=== PATIENT | male | born 1960 | race Caucasian/White ===

== ENCOUNTER 2025-01-08 15:58 | Inpatient (IN) | payer MEDICARE, OTHER ==
[~2025-01-08] VITALS: Ht 172.7 cm; Wt 144.6 kg
--- NOTE | 2025-01-08 16:26 | ED.PDOC ---
History of Present Illness HPI Comments HPI: 64 y/o M, MARTINA, presents to the ED for CC of generalized weakness. Patient states, he has been experiencing generalized weakness with an associated non- productive cough [id number]. Upon arrival to the ED, patient was found to be tachycardiac at 140bpm. Patient reports, he is currently not taking an medicat ions d/t being unable to afford medical care. Patient denies fever, chills, body-aches, or sore-throat. No other symptoms or modifying factors present at this time. Vitals Temperature: Respiratory rate: SpO2: Heart rate: Blood pressure: Past Medical History:DM, HTN, GOUT, ASTHMA, OBESITY Past Surgical History: DENIES ANY Social History: DENIES ALL HPI: Poor Historian. REVIEW OF SYSTEMS: CONSTITUTIONAL: Denies acute: fever, diaphoresis, chills, HEAD: Denies acute: headache, photophobia Eyes: Denies acute: Double vision, vision loss, eye pain, eye discharge. EARS: Denies acute: tinnitus, hearing loss, ear discharge, ear pain, THROAT: Denies acute: sore throat, swelling, difficulty swallowing , pain with swallowing, change in voice. NECK: Denies acute: neck pain, neck swelling, stiff neck. HEART: Denies acute : chest pain, palpitations, LUNGS: Denies acute: wheezing, hemoptysis ABDOMEN: Denies acute: abdominal pain, Nausea, Vomiting, diarrhea, melena , hematemesis, hematochezia SKIN: Denies acute: rash, redness, lesions, itchiness. EXTREMITIES: Denies acute: calf pain, numbness, tingling, weakness, denies pain in extremity. Denies acute: Low back pain. Neuro: Denies acute: focal neurological deficit, motor or sensory focal neurological deficit, tremors, seizure like activity, confusion, dizziness, change in mental status, loss of bowel or bladder function, cauda equina like symptoms. : Denies acute: dysuria, hematuria, flank pain, increase in urinary frequency. PSYCH: Denies acute: hallucination, suicidal ideation, homicidal ideation. PHYSICAL EXAM: General: ----mild----acute distress, awake and alert. Head: normocephalic, atraumatic. Neck: supple, trachea is midline, no swelling. Throat: Normal phonation. Eyes:, no erythema, no purulent discharge, no proptosis, no icterus. Heart: regular tachycardia, no significant murmur appreciated. Lungs: no apparent respiratory distress, Able to speak in full sentences. No wheezing, right-sided rhonchi, no crackles. No stridors Abdomen: non tender to palpation, non distended, soft, no guarding, no rebound, + bowel sounds. Morbidly obese Neuro: Awake, Alert, oriented to name, self, situation, follows commands GCS=15. Speech is normal. Skin: no petechia, no purpura, no cyanosis, non-pale, not jaundice. Lower extremities: --2/4 bilateral - Pitting edema no deformity, no focal swelling, no calf TTP. Noted bilateral above the ankle Shadi wraps for swelling control Makes eye contact. Face: no apparent facial droop. ED COURSE: Time Seen by MD: 15:55 Reviewed Notes: Nurses Notes, Medications, Allergies Allergies: Coded Allergies: No Known Drug Allergy (Verified Allergy, Unknown, 01/08/25) Information Source: Patient Mode of Arrival: EMS Severity: Moderate Timing: Weeks Duration: Since onset Prehospital treatment: None Was a procedure done? Was a procedure done?: No Differential Dx Considerations may include: Includes but not limited to thyroid disease, encephalopathy, electrolyte abnormality, sepsis, infection, intracranial pathology, drug adverse effects, arrhythmia, kidney insufficiency, ACS, CVA, malignancy, anemia X-Ray, Labs, Meds, VS Vital Signs Date Time Temp Pulse Resp B/P (MAP) Pulse Ox O2 Delivery O2 Flow Rate FiO2 01/08/25 20:06 97.9 75 18 128/71 (90) 95 97.9 01/08/25 20:06 75 18 95 Room Air* 0 21 01/08/25 20:00 139 01/08/25 17:00 97.3 140 20 125/87 (100) 99 97.3 01/08/25 17:00 Room Air* 0 21 01/08/25 16:42 97.3 140 20 125/87 (100) 99 97.3 01/08/25 16:07 136 Lab Test 01/08/25 20:48 01/08/25 20:03 01/08/25 18:17 01/08/25 17:16 Range/Units Urine Color Yellow Yellow Urine Clarity Turbid H Clear Urine pH 5.5 5.0-9.0 Urine Specific [place] 1.025 1.001-1.035 Urine Protein 1+ H Negative Urine Ketones Negative Negative Urine Blood Trace H Negative /uL Urine Nitrite Negative Negative Urine Bilirubin Negative Negative Urine Urobilinogen 4 H Negative mg/dL Urine Leukocyte Esterase 3+ Negative /uL Urine RBC 10 0 - 3 /hpf Urine Microscopic WBC 174 H 0-3 /HPF Urine Squamous Epithelial Cells Few <5 /hpf Urine Bacteria Few H None Seen /hpf Urine Hyaline Casts Few 0 - 2 /lpf Urine Mucus Few None Seen Urine Glucose Normal Normal mg/dL Troponin I High Sensitivity 13 12 10 </=54 ng/L White Blood Count 8.2 4.4-10.8 10^3/uL Red Blood Count 4.43 L 4.5-5.90 10^6/uL Hemoglobin 11.7 L 13.5-17.5 g/dL Hematocrit 36.9 L 41.0-53.0 % Mean Corpuscular Volume 83.4 80.0-100.0 fL Mean Corpuscular Hemoglobin 26.5 L 28.0-32.0 pg Mean Corpuscular Hemoglobin Concent 31.7 L 32.0-36.0 g/dL Red Cell Distribution Width 17.7 H 11.8-14.3 % Platelet Count 236 140-450 10^3/uL Mean Platelet Volume 9.1 6.9-10.8 fL Neutrophils (%) (Auto) 77.5 37.0-80.0 % Lymphocytes (%) (Auto) 9.3 L 10.0-50.0 % Monocytes (%) (Auto) 11.2 0.0-12.0 % Eosinophils (%) (Auto) 1.0 0.0-7.0 % Basophils (%) (Auto) 1.0 0.0-2.0 % Neutrophils # (Auto) 6.3 1.6-8.6 10 ^3/uL Lymphocytes # (Auto) 0.8 0.4-5.4 10 ^3/uL Monocytes # (Auto) 0.9 0-1.3 10 ^3/uL Eosinophils # (Auto) 0.1 0-0.8 10 ^3/uL Basophils # (Auto) 0.1 0-0.2 10 ^3/uL Nucleated Red Blood Cells 0.3 % Sodium Level 139 136-145 mmol/L Potassium Level 4.3 3.5-5.1 mmol/L Chloride Level 108 H 98-107 mmol/L Carbon Dioxide Level 24 20-31 mmol/L Anion Gap 7 5-15 Blood Urea Nitrogen 16 9-23 mg/dL Creatinine 1.08 0.700-1.30 mg/dL Glomerular Filtration Rate Calc 76 >90 mL/min BUN/Creatinine Ratio 14.8 10.0-20.0 Serum Glucose 198 H 74-106 mg/dL Lactic Acid Level 2.0 0.4-2.0 mmol/L Calcium Level 8.7 8.7-10.4 mg/dL Magnesium Level 1.7 1.6-2.6 mg/dL Total Bilirubin 1.0 0.2-1.0 mg/dL Aspartate Amino Transferase (AST) 17 13-40 U/L Alanine Aminotransferase (ALT) 19 7-40 U/L Alkaline Phosphatase 133 H 46-116 U/L B-Type Natriuretic Peptide 245.75 0-100 pg/mL Total Protein 5.9 5.7-8.2 g/dL Albumin 3.3 3.2-4.8 g/dL Test 01/08/25 16:40 Range/Units Influenza Type A Antigen Negative Negative Influenza Type B Antigen Negative Negative SARS-CoV-2 Antigen (Rapid) Negative NEGATIVE Current Medications Medications (Trade) Dose Ordered Sig/Fatoumata Route Start Time Stop Time Status Last Admin Sodium Chloride 1,000 ml @ 1,000 mls/hr Q1H ONCE IV 01/08/25 16:00 01/08/25 16:59 DC 01/08/25 16:48 Ceftriaxone Sodium 50 ml @ 100 mls/hr ONCE ONCE IV 01/08/25 16:00 01/08/25 16:29 DC 01/08/25 16:48 Aspirin 162 mg ONCE ONCE PO 01/08/25 21:15 01/08/25 21:48 DC 01/08/25 22:23 [facility] [id number] [place] [id number] Ph: [phone] DIAGNOSTIC IMAGING Diagnostic Imaging Report : [id number] Signed PATIENT: BERLIN FREGOSO ACCT: [id number] UNIT: [id number] : 1960 LOC: ER ROOM / BED: / AGE / SEX: 64 / M ADM STATUS: REG ER SERVICE 1604 ORDERING PHYSICIAN: FAVIAN PACE DO PROCEDURE(s): CXRP - CHEST PORTABLE REASON: COUGH/WEAK TACHY ORDER NUMBER(s): [id number], ACCESSION NUMBER(s): [id number] EXAM: XY CHEST PORTABLE REASON FOR EXAM: COUGH/WEAK TACHY TECHNIQUE: 1 view of the chest COMPARISON: None FINDINGS/IMPRESSION: LUNGS: No pleural effusion, consolidation, or pneumothorax . Central pulmonary vascular congestion. MEDIASTINUM: Mild cardiomegaly. BONES: No acute osseous abnormality OTHER: None ATED BY: LENA KEARNS MD DICTATED DATE/TIME: 01/08/251658 SIGNED BY: LENA KEARNS MD SIGNED DATE/TIME: 01/08/251658 CC: Time of 1ST Reevaluation: 18:05 (All labs are still pending.) Reevaluation 1ST: Unchanged Patient Education/Counseling: Diagnosis, Treatment Family Education/Counseling: No Family Present Comments Patient presented with the above HPI.--generalized weakness----workup was i nitiated. patient was found with the above mentioned diagnosis. the following medications were ordered: please refer to order lists of meds and tests obtained by myself Dr. Pace. Patient ED course and VS have been stabilized. Patient has been reassessed in the ED and remained in a stable condition. Pertinent incidental findings were discussed with the patient and/or family. Patient/family voices understanding and is agreeable with plan. Patient has been observed in the ED adequate length of time to insure improvement/stability. Escalation of care considered: Consideration of escalation to observation or admission Antibiotics initiated. Although chest x-ray looks normal, patient clinically is noted to have right-sided rhonchi in the presence of a cough and weakness. Patient was ADMITTED to the medicine team for further evaluation and treatment of their presentation. All the reports of any imaging studies that were ordered by myself were reviewed by myself. Departure 1 Departure Time of Disposition: 17:08 Impression: Primary Impression: Atrial flutter Additional Impressions: Generalized weakness Pneumonia UTI (urinary tract infection) Disposition: ADMITTED INPATIENT Admit to: Tele Condition: Guarded Additional Instructions: [address] [address] Ph: [phone] DIAGNOSTIC IMAGING Diagnostic Imaging Report : [id number] Signed PATIENT: BERLIN FREGOSO ACCT: [id number] UNIT: [id number] : 1960 LOC: ER ROOM / BED: / AGE / SEX: 64 / M ADM STATUS: REG ER SERVICE 160 ORDERING PHYSICIAN: FAVIAN PACE DO PROCEDURE(s): CXRP - CHEST PORTABLE REASON: COUGH/WEAK TACHY ORDER NUMBER(s): [id number], ACCESSION NUMBER(s): [id number] EXAM: XY CHEST PORTABLE REASON FOR EXAM: COUGH/WEAK TACHY TECHNIQUE: 1 view of the chest COMPARISON: None FINDINGS/IMPRESSION: LUNGS: No pleural effusion, consolidation, or pneumothorax . Central pulmonary vascular congestion. MEDIASTINUM: Mild cardiomegaly. BONES: No acute osseous abnormality OTHER: None ATED BY: LENA KEARNS MD DICTATED DATE/TIME: 01/08/251658 SIGNED BY: LENA KEARNS MD SIGNED DATE/TIME: 01/08/251658 CC: Discharged With: Self Critical Care Note Critical Care Time?: No I personally scribed for FAVIAN PACE DO ([email or web address]) on 01/08/25 at 16:26. Electronically submitted by Latha Bello ([email or web address]). I personally scribed for FAVIAN PACE DO ([email or web address]) on 01/08/25 at 17:28. Lizbeth ctronically submitted by Latha Bello ([email or web address]). FAVIAN PACE DO January 08, 2025 16:26
[2025-01-08] MEDS: cefTRIAXone 1GM/50ML D5W 50 ML IV ONE (16:48)
[2025-01-08] MEDS: SODIUM CHLORIDE 0.9% 1,000 ML IV ONE (16:48)
--- NOTE | 2025-01-08 17:01 | DVH ---
EXAM: XY CHEST PORTABLE REASON FOR EXAM: COUGH/WEAK TACHY TECHNIQUE: 1 view of the chest COMPARISON: None FINDINGS/IMPRESSION: LUNGS: No pleural effusion, consolidation, or pneumothorax . Central pulmonary vascular congestion. MEDIASTINUM: Mild cardiomegaly. BONES: No acute osseous abnormality OTHER: None
[2025-01-08 17:50] LABS: Basophils # (auto) 0.1 10 ^3/uL (0-0.2); Eosinophils # (auto) 0.1 10 ^3/uL (0-0.8); Lymphocytes # (auto) 0.8 10 ^3/uL (0.4-5.4)
[2025-01-08 17:54] LABS: Hematocrit 36.9 % (41.0-53.0); Hemoglobin 11.7 g/dL (13.5-17.5); Lymphocytes % (auto) 9.3 % (10.0-50.0); Mean Corpuscular Hemoglobin 26.5 pg (28.0-32.0); Mean Corpuscular Hgb Conc. 31.7 g/dL (32.0-36.0); Mean Corpuscular Volume 83.4 fL (80.0-100.0); Monocytes # (auto) 0.9 10 ^3/uL (0-1.3); Monocytes % (auto) 11.2 % (0.0-12.0); Neutrophils # (auto) 6.3 10 ^3/uL (1.6-8.6); Neutrophils % (auto) 77.5 % (37.0-80.0); Nucleated Red Blood Cells % 0.3 %; Platelet Count (auto) 236 10^3/uL (140-450); Red Blood Cells 4.43 10^6/uL (4.5-5.90); Red Cell Distribution Width 17.7 % (11.8-14.3); White Blood Cell 8.2 10^3/uL (4.4-10.8)
[2025-01-08 18:04] LABS: Alanine Aminotransferase 19 U/L (7-40); Albumin 3.3 g/dL (3.2-4.8); Anion Gap 7 (5-15); Aspartate Aminotransferase 17 U/L (13-40); BUN/Creatinine Ratio 14.8 (10.0-20.0); Blood Urea Nitrogen 16 mg/dL (9-23); Carbon Dioxide 24 mmol/L (20-31); Magnesium 1.7 mg/dL (1.6-2.6); Potassium 4.3 mmol/L (3.5-5.1); Sodium 139 mmol/L (136-145); Total Protein 5.9 g/dL (5.7-8.2)
[2025-01-08 18:08] LABS: Alkaline Phosphatase 133 U/L (46-116); Calcium 8.7 mg/dL (8.7-10.4); Chloride 108 mmol/L (98-107); Glucose 198 mg/dL (74-106)
[2025-01-08 19:16] LABS: COVID19 ANTIGEN SOFIA FIA NEGATIVE (NEGATIVE); Rapid Influenza A Negative (Negative); Rapid Influenza B Negative (Negative)
[2025-01-08 20:06] VITALS: PULSE 75; RESP 18; O2SAT 95
[2025-01-08 21:03] LABS: Urine Bacteria FEW /hpf (None Seen); Urine Blood TRACE /uL (Negative); Urine Clarity Turbid (Clear); Urine Color Yellow (Yellow); Urine Hyaline Cast FEW /lpf (0 - 2); Urine Mucus FEW (None Seen); Urine Protein, UAD 1+ (Negative); Urine Specific Gravity 1.025 (1.001-1.035); Urine Squamous Epithelial Cell FEW /hpf (<5); Urine Urobilinogen 4 mg/dL (Negative); Urine WBC 174 /HPF (0-3); Urine pH 5.5 (5.0-9.0)
[2025-01-08] MEDS ORDERED: HYDROcodone-ACET 5/325MG TAB PO PRN (21:15)
[2025-01-08] MEDS ORDERED: ACETAMINOPHEN 325 MG TAB PO PRN (21:15)
[2025-01-08] MEDS ORDERED: DOCUSATE SOD 100 MG CAP PO PRN (21:15)
[2025-01-08] MEDS ORDERED: DEXTROSE (50%) 50ML SYRG IV PRN (21:15)
[2025-01-08] MEDS ORDERED: hydrALAZINE HCL 20 MG/ML VL IV PRN (21:15)
--- NOTE | 2025-01-08 21:36 | DVHHP2 ---
History of Present Illness Reason for Visit: Generalized weakness History of Present Illness The patient is a 64-year-old male morbidly obese past medical history of gout, asthma, DM, and hypertension presented to [facility] ED with complaint of generalized weakness. Patient reports he has been experiencing generalized weakness associated with shortness of breaths and nonproductive cough for the past 5 weeks. Patient was seen and evaluated in the ED, laboratory data shows WBC 8.2, hemoglobin 11.7, hematocrit 36.9, platelets 236, sodium 139, potassium 4.3, BUN 16, creatinine 1.08, glucose 198, troponin 10, BNP 245.75, blood pressure 128/71, heart rate 140 trending down to 75, temperature 97.9 F, O2 saturation 95% on oxygen. Chest x-ray revealing central pulmonary vascular congestion, mild cardiomegaly. Please see medication orders section in the computer. On my assessment, patient denied chest pain, no headache, no dizziness, no diaphoresis, no nausea, no vomiting, no fever, no chills. Patient was admitted for further evaluation and medical management. Past Medical History DM, HTN, GOUT, ASTHMA, OBESITY Past Surgical History Denies all surgeries Family History Reviewed, noncontributory to the management of this case. Past Social History The patient lives at home, denies smoking, alcohol or illicit drugs abuse. Review of Systems Constitutional: Yes: Weakness; No: Fever, Chills, Sweats, Malaise, Other Eyes: No: Pain, Vision change, Conjunctivae inflammation, Eyelid inflammation, Other, Redness ENT: No: Ear pain, Ear discharge, Nose pain, Nose discharge, Nose congestion, Mouth pain, Mouth swelling, Throat pain, Throat swelling, Other Respiratory: Cough, Shortness of breath, Other (SOB at rest); No: Dry, SOB with excertion, Wheezing, Hemoptysis, Pleuritic Pain, Sputum, Wheezing Cardiovascular: No: Chest Pain, Palpitations, Orthopnea, Paroxysmal Noc. Dyspnea, Edema, Lt Headedness, Other Gastrointestinal: No: Nausea, Vomiting, Abdominal Pain, Diarrhea, Constipation, Melena, Hematochezia, Other Genitourinary: No Dysuria, No Frequency, No Incontinence, No Hematuria, No Retention, No Other Musculoskeletal: leg pain (Bilateral); No: other, neck pain, shoulder pain, arm pain, back pain, hand pain, foot pain Skin: Lesions, Other (Lower extremity open wound); No: Rash, Jaundice, Bruising Neurological: No: Weakness, Numbness, Incoordination, Change in speech, Confusion, Seizures, Other Allergies: Coded Allergies: No Known Drug Allergy (Verified Allergy, Unknown, 01/08/25) Medications Current Medications Medications Dose Ordered Sig/Fatoumata Route Start Time Stop Time Status Last Admin Dose Admin Aspirin 81 mg DAILY PO 01/09/25 10:00 UNV Hydralazine HCl 10 mg Q6HP PRN IV 01/08/25 21:15 UNV Carvedilol 3.125 mg Q12HR PO 01/08/25 22:00 UNV Diagnostic Test (Pha) 1 strip ACHS 01/08/25 22:00 UNV Insulin Human Regular HS SC 01/08/25 22:00 UNV Insulin Human Regular AC SC 01/09/25 07:00 UNV Dextrose 50 ml UD PRN IV 01/08/25 21:15 UNV Sodium Chloride 10 ml Q8HR IV 01/08/25 22:00 UNV Acetaminophen/ Hydrocodone Bitart 1 tab Q4HP PRN PO 01/08/25 21:15 UNV Ondansetron HCl 4 mg Q4HP PRN IV 01/08/25 21:15 UNV Docusate Sodium 100 mg BIDPRN PRN PO 01/08/25 21:15 UNV Acetaminophen 650 mg Q6HP PRN PO 01/08/25 21:15 UNV Exam Vital Signs Vital Signs Date Time Temp Pulse Resp B/P (MAP) Pulse Ox O2 Delivery O2 Flow Rate FiO2 01/08/25 20:06 97.9 75 18 128/71 (90) 95 97.9 01/08/25 20:06 Room Air* 0 21 General Appearance: Alert, Oriented X3, Cooperative, No acute distress HEENT: Atraumatic, PERRLA, EOMI, Mucous membr. moist/pink Respiratory: Normal air movement, Other (Congestion) Cardiovascular: Regular rate, Normal S1, Normal S2, No murmurs Abdominal: Normal bowel sounds, Soft, No tenderness, No hepatospenomegaly, No masses Extremities: No clubbing, No cyanosis, No edema, Normal pulses, No tenderness/swelling Skin: No rashes, No breakdown, No significant lesion Neuro: Normal speech, Normal tone, Sensation intact, Cranial nerves 3-12 NL, Reflexes 2+, Other (Generalized weakness) Psych/Mental Status: Mental status NL, Mood NL Labs/Xrays Labs Test 01/08/25 20:48 01/08/25 20:03 01/08/25 17:16 01/08/25 16:40 Range/Units Urine Color Yellow Yellow Urine Clarity Turbid H Clear Urine pH 5.5 5.0-9.0 Urine Specific [place] 1.025 1.001-1.035 Urine Protein 1+ H Negative Urine Ketones Negative Negative Urine Blood Trace H Negative /uL Urine Nitrite Negative Negative Urine Bilirubin Negative Negative Urine Urobilinogen 4 H Negative mg/dL Urine Leukocyte Esterase 3+ Negative /uL Urine RBC 10 0 - 3 /hpf Urine Microscopic WBC 174 H 0-3 /HPF Urine Squamous Epithelial Cells Few <5 /hpf Urine Bacteria Few H None Seen /hpf Urine Hyaline Casts Few 0 - 2 /lpf Urine Mucus Few None Seen Urine Glucose Normal Normal mg/dL Troponin I High Sensitivity 13 </=54 ng/L White Blood Count 8.2 4.4-10.8 10^3/uL Red Blood Count 4.43 L 4.5-5.90 10^6/uL Hemoglobin 11.7 L 13.5-17.5 g/dL Hematocrit 36.9 L 41.0-53.0 % Mean Corpuscular Volume 83.4 80.0-100.0 fL Mean Corpuscular Hemoglobin 26.5 L 28.0-32.0 pg Mean Corpuscular Hemoglobin Concent 31.7 L 32.0-36.0 g/dL Red Cell Distribution Width 17.7 H 11.8-14.3 % Platelet Count 236 140-450 10^3/uL Mean Platelet Volume 9.1 6.9-10.8 fL Neutrophils (%) (Auto) 77.5 37.0-80.0 % Lymphocytes (%) (Auto) 9.3 L 10.0-50.0 % Monocytes (%) (Auto) 11.2 0.0-12.0 % Eosinophils (%) (Auto) 1.0 0.0-7.0 % Basophils (%) (Auto) 1.0 0.0-2.0 % Neutrophils # (Auto) 6.3 1.6-8.6 10 ^3/uL Lymphocytes # (Auto) 0.8 0.4-5.4 10 ^3/uL Monocytes # (Auto) 0.9 0-1.3 10 ^3/uL Eosinophils # (Auto) 0.1 0-0.8 10 ^3/uL Basophils # (Auto) 0.1 0-0.2 10 ^3/uL Nucleated Red Blood Cells 0.3 % Sodium Level 139 136-145 mmol/L Potassium Level 4.3 3.5-5.1 mmol/L Chloride Level 108 H 98-107 mmol/L Carbon Dioxide Level 24 20-31 mmol/L Anion Gap 7 5-15 Blood Urea Nitrogen 16 9-23 mg/dL Creatinine 1.08 0.700-1.30 mg/dL Glomerular Filtration Rate Calc 76 >90 mL/min BUN/Creatinine Ratio 14.8 10.0-20.0 Serum Glucose 198 H 74-106 mg/dL Lactic Acid Level 2.0 0.4-2.0 mmol/L Calcium Level 8.7 8.7-10.4 mg/dL Magnesium Level 1.7 1.6-2.6 mg/dL Total Bilirubin 1.0 0.2-1.0 mg/dL Aspartate Amino Transferase (AST) 17 13-40 U/L Alanine Aminotransferase (ALT) 19 7-40 U/L Alkaline Phosphatase 133 H 46-116 U/L B-Type Natriuretic Peptide 245.75 0-100 pg/mL Total Protein 5.9 5.7-8.2 g/dL Albumin 3.3 3.2-4.8 g/dL Influenza Type A Antigen Negative Negative Influenza Type B Antigen Negative Negative SARS-CoV-2 Antigen (Rapid) Negative NEGATIVE PATIENT: BERLIN FREGOSO ACCT: [id number] UNIT: [id number] : 1960 LOC: ER ROOM / BED: / AGE / SEX: 64 / M ADM STATUS: REG ER SERVICE 1604 ORDERING PHYSICIAN: FAVIAN PACE DO PROCEDURE(s): CXRP - CHEST PORTABLE REASON: COUGH/WEAK TACHY ORDER NUMBER(s): [id number], ACCESSION NUMBER(s): [id number] EXAM: XY CHEST PORTABLE REASON FOR EXAM: COUGH/WEAK TACHY TECHNIQUE: 1 view of the chest COMPARISON: None FINDINGS/IMPRESSION: LUNGS: No pleural effusion, consolidation, or pneumothorax. Central pulmonary vascular congestion. MEDIASTINUM: Mild cardiomegaly. BONES: No acute osseous abnormality Assessment/Plan Assessment/Plan Atrial flutter Morbid obesity Pulmonary vascular congestion Generalized weakness Diabetes mellitus with hyperglycemia Plan 1. Admit to telemetry unit 2. Breathing treatment 3. Pain control management 4. Management of fluids and electrolytes 5. Consultation for hospitalist 6. Diagnostic tests chest x-ray 7. DVT prophylaxis-on aspirin 8. Repeat labs CBC, CMP in a.m. 9. Continue with current medical management 10. Treatment plan discussed with patient and RN. Patient verbalized understanding. Plan discussed with: Patient, Other (RN) My Orders Orders - SKIP VALDERRAMA DNP Procedure Category Date Status Time Consistent DIET 01/09/25 Transmitted Carb(Ccho)Diabetes Breakfast Aspirin Tablet PHA 01/09/25 Logged 10:00 Aspirin Tablet PHA 01/08/25 Logged 21:15 Hydralazine Injection PHA 01/08/25 Logged (Apresoline Inject 21:15 Carvedilol Tablet PHA 01/08/25 Logged (Coreg Tablet) 22:00 Glucose Blood PHA 01/08/25 Logged (Accu-Chek Comfort 22:00 Insulin R (Human) PHA 01/08/25 Logged (Insulin R) 22:00 Insulin R (Human) PHA 01/09/25 Logged (Insulin R) 07:00 Dextrose 50% Syringe PHA 01/08/25 Logged 21:15 Allergies [facility] 01/08/25 In Process 21:09 Code Status CODE 01/08/25 Transmitted 21:09 Sodium Chloride Lock PHA 01/08/25 Logged (Saline Lock Ns) 22:00 Oxygen Per Hour RT 01/08/25 Transmitted 21:09 Hydrocodone-Acet PHA 01/08/25 Logged 5/325mg Tab ([place] 21:15 Ondansetron Hcl PHA 01/08/25 Logged (Zofran) 21:15 Docusate Sodium PHA 01/08/25 Logged Capsule (Colace 21:15 Complete Blood Count LAB 01/09/25 Verified 04:00 Comprehensive LAB 01/09/25 Verified Metabolic Panel 04:00 Condition: Serious MARCELO 01/08/25 In Process 21:09 Acetaminophen Tablet PHA 01/08/25 Logged (Tylenol Tablet) 21:15 Bedrest With Bathroom MARCELO 01/08/25 In Process Privileg 21:09 Sequential MARCELO 01/08/25 In Process Compression Device Problem List: (1) Atrial flutter (2) Morbid obesity (3) Pulmonary vascular congestion (4) Generalized weakness (5) Diabetes mellitus with hyperglycemia Date of Service: January 08, 2025 Billing Provider: SKIP VALDERRAMA DNP Common Visit Codes: [id number] INP/OBS CARE (HIGH) SKIP VALDERRAMA DNP January 08, 2025 21:35
[2025-01-08] MEDS ORDERED: NITROGLYCERIN 0.4 MG SL TAB SL PRN (21:45)
[2025-01-08] MEDS ORDERED: MORPHINE SULFATE INJ 2 MG/ml SYRG IV PRN (21:45)
[2025-01-08] MEDS: InsuLIN REG 1unit/0.01ml Soln (100units/ml) SC SCH (22:00)
[2025-01-08] MEDS: ASPirin 81 mg TAB PO ONE (22:23)
[2025-01-08] MEDS: CARVEDILOL 3.125 MG TAB PO SCH (22:24)
[2025-01-08] MEDS: SODIUM CHLOR 0.9% PF (SALINE LOCK) 10ML VIAL/SYR IV SCH (22:24)
[2025-01-08] MEDS: ACCU-CHEK COMFORT CURVE STRIP VI SCH (22:25)
[2025-01-08] MEDS: FUROSEMIDE 40 MG/4 ML VIAL IV ONE (23:28)
[2025-01-09] VITALS (9 sets, daily range): BP systolic 98–126; BP diastolic 64–86; PULSE 123–133; RESP 16–20; TEMP 96.7–97.9; O2SAT 96–98
[2025-01-09] MEDS: InsuLIN REG 1unit/0.01ml Soln (100units/ml) SC SCH (06:25)
[2025-01-09 07:20] LABS: Basophils # (auto) 0.1 10 ^3/uL (0-0.2); Eosinophils # (auto) 0.2 10 ^3/uL (0-0.8); Hematocrit 38.6 % (41.0-53.0); Hemoglobin 12.3 g/dL (13.5-17.5); Lymphocytes # (auto) 1.1 10 ^3/uL (0.4-5.4); Lymphocytes % (auto) 12.9 % (10.0-50.0); Mean Corpuscular Hemoglobin 26.4 pg (28.0-32.0); Mean Corpuscular Hgb Conc. 31.8 g/dL (32.0-36.0); Mean Corpuscular Volume 83.1 fL (80.0-100.0); Monocytes # (auto) 0.9 10 ^3/uL (0-1.3); Neutrophils # (auto) 6.2 10 ^3/uL (1.6-8.6); Neutrophils % (auto) 73.1 % (37.0-80.0); Nucleated Red Blood Cells % 0.1 %; Platelet Count (auto) 245 10^3/uL (140-450); Red Blood Cells 4.65 10^6/uL (4.5-5.90); Red Cell Distribution Width 17.4 % (11.8-14.3); White Blood Cell 8.5 10^3/uL (4.4-10.8)
[2025-01-09 07:24] LABS: Alanine Aminotransferase 18 U/L (7-40); Albumin 3.4 g/dL (3.2-4.8); Anion Gap 8 (5-15); Aspartate Aminotransferase 18 U/L (13-40); BUN/Creatinine Ratio 12.7 (10.0-20.0); Blood Urea Nitrogen 14 mg/dL (9-23); Carbon Dioxide 28 mmol/L (20-31); Chloride 103 mmol/L (98-107); Potassium 4.3 mmol/L (3.5-5.1); Sodium 139 mmol/L (136-145); Total Protein 6.1 g/dL (5.7-8.2)
[2025-01-09 07:31] LABS: Alkaline Phosphatase 123 U/L (46-116); Bilirubin, Total 1.3 mg/dL (0.2-1.0); Calcium 8.5 mg/dL (8.7-10.4); Glucose 108 mg/dL (74-106)
[2025-01-09] MEDS: ASPirin 81 mg TAB PO SCH (10:26)
--- NOTE | 2025-01-09 13:13 | DVHPN2 ---
Reviewed: Care Plan, H&P, Labs, Medications, Previous Orders, Radiology Changes from previous H/P or p: No Changes Eyes: No Pain, No Vision change, No Conjunctivae inflammation, No Eyelid inflammation, No Other, No Redness ENT: No Ear pain, No Ear discharge, No Nose pain, No Nose discharge, No Nose congestion, No Mouth pain, No Mouth swelling, No Throat pain, No Throat swelling, No Other Cardiovascular: No Chest Pain, No Palpitations, No Orthopnea, No Paroxysmal Noc. Dyspnea, No Edema, No Lt Headedness, No Other Respiratory: Cough; No Dry; Shortness of breath; No SOB with excertion, No Wheezing, No Hemoptysis, No Pleuritic Pain, No Sputum; Other (SOB at rest) Gastrointestinal: No Nausea, No Vomiting, No Abdominal Pain, No Diarrhea, No Constipation, No Melena, No Hematochezia, No Other Genitourinary: No Dysuria, No Frequency, No Incontinence, No Hematuria, No Retention, No Other Musculoskeletal: No other, No neck pain, No shoulder pain, No arm pain, No back pain, No hand pain; leg pain (Bilateral); No foot pain Skin: No Rash; Lesions; No Jaundice, No Bruising; Other (Lower extremity open wound) Objective Vitals Vital Signs Date Time Temp Pulse Resp B/P (MAP) Pulse Ox O2 Delivery O2 Flow Rate FiO2 01/09/25 12:53 96.9 129 20 108/72 (84) 97 96.9 01/09/25 08:00 Room Air* 0 21 Intake/Output Intake and Output 01/09/25 07:00 Intake Total 1150 ml Balance 1150 ml Intake Oral 100 ml IV Total 1050 ml # Voids 1 Medications Current Medications Medications Dose Ordered Sig/Fatoumata Route Start Time Stop Time Status Last Admin Dose Admin Aspirin 81 mg DAILY PO 01/09/25 10:00 01/09/25 10:26 81 MG Hydralazine HCl 10 mg Q6HP PRN IV 01/08/25 21:15 Carvedilol 3.125 mg Q12HR PO 01/08/25 22:00 01/09/25 10:27 3.125 MG Diagnostic Test (Pha) 1 strip ACHS 01/08/25 22:00 01/09/25 10:32 1 STRIP Insulin Human Regular HS SC 01/08/25 22:00 Insulin Human Regular AC SC 01/09/25 07:00 01/09/25 11:52 2 UNITS Dextrose 50 ml UD PRN IV 01/08/25 21:15 Sodium Chloride 10 ml Q8HR IV 01/08/25 22:00 01/09/25 12:45 10 ML Acetaminophen/ Hydrocodone Bitart 1 tab Q4HP PRN PO 01/08/25 21:15 Ondansetron HCl 4 mg Q4HP PRN IV 01/08/25 21:15 Docusate Sodium 100 mg BIDPRN PRN PO 01/08/25 21:15 Acetaminophen 650 mg Q6HP PRN PO 01/08/25 21:15 Nitroglycerin 0.4 mg Q5MINP PRN SL 01/08/25 21:45 Morphine Sulfate 2 mg Q30M PRN IV 01/08/25 21:45 Ceftriaxone Sodium 50 ml @ 100 mls/hr DAILY@09 IV 01/10/25 09:00 UNV Laboratory Results Laboratory Tests 01/09/25 06:06 Chemistry Test 01/08/25 17:16 01/09/25 06:06 Albumin 3.3 g/dL (3.2-4.8) 3.4 g/dL (3.2-4.8) Calcium Level 8.7 mg/dL (8.7-10.4) 8.5 mg/dL (8.7-10.4) L Magnesium Level 1.7 mg/dL (1.6-2.6) Total Protein 5.9 g/dL (5.7-8.2) 6.1 g/dL (5.7-8.2) Cardiac Markers Test 01/08/25 17:16 B-Type Natriuretic Peptide 245.75 pg/mL (0-100) LFT Test 01/08/25 17:16 01/09/25 06:06 Alanine Aminotransferase (ALT) 19 U/L (7-40) 18 U/L (7-40) Alkaline Phosphatase 133 U/L (46-116) H 123 U/L (46-116) H Aspartate Amino Transferase (AST) 17 U/L (13-40) 18 U/L (13-40) Total Bilirubin 1.0 mg/dL (0.2-1.0) 1.3 mg/dL (0.2-1.0) H Urinalysis Test 01/08/25 20:48 Urine Color Yellow (Yellow) Urine Clarity Turbid (Clear) H Urine pH 5.5 (5.0-9.0) Urine Specific [place] 1.025 (1.001-1.035) Urine Protein 1+ (Negative) H Urine Ketones Negative (Negative) Urine Blood Trace /uL (Negative) H Urine Nitrite Negative (Negative) Urine Bilirubin Negative (Negative) Urine Urobilinogen 4 mg/dL (Negative) H Urine Leukocyte Esterase 3+ /uL (Negative) Urine RBC 10 /hpf (0 - 3) Urine Microscopic WBC 174 /HPF (0-3) H Urine Squamous Epithelial Cells Few /hpf (<5) Urine Bacteria Few /hpf (None Seen) H Urine Hyaline Casts Few /lpf (0 - 2) Urine Mucus Few (None Seen) Urine Glucose Normal mg/dL (Normal) Labs and/or images reviewed: Labs reviewed by me, Image(s) reviewed by me Assessment/Plan Assessment/Plan Sepsis secondary to acute urinary tract infection: Blood cultures urine cultures Acute UTI: Rocephin Possible community-acquired pneumonia: Rocephin Acute metabolic encephalopathy Diabetes Hypertension Gout History of asthma Moderate obesity Flu test negative COVID test negative Chest x-ray negative Nonhealing left leg wound: Wound cultures vancomycin CT abdomen pelvis without contrast pending Morbid obesity Time spent 70 minutes Advanced care planning time 20 minutes Patient is full code Social service consult for PCP Plan discussed with: Patient My Orders Orders - MCKAY MENJIVAR MD Procedure Category Date Status Time Wound Culture W/ Gs EDER 01/09/25 In Process 11:53 Urine Bacterial EDER 01/09/25 Transmitted Culture 13:06 Ceftriaxone Ivpb PHA 01/10/25 Transmitted Rocephin 09:00 Ceftriaxone Ivpb PHA 01/09/25 Transmitted Rocephin 13:15 Date of Service: January 09, 2025 Billing Provider: MCKAY MENJIVAR MD Common Visit Codes: [id number] CARE 30-74 MIN MCKAY MENJIVAR MD January 09, 2025 13:13
[2025-01-09] MEDS: cefTRIAXone 1GM/50ML D5W 50 ML IV ONE (14:20)
--- NOTE | 2025-01-09 16:26 | DVH ---
Exam: CT CT AB PEL WO CON-NO ORAL OR IV History: UTI rule out enlarged prostate Comparison Study: None TECHNIQUE: Multidetector CT of the abdomen was performed from lung bases to pubic symphysis. Imaging was performed without IV contrast. Axial, coronal and sagittal multiplanar reformats were obtained fr om the axial data set by the technologist. Radiation Dose Information: CT Dose: CTDI volume is 27.11 mGy. Dose-length product is 1640.05 mGy*cm FINDINGS: Evaluation of solid organs is limited due to lack of intravenous contrast use. Findings: Lung Bases: No acute or significant lung base finding. Normal heart size. No pleural or pericardial effusion. Liver: The liver is normal in size. No focal lesions. Gallbladder and Biliary Tree: Calcified gallstones Spleen: Unremarkable Pancreas: The pancreas is grossly normal in appearance. Adrenal Glands: Unremarkable Kidneys: Kidneys are grossly normal without calculi or hydronephrosis. Bladder: Grossly unremarkable for degree of distention. Bowel: The stomach is grossly normal in appearance. Small bowel and colon are normal in caliber and d istribution. The appendix is not visualized; however, no secondary findings of acute appendicitis id entified. Ascites: Absent Lymphadenopathy: No mesenteric, retroperitoneal or periportal lymphadenopathy. Abdominal Wall and Mesentery: Unremarkable. Vasculature: The visualized abdominal aorta is normal in size and caliber. Evaluation of abdominal a nd pelvic vessels is limited due to lack of intravenous contrast. Pelvic Organs: Prostate measures 4.9 x 4.1 x 4.4 cm and is partially calcified. Musculoskeletal: No aggressive focal bony lesions, acute fractures or dislocation. Soft tissues: Unremarkable IMPRESSION: 1. Prostate measures 4.4 by 4.9 x 4.1 cm and is partially calcified. 2. Cholelithiasis. 3. Moderate hiatal hernia Radiation optimization: All CT scans at this facility use at least one of these dose optimization te chniques: automated exposure control mA and/or kV adjustment per patient size (includes targeted exa ms where dose is matched to clinical indication) or iterative reconstruction.
--- NOTE | 2025-01-09 17:58 | DVH ---
EXAM: US BILAT LOWER DVT Clinical History: Rule out DVT Comparison: None Technique: Duplex Doppler evaluation of the deep venous systems of both lower extremities from the co mmon femoral veins to the popliteal veins including color Doppler and spectral/pulsed waveform analys is was performed. Findings: RIGHT SIDE: The common femoral vein demonstrates appropriate compressibility and waveform variability. There is compressibility/patency of the great saphenous vein at the proximal thigh. The femoral vein demonstrates appropriate compressibility and waveform variability. The deep femoral vein demonstrates appropriate compressibility and waveform variability. The popliteal vein demonstrates appropriate compressibility and waveform variability. There is color flow at the tibioperoneal trunk and in the posterior tibial vein. LEFT SIDE: The common femoral vein demonstrates appropriate compressibility and waveform variability. There is compressibility/patency of the great saphenous vein at the proximal thigh. The femoral vein demonstrates appropriate compressibility and waveform variability. The deep femoral vein demonstrates appropriate compressibility and waveform variability. The popliteal vein demonstrates appropriate compressibility and waveform variability. The tibioperoneal trunk is patent. Posterior tibial vein could not be evaluated due to overlying ban dage. Impression: 1. No right or left femoropopliteal venous thrombosis.
--- NOTE | 2025-01-09 18:28 | DVH ---
EXAM: US LOW EXT ART DUPLEX HISTORY: Chronic nonhealing left leg wd COMPARISON: None TECHNIQUE: Ultrasound left lower extremity arterial duplex. Realtime grayscale and color Doppler u ltrasound images of the lower extremity arteries with spectral waveform analysis were obtained. FINDINGS: LEFT: Mild atherosclerotic plaque identified. No hemodynamically significant stenosis noted. Normal spectral tracings. Peak systolic velocities measure up to 90 cm/s. In the proximal superficial femo ral artery IMPRESSION: 1. No hemodynamically significant stenosis identified. 2. No occlusion of any arteries on the left. 3. Triphasic waveform throughout the left lower extremity. REFERENCE VALUES, [facility] ([facility]) vascular Imaging Lab Criteria: Peak systolic velocity ranges (in cm/sec) are as follows: <150 cm/s - <20 % stenosis 150-200 cm/s - 20-49% stenosis 200-300 cm/s - 50-75% stenosis >300 cm/s -> 75% stenosis
[2025-01-10] VITALS (8 sets, daily range): BP systolic 96–113; BP diastolic 64–90; PULSE 100–131; RESP 16–20; TEMP 97–98; O2SAT 94–99
--- NOTE | 2025-01-10 08:45 | DVHPN2 ---
Reviewed: Care Plan, H&P, Labs, Medications, Previous Orders, Radiology Changes from previous H/P or p: No Changes Eyes: No Pain, No Vision change, No Conjunctivae inflammation, No Eyelid inflammation, No Other, No Redness ENT: No Ear pain, No Ear discharge, No Nose pain, No Nose discharge, No Nose congestion, No Mouth pain, No Mouth swelling, No Throat pain, No Throat swelling, No Other Cardiovascular: No Chest Pain, No Palpitations, No Orthopnea, No Paroxysmal Noc. Dyspnea, No Edema, No Lt Headedness, No Other Respiratory: Cough; No Dry; Shortness of breath; No SOB with excertion, No Wheezing, No Hemoptysis, No Pleuritic Pain, No Sputum; Other (SOB at rest) Gastrointestinal: No Nausea, No Vomiting, No Abdominal Pain, No Diarrhea, No Constipation, No Melena, No Hematochezia, No Other Genitourinary: No Dysuria, No Frequency, No Incontinence, No Hematuria, No Retention, No Other Musculoskeletal: No other, No neck pain, No shoulder pain, No arm pain, No back pain, No hand pain; leg pain (Bilateral); No foot pain Skin: No Rash; Lesions; No Jaundice, No Bruising; Other (Lower extremity open wound) Objective Vitals Vital Signs Date Time Temp Pulse Resp B/P (MAP) Pulse Ox O2 Delivery O2 Flow Rate FiO2 01/10/25 05:00 97.9 129 17 109/66 (80) 94 97.9 01/09/25 20:00 Room Air* 0 21 Intake/Output Intake and Output 01/10/25 07:00 Intake Total 1530 ml Balance 1530 ml Intake Oral 1480 ml IV Total 50 ml # Voids 7 # Bowel Movements 1 Medications Current Medications Medications Dose Ordered Sig/Fatoumata Route Start Time Stop Time Status Last Admin Dose Admin Aspirin 81 mg DAILY PO 01/09/25 10:00 01/09/25 10:26 81 MG Hydralazine HCl 10 mg Q6HP PRN IV 01/08/25 21:15 Carvedilol 3.125 mg Q12HR PO 01/08/25 22:00 01/09/25 21:31 3.125 MG Diagnostic Test (Pha) 1 strip ACHS 01/08/25 22:00 01/10/25 06:22 1 STRIP Insulin Human Regular HS SC 01/08/25 22:00 01/09/25 22:12 2 UNITS Insulin Human Regular AC SC 01/09/25 07:00 01/09/25 11:52 2 UNITS Dextrose 50 ml UD PRN IV 01/08/25 21:15 Sodium Chloride 10 ml Q8HR IV 01/08/25 22:00 01/10/25 06:22 10 ML Acetaminophen/ Hydrocodone Bitart 1 tab Q4HP PRN PO 01/08/25 21:15 Ondansetron HCl 4 mg Q4HP PRN IV 01/08/25 21:15 Docusate Sodium 100 mg BIDPRN PRN PO 01/08/25 21:15 Acetaminophen 650 mg Q6HP PRN PO 01/08/25 21:15 Nitroglycerin 0.4 mg Q5MINP PRN SL 01/08/25 21:45 Morphine Sulfate 2 mg Q30M PRN IV 01/08/25 21:45 Ceftriaxone Sodium 50 ml @ 100 mls/hr DAILY@09 IV 01/10/25 09:00 Laboratory Results Laboratory Tests 01/09/25 06:06 Urinalysis Test 01/08/25 20:48 Urine Color Yellow (Yellow) Urine Clarity Turbid (Clear) H Urine pH 5.5 (5.0-9.0) Urine Specific [place] 1.025 (1.001-1.035) Urine Protein 1+ (Negative) H Urine Ketones Negative (Negative) Urine Blood Trace /uL (Negative) H Urine Nitrite Negative (Negative) Urine Bilirubin Negative (Negative) Urine Urobilinogen 4 mg/dL (Negative) H Urine Leukocyte Esterase 3+ /uL (Negative) Urine RBC 10 /hpf (0 - 3) Urine Microscopic WBC 174 /HPF (0-3) H Urine Squamous Epithelial Cells Few /hpf (<5) Urine Bacteria Few /hpf (None Seen) H Urine Hyaline Casts Few /lpf (0 - 2) Urine Mucus Few (None Seen) Urine Glucose Normal mg/dL (Normal) Microbiology Microbiology Date/Time Source Procedure Growth Status 01/08/25 17:16 Blood Blood Culture - Preliminary NO GROWTH AFTER 24 HOURS OF INCUBATION. Resulted Labs and/or images reviewed: Labs reviewed by me, Image(s) reviewed by me Assessment/Plan Assessment/Plan Sepsis secondary to acute urinary tract infection: Blood cultures negative, urine cultures pending Acute UTI: Rocephin Possible community-acquired pneumonia: Rocephin Acute metabolic encephalopathy Diabetes Hypertension Gout History of asthma Bilateral lower extremity swelling rule out CHF: Consult for Cardiology Dr. Vazquez, jessica Moderate obesity Flu test negative COVID test negative Chest x-ray negative Nonhealing left leg wound: Wound cultures vancomycin DVT ruled out Peripheral arterial disease ruled out CT abdomen pelvis without contrast shows slightly enlarged prostate Morbid obesity BMI 51 Time spent 50 minutes Advanced care planning time 20 minutes Patient is full code Social service consult for PCP Plan discussed with: Patient My Orders Orders - MCKAY MENJIVAR MD Procedure Category Date Status Time Wound Culture W/ Gs EDER 01/09/25 In Process 11:53 Urine Bacterial EDER 01/09/25 Logged Culture 13:06 Ceftriaxone 1gm/50ml PHA 01/10/25 In Process D5w (Rocephin) 09:00 Ct Ab Pel Wo Con-No CT 01/09/25 Resulted Oral Or Iv 13:07 * Paying Teller CONS 01/09/25 Transmitted Consult Bilat Lower Dvt US 01/09/25 Resulted 13:13 Lt Low Ext Art Duplex US 01/09/25 Resulted 13:13 Cleanse Wound With MARCELO 01/09/25 In Process Wound Clean 11:14 * Dietary Consult CONS 01/09/25 Transmitted 14:45 Date of Service: January 10, 2025 Billing Provider: MCKAY MENJIVAR MD Common Visit Codes: [id number] INP/OBS CARE(HIGH) MCKAY MENJIVAR MD January 10, 2025 08:45
[2025-01-10] MEDS: cefTRIAXone 1GM/50ML D5W 50 ML IV SCH (09:18)
[2025-01-10] MEDS: DIGOXIN (250MCG/ML) 2 ML AMPULE IV ONE (12:21)
[2025-01-10] MEDS: APIXABAN 5 MG TAB PO SCH (12:22)
[2025-01-10] MEDS: AMIODARONE BOLUS KIT 100 ML IV ONE (12:22)
[2025-01-10] MEDS: AMIODARONE 360mg/200mL PREMIX 200 ML IV ONE (12:30)
--- NOTE | 2025-01-10 12:37 | DVHINCON2 ---
DAVID BANG [facility] 01/10/25 1237: Date Seen: January 10, 2025 Referring Physician MD Rod Reason for Consultation Bilateral lower extremity edema, rule out CHF History of Present Illness This is a 64-year-old male patient who presents to the emergency room with chief complaint of generalized weakness, cough, and sputum production for approximately five weeks. He comes to the emergency room for further eval uation. Cardiology has been consulted at this time to rule out congestive heart failure. Initial twelve lead electrocardiogram reveals atrial flutter with 2:1 conduction. The patient denies any chest pain. Initial serial troponin levels have been negative. Initial BNP level of 245.75pg/mL. Significant past medical history includes hypertension, type 2 diabetes mellitus, lower extremity cellulitis, lymphedema, asthma, gout, and morbid obesity. Past Medical History Past medical history reviewed. No other significant than mentioned above. Past Surgical History Denies any previous surgeries Family History: FH: CHF (congestive heart failure) G8 MOTHER, FH: cancer G8 FATHER, Family History Family history reviewed. Social History Patient denies any tobacco use Denies any illicit drug use Patient admits to drinking approximately four shots of bourbon per week Allergies: Coded Allergies: No Known Drug Allergy (Verified Allergy, Unknown, 01/08/25) Home Meds No Active Prescriptions or Reported Meds Home Meds Denies taking any prescribed medications Current Medications Current Medications Medications (Trade) Dose Ordered Sig/Fatoumata Route PRN Reason Start Time Stop Time Status Last Admin Ceftriaxone Sodium 50 ml @ 100 mls/hr DAILY@09 IV 01/10/25 09:00 01/10/25 09:18 Apixaban (Eliquis) 5 mg BID PO 01/10/25 11:30 01/10/25 12:22 Review of Systems Constitutional: Generalized weakness Ears, Nose, & Throat: No symptom reported Eyes: No symptom reported Neurological: No symptoms reported Pulmonary/Respiratory: Cough Cardiovascular: No symptom reported Gastrointestinal: No symptom reported Genitourinary: No symptom reported Musculoskeletal: No symptom reported Skin: No symptom reported Psychiatric: No symptom reported Endocrine: No symptom reported Hematologic/Lymphatic: No symptom reported Vital Signs Vital Signs Date Time Temp Pulse Resp B/P (MAP) Pulse Ox O2 Delivery O2 Flow Rate FiO2 01/10/25 12:34 97.9 131 16 96/66 (76) 95 97.9 01/10/25 08:00 Room Air* 0 21 Physical Exam General Appearance: Cooperative. Morbidly obese Pulmonary/Respiratory: Clear, bilateral breaths sounds. Cardiovascular/Chest: Regular rate and rhythm. Peripheral Pulses: 2+ Radial (R). 2+ Radial (L). Abdominal Exam: Normal bowel sounds. Ankle Exam: Negative ankle edema Lower extremities: Negative lower extremity edema Neuro/Mental Status: A/OX4, coherent. Thoughts/Psych: Normal thought pattern. Appropriate mood and affect. Good judgment and insight. Appearance: No acute distress. Skin Exam: Discolored bilateral lower extremities. Weeping wound to left lower extremity, currently wrapped with dressing. Labs/Diagnostic Data Labs Test 01/10/25 10:17 01/10/25 09:04 01/09/25 06:06 01/08/25 20:48 Range/Units POC Glucose 139 H 70-106 mg/dl White Blood Count 8.5 4.4-10.8 10^3/uL Red Blood Count 4.65 4.5-5.90 10^6/uL Hemoglobin 12.3 L 13.5-17.5 g/dL Hematocrit 38.6 L 41.0-53.0 % Mean Corpuscular Volume 83.1 80.0-100.0 fL Mean Corpuscular Hemoglobin 26.4 L 28.0-32.0 pg Mean Corpuscular Hemoglobin Concent 31.8 L 32.0-36.0 g/dL Red Cell Distribution Width 17.4 H 11.8-14.3 % Platelet Count 245 140-450 10^3/uL Mean Platelet Volume 9.2 6.9-10.8 fL Neutrophils (%) (Auto) 73.1 37.0-80.0 % Lymphocytes (%) (Auto) 12.9 10.0-50.0 % Monocytes (%) (Auto) 11.0 0.0-12.0 % Eosinophils (%) (Auto) 2.0 0.0-7.0 % Basophils (%) (Auto) 1.0 0.0-2.0 % Neutrophils # (Auto) 6.2 1.6-8.6 10 ^3/uL Lymphocytes # (Auto) 1.1 0.4-5.4 10 ^3/uL Monocytes # (Auto) 0.9 0-1.3 10 ^3/uL Eosinophils # (Auto) 0.2 0-0.8 10 ^3/uL Basophils # (Auto) 0.1 0-0.2 10 ^3/uL Nucleated Red Blood Cells 0.1 % Sodium Level 139 136-145 mmol/L Potassium Level 4.3 3.5-5.1 mmol/L Chloride Level 103 98-107 mmol/L Carbon Dioxide Level 28 20-31 mmol/L Anion Gap 8 5-15 Blood Urea Nitrogen 14 9-23 mg/dL Creatinine 1.10 0.700-1.30 mg/dL Glomerular Filtration Rate Calc 75 >90 mL/min BUN/Creatinine Ratio 12.7 10.0-20.0 Serum Glucose 108 H 74-106 mg/dL Hemoglobin A1c 6.4 H <5.7 % A1C Calcium Level 8.5 L 8.7-10.4 mg/dL Total Bilirubin 1.3 H 0.2-1.0 mg/dL Aspartate Amino Transferase (AST) 18 13-40 U/L Alanine Aminotransferase (ALT) 18 7-40 U/L Alkaline Phosphatase 123 H 46-116 U/L Total Protein 6.1 5.7-8.2 g/dL Albumin 3.4 3.2-4.8 g/dL Urine Color Yellow Yellow Urine Clarity Turbid H Clear Urine pH 5.5 5.0-9.0 Urine Specific [place] 1.025 1.001-1.035 Urine Protein 1+ H Negative Urine Ketones Negative Negative Urine Blood Trace H Negative /uL Urine Nitrite Negative Negative Urine Bilirubin Negative Negative Urine Urobilinogen 4 H Negative mg/dL Urine Leukocyte Esterase 3+ Negative /uL Urine RBC 10 0 - 3 /hpf Urine Microscopic WBC 174 H 0-3 /HPF Urine Squamous Epithelial Cells Few <5 /hpf Urine Bacteria Few H None Seen /hpf Urine Hyaline Casts Few 0 - 2 /lpf Urine Mucus Few None Seen Urine Glucose Normal Normal mg/dL Test 01/08/25 20:03 01/08/25 17:16 01/08/25 16:40 Range/Units Troponin I High Sensitivity 13 </=54 ng/L Lactic Acid Level 2.0 0.4-2.0 mmol/L Magnesium Level 1.7 1.6-2.6 mg/dL B-Type Natriuretic Peptide 245.75 0-100 pg/mL Influenza Type A Antigen Negative Negative Influenza Type B Antigen Negative Negative SARS-CoV-2 Antigen (Rapid) Negative NEGATIVE Microbiology Date/Time Source Procedure Growth Status 01/09/25 11:20 Leg Left Gram Stain Pending Resulted 01/09/25 11:20 Leg Left Wound Culture - Preliminary Resulted 01/08/25 17:16 Blood Blood Culture - Preliminary NO GROWTH AFTER 24 HOURS OF INCUBATION. Resulted Assessment Acute on chronic decompensated HFrEF, NYHA class III, newly diagnosed Atrial flutter, newly diagnosed Hypertension Moderate mitral valve regurgitation Tila-iy-hhmpohal tricuspid valve regurgitation Asthma Type 2 diabetes mellitus Urinary tract infection Lymphedema Morbid obesity Plan/Recommendation We will continue with the following plan/recommendations (Dr. Mari): * Transthoracic echocardiogram reveals EF 15% with severe biatrial enlargement * Initiate guideline directed medical therapy for CHF * Hold SGLT2i given current urinary tract infection * Initiate MRA (spironolactone) if tolerated by blood pressure * Strict intake and output, daily weights, maintain fluid restriction * [id number] VASc score: 4 points , HAS-BLED: 0 points * Initiate NOAC therapy with Eliquis * Beta-jass for rate control, up titrated as needed * Digoxin loading dose for rate control * Monitor and replete electrolytes as needed, keep potassium greater than four and magnesium greater than two * Close Cardiac surveillance Case discussed with Dr. Mari. Thank you for allowing us to care for this patient. Please call with any questions or concerns. Critical care time spent: 44 minutes This medical document was created using an electronic medical record system with voice recognition software and computerized dictation system. Although this document has been carefully reviewed, there might still be some phonetic and typographical errors. Occasional wrong-word or ``sound-alike substitutions may have occurred due to the inherent limitations of voice recognition software. These areas are purely typographical due to imperfections of the software programs and do not reflect any compromise in the patient's medical care. Please read the chart carefully and recognize, using context, where these substitutions have occurred. Plan discussed with: Patient NYHA Physical activity limitations: Class3(Marked) ordinary (activity causes symtoms) Date of Service: January 10, 2025 Billing Provider: DAVID BANG Cardiology Common Codes: [id number] INP/OBS CARE (High) Cardiology Consultation Codes: [id number] CONSULT <45MIN PERI MARI MD 01/12/25 0834: Family History: FH: CHF (congestive heart failure) G8 MOTHER, FH: cancer G8 FATHER, Allergies: Coded Allergies: No Known Drug Allergy (Verified Allergy, Unknown, 01/08/25) Home Meds No Active Prescriptions or Reported Meds Plan/Recommendation pt seen with cv team agree with plan fu echo, severe chf diuresis Plan discussed with: Patient DAVID BANG JEREMIAH January 10, 2025 12:37 PERI MARI MD Jan 12, 2025 08:34
--- NOTE | 2025-01-10 14:26 | DVHSR ---
APPROVED REPORT EXAM: Two-dimensional and M-mode echocardiogram with Doppler and color Doppler. Blood Pressure: 109/66 mmHg INDICATION Elevated BNP RISK FACTORS Obesity: Height: 5'8", Weight: 337 DIMENSIONS LVDd5.5 (3.8-5.7cm)LA (2D)5.4 (1.9-4.0cm)Aortic Root3.5 (2.0-3.7cm) LVDs5.2 (2.5-4.0cm)LA (MM) (1.9-4.0cm)Aortic Cusp Exc1.9 (1.5-2.0cm) EF (%) 15.0 (55-70%)Rt. Atrium6.7 (1.9-4.0cm)Asc. Aorta cm IVSd1.0 (0.7-1.1cm)RV (D)6.8 (1.8-2.4cm) PWd0.9 (0.7-1.1cm) Mitral Valve MitralMitral Stenosis E wave1.11m/sMV Mean GR.mmHg E/A ratio0.02D MVAcm2 Aortic Valve Aortic ValveAortic Stenosis V10.70m/Eduard Mean GR.2mmHg V20.94m/Eduard Peak GR.4mmHg LVOT Diameter2.1 (1.8-2.4cm)Doppler AVA2.58cm2 Pulmonic Valve V20.64m/s Tricuspid Valve TR Velocity2.75m/s [id number] Other Information Quality : Rhythm : Tachycardia Technically limited study due to body habitus. Conclusion lvef 15% mARKED DILATED LV dilated RV severe biatrial enlargement moderate mitral regurg mild to moderate tricuspid regurg
[2025-01-10 15:49] LABS: Triglycerides 66 mg/dL (< 150)
[2025-01-10 15:50] LABS: LDL Cholesterol 71 mg/dL (< 100)
[2025-01-10 15:51] LABS: Cholesterol 100 mg/dL (< 200)
[2025-01-10 15:53] LABS: HDL Cholesterol 21 mg/dL (40-59)
[2025-01-10] MEDS: MAGNESIUM SULFATE 1GM/100ML 100 ML IV ONE (16:47)
[2025-01-10] MEDS: ONDANSETRON HCL 4 MG/2 ML VIAL IV PRN (18:02)
[2025-01-10] MEDS: AMIODARONE 360mg/200mL PREMIX 200 ML IV SCH (18:05)
[2025-01-10] MEDS: SACUBITRIL-VALSARTAN 24mg/26mg TAB PO SCH (21:20)
[2025-01-11] VITALS (81 sets, daily range): BP systolic 0–191; BP diastolic 0–141; PULSE 61–119; RESP 11–30; TEMP 93.2–97.7; O2SAT 80–100
[2025-01-11] MEDS: DEXTROSE 50% SYRINGE 50 ML IV ONE (05:46)
[2025-01-11] MEDS: NOREPINEPHRINE 8 MG/250ML KIT 250 ML IV ONE (06:22)
[2025-01-11] MEDS: fentaNYL Drip 2500mCg/250mlNS 250 ML IV ONE (06:24)
[2025-01-11] MEDS: PROPOFOL 100 ML IV ONE (06:25)
[2025-01-11] MEDS ORDERED: NOREPINEPHRINE 8 MG/250ML KIT 250 ML IV SCH (07:15)
[2025-01-11] MEDS: DOPamine 1600MCG/ML D5W 250 ML IV SCH (07:36)
[2025-01-11] MEDS: MIDAZOLAM DRIP 50 mg/50mL 50 ML IV SCH (07:37)
[2025-01-11] MEDS: PROPOFOL 100 ML IV SCH (07:37)
[2025-01-11] MEDS: fentaNYL Drip 2500mCg/250mlNS 250 ML IV SCH (07:38)
[2025-01-11] MEDS: ATROPINE SULF 1 MG/10ml SYR ONE (07:41)
[2025-01-11] MEDS: MIDAZOLAM DRIP 50 mg/50mL 50 ML IV ONE (07:42)
[2025-01-11] MEDS: NOREPINEPHRINE 8 MG/250ML KIT 250 ML IV SCH (07:45)
[2025-01-11] MEDS: PHENYLEPHRINE IV 250 ML IV SCH (07:45)
--- NOTE | 2025-01-11 08:32 | RESUS ---
[facility] CHRISTENS[facility] ASSESSSMENT History of Events History of Events: Pt admitted on 01/08/25 for generalized weakness to telemetry. Staff were alerted that pt was off telemetry monitoring. Upon RN entering room to place pt back on tele monitoring, observed pt to be unresponsive. Pt found to be pulseless, CPR initiated with YUMI CHRISTENSEN called. Initial Information Date: Jan 11, 2025 Time: 05:36 Location of Arrest: [place] Ar[place] Witnessed: No CPR started initial time: 05:36 CPR started by whom: Hospital Staff Last seen well: 0500 Pre-Hospital Care: Pre-Code Care (inpatient) Type of arrest: Cardiac, Respiratory, Unwitnessed Spontaneous Respirations: No Pulse Present: No Monitoring: Telemetry Crash Cart Opened and Supplies: Yes Airway Ventilation Breathing at Onset: Apneic Oxygen Delivery Method: Ambu-Bag Time of first Assisted Ventila: 05:36 Artificial Ventilation: Bag/Mask Intubation Time: 05:50 Intubation Size: 8.0 cuffed Intubated by: RT Kyler Intubation Attempts: 2 Intubated orally: Yes Intubated Nasaly: No Tube secured at: 25 (cm @ teeth) Cricoid pressure done: Yes CO2 indicator used: Yes Confirmation: Auscultation, Exhaled CO2 Suctioning (Oral/Tracheal): No Comments: 1st attempt @ 0546 by RT Kyler; unsuccessful Circulation Circulation #1: Time: 05:36 Pulse Rate (adult): 0 Blood Pressure Systolic: 0 Blood Pressure Diastolic: 0 Temperature (Fahrenheit): 97.7 (F; axillary) Circulation Comment: Asystole Circulation #2: Time: 05:38 Pulse Rate (adult): 0 Blood Pressure Systolic: 0 Blood Pressure Diastolic: 0 Circulation Comment: Asystole Circulation #3: Time: 05:41 Pulse Rate (adult): 0 Blood Pressure Systolic: 0 Blood Pressure Diastolic: 0 Circulation Comment: Asystole Circulation #4: Time: 05:43 Pulse Rate (adult): 0 Blood Pressure Systolic: 0 Blood Pressure Diastolic: 0 Circulation Comment: Asystole Circulation #5: Time: 05:45 Pulse Rate (adult): 0 Blood Pressure Systolic: 0 Blood Pressure Diastolic: 0 Circulation Comment: Asystole Circulation #6: Time: 05:47 Pulse Rate (adult): 0 Blood Pressure Systolic: 0 Blood Pressure Diastolic: 0 Circulation Comment: Asystole Circulation #7: Time: 05:50 Pulse Rate (adult): 0 Blood Pressure Systolic: 0 Blood Pressure Diastolic: 0 Circulation Comment: Asystole Circulation #8: Time: 05:52 Pulse Rate (adult): 0 Blood Pressure Systolic: 0 Blood Pressure Diastolic: 0 Circulation Comment: Asystole Circulation #9: Time: 05:55 Pulse Rate (adult): 108 Circulation Comment: ROSC Circulation #10: Time: 06:00 Pulse Rate (adult): 68 Circulation Comment: 100% O2; blood pressure unable to be read; Dopamine started Procedure - IV Procedure - IV : IV Side: Left IV Location: [place] Posterior IV Catheter Type: Saline Lock IV Placed: In Hospital IV Gauge: 20 IV Line Care: Saline Flush Comment IV placed prior to code; IV appeared to become infiltrated during code Procedure - Intraosseous Time of intraosseous: 05:58 Site of Intraosseous: Tibia terence-medial Intraosseous inserted by: Hussein Cagle RN Number of attempts for Intraos: 1 Comment: IO placed to left proximal tibia Medications & Response Medications and Responses #1: Medication Time: 05:38 ADULT Medications Given ADULT: Epinephrine 1 mg Route of Administration: IV EKG Rhythm: Asystole Blood Pressure Systolic: 0 Blood Pressure Diastolic: 0 Respiratory Rate: 0 EKG Rhythm: Asystole Medications and Responses #2: Medication Time: 05:40 ADULT Medications Given ADULT: Sodium Bacarbinate 50 meq Route of Administration: IV Heart Rate: 0 EKG Rhythm: Asystole Blood Pressure Systolic: 0 Blood Pressure Diastolic: 0 Respiratory Rate: 0 EKG Rhythm: Asystole Medications and Responses #3: Medication Time: 05:41 ADULT Medications Given ADULT: Epinephrine 1 mg, D50 (amp) Route of Administration: IV Medication Comment: Blood sugar read LOW Heart Rate: 0 EKG Rhythm: Asystole Blood Pressure Systolic: 0 Blood Pressure Diastolic: 0 Respiratory Rate: 0 EKG Rhythm: Asystole Medications and Responses #4: Medication Time: 05:42 ADULT Medications Given ADULT: Calcium Chloride 5 mL Route of Administration: IV Heart Rate: 0 EKG Rhythm: Asystole Blood Pressure Systolic: 0 Blood Pressure Diastolic: 0 Respiratory Rate: 0 EKG Rhythm: Asystole Medications and Responses #5: Medication Time: 05:44 ADULT Medications Given ADULT: 2 Amps Na Bicarb Route of Administration: IV Heart Rate: 0 EKG Rhythm: Asystole Blood Pressure Systolic: 0 Blood Pressure Diastolic: 0 Respiratory Rate: 0 EKG Rhythm: Asystole Medications and Responses #6: Medication Time: 05:45 ADULT Medications Given ADULT: Epinephrine 1 mg Route of Administration: IV Heart Rate: 0 EKG Rhythm: Asystole Blood Pressure Systolic: 0 Blood Pressure Diastolic: 0 Respiratory Rate: 0 EKG Rhythm: Asystole Medications and Responses #7: Medication Time: 05:47 ADULT Medications Given ADULT: D50 (amp), Calcium Chloride 10 mL Route of Administration: IV Medication Comment: FSBS 36 Heart Rate: 0 EKG Rhythm: Asystole Blood Pressure Systolic: 0 Blood Pressure Diastolic: 0 Respiratory Rate: 0 EKG Rhythm: Asystole Medications and Responses #8: Medication Time: 05:48 ADULT Medications Given ADULT: Epinephrine 1 mg Route of Administration: IV Heart Rate: 0 EKG Rhythm: Asystole Blood Pressure Systolic: 0 Blood Pressure Diastolic: 0 Respiratory Rate: 0 EKG Rhythm: Asystole Medications and Responses #9: Medication Time: 05:49 ADULT Medications Given ADULT: Sodium Bacarbinate 50 meq Route of Administration: IV Heart Rate: 0 EKG Rhythm: Asystole Blood Pressure Systolic: 0 Blood Pressure Diastolic: 0 Respiratory Rate: 0 EKG Rhythm: Asystole Medications and Responses #10: Medication Time: 05:52 ADULT Medications Given ADULT: Epinephrine 1 mg Route of Administration: IV Heart Rate: 0 EKG Rhythm: Asystole Blood Pressure Systolic: 0 Blood Pressure Diastolic: 0 Respiratory Rate: 0 EKG Rhythm: Asystole Medications and Responses #11: Medication Time: 06:00 ADULT Medications Given ADULT: D50 (amp) Route of Administration: IO Heart Rate: 72 EKG Rhythm: Sinus Rhythm Nurses Notes [place] Coma Scale Eye Opening: None (1) [place] Coma Scale Verbal: None (1) [place] Coma Scale Motor: None (1) [place] Total: 3 Pupil Reaction: Non Reactive (3mm) Bedside Blood Glucose: 36 EKG Rhythm: Sinus Rhythm (HR 76; NSR with PACs @ 0559) Nurses Notes - Comment: Dopamine started @ 5mcg on IO Time Code Ended Time Code Ended: 05:55 Post Arrest Status: Ventilated Outcome of code: Successful Family notified: Yes Code Team Present: ZOË Brandon - Hospitalist; Марина Mckeon RN - ICU Charge; Hussein Cagle RN - ER Charge; Diya B, RN - [place] Charge; Noemi Cox RN - Material Movers; Suki Zhang, RT; Isaura Zhang, RN - Primary RN; Dannie Zhang, RN; Pratima Junior, RN; Matt Alexis, RN; Slade Fernandez, RN; Vijaya Renteria, RN; Florina Cohen, RN; Yahaira Zhang, CCT; Justino Siddiqui, EMT Student; Lawanda Montesinos, EMT Student; Zoe Zhang, RT Student Post Resuscitation Neurologica Pupil Size: 3 ROSC Time of ROSC: 05:55 Pt Meets Criteria for Therapeu: Noemi Canela Jan 11, 2025 08:32
--- NOTE | 2025-01-11 08:33 | DVHPN2 ---
Reviewed: Care Plan, H&P, Labs, Medications, Previous Orders, Radiology Changes from previous H/P or p: Changes (Patient was transferred to ICU secondary to hyper acute hypotension) Eyes: No Pain, No Vision change, No Conjunctivae inflammation, No Eyelid inflammation, No Other, No Redness ENT: No Ear pain, No Ear discharge, No Nose pain, No Nose discharge, No Nose congestion, No Mouth pain, No Mouth swelling, No Throat pain, No Throat swelling, No Other Cardiovascular: No Chest Pain, No Palpitations, No Orthopnea, No Paroxysmal Noc. Dyspnea, No Edema, No Lt Headedness, No Other Respiratory: Cough; No Dry; Shortness of breath; No SOB with excertion, No Wheezing, No Hemoptysis, No Pleuritic Pain, No Sputum; Other (SOB at rest) Gastrointestinal: No Nausea, No Vomiting, No Abdominal Pain, No Diarrhea, No Constipation, No Melena, No Hematochezia, No Other Genitourinary: No Dysuria, No Frequency, No Incontinence, No Hematuria, No Retention, No Other Musculoskeletal: No other, No neck pain, No shoulder pain, No arm pain, No back pain, No hand pain; leg pain (Bilateral); No foot pain Skin: No Rash; Lesions; No Jaundice, No Bruising; Other (Lower extremity open wound) Objective Vitals Vital Signs Date Time Temp Pulse Resp B/P (MAP) Pulse Ox O2 Delivery O2 Flow Rate FiO2 01/11/25 08:09 108 17 107/31 (56) 91 100 01/11/25 06:13 Mechanical Ventilator+ 01/11/25 06:13 97.7 97.7 01/10/25 20:00 0 Intake/Output Intake and Output 01/11/25 07:00 Intake Total 1210 ml Output Total 280 ml Balance 930 ml Intake Oral 660 ml IV Total 550 ml Output Urine Total 280 ml # Voids 3 Medications Current Medications Medications Dose Ordered Sig/Fatoumata Route Start Time Stop Time Status Last Admin Dose Admin Aspirin 81 mg DAILY PO 01/09/25 10:00 01/10/25 10:15 81 MG Hydralazine HCl 10 mg Q6HP PRN IV 01/08/25 21:15 Insulin Human Regular HS SC 01/08/25 22:00 01/09/25 22:12 2 UNITS Insulin Human Regular AC SC 01/09/25 07:00 01/10/25 17:01 2 UNITS Dextrose 50 ml UD PRN IV 01/08/25 21:15 Sodium Chloride 10 ml Q8HR IV 01/08/25 22:00 01/11/25 07:50 10 ML Acetaminophen/ Hydrocodone Bitart 1 tab Q4HP PRN PO 01/08/25 21:15 Ondansetron HCl 4 mg Q4HP PRN IV 01/08/25 21:15 01/10/25 22:15 4 MG Docusate Sodium 100 mg BIDPRN PRN PO 01/08/25 21:15 Acetaminophen 650 mg Q6HP PRN PO 01/08/25 21:15 Nitroglycerin 0.4 mg Q5MINP PRN SL 01/08/25 21:45 Morphine Sulfate 2 mg Q30M PRN IV 01/08/25 21:45 Ceftriaxone Sodium 50 ml @ 100 mls/hr DAILY@09 IV 01/10/25 09:00 01/10/25 09:18 100 MLS/HR Apixaban 5 mg BID PO 01/10/25 11:30 01/10/25 21:18 5 MG Propofol 100 ml @ 4.59 mls/hr [id number] IV 01/11/25 06:30 01/11/25 07:37 0 MLS/HR Midazolam HCl 50 ml @ 1 mls/hr Q24H IV 01/11/25 06:30 01/11/25 07:37 5 MLS/HR Fentanyl Citrate 250 ml @ 2.5 mls/hr Q24H IV 01/11/25 06:30 01/11/25 07:38 0 MLS/HR Dopamine HCl/ Dextrose 250 ml @ 28.688 mls/ hr Q8H43M IV 01/11/25 06:30 01/11/25 07:36 114.75 MLS/HR Diagnostic Test (Pha) 1 strip Q4HR 01/11/25 10:00 Norepinephrine Bitartrate 250 ml @ 3.75 mls/hr Q24H IV 01/11/25 07:15 UNV Phenylephrine HCl 250 ml @ 30 mls/hr Q8H20M IV 01/11/25 07:45 UNV Norepinephrine Bitartrate 250 ml @ 3.75 mls/hr Q24H IV 01/11/25 07:45 UNV Laboratory Results Laboratory Tests 01/09/25 06:06 Lipid panel Test 01/10/25 09:04 Cholesterol Level 100 mg/dL (< 200) HDL Cholesterol 21 mg/dL (40-59) L Triglycerides Level 66 mg/dL (< 150) HgA1c, TSH Test 01/10/25 09:04 Thyroid Stimulating Hormone (TSH) 2.46 uIU/mL (0.55-4.78) Urinalysis Test 01/08/25 20:48 Urine Color Yellow (Yellow) Urine Clarity Turbid (Clear) H Urine pH 5.5 (5.0-9.0) Urine Specific [place] 1.025 (1.001-1.035) Urine Protein 1+ (Negative) H Urine Ketones Negative (Negative) Urine Blood Trace /uL (Negative) H Urine Nitrite Negative (Negative) Urine Bilirubin Negative (Negative) Urine Urobilinogen 4 mg/dL (Negative) H Urine Leukocyte Esterase 3+ /uL (Negative) Urine RBC 10 /hpf (0 - 3) Urine Microscopic WBC 174 /HPF (0-3) H Urine Squamous Epithelial Cells Few /hpf (<5) Urine Bacteria Few /hpf (None Seen) H Urine Hyaline Casts Few /lpf (0 - 2) Urine Mucus Few (None Seen) Urine Glucose Normal mg/dL (Normal) Microbiology Microbiology Date/Time Source Procedure Growth Status 01/09/25 11:20 Leg Left Gram Stain Pending Resulted 01/09/25 11:20 Leg Left Wound Culture - Preliminary Resulted 01/08/25 17:16 Blood Blood Culture - Preliminary NO GROWTH AFTER 48 HOURS OF INCUBATION. Resulted Labs and/or images reviewed: Labs reviewed by me, Image(s) reviewed by me Assessment/Plan Assessment/Plan Cardiogenic shock with hypotension transferred to ICU placed on Levophed phenylephrine and dopamine drips Sepsis secondary to acute urinary tract infection: Blood cultures negative, urine cultures pending, wound cultures shows Gram-negative rods Acute UTI: Rocephin Possible community-acquired pneumonia: Rocephin Acute metabolic encephalopathy Diabetes Hypertension Gout History of asthma Bilateral lower extremity swelling rule out CHF: Consult for Cardiology Dr. Vazquez appreciated, echo 15 percent ejection fraction Moderate obesity Flu test negative COVID test negative Chest x-ray negative Nonhealing left leg wound: Wound cultures vancomycin DVT ruled out Peripheral arterial disease ruled out CT abdomen pelvis without contrast shows slightly enlarged prostate Morbid obesity BMI 51 Advanced care planning time 20 minutes Patient is full code Social service consult for PCP Time spent 70 minutes Patient is seen in the ICU Advanced care planning time 20 minutes Plan discussed with: Patient My Orders Orders - MCKAY MENJIVAR MD Procedure Category Date Status Time Communication Order ORDERS 01/10/25 Transmitted 08:35 * Cardiology Consult CONS 01/10/25 Transmitted 08:45 Prostate Specific LAB 01/10/25 In Process Antigen 08:50 Dietary NOTICE 01/10/25 Transmitted Recommendations 09:39 Complete Blood Count LAB 01/11/25 Logged 08:27 Comprehensive LAB 01/11/25 Logged Metabolic Panel 08:27 Magnesium LAB 01/11/25 Logged 08:27 Lactic Acid W/ Reflex LAB 01/11/25 Logged Order 08:27 Date of Service: Jan 11, 2025 Billing Provider: MCKAY MENJIVAR MD Common Visit Codes: [id number] CARE 30-74 MIN MCKAY MENJIVAR MD Jan 11, 2025 08:33
[2025-01-11 08:41] LABS: Base Excess -15.3 mmol/L (-2.0-3.0)
[2025-01-11] MEDS ORDERED: MORPHINE SULFATE 4 MG/ML SYR/VIAL IV PRN (09:15)
[2025-01-11] MEDS: PHENYLEPHRINE IV 250 ML IV ONE (09:41)
--- NOTE | 2025-01-11 09:59 | DVHPN2 ---
Progress Note Date Seen: Jan 11, 2025 Medical Necessity Reason Pt with a Central, PICC or Fol: No Subjective Other Systems: pt found unresponsive, code blue called pt was off tele per RN Objective vital signs Vital Sign Date Time Temp Pulse Resp B/P (MAP) Pulse Ox O2 Delivery O2 Flow Rate FiO2 01/11/25 09:15 106 16 90 01/11/25 08:32 Ambu-Bag 01/11/25 08:09 100 01/10/25 20:00 0 Total Intake and Output 01/10/25 01/10/25 01/11/25 15:00 23:00 07:00 Intake Total 150 ml 600 ml 460 ml Output Total 280 ml Balance 150 ml 600 ml 180 ml medications Current Medications Medications Dose Ordered Sig/Fatoumata Route Start Time Stop Time Status Last Admin Dose Admin Aspirin 81 mg DAILY PO 01/09/25 10:00 01/10/25 10:15 81 MG Hydralazine HCl 10 mg Q6HP PRN IV 01/08/25 21:15 Insulin Human Regular HS SC 01/08/25 22:00 01/09/25 22:12 2 UNITS Insulin Human Regular AC SC 01/09/25 07:00 01/10/25 17:01 2 UNITS Dextrose 50 ml UD PRN IV 01/08/25 21:15 Sodium Chloride 10 ml Q8HR IV 01/08/25 22:00 01/11/25 07:50 10 ML Acetaminophen/ Hydrocodone Bitart 1 tab Q4HP PRN PO 01/08/25 21:15 Ondansetron HCl 4 mg Q4HP PRN IV 01/08/25 21:15 01/10/25 22:15 4 MG Docusate Sodium 100 mg BIDPRN PRN PO 01/08/25 21:15 Acetaminophen 650 mg Q6HP PRN PO 01/08/25 21:15 Nitroglycerin 0.4 mg Q5MINP PRN SL 01/08/25 21:45 Morphine Sulfate 2 mg Q30M PRN IV 01/08/25 21:45 Cancel Ceftriaxone Sodium 50 ml @ 100 mls/hr DAILY@09 IV 01/10/25 09:00 01/11/25 09:00 100 MLS/HR Apixaban 5 mg BID PO 01/10/25 11:30 01/10/25 21:18 5 MG Propofol 100 ml @ 4.59 mls/hr [id number] IV 01/11/25 06:30 01/11/25 07:37 0 MLS/HR Midazolam HCl 50 ml @ 1 mls/hr Q24H IV 01/11/25 06:30 01/11/25 07:37 5 MLS/HR Fentanyl Citrate 250 ml @ 2.5 mls/hr Q24H IV 01/11/25 06:30 01/11/25 07:38 0 MLS/HR Dopamine HCl/ Dextrose 250 ml @ 28.688 mls/ hr Q8H43M IV 01/11/25 06:30 01/11/25 07:36 114.75 MLS/HR Diagnostic Test (Pha) 1 strip Q4HR 01/11/25 10:00 Phenylephrine HCl 250 ml @ 30 mls/hr Q8H20M IV 01/11/25 07:45 Norepinephrine Bitartrate 250 ml @ 3.75 mls/hr Q24H IV 01/11/25 07:45 Morphine Sulfate 2 mg Q30M PRN IV 01/11/25 09:15 Vasopressin 20 units/Sodium Chloride 100 ml @ 9 mls/hr Q11H7M IV 01/11/25 09:30 Examination: GENERAL:Abnormal, HEENT:Abnormal, LUNGS:Abnormal, CVS:Abnormal, ABDOMEN:Abnormal laboratory and microbiology Test 01/11/25 09:47 Range/Units Serum Glucose Pending Microbiology Date/Time Source Procedure Growth Status 01/09/25 11:20 Leg Left Gram Stain Pending Resulted 01/09/25 11:20 Leg Left Wound Culture - Preliminary Resulted 01/08/25 17:16 Blood Blood Culture - Preliminary NO GROWTH AFTER 48 HOURS OF INCUBATION. Resulted Problem List/Assessment/Plan Problem List/Assessment/Plan severe class IV systolic and diasttolic acute on chronic HF ckd atrial flutter cardiac arrest resp failure bradycardia acidemia dc'ed amio on levophed gtt dc'ed dopamine rate is about 107 cont tele IV lasix rate control pt vent management per pulmonary consider head ct when feasible but defer to primary service Plan discussed with: Patient My Orders My Orders Orders - PERI MARI MD Procedure Category Date Status Time Apixaban (Eliquis) PHA 01/10/25 In Process 11:30 Amiodarone PHA 01/10/25 In Process 360mg/200ml Premix 17:45 Digoxin Injection PHA 01/10/25 In Process (Lanoxin Injection) 11:30 Dietary Evaluation Review Comments: 1) Initiate Pro-Stat @ 30 mL qd 2) Initiate Migel @ 1 pk bid 3) Initiate MVI @ 1 tb qd 4) Continue to encourage optial PO intake 5) Refer to outpatient RD/CD[facility] for weight management 6) Continue to monitor I&O, labs, and skin integrity Expected Outcomes/Goals: 1) appetite and labs to improve 2) wounds to improve 3) f/u in 3-5 days Date of Service: Jan 11, 2025 Billing Provider: PERI MARI MD Common Visit Codes: NOT BILLABLE PERI MARI MD Jan 11, 2025 09:59
[2025-01-11] MEDS ORDERED: ACCU-CHEK COMFORT CURVE STRIP VI SCH (10:00)
--- NOTE | 2025-01-11 10:01 | DVH ---
CHEST RADIOGRAPH Indication: POST INTUBATION Technique: Single frontal view of the chest was obtained COMPARISON: 01/08/2025 FINDINGS: Endotracheal tube tip projects 3.6 cm above the michele. The cardiac silhouette is enlarged. The lungs demonstrate bilateral patchy airspace opacities, increa sed from the previous examination. The pulmonary vasculature is prominent. Small bilateral pleural ef fusions. There is no pneumothorax. IMPRESSION: 1. As above
[2025-01-11 10:06] LABS: Hemoglobin 13.8 g/dL (13.5-17.5); Mean Corpuscular Hemoglobin 26.1 pg (28.0-32.0); Mean Corpuscular Volume 86.8 fL (80.0-100.0); Platelet Count (auto) 237 10^3/uL (140-450); Red Cell Distribution Width 18.2 % (11.8-14.3); White Blood Cell 27.8 10^3/uL (4.4-10.8)
[2025-01-11 10:10] LABS: Basophils % (manual) 0 (0.0-2.0); Blast Cells 0; Eosinophils % (manual) 0 (0-7); Metamyelocytes % 0; Myelocytes % 0; Promyelocytes % 0; Reactive Lymphocytes 0
[2025-01-11 10:13] LABS: Albumin 3.4 g/dL (3.2-4.8); Anion Gap 15 (5-15); BUN/Creatinine Ratio 12.4 (10.0-20.0); Calcium 9.8 mg/dL (8.7-10.4); Chloride 103 mmol/L (98-107); Magnesium 2.4 mg/dL (1.6-2.6); Total Protein 6.5 g/dL (5.7-8.2)
[2025-01-11 10:30] LABS: Alanine Aminotransferase 4946 U/L (7-40); Alkaline Phosphatase 195 U/L (46-116); Aspartate Aminotransferase > 6000 U/L (13-40); Bilirubin, Total 1.9 mg/dL (0.2-1.0); Blood Urea Nitrogen 28 mg/dL (9-23); Carbon Dioxide 18 mmol/L (20-31); Glucose 150 mg/dL (74-106); Potassium 5.4 mmol/L (3.5-5.1); Sodium 136 mmol/L (136-145)
[2025-01-11 10:32] LABS: Band Neutrophils % (manual) 12; Lymphocytes % (manual) 3 (10.0-50.0); Monocytes % (manual) 7 (0-12)
[2025-01-11 10:33] LABS: Anisocytosis Slight; Hypochromia Moderate; Lactic Acid w/Reflex 6.8 mmol/L (0.4-2.0); Platelet Estimate Adequate
[2025-01-11] MEDS ORDERED: VANCOMYCIN PER PHARMACY 0 MG IV SCH (10:45)
[2025-01-11] MEDS: SODIUM BICARB 50mEq/50ml Vial 150 ML in D5W 5% 1,000 ML IV SCH (11:00)
[2025-01-11] MEDS: SODIUM BICARB 8.4% 50Meq/50ml SYR Vial IV ONE ×4 (11:21→21:09)
[2025-01-11] MEDS: FUROSEMIDE 100 MG/10ML VIAL IV ONE (11:21)
--- NOTE | 2025-01-11 11:21 | DVHINCON2 ---
Date of service: Jan 11, [address] Vazquez Reason for Consultation Acute kidney injury History of Present Illness Limited history as patient is intubated. 64-year-old morbidly obese male with past medical history of COPD and no notable chronic medical follow-up presents to the hospital complaining of weakness. He was diagnosed with urinary tract infection, pneumonia in the new diagnosis of congestive heart failure with ejection fraction of 10% and atrial fibrillation. Patient's hospital course is notable for an episode of unresponsiveness on hospital day 4 asystole arrest. Patient is now subsequently intubated and transferred to the ICU after return of spontaneous circulation. Nephrology consulted due to change in patient's renal function Allergies: Coded Allergies: No Known Drug Allergy (Verified Allergy, Unknown, 01/08/25) Home Meds No Active Prescriptions or Reported Meds Current Medications Current Medications Medications (Trade) Dose Ordered Sig/Fatoumata Route PRN Reason Start Time Stop Time Status Last Admin Apixaban (Eliquis) 5 mg BID PO 01/10/25 11:30 01/10/25 21:18 Sacubitril/ Valsartan (Entresto 24-26 Mg tab) 0.5 tab BID PO 01/10/25 22:00 01/11/25 08:07 DC Propofol 100 ml @ 4.59 mls/hr [id number] IV 01/11/25 06:30 01/11/25 07:37 Midazolam HCl 50 ml @ 1 mls/hr Q24H IV 01/11/25 06:30 01/11/25 07:37 Fentanyl Citrate 250 ml @ 2.5 mls/hr Q24H IV 01/11/25 06:30 01/11/25 07:38 Dopamine HCl/ Dextrose 250 ml @ 28.688 mls/ hr Q8H43M IV 01/11/25 06:30 01/11/25 07:36 Diagnostic Test (Pha) (Accu-Chek Comfort Curve T) 1 strip Q4HR 01/11/25 10:00 01/11/25 10:31 DC Norepinephrine Bitartrate 250 ml @ 3.75 mls/hr Q24H IV 01/11/25 07:15 01/11/25 09:05 DC Phenylephrine HCl 250 ml @ 30 mls/hr Q8H20M IV 01/11/25 07:45 Norepinephrine Bitartrate 250 ml @ 3.75 mls/hr Q24H IV 01/11/25 07:45 Morphine Sulfate 2 mg Q30M PRN IV FOR CHEST PAIN 01/11/25 09:15 Vasopressin 20 units/Sodium Chloride 100 ml @ 9 mls/hr Q11H7M IV 01/11/25 09:30 Diagnostic Test (Pha) (Accu-Chek Comfort Curve T) 1 strip ACHS 01/11/25 11:30 Piperacillin Sod/ Tazobactam Sod 100 ml @ 25 mls/hr Q8HR IV 01/11/25 10:55 Vancomycin HCl 0 ml @ 0 mls/hr UD IV 01/11/25 10:45 UNV Sodium Bicarbonate 150 ml/Dextrose 1,150 ml @ 150 mls/hr Q7H40M IV 01/11/25 11:00 UNV Family History: FH: CHF (congestive heart failure) G8 MOTHER, FH: cancer G8 FATHER, Review of Systems Can not obtain due to critical illness H&P Exam Vital Signs/I&O Vital Sign Date Time Temp Pulse Resp B/P (MAP) Pulse Ox O2 Delivery O2 Flow Rate FiO2 01/11/25 10:00 16 92 Mechanical Ventilator+ 100 100 01/11/25 09:56 108 104/38 (60) 01/11/25 08:32 01/10/25 20:00 0 Intake and Output 01/10/25 01/11/25 19:00 07:00 Intake Total 750 ml 460 ml Output Total 280 ml Balance 750 ml 180 ml Intake Oral 400 ml 260 ml IV Total 350 ml 200 ml Output Urine Total 280 ml # Voids 3 Physical Exam Morbidly obese white male Intubated Sedated On one pressor Irregularly irregular rate and rhythm Margin of the diffuse edema Staley catheter Labs/Diagnostic Data Labs/Diagnostic Data Laboratory Tests Test 01/11/25 09:47 01/11/25 08:34 01/11/25 07:46 01/11/25 06:18 Range/Units White Blood Count 27.8 #H 4.4-10.8 10^3/uL Red Blood Count 5.30 4.5-5.90 10^6/uL Hemoglobin 13.8 13.5-17.5 g/dL Hematocrit 46.0 # 41.0-53.0 % Mean Corpuscular Volume 86.8 # 80.0-100.0 fL Mean Corpuscular Hemoglobin 26.1 L 28.0-32.0 pg Mean Corpuscular Hemoglobin Concent 30.0 L 32.0-36.0 g/dL Red Cell Distribution Width 18.2 H 11.8-14.3 % Platelet Count 237 140-450 10^3/uL Mean Platelet Volume 9.2 6.9-10.8 fL Neutrophils (%) (Auto) 37.0-80.0 % Lymphocytes (%) (Auto) 10.0-50.0 % Monocytes (%) (Auto) 0.0-12.0 % Basophils (%) (Auto) 0.0-2.0 % Neutrophils # (Auto) 1.6-8.6 10 ^3/uL Lymphocytes # (Auto) 0.4-5.4 10 ^3/uL Monocytes # (Auto) 0-1.3 10 ^3/uL Differential Total Cells Counted 100.0 100 Neutrophils % (Manual) 78 37.0-80.0 Band Neutrophils % (Manual) 12 Lymphocytes % (Manual) 3 L 10.0-50.0 Monocytes % (Manual) 7 0-12 Eosinophils % (Manual) 0 0-7 Basophils % (Manual) 0 0.0-2.0 Metamyelocytes % (manual) 0 Myelocytes % (Manual) 0 Promyelocytes % (Manual) 0 Blast Cells % (Manual) 0 Reactive Lymphocytes 0 Platelet Estimate Adequate Hypochromasia (manual) Moderate Anisocytosis (manual) Slight Sodium Level 136 136-145 mmol/L Potassium Level 5.4 H 3.5-5.1 mmol/L Chloride Level 103 98-107 mmol/L Carbon Dioxide Level 18 #L 20-31 mmol/L Anion Gap 15 5-15 Blood Urea Nitrogen 28 H 9-23 mg/dL Creatinine 2.25 H 0.700-1.30 mg/dL Glomerular Filtration Rate Calc 32 >90 mL/min BUN/Creatinine Ratio 12.4 10.0-20.0 Serum Glucose 150 H 74-106 mg/dL Lactic Acid Level 6.8 *H 0.4-2.0 mmol/L Calcium Level 9.8 8.7-10.4 mg/dL Magnesium Level 2.4 1.6-2.6 mg/dL Total Bilirubin 1.9 H 0.2-1.0 mg/dL Aspartate Amino Transferase (AST) > 6000 H 13-40 U/L Alanine Aminotransferase (ALT) 4946 H 7-40 U/L Alkaline Phosphatase 195 H 46-116 U/L Total Protein 6.5 5.7-8.2 g/dL Albumin 3.4 3.2-4.8 g/dL Blood Gas Specimen Type Arterial Blood Gas Sample Site Left brachial Blood Gas Patient Temperature 37.0 Arterial Blood Date Drawn [id number] Arterial Blood pH 7.119 *L 7.350-7.450 Arterial Blood Partial Pressure CO2 42.7 35.0-48.0 mmHg Arterial Blood Partial Pressure O2 198.8 H 83.0-108.0 mmHg Arterial Blood HCO3 13.5 L 21.0-28.0 mmol/L Arterial Blood Oxygen Saturation 98.9 H 94.0-98.0 % Arterial Blood Base Excess -15.3 L -2.0-3.0 mmol/L Arterial Blood Oxyhemoglobin 97.7 94.0-98.0 % Arterial Blood Carboxyhemoglobin 0.8 0.5-1.5 % Arterial Blood Methemoglobin 0.4 0.0-1.5 % Jovi Test N/a Blood Gas Total Hemoglobin 14.40 13.5-17.5 g/dL Blood Gas Set Respiration Rate 16.0 Blood Gas Modality Vent - ac FiO2 % 100.0 Blood Gas Tidal Volume 500.0 Blood Gas PEEP or CPAP 5.0 Blood Gas Critical Value Read Back Yes Blood Gas Notified Whom Sofy pedraza Blood Gas Notified Time [id number] Blood Gas Notified By Oswald varela , nomi POC Glucose 148 H 217 H 70-106 mg/dl Test 01/10/25 20:59 01/10/25 16:38 01/10/25 10:17 01/10/25 09:04 Range/Units POC Glucose 87 132 H 139 H 70-106 mg/dl Triglycerides Level 66 < 150 mg/dL Cholesterol Level 100 < 200 mg/dL LDL Cholesterol 71 < 100 mg/dL HDL Cholesterol 21 L 40-59 mg/dL Thyroid Stimulating Hormone (TSH) 2.46 0.55-4.78 uIU/mL Test 01/10/25 05:59 01/09/25 21:27 01/09/25 16:24 01/09/25 10:31 Range/Units POC Glucose 100 150 H 115 H 133 H 70-106 mg/dl Test 01/09/25 06:21 01/09/25 06:06 01/08/25 22:16 01/08/25 20:48 Range/Units POC Glucose 104 97 70-106 mg/dl White Blood Count 8.5 4.4-10.8 10^3/uL Red Blood Count 4.65 4.5-5.90 10^6/uL Hemoglobin 12.3 L 13.5-17.5 g/dL Hematocrit 38.6 L 41.0-53.0 % Mean Corpuscular Volume 83.1 80.0-100.0 fL Mean Corpuscular Hemoglobin 26.4 L 28.0-32.0 pg Mean Corpuscular Hemoglobin Concent 31.8 L 32.0-36.0 g/dL Red Cell Distribution Width 17.4 H 11.8-14.3 % Platelet Count 245 140-450 10^3/uL Mean Platelet Volume 9.2 6.9-10.8 fL Neutrophils (%) (Auto) 73.1 37.0-80.0 % Lymphocytes (%) (Auto) 12.9 10.0-50.0 % Monocytes (%) (Auto) 11.0 0.0-12.0 % Eosinophils (%) (Auto) 2.0 0.0-7.0 % Basophils (%) (Auto) 1.0 0.0-2.0 % Neutrophils # (Auto) 6.2 1.6-8.6 10 ^3/uL Lymphocytes # (Auto) 1.1 0.4-5.4 10 ^3/uL Monocytes # (Auto) 0.9 0-1.3 10 ^3/uL Eosinophils # (Auto) 0.2 0-0.8 10 ^3/uL Basophils # (Auto) 0.1 0-0.2 10 ^3/uL Nucleated Red Blood Cells 0.1 % Sodium Level 139 136-145 mmol/L Potassium Level 4.3 3.5-5.1 mmol/L Chloride Level 103 98-107 mmol/L Carbon Dioxide Level 28 20-31 mmol/L Anion Gap 8 5-15 Blood Urea Nitrogen 14 9-23 mg/dL Creatinine 1.10 0.700-1.30 mg/dL Glomerular Filtration Rate Calc 75 >90 mL/min BUN/Creatinine Ratio 12.7 10.0-20.0 Serum Glucose 108 H 74-106 mg/dL Hemoglobin A1c 6.4 H <5.7 % A1C Calcium Level 8.5 L 8.7-10.4 mg/dL Total Bilirubin 1.3 H 0.2-1.0 mg/dL Aspartate Amino Transferase (AST) 18 13-40 U/L Alanine Aminotransferase (ALT) 18 7-40 U/L Alkaline Phosphatase 123 H 46-116 U/L Total Protein 6.1 5.7-8.2 g/dL Albumin 3.4 3.2-4.8 g/dL Urine Color Yellow Yellow Urine Clarity Turbid H Clear Urine pH 5.5 5.0-9.0 Urine Specific [place] 1.025 1.001-1.035 Urine Protein 1+ H Negative Urine Ketones Negative Negative Urine Blood Trace H Negative /uL Urine Nitrite Negative Negative Urine Bilirubin Negative Negative Urine Urobilinogen 4 H Negative mg/dL Urine Leukocyte Esterase 3+ Negative /uL Urine RBC 10 0 - 3 /hpf Urine Microscopic WBC 174 H 0-3 /HPF Urine Squamous Epithelial Cells Few <5 /hpf Urine Bacteria Few H None Seen /hpf Urine Hyaline Casts Few 0 - 2 /lpf Urine Mucus Few None Seen Urine Glucose Normal Normal mg/dL Test 01/08/25 20:03 01/08/25 18:17 01/08/25 17:16 01/08/25 16:40 Range/Units Troponin I High Sensitivity 13 12 10 </=54 ng/L White Blood Count 8.2 4.4-10.8 10^3/uL Red Blood Count 4.43 L 4.5-5.90 10^6/uL Hemoglobin 11.7 L 13.5-17.5 g/dL Hematocrit 36.9 L 41.0-53.0 % Mean Corpuscular Volume 83.4 80.0-100.0 fL Mean Corpuscular Hemoglobin 26.5 L 28.0-32.0 pg Mean Corpuscular Hemoglobin Concent 31.7 L 32.0-36.0 g/dL Red Cell Distribution Width 17.7 H 11.8-14.3 % Platelet Count 236 140-450 10^3/uL Mean Platelet Volume 9.1 6.9-10.8 fL Neutrophils (%) (Auto) 77.5 37.0-80.0 % Lymphocytes (%) (Auto) 9.3 L 10.0-50.0 % Monocytes (%) (Auto) 11.2 0.0-12.0 % Eosinophils (%) (Auto) 1.0 0.0-7.0 % Basophils (%) (Auto) 1.0 0.0-2.0 % Neutrophils # (Auto) 6.3 1.6-8.6 10 ^3/uL Lymphocytes # (Auto) 0.8 0.4-5.4 10 ^3/uL Monocytes # (Auto) 0.9 0-1.3 10 ^3/uL Eosinophils # (Auto) 0.1 0-0.8 10 ^3/uL Basophils # (Auto) 0.1 0-0.2 10 ^3/uL Nucleated Red Blood Cells 0.3 % Sodium Level 139 136-145 mmol/L Potassium Level 4.3 3.5-5.1 mmol/L Chloride Level 108 H 98-107 mmol/L Carbon Dioxide Level 24 20-31 mmol/L Anion Gap 7 5-15 Blood Urea Nitrogen 16 9-23 mg/dL Creatinine 1.08 0.700-1.30 mg/dL Glomerular Filtration Rate Calc 76 >90 mL/min BUN/Creatinine Ratio 14.8 10.0-20.0 Serum Glucose 198 H 74-106 mg/dL Lactic Acid Level 2.0 0.4-2.0 mmol/L Calcium Level 8.7 8.7-10.4 mg/dL Magnesium Level 1.7 1.6-2.6 mg/dL Total Bilirubin 1.0 0.2-1.0 mg/dL Aspartate Amino Transferase (AST) 17 13-40 U/L Alanine Aminotransferase (ALT) 19 7-40 U/L Alkaline Phosphatase 133 H 46-116 U/L B-Type Natriuretic Peptide 245.75 0-100 pg/mL Total Protein 5.9 5.7-8.2 g/dL Albumin 3.3 3.2-4.8 g/dL Influenza Type A Antigen Negative Negative Influenza Type B Antigen Negative Negative SARS-CoV-2 Antigen (Rapid) Negative NEGATIVE Assessment 64-year-old morbidly obese male presents to the hospital complaining of weakness was diagnosed with sepsis secondary to pneumonia and UTI diagnosis of congestive heart failure patient on hospital day four head cardiac arrest in his now in the ICU Acute kidney injury hemodynamically mediated in the setting of cardiac arrest No previous history of CKD Severe systolic heart failure, with acute decompensation Cardiac arrest Acute respiratory failure Metabolic acidosis Hyperkalemia Medical treatment of elevated potassium Start sodium bicarbonate drip Start Lasix drip to increase urinary output Recommend pressors to support mean arterial pressure greater than 65, we will consider and low fixed dose dopamine to improve cardiac output and increased urination if heart rate is stable Continue with strict Is&Os Avoid nsaids With GFR 32% and other conditions he is currently Very high risk for contrast induced nephropathy if received heart cath. Rec discuss risk and benefits if procedure is indicated critical care time 33mins Plan discussed with: Other FLOR MOMIN MD Jan 11, 2025 11:21
[2025-01-11] MEDS: PIPERACILLIN-TAZOB 3.375GM 100 ML IV SCH (11:22)
[2025-01-11] MEDS: ACCU-CHEK COMFORT CURVE STRIP VI SCH (11:30)
--- NOTE | 2025-01-11 12:19 | DVHINCON2 ---
Date of service: Jan 11, [address] caba Reason for Consultation Critical care management History of Present Illness HPI The patient is a 64-year-old gentleman with multiple medical problems including gout asthma diabetes hypertension and cardiomyopathy who presented with generalized weakness and shortness of breaths. Patient initially admitted to telemetry floor earlier today hold it however requiring CPR for more than 20 minutes. Patient was intubated and nephrosis transferred to ICU. Home Meds No Active Prescriptions or Reported Meds Past Medical History Cardiac: CHF, HTN Pulmonary: No pertinent Hx Central Nervous System: No pertinent Hx GI: No pertinent Hx Hemotology/Oncology: No pertinent Hx Hepatobiliary: No pertinent Hx Psychiatric: No pertinent Hx Musculoskeletal: No pertinent Hx Rheumotologic: No pertinent Hx Infectious Disease: No peritnent Hx ENT: No pertinent Hx Renal/: No pertinent Hx Endocrine: No pertinent Hx Dermatology: No pertinent Hx Past Surgical History: No pertinent Hx Family History: No pertinent Hx Patient Family History: FH: CHF (congestive heart failure) G8 MOTHER, FH: cancer G8 FATHER, Review of Systems Comments intubated H&P Exam Vital Signs Vital Signs Date Time Temp Pulse Resp B/P (MAP) Pulse Ox O2 Delivery O2 Flow Rate FiO2 01/11/25 11:56 111 24 111/41 (64) 96 70 01/11/25 10:00 Mechanical Ventilator+ 01/11/25 08:32 01/10/25 20:00 0 General Appeara: Well developed, Well nourished Head Exam: Normal inspection Neck Exam: Normal inspection, Non-tender, Normal alignment Eye Exam: bilateral eye Normal inspection, bilateral eye PERRL, bilateral eye EOMI Ear Exam: bilateral ear Auricle normal, bilateral ear Canal normal Nasal Exam: Normal inspection Mouth: Normal Inspection Pulmonary/Respiratory: Normal inspection, Normal breath sounds, Chest non- tender, Lungs clear Cardiovascular/Chest: Normal inspection Peripheral Pulses: 4+ carotid (R), 4+ carotid (L) Abdominal Exam: Normal bowel sounds, Soft Labs/Xrays Labs Test 01/11/25 11:37 01/11/25 09:47 01/11/25 08:34 01/10/25 09:04 Range/Units POC Glucose 130 H 70-106 mg/dl White Blood Count 27.8 #H 4.4-10.8 10^3/uL Red Blood Count 5.30 4.5-5.90 10^6/uL Hemoglobin 13.8 13.5-17.5 g/dL Hematocrit 46.0 # 41.0-53.0 % Mean Corpuscular Volume 86.8 # 80.0-100.0 fL Mean Corpuscular Hemoglobin 26.1 L 28.0-32.0 pg Mean Corpuscular Hemoglobin Concent 30.0 L 32.0-36.0 g/dL Red Cell Distribution Width 18.2 H 11.8-14.3 % Platelet Count 237 140-450 10^3/uL Mean Platelet Volume 9.2 6.9-10.8 fL Neutrophils (%) (Auto) 37.0-80.0 % Lymphocytes (%) (Auto) 10.0-50.0 % Monocytes (%) (Auto) 0.0-12.0 % Basophils (%) (Auto) 0.0-2.0 % Neutrophils # (Auto) 1.6-8.6 10 ^3/uL Lymphocytes # (Auto) 0.4-5.4 10 ^3/uL Monocytes # (Auto) 0-1.3 10 ^3/uL Differential Total Cells Counted 100.0 100 Neutrophils % (Manual) 78 37.0-80.0 Band Neutrophils % (Manual) 12 Lymphocytes % (Manual) 3 L 10.0-50.0 Monocytes % (Manual) 7 0-12 Eosinophils % (Manual) 0 0-7 Basophils % (Manual) 0 0.0-2.0 Metamyelocytes % (manual) 0 Myelocytes % (Manual) 0 Promyelocytes % (Manual) 0 Blast Cells % (Manual) 0 Reactive Lymphocytes 0 Platelet Estimate Adequate Hypochromasia (manual) Moderate Anisocytosis (manual) Slight Sodium Level 136 136-145 mmol/L Potassium Level 5.4 H 3.5-5.1 mmol/L Chloride Level 103 98-107 mmol/L Carbon Dioxide Level 18 #L 20-31 mmol/L Anion Gap 15 5-15 Blood Urea Nitrogen 28 H 9-23 mg/dL Creatinine 2.25 H 0.700-1.30 mg/dL Glomerular Filtration Rate Calc 32 >90 mL/min BUN/Creatinine Ratio 12.4 10.0-20.0 Serum Glucose 150 H 74-106 mg/dL Lactic Acid Level 6.8 *H 0.4-2.0 mmol/L Calcium Level 9.8 8.7-10.4 mg/dL Magnesium Level 2.4 1.6-2.6 mg/dL Total Bilirubin 1.9 H 0.2-1.0 mg/dL Aspartate Amino Transferase (AST) > 6000 H 13-40 U/L Alanine Aminotransferase (ALT) 4946 H 7-40 U/L Alkaline Phosphatase 195 H 46-116 U/L Total Protein 6.5 5.7-8.2 g/dL Albumin 3.4 3.2-4.8 g/dL Blood Gas Specimen Type Arterial Blood Gas Sample Site Left brachial Blood Gas Patient Temperature 37.0 Arterial Blood Date Drawn [id number] Arterial Blood pH 7.119 *L 7.350-7.450 Arterial Blood Partial Pressure CO2 42.7 35.0-48.0 mmHg Arterial Blood Partial Pressure O2 198.8 H 83.0-108.0 mmHg Arterial Blood HCO3 13.5 L 21.0-28.0 mmol/L Arterial Blood Oxygen Saturation 98.9 H 94.0-98.0 % Arterial Blood Base Excess -15.3 L -2.0-3.0 mmol/L Arterial Blood Oxyhemoglobin 97.7 94.0-98.0 % Arterial Blood Carboxyhemoglobin 0.8 0.5-1.5 % Arterial Blood Methemoglobin 0.4 0.0-1.5 % Jovi Test N/a Blood Gas Total Hemoglobin 14.40 13.5-17.5 g/dL Blood Gas Set Respiration Rate 16.0 Blood Gas Modality Vent - ac FiO2 % 100.0 Blood Gas Tidal Volume 500.0 Blood Gas PEEP or CPAP 5.0 Blood Gas Critical Value Read Back Yes Blood Gas Notified Whom Sofy pedraza Blood Gas Notified Time [id number] Blood Gas Notified By Oswald varela rrt Triglycerides Level 66 < 150 mg/dL Cholesterol Level 100 < 200 mg/dL LDL Cholesterol 71 < 100 mg/dL HDL Cholesterol 21 L 40-59 mg/dL Thyroid Stimulating Hormone (TSH) 2.46 0.55-4.78 uIU/mL Test 01/09/25 06:06 01/08/25 20:48 01/08/25 20:03 01/08/25 17:16 Range/Units Eosinophils (%) (Auto) 2.0 0.0-7.0 % Eosinophils # (Auto) 0.2 0-0.8 10 ^3/uL Basophils # (Auto) 0.1 0-0.2 10 ^3/uL Nucleated Red Blood Cells 0.1 % Hemoglobin A1c 6.4 H <5.7 % A1C Urine Color Yellow Yellow Urine Clarity Turbid H Clear Urine pH 5.5 5.0-9.0 Urine Specific [place] 1.025 1.001-1.035 Urine Protein 1+ H Negative Urine Ketones Negative Negative Urine Blood Trace H Negative /uL Urine Nitrite Negative Negative Urine Bilirubin Negative Negative Urine Urobilinogen 4 H Negative mg/dL Urine Leukocyte Esterase 3+ Negative /uL Urine RBC 10 0 - 3 /hpf Urine Microscopic WBC 174 H 0-3 /HPF Urine Squamous Epithelial Cells Few <5 /hpf Urine Bacteria Few H None Seen /hpf Urine Hyaline Casts Few 0 - 2 /lpf Urine Mucus Few None Seen Urine Glucose Normal Normal mg/dL Troponin I High Sensitivity 13 </=54 ng/L B-Type Natriuretic Peptide 245.75 0-100 pg/mL Test 01/08/25 16:40 Range/Units Influenza Type A Antigen Negative Negative Influenza Type B Antigen Negative Negative SARS-CoV-2 Antigen (Rapid) Negative NEGATIVE Microbiology Date/Time Source Procedure Growth Status 01/09/25 11:20 Leg Left Gram Stain Pending Resulted 01/09/25 11:20 Wound Culture - Preliminary Pseudomonas aeruginosa Resulted 01/08/25 17:16 Blood Blood Culture - Preliminary NO GROWTH AFTER 48 HOURS OF INCUBATION. Resulted Assessment/Plan 2' Diagnosis/Co-morbidities Acute hypoxemic respiratory failure Cardiac arrest status post CPR Acute kidney injury Cardiomyopathy EF 15% Patient is seen and examined in the ICU Labs and imaging studies reviewed Management plan Therapeutic hypothermia to bring body temperature 94/96 F Sedation as needed/vent support Five follow up on ABGs Initial ABG shows metabolic acidosis and 3 amps of sodium bicarb postop Ventilator changes made to compensate for metabolic acidosis Obtain cultures and broad-spectrum antibiotics empirically Levophed drip/dopamine drip keep mean arterial pressure above 65 Prognosis very poor Full code Critical care time 35 minutes excluding procedure time Plan discussed with: Other (rn) ARJUN TENORIO MD Jan 11, 2025 12:19
--- NOTE | 2025-01-11 13:07 | DVHNC2 ---
Procedure - Procedure right femoral central line placement Indication induced hypothermia Procedure in detail consent was obtained and time-out performed per protocol patient was placed in a supine position. ChloraPrep was used to clean the operative field sterile drapes used to cover the area local analgesia lidocaine 1% 5 cc. The triple-lumen catheter was advanced over the wire with direct ultrasound guidance using Seldinger technique the wire was removed catheter flu shed with normal saline and secured with 2 sutures. Biopatch sterile dressing applied No complications ARJUN TENORIO MD Jan 11, 2025 13:07
--- NOTE | 2025-01-11 13:09 | DVHNC2 ---
Procedure - Procedure right femoral arterial line placement ultrasound guided Indication hemodynamic monitoring Procedure in detail consent was obtained and time-out performed per protocol patient was placed in a supine position ultrasound was used to localize right femoral artery. Sterile procedure local analgesia lidocaine Seldinger technique employed arterial catheter was advanced over the wire with direct ultrasound guidance in the right femoral artery and attached to the transducing device showing correct arterial waveform. It was secured with 2 sutures. Biopatch and sterile dressing applied ARJUN TENORIO MD Jan 11, 2025 13:09
[2025-01-11] MEDS: VASOPRESSIN 20 UNITS in SODIUM CHL 0.9% 99 ML IV SCH (13:48)
[2025-01-11] MEDS: FUROSEMIDE INJECTION 100 MG in SODIUM CHL 0.9% 100 ML IV SCH (13:49)
[2025-01-11] MEDS: VANCOMYCIN 1GM/200ML PM 200 ML IV ONE (14:32)
[2025-01-11 15:55] LABS: Chloride 101 mmol/L (98-107); Sodium 137 mmol/L (136-145)
[2025-01-11 15:56] LABS: Anion Gap 12 (5-15); Calcium 9.1 mg/dL (8.7-10.4); Carbon Dioxide 24 mmol/L (20-31); Potassium 5.5 mmol/L (3.5-5.1)
[2025-01-11 16:01] LABS: BUN/Creatinine Ratio 12.8 (10.0-20.0)
[2025-01-11 16:05] LABS: Blood Urea Nitrogen 31 mg/dL (9-23)
[2025-01-11 16:15] LABS: Glucose 198 mg/dL (74-106)
--- NOTE | 2025-01-11 16:52 | DVHNC2 ---
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 of manager image: Attending Physician Indication: Hypotension, CVP monitoring Room prepared for procedure: Yes Packing Attendant performed hand hygien: Yes Maximal sterile barrier precau: Mask/Eye shield, Sterile gown Skin Preparation: Chlorhexidine gluconate, Providine iodine Skin preparation completely dr: Yes Insertion site: Left, Femoral Central line catheter type: Add-[id number] dialysis Number of lumens: 3 Antiseptic ointment applied to: Yes Date of Service: Jan 11, 2025 Billing Provider: BENJAMIN HERNANDEZ MD Common Visit Codes: [id number] INP/OBS CARE (HIGH) Secondary Visit Codes: [id number] STANDBY SERVICE Consultation Codes: 46189-[id number] CONSULT <45MIN Procedure Codes: 96732-[id number] NON-TUNNEL CV CATH BENJAMIN HERNANDEZ MD Jan 11, 2025 16:52
[2025-01-11] MEDS: CALCIUM GLUC 1,000mg/50ml-NS 50 ML IV ONE (18:00)
[2025-01-11] MEDS: InsuLIN REG 1unit/0.01ml Soln (100units/ml) IV ONE (18:11)
[2025-01-11] MEDS: DEXTROSE (50%) 50ML SYRG IV ONE (18:11)
[2025-01-11 19:19] LABS: Hematocrit 40.3 % (41.0-53.0); Hemoglobin 12.3 g/dL (13.5-17.5)
[2025-01-12] VITALS (108 sets, daily range): BP systolic 52–198; BP diastolic 30–136; PULSE 52–120; RESP 9–28; TEMP 89.6–92.8; O2SAT 91–100
[2025-01-12 04:11] LABS: Basophils # (auto) 0.1 10 ^3/uL (0-0.2); Basophils % (auto) 0.5 % (0.0-2.0); Eosinophils # (auto) 0 10 ^3/uL (0-0.8); Lymphocytes # (auto) 0.8 10 ^3/uL (0.4-5.4); Lymphocytes % (auto) 4.2 % (10.0-50.0)
[2025-01-12 04:14] LABS: Eosinophils % (auto) 0.1 % (0.0-7.0); Hematocrit 39.5 % (41.0-53.0); Hemoglobin 12.5 g/dL (13.5-17.5); Mean Corpuscular Hemoglobin 26.2 pg (28.0-32.0); Mean Corpuscular Hgb Conc. 31.7 g/dL (32.0-36.0); Mean Corpuscular Volume 82.5 fL (80.0-100.0); Neutrophils # (auto) 17.4 10 ^3/uL (1.6-8.6); Neutrophils % (auto) 90.2 % (37.0-80.0); Nucleated Red Blood Cells % 0.1 %; Platelet Count (auto) 188 10^3/uL (140-450); Red Blood Cells 4.79 10^6/uL (4.5-5.90); White Blood Cell 19.3 10^3/uL (4.4-10.8)
[2025-01-12 04:19] LABS: Chloride 100 mmol/L (98-107); Potassium 4.7 mmol/L (3.5-5.1); Sodium 139 mmol/L (136-145)
[2025-01-12] MEDS: VANCOMYCIN 1.5GM/300ML 300 ML IV SCH (04:19)
[2025-01-12 04:20] LABS: Anion Gap 11 (5-15); Calcium 7.8 mg/dL (8.7-10.4); Carbon Dioxide 28 mmol/L (20-31)
[2025-01-12 04:24] LABS: INR 3.74 (0.9-1.15); Partial Thromboplastin Time 37.9 SEC (24.5-34.5); Prothrombin Time 34.8 sec (9.3-11.8)
[2025-01-12 04:25] LABS: BUN/Creatinine Ratio 13.2 (10.0-20.0)
[2025-01-12] MEDS: SODIUM BICARB 8.4% 50Meq/50ml SYR Vial IV ONE (04:37)
--- NOTE | 2025-01-12 04:38 | DVH ---
CHEST RADIOGRAPH Indication: ET Tube Placement Confirmation Technique: Single frontal view of the chest was obtained Comparison: XY CHEST PORTABLE on DOS: 01/11/25 FINDINGS: Lines and Tubes: The endotracheal tube terminates 3.8 cm above the michele. Lungs: Mild bilateral pulmonary opacities. Pleura: Small bilateral pleural effusions. No pneumothorax. Cardiomediastinal contours: Cardiomegaly. Bones: No acute osseous abnormality. IMPRESSION: 1. Bilateral pleural effusions and bilateral pulmonary opacities. 2. Cardiomegaly.
[2025-01-12 05:01] LABS: Blood Urea Nitrogen 35 mg/dL (9-23); Glucose 216 mg/dL (74-106)
[2025-01-12 09:06] LABS: Base Excess -2.3 mmol/L (-2.0-3.0)
[2025-01-12] MEDS: PHYTONADIONE (VIT K)10 MG/ML 1ML VIAL SUBCUT ONE (09:36)
[2025-01-12 10:27] LABS: Magnesium 2.1 mg/dL (1.6-2.6)
[2025-01-12 10:34] LABS: Phosphorus 6.7 mg/dL (2.4-5.1)
--- NOTE | 2025-01-12 11:30 | DVHPN2 ---
Progress Note Date Seen: Jan 12, 2025 Medical Necessity Reason Pt with a Central, PICC or Fol: No Subjective Review of Systems: RESPIRATORY:Abnormal Other Systems: Patient seen and examined by myself today in follow-up, patient remained intubated on ventilator Objective vital signs Vital Sign Date Time Temp Pulse Resp B/P (MAP) Pulse Ox O2 Delivery O2 Flow Rate FiO2 01/12/25 11:00 89.6 69 11 133/63 (86) 98 193.3 01/12/25 10:09 50 01/12/25 10:00 Mechanical Ventilator+ 01/10/25 20:00 0 Total Intake and Output 01/11/25 01/11/25 01/12/25 15:00 23:00 07:00 Intake Total 1228.325 ml 2147.25 ml 2443.75 ml Output Total 40 ml 75 ml Balance 1228.325 ml 2107.25 ml 2368.75 ml medications Current Medications Medications Dose Ordered Sig/Fatoumata Route Start Time Stop Time Status Last Admin Dose Admin Aspirin 81 mg DAILY PO 01/09/25 10:00 01/10/25 10:15 81 MG Hydralazine HCl 10 mg Q6HP PRN IV 01/08/25 21:15 Insulin Human Regular HS SC 01/08/25 22:00 01/11/25 21:41 4 UNITS Insulin Human Regular AC SC 01/09/25 07:00 01/12/25 06:15 3 UNITS Dextrose 50 ml UD PRN IV 01/08/25 21:15 Sodium Chloride 10 ml Q8HR IV 01/08/25 22:00 01/12/25 05:04 10 ML Acetaminophen/ Hydrocodone Bitart 1 tab Q4HP PRN PO 01/08/25 21:15 Ondansetron HCl 4 mg Q4HP PRN IV 01/08/25 21:15 01/10/25 22:15 4 MG Docusate Sodium 100 mg BIDPRN PRN PO 01/08/25 21:15 Acetaminophen 650 mg Q6HP PRN PO 01/08/25 21:15 Nitroglycerin 0.4 mg Q5MINP PRN SL 01/08/25 21:45 Morphine Sulfate 2 mg Q30M PRN IV 01/08/25 21:45 Cancel Apixaban 5 mg BID PO 01/10/25 11:30 01/10/25 21:18 5 MG Propofol 100 ml @ 4.59 mls/hr [id number] IV 01/11/25 06:30 01/11/25 07:37 0 MLS/HR Midazolam HCl 50 ml @ 1 mls/hr Q24H IV 01/11/25 06:30 01/12/25 10:28 15 MLS/HR Fentanyl Citrate 250 ml @ 2.5 mls/hr Q24H IV 01/11/25 06:30 01/12/25 07:50 20 MLS/HR Dopamine HCl/ Dextrose 250 ml @ 28.688 mls/ hr Q8H43M IV 01/11/25 06:30 01/11/25 07:36 114.75 MLS/HR Phenylephrine HCl 250 ml @ 30 mls/hr Q8H20M IV 01/11/25 07:45 Norepinephrine Bitartrate 250 ml @ 3.75 mls/hr Q24H IV 01/11/25 07:45 01/12/25 10:28 48.75 MLS/HR Morphine Sulfate 2 mg Q30M PRN IV 01/11/25 09:15 Vasopressin 20 units/Sodium Chloride 100 ml @ 9 mls/hr Q11H7M IV 01/11/25 09:30 01/11/25 22:13 9 MLS/HR Diagnostic Test (Pha) 1 strip ACHS 01/11/25 11:30 01/12/25 05:04 1 STRIP Piperacillin Sod/ Tazobactam Sod 100 ml @ 25 mls/hr Q8HR IV 01/11/25 10:55 01/12/25 06:12 25 MLS/HR Vancomycin HCl 0 ml @ 0 mls/hr UD IV 01/11/25 10:45 Sodium Bicarbonate 150 ml/Dextrose 1,150 ml @ 150 mls/hr Q7H40M IV 01/11/25 11:00 01/12/25 05:03 150 MLS/HR Furosemide 100 mg/ Sodium Chloride 110 ml @ 16.5 mls/hr Q6H40M IV 01/11/25 11:15 01/12/25 07:52 16.5 MLS/HR Vancomycin HCl 300 ml @ 200 mls/hr Q16H IV 01/12/25 04:00 01/12/25 04:19 200 MLS/HR Examination: LUNGS:Normal, CVS:Normal, MSK:Normal laboratory and microbiology Laboratory Tests 01/12/25 03:50 Test 01/12/25 03:50 Range/Units Serum Glucose 216 H 74-106 mg/dL Microbiology Date/Time Source Procedure Growth Status 01/11/25 07:40 Urine - [place] Urine Culture - Preliminary Resulted 01/11/25 06:23 Sputum Gram Stain - Final Resulted 01/11/25 06:23 Sputum Respiratory Culture - Preliminary Resulted 01/09/25 11:20 Leg Left Gram Stain - Final Resulted 01/09/25 11:20 Wound Culture - Preliminary Pseudomonas aeruginosa Resulted 01/08/25 17:16 Blood Blood Culture - Preliminary NO GROWTH AFTER 72 HOURS OF INCUBATION. Resulted Problem List/Assessment/Plan Problem List/Assessment/Plan Acute kidney injury hemodynamically mediated in the setting of cardiac arrest Acute respiratory failure , patient intubated on ventilator Morbid obesity Severe systolic heart failure, with acute decompensation Cardiac arrest COPD Diabetes mellitus type 2 Hyperglycemia Metabolic acidosis Septic shock Hyperkalemia Recommendations Kidney function slightly worsened Decreased urine output Staley catheter Strict I&Os I agree with diuresis IV antibiotics IV pressors for blood pressure support Insulin sliding scale Check urine lytes and protein excretion We will continue to follow up Plan discussed with: Other (Nurse) My Orders My Orders Orders - MARNIE BILLY MD Procedure Category Date Status Time Urine Sodium LAB 01/12/25 Logged 10:03 Urine LAB 01/12/25 Logged Protein/Creatinine Urinalysis LAB 01/12/25 Logged 10:03 Hepatitis C Antibody LAB 01/12/25 In Process 10:03 Hepatitis B Surface LAB 01/12/25 In Process Antigen 10:03 Dietary Evaluation Review Comments: 1) Initiate Pro-Stat @ 30 mL qd 2) Initiate Migel @ 1 pk bid 3) Initiate MVI @ 1 tb qd 4) Continue to encourage optial PO intake 5) Refer to outpatient RD/CD[facility] for weight management 6) Continue to monitor I&O, labs, and skin integrity Expected Outcomes/Goals: 1) appetite and labs to improve 2) wounds to improve 3) f/u in 3-5 days MARNIE BILLY MD Jan 12, 2025 11:30
--- NOTE | 2025-01-12 12:05 | DVHPN2 ---
Progress Note Date Seen: Jan 12, 2025 Medical Necessity Reason Pt with a Central, PICC or Fol: No Subjective Other Systems: given vit K on vaso and levo Objective vital signs Vital Sign Date Time Temp Pulse Resp B/P (MAP) Pulse Ox O2 Delivery O2 Flow Rate FiO2 01/12/25 11:00 89.6 69 11 133/63 (86) 98 193.3 01/12/25 10:09 50 01/12/25 10:00 Mechanical Ventilator+ 01/10/25 20:00 0 Total Intake and Output 01/11/25 01/11/25 01/12/25 15:00 23:00 07:00 Intake Total 1228.325 ml 2147.25 ml 2443.75 ml Output Total 40 ml 75 ml Balance 1228.325 ml 2107.25 ml 2368.75 ml medications Current Medications Medications Dose Ordered Sig/Fatoumata Route Start Time Stop Time Status Last Admin Dose Admin Aspirin 81 mg DAILY PO 01/09/25 10:00 01/10/25 10:15 81 MG Hydralazine HCl 10 mg Q6HP PRN IV 01/08/25 21:15 Insulin Human Regular HS SC 01/08/25 22:00 01/11/25 21:41 4 UNITS Insulin Human Regular AC SC 01/09/25 07:00 01/12/25 11:41 6 UNITS Dextrose 50 ml UD PRN IV 01/08/25 21:15 Sodium Chloride 10 ml Q8HR IV 01/08/25 22:00 01/12/25 05:04 10 ML Acetaminophen/ Hydrocodone Bitart 1 tab Q4HP PRN PO 01/08/25 21:15 Ondansetron HCl 4 mg Q4HP PRN IV 01/08/25 21:15 01/10/25 22:15 4 MG Docusate Sodium 100 mg BIDPRN PRN PO 01/08/25 21:15 Acetaminophen 650 mg Q6HP PRN PO 01/08/25 21:15 Nitroglycerin 0.4 mg Q5MINP PRN SL 01/08/25 21:45 Morphine Sulfate 2 mg Q30M PRN IV 01/08/25 21:45 Cancel Apixaban 5 mg BID PO 01/10/25 11:30 01/10/25 21:18 5 MG Propofol 100 ml @ 4.59 mls/hr [id number] IV 01/11/25 06:30 01/11/25 07:37 0 MLS/HR Midazolam HCl 50 ml @ 1 mls/hr Q24H IV 01/11/25 06:30 01/12/25 10:28 15 MLS/HR Fentanyl Citrate 250 ml @ 2.5 mls/hr Q24H IV 01/11/25 06:30 01/12/25 07:50 20 MLS/HR Dopamine HCl/ Dextrose 250 ml @ 28.688 mls/ hr Q8H43M IV 01/11/25 06:30 01/11/25 07:36 114.75 MLS/HR Phenylephrine HCl 250 ml @ 30 mls/hr Q8H20M IV 01/11/25 07:45 Norepinephrine Bitartrate 250 ml @ 3.75 mls/hr Q24H IV 01/11/25 07:45 01/12/25 10:28 48.75 MLS/HR Morphine Sulfate 2 mg Q30M PRN IV 01/11/25 09:15 Vasopressin 20 units/Sodium Chloride 100 ml @ 9 mls/hr Q11H7M IV 01/11/25 09:30 01/11/25 22:13 9 MLS/HR Diagnostic Test (Pha) 1 strip ACHS 01/11/25 11:30 01/12/25 11:41 1 STRIP Piperacillin Sod/ Tazobactam Sod 100 ml @ 25 mls/hr Q8HR IV 01/11/25 10:55 01/12/25 06:12 25 MLS/HR Vancomycin HCl 0 ml @ 0 mls/hr UD IV 01/11/25 10:45 Sodium Bicarbonate 150 ml/Dextrose 1,150 ml @ 150 mls/hr Q7H40M IV 01/11/25 11:00 01/12/25 05:03 150 MLS/HR Furosemide 100 mg/ Sodium Chloride 110 ml @ 16.5 mls/hr Q6H40M IV 01/11/25 11:15 01/12/25 07:52 16.5 MLS/HR Vancomycin HCl 300 ml @ 200 mls/hr Q16H IV 01/12/25 04:00 01/12/25 04:19 200 MLS/HR Examination: GENERAL:Abnormal, HEENT:Abnormal, LUNGS:Abnormal, CVS:Abnormal, ABDOMEN:Abnormal laboratory and microbiology Laboratory Tests 01/12/25 03:50 Test 01/12/25 03:50 Range/Units Serum Glucose 216 H 74-106 mg/dL Microbiology Date/Time Source Procedure Growth Status 01/11/25 07:40 Urine - [place] Urine Culture - Preliminary Resulted 01/11/25 06:23 Sputum Gram Stain - Final Resulted 01/11/25 06:23 Sputum Respiratory Culture - Preliminary Resulted 01/09/25 11:20 Leg Left Gram Stain - Final Resulted 01/09/25 11:20 Wound Culture - Preliminary Pseudomonas aeruginosa Resulted 01/08/25 17:16 Blood Blood Culture - Preliminary NO GROWTH AFTER 72 HOURS OF INCUBATION. Resulted Problem List/Assessment/Plan Problem List/Assessment/Plan severe class IV systolic and diasttolic acute on chronic HF ckd atrial flutter cardiac arrest resp failure bradycardia acidemia on levophed gtt lasix gtt bicarb gtt cont tele anuric rate control pt vent management per pulmonary consider head ct when feasible but defer to primary service consider dc bicarb gtt when feasible, abg better head ct pending hypothermia protocol Plan discussed with: Patient Dietary Evaluation Review Comments: 1) Initiate Pro-Stat @ 30 mL qd 2) Initiate Migel @ 1 pk bid 3) Initiate MVI @ 1 tb qd 4) Continue to encourage optial PO intake 5) Refer to outpatient RD/[facility] for weight management 6) Continue to monitor I&O, labs, and skin integrity Expected Outcomes/Goals: 1) appetite and labs to improve 2) wounds to improve 3) f/u in 3-5 days Date of Service: Jan 12, 2025 Billing Provider: PERI MARI MD Common Visit Codes: NOT BILLABLE PERI MARI MD Jan 12, 2025 12:05
[2025-01-12 12:18] LABS: Hepatitis B Surface Antigen Negative (Negative); Hepatitis C Antibody Negative (Negative)
--- NOTE | 2025-01-12 14:33 | DVHPN2 ---
Progress Note Date Seen: Jan 12, 2025 Medical Necessity Reason Pt with a Central, PICC or Fol: Yes The following are medically ne: Central Line, Valenzuela Catheter Reason for valenzuela catheter: Strict I&O Subjective Patient reports: No new complaints Review of Systems: HEENT:Normal, CVS:Normal, RESPIRATORY:Normal, GI:Normal, :Normal, MSK:Normal, NEURO:Normal Objective vital signs Vital Sign Date Time Temp Pulse Resp B/P (MAP) Pulse Ox O2 Delivery O2 Flow Rate FiO2 01/12/25 13:38 122/61 01/12/25 12:14 73 24 98 50 01/12/25 11:00 89.6 193.3 01/12/25 10:00 Mechanical Ventilator+ 01/10/25 20:00 0 Total Intake and Output 01/11/25 01/11/25 01/12/25 15:00 23:00 07:00 Intake Total 1228.325 ml 2147.25 ml 2443.75 ml Output Total 40 ml 75 ml Balance 1228.325 ml 2107.25 ml 2368.75 ml medications Current Medications Medications Dose Ordered Sig/Fatoumata Route Start Time Stop Time Status Last Admin Dose Admin Aspirin 81 mg DAILY PO 01/09/25 10:00 01/10/25 10:15 81 MG Hydralazine HCl 10 mg Q6HP PRN IV 01/08/25 21:15 Insulin Human Regular HS SC 01/08/25 22:00 01/11/25 21:41 4 UNITS Insulin Human Regular AC SC 01/09/25 07:00 01/12/25 11:41 6 UNITS Dextrose 50 ml UD PRN IV 01/08/25 21:15 Sodium Chloride 10 ml Q8HR IV 01/08/25 22:00 01/12/25 05:04 10 ML Acetaminophen/ Hydrocodone Bitart 1 tab Q4HP PRN PO 01/08/25 21:15 Ondansetron HCl 4 mg Q4HP PRN IV 01/08/25 21:15 01/10/25 22:15 4 MG Docusate Sodium 100 mg BIDPRN PRN PO 01/08/25 21:15 Acetaminophen 650 mg Q6HP PRN PO 01/08/25 21:15 Nitroglycerin 0.4 mg Q5MINP PRN SL 01/08/25 21:45 Morphine Sulfate 2 mg Q30M PRN IV 01/08/25 21:45 Cancel Apixaban 5 mg BID PO 01/10/25 11:30 01/10/25 21:18 5 MG Propofol 100 ml @ 4.59 mls/hr [id number] IV 01/11/25 06:30 01/11/25 07:37 0 MLS/HR Midazolam HCl 50 ml @ 1 mls/hr Q24H IV 01/11/25 06:30 01/12/25 13:38 15 MLS/HR Fentanyl Citrate 250 ml @ 2.5 mls/hr Q24H IV 01/11/25 06:30 01/12/25 07:50 20 MLS/HR Dopamine HCl/ Dextrose 250 ml @ 28.688 mls/ hr Q8H43M IV 01/11/25 06:30 01/11/25 07:36 114.75 MLS/HR Phenylephrine HCl 250 ml @ 30 mls/hr Q8H20M IV 01/11/25 07:45 Norepinephrine Bitartrate 250 ml @ 3.75 mls/hr Q24H IV 01/11/25 07:45 01/12/25 10:28 48.75 MLS/HR Morphine Sulfate 2 mg Q30M PRN IV 01/11/25 09:15 Vasopressin 20 units/Sodium Chloride 100 ml @ 9 mls/hr Q11H7M IV 01/11/25 09:30 01/12/25 12:12 6 MLS/HR Diagnostic Test (Pha) 1 strip ACHS 01/11/25 11:30 01/12/25 11:41 1 STRIP Piperacillin Sod/ Tazobactam Sod 100 ml @ 25 mls/hr Q8HR IV 01/11/25 10:55 01/12/25 06:12 25 MLS/HR Vancomycin HCl 0 ml @ 0 mls/hr UD IV 01/11/25 10:45 Sodium Bicarbonate 150 ml/Dextrose 1,150 ml @ 150 mls/hr Q7H40M IV 01/11/25 11:00 01/12/25 13:30 150 MLS/HR Furosemide 100 mg/ Sodium Chloride 110 ml @ 16.5 mls/hr Q6H40M IV 01/11/25 11:15 01/12/25 13:30 16.5 MLS/HR Vancomycin HCl 300 ml @ 200 mls/hr Q16H IV 01/12/25 04:00 01/12/25 04:19 200 MLS/HR Examination: GENERAL:Normal, HEENT:Normal, NECK:Normal, LUNGS:Normal, LUNGS:Abnormal (intubated), CVS:Normal, ABDOMEN:Normal, MSK:Normal, MSK:Abnormal (edema+++, wound left leg), SKIN:Normal, NEURO:Normal, NEURO:Abnormal (pupils mid dilated non reactive), :Normal laboratory and microbiology Laboratory Tests 01/12/25 03:50 Test 01/12/25 03:50 Range/Units Serum Glucose 216 H 74-106 mg/dL Microbiology Date/Time Source Procedure Growth Status 01/11/25 07:40 Urine - [place] Urine Culture - Preliminary Resulted 01/11/25 06:23 Sputum Gram Stain - Final Resulted 01/11/25 06:23 Sputum Respiratory Culture - Preliminary Resulted 01/09/25 11:20 Leg Left Gram Stain - Final Resulted 01/09/25 11:20 Wound Culture - Preliminary Pseudomonas aeruginosa Resulted 01/08/25 17:16 Blood Blood Culture - Preliminary NO GROWTH AFTER 72 HOURS OF INCUBATION. Resulted Problem List/Assessment/Plan Problem List/Assessment/Plan #1 acute resp failure: cont acv, peep 10 #2 s/p cpr: on targeted temp management #3 acute systolic heart failure: cont meds #4 morbid obesity #5 shock ? cardiac ?septic: iv antibiotics, iv pressors #6 dm: ssi #7 coagulopathy #8 acute renal failure/atn: iv lasix drip #9 left leg wound/pseud: on zosyn #10 shock liver #11 gout #12 ?hypoxic encephalopathy: neuro eval, ct head Plan discussed with: Other (rn) My Orders My Orders Orders - MAAME MARTÍNEZ MD Procedure Category Date Status Time D5 W Sodium PHA 01/12/25 Transmitted Bicarbonate Drip 14:30 Zosyn Extended PHA 01/12/25 Transmitted Infusion 22:00 Pantoprazole PHA 01/12/25 Transmitted (Protonix) 14:30 Pantoprazole PHA 01/13/25 Transmitted (Protonix) 10:00 * Neurology Consult CONS 01/12/25 Transmitted 14:23 Complete Blood Count LAB 01/13/25 Verified 06:00 Comprehensive LAB 01/13/25 Verified Metabolic Panel 06:00 PTPTT LAB 01/13/25 Verified 04:00 Chest Portable XY 01/13/25 Logged 06:00 Abg W/ Co-Ox RT 01/13/25 Logged 06:00 Dietary Evaluation Review Comments: 1) Initiate Pro-Stat @ 30 mL qd 2) Initiate Migel @ 1 pk bid 3) Initiate MVI @ 1 tb qd 4) Continue to encourage optial PO intake 5) Refer to outpatient RD/[facility] for weight management 6) Continue to monitor I&O, labs, and skin integrity Expected Outcomes/Goals: 1) appetite and labs to improve 2) wounds to improve 3) f/u in 3-5 days Critical Care Time (mins): 81 (critical care time excluding procedures was 81 mins) Date of Service: Jan 12, 2025 Billing Provider: MAAME MARTÍNEZ MD Common Visit Codes: [id number] CARE 30-74 MIN, [id number] CARE-EACH +30MIN MAAME MARTÍNEZ MD Jan 12, 2025 14:33
[2025-01-12] MEDS: SODIUM BICARB 50mEq/50ml Vial 150 ML in D5W 5% 1,000 ML IV SCH (15:46)
[2025-01-12] MEDS: PANTOPRAZOLE 40 MG/10 ML VIAL INJ IV ONE (16:04)
[2025-01-12 16:58] LABS: Protein, Urine 123.4 mg/dL (1-14); Urine Bacteria FEW /hpf (None Seen); Urine Blood 3+ /uL (Negative); Urine Clarity Turbid (Clear); Urine Color Yellow (Yellow); Urine Mucus FEW (None Seen); Urine Protein, UAD TRACE (Negative); Urine Specific Gravity 1.011 (1.001-1.035); Urine Squamous Epithelial Cell FEW /hpf (<5); Urine Urobilinogen Normal (Negative); Urine WBC 11 /HPF (0-3)
[2025-01-12 17:01] LABS: Creatinine, Urine 35.55 mg/dL (30.0-125.0); Urine Protein/Creatinine Ratio 3.47
[2025-01-12] MEDS: PIPERACILLIN-TAZOB 3.375GM 100 ML IV SCH (23:49)
[2025-01-13] VITALS (106 sets, daily range): BP systolic 63–173; BP diastolic 34–81; PULSE 99–130; RESP 16–26; TEMP 93–98.6; O2SAT 96–100
[2025-01-13 04:04] LABS: Basophils # (auto) 0 10 ^3/uL (0-0.2); Eosinophils # (auto) 0.1 10 ^3/uL (0-0.8); Lymphocytes # (auto) 0.7 10 ^3/uL (0.4-5.4); Mean Corpuscular Hgb Conc. 32.2 g/dL (32.0-36.0); Monocytes # (auto) 0.5 10 ^3/uL (0-1.3); Monocytes % (auto) 4.2 % (0.0-12.0)
[2025-01-13 04:08] LABS: Basophils % (auto) 0.3 % (0.0-2.0); Eosinophils % (auto) 0.5 % (0.0-7.0); Hematocrit 39.2 % (41.0-53.0); Hemoglobin 12.6 g/dL (13.5-17.5); Lymphocytes % (auto) 5.9 % (10.0-50.0); Mean Corpuscular Hemoglobin 26.3 pg (28.0-32.0); Mean Corpuscular Volume 81.6 fL (80.0-100.0); Neutrophils % (auto) 89.1 % (37.0-80.0); Nucleated Red Blood Cells % 0.3 %; Platelet Count (auto) 162 10^3/uL (140-450); Red Cell Distribution Width 16.9 % (11.8-14.3); White Blood Cell 11.3 10^3/uL (4.4-10.8)
[2025-01-13 04:19] LABS: Anion Gap 12 (5-15); BUN/Creatinine Ratio 12.5 (10.0-20.0); Carbon Dioxide 28 mmol/L (20-31)
[2025-01-13 04:25] LABS: Albumin 2.6 g/dL (3.2-4.8); Alkaline Phosphatase 181 U/L (46-116); Bilirubin, Total 2.6 mg/dL (0.2-1.0); Blood Urea Nitrogen 39 mg/dL (9-23); Calcium 7.4 mg/dL (8.7-10.4); Chloride 95 mmol/L (98-107); Glucose 144 mg/dL (74-106); Sodium 135 mmol/L (136-145); Total Protein 5.2 g/dL (5.7-8.2)
[2025-01-13 04:29] LABS: INR 3.15 (0.9-1.15); Partial Thromboplastin Time 38.1 SEC (24.5-34.5); Prothrombin Time 29.8 sec (9.3-11.8)
[2025-01-13 04:43] LABS: Alanine Aminotransferase 3610 U/L (7-40)
--- NOTE | 2025-01-13 05:37 | DVH ---
EXAM: XR Chest, 1 View CLINICAL INDICATION: RESP FAILURE TECHNIQUE: Frontal view of the chest. COMPARISON: XY CHEST XRAY 1 VIEW on DOS: 01/12/25, XY CHEST PORTABLE on DOS: 01/11/25, XY CHEST PORTABL E on DOS: 01/08/25 FINDINGS: LUNGS AND PLEURAL SPACES: See below. HEART: Cardiomegaly with mild congestion. MEDIASTINUM: Unremarkable. Normal mediastinal contour. BONES/JOINTS: Unremarkable. No acute fracture. TUBES, LINES AND DEVICES: The endotracheal tube (ETT) is in satisfactory position. OTHER FINDINGS: . . . . IMPRESSION: Cardiomegaly with mild congestion.
[2025-01-13 07:01] LABS: Base Excess 3.2 mmol/L (-2.0-3.0)
--- NOTE | 2025-01-13 08:03 | ECG ---
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
[2025-01-13] MEDS: PANTOPRAZOLE 40 MG/10 ML VIAL INJ IV SCH (09:30)
--- NOTE | 2025-01-13 10:27 | DVHINCON2 ---
Date of service: Jan 13, [address] Reynolds Reason for Consultation Status post CPR History of Present Illness Mr. Noyola is a 64 years old gentleman with a history of hypertension, diabetes, obesity, asthma, gout, the patient was came to the [facility] on 01/08/2025 with a chief company of general weakness, and he coded the same day, 01/08/2025 [id number]. He was resuscitated and has been intubated, sedated, on pressor drip, nonresponsive to painful stimuli since According to his niece, the patient was found to have COVID-19 in 06/2024, and since then he was fluctuating general weakness, coughing, shortness breath, his problems are worse in the two weeks prior to this admission. The patient was did not see a doctor and he was not on medication before this admission Urinalysis, : UTI WBC/HB/PLT/MCV, 01/13/2025: 11.3/12.6/162/81.6 PT/INR/PTT, 01/12/2025: 44.8/3.74/37.9, 01/13/2025: 29.8/3.15/38.1 BUN/CR, 01/08/2025: 16/1.08, 01/11/2025: 31/2.42, 01/13/2025: 39/3.12 TBI/AST/ALT/AP, 01/08/2025: 1/17/19/133, : 1.9/> 6000/4946/195 HGB A1c, 01/09/25: 6.4 TG/HDL/LDL/HDL, 01/10/25: 66/100/71/21 Extremity venous study, 01/09/2025: No right or left femoropopliteal venous thrombosis. Chest x-ray, 01/13/2025: Cardiomegaly with mild congestion. CT head, 01/13/2025: No evidence of acute intracranial abnormality. Past Medical History Hypertension, diabetes, obesity, asthma, gout Past Surgical History Denies Family History: FH: CHF (congestive heart failure) G8 MOTHER, FH: cancer G8 FATHER, Family History Congestive heart failure, cancer Social History Patient denies any tobacco use Denies any illicit drug use Patient admits to drinking approximately four shots of bourbon per week Allergies: Coded Allergies: No Known Drug Allergy (Verified Allergy, Unknown, 01/08/25) Home Meds No Active Prescriptions or Reported Meds Current Medications Current Medications Medications (Trade) Dose Ordered Sig/Fatoumata Route PRN Reason Start Time Stop Time Status Last Admin Sodium Bicarbonate 150 ml/Dextrose 1,150 ml @ 60 mls/hr [id number] IV 01/12/25 14:30 01/13/25 04:17 Piperacillin Sod/ Tazobactam Sod 100 ml @ 25 mls/hr Q12HR IV 01/12/25 22:00 01/13/25 09:30 Pantoprazole Sodium (Protonix) 40 mg DAILY IV 01/13/25 10:00 01/13/25 09:30 Review of Systems Unobtainable Vital Signs Vital Signs Date Time Temp Pulse Resp B/P (MAP) Pulse Ox O2 Delivery O2 Flow Rate FiO2 01/13/25 09:34 128 24 100/59 (73) 98 30 01/13/25 06:45 96.4 205.5 01/13/25 06:00 Mechanical Ventilator+ Physical Exam The patient is well-nourished and well-developed with no distress. The patient is intubated HEENT: Normocephalic, neck supple, no carotid bruits Lungs: Clear to auscultation Cardiovascular: Regular rate and region, S1, S2, no murmurs Abdomen: Soft, nontender, normal bowel sounds Edema in the lower extremities MENTAL STATUS: Not responsive to stroke painful stimuli, CRANIAL NERVES: Pupils are equal, round and reactive.There are corneal reflexes and doll's eyes phenomenon. No signs of facial weakness. There are very weak/questionable gagging or coughing reflexes SENSATION: No responses to pain stimuli. MOTOR: Normal tone in the upper and lower extremity. Normal muscle bulk. No fasciculations. No spontaneous movement. REFLEXES: Deep tendon reflexes are symmetrical. No pathological reflexes. CEREBELLAR/COORDINATION: Deferred GAIT/STATION: deferred Labs/Diagnostic Data Labs Test 01/13/25 06:50 01/13/25 05:52 01/13/25 03:15 01/12/25 16:12 Range/Units Blood Gas Specimen Type Arterial Blood Gas Sample Site Arterial line Blood Gas Patient Temperature 37.0 Arterial Blood Date Drawn [id number] Arterial Blood pH 7.423 7.350-7.450 Arterial Blood Partial Pressure CO2 44.1 35.0-48.0 mmHg Arterial Blood Partial Pressure O2 71.4 L 83.0-108.0 mmHg Arterial Blood HCO3 28.2 H 21.0-28.0 mmol/L Arterial Blood Oxygen Saturation 93.4 L 94.0-98.0 % Arterial Blood Base Excess 3.2 H -2.0-3.0 mmol/L Arterial Blood Oxyhemoglobin 92.7 L 94.0-98.0 % Arterial Blood Carboxyhemoglobin 0.5 0.5-1.5 % Arterial Blood Methemoglobin 0.3 0.0-1.5 % Jovi Test N/a Blood Gas Total Hemoglobin 13.60 13.5-17.5 g/dL Blood Gas Set Respiration Rate 24.0 Blood Gas Modality Vent - ac FiO2 % 30.0 Blood Gas Tidal Volume 500.0 Blood Gas PEEP or CPAP 10.0 POC Glucose 130 H 70-106 mg/dl White Blood Count 11.3 #H 4.4-10.8 10^3/uL Red Blood Count 4.80 4.5-5.90 10^6/uL Hemoglobin 12.6 L 13.5-17.5 g/dL Hematocrit 39.2 L 41.0-53.0 % Mean Corpuscular Volume 81.6 80.0-100.0 fL Mean Corpuscular Hemoglobin 26.3 L 28.0-32.0 pg Mean Corpuscular Hemoglobin Concent 32.2 32.0-36.0 g/dL Red Cell Distribution Width 16.9 H 11.8-14.3 % Platelet Count 162 140-450 10^3/uL Mean Platelet Volume 9.0 6.9-10.8 fL Neutrophils (%) (Auto) 89.1 H 37.0-80.0 % Lymphocytes (%) (Auto) 5.9 L 10.0-50.0 % Monocytes (%) (Auto) 4.2 0.0-12.0 % Eosinophils (%) (Auto) 0.5 0.0-7.0 % Basophils (%) (Auto) 0.3 0.0-2.0 % Neutrophils # (Auto) 10.0 H 1.6-8.6 10 ^3/uL Lymphocytes # (Auto) 0.7 0.4-5.4 10 ^3/uL Monocytes # (Auto) 0.5 0-1.3 10 ^3/uL Eosinophils # (Auto) 0.1 0-0.8 10 ^3/uL Basophils # (Auto) 0 0-0.2 10 ^3/uL Nucleated Red Blood Cells 0.3 % Prothrombin Time 29.8 H 9.3-11.8 sec Prothrombin Time INR 3.15 H 0.9-1.15 Activated Partial Thromboplast Time 38.1 H 24.5-34.5 SEC Sodium Level 135 L 136-145 mmol/L Potassium Level 4.0 3.5-5.1 mmol/L Chloride Level 95 L 98-107 mmol/L Carbon Dioxide Level 28 20-31 mmol/L Anion Gap 12 5-15 Blood Urea Nitrogen 39 H 9-23 mg/dL Creatinine 3.12 H 0.700-1.30 mg/dL Glomerular Filtration Rate Calc 21 >90 mL/min BUN/Creatinine Ratio 12.5 10.0-20.0 Serum Glucose 144 H 74-106 mg/dL Calcium Level 7.4 L 8.7-10.4 mg/dL Total Bilirubin 2.6 H 0.2-1.0 mg/dL Aspartate Amino Transferase (AST) 13-40 U/L Alanine Aminotransferase (ALT) 3610 H 7-40 U/L Alkaline Phosphatase 181 H 46-116 U/L Total Protein 5.2 L 5.7-8.2 g/dL Albumin 2.6 L 3.2-4.8 g/dL Urine Color Yellow Yellow Urine Clarity Turbid H Clear Urine pH 5.0 5.0-9.0 Urine Specific [place] 1.011 1.001-1.035 Urine Protein Trace H Negative Urine Ketones Negative Negative Urine Blood 3+ H Negative /uL Urine Nitrite Negative Negative Urine Bilirubin Negative Negative Urine Urobilinogen Normal Negative mg/dL Urine Leukocyte Esterase Trace Negative /uL Urine RBC 87 0 - 3 /hpf Urine Microscopic WBC 11 H 0-3 /HPF Urine Squamous Epithelial Cells Few <5 /hpf Urine Bacteria Few H None Seen /hpf Urine Mucus Few None Seen Urine Creatinine 35.55 30.0-125.0 mg/dL Urine Protein/Creatinine Ratio 3.47 Urine Sodium 113 40-220 mmol/L Urine Glucose Trace Normal mg/dL Urine Total Protein 123.4 H 1-14 mg/dL Test 6/2/25 10:20 01/12/25 03:50 01/11/25 09:47 01/11/25 08:34 Range/Units Vitamin D 25-Hydroxy 7.2 L 30.0-100 ng/mL Hepatitis B Surface Antigen Negative Negative Hepatitis C Antibody Negative Negative Phosphorus Level 6.7 H 2.4-5.1 mg/dL Magnesium Level 2.1 1.6-2.6 mg/dL Parathyroid Hormone (Intact) 266.6 H 18.4-80.1 pg/mL Differential Total Cells Counted 100.0 100 Neutrophils % (Manual) 78 37.0-80.0 Band Neutrophils % (Manual) 12 Lymphocytes % (Manual) 3 L 10.0-50.0 Monocytes % (Manual) 7 0-12 Eosinophils % (Manual) 0 0-7 Basophils % (Manual) 0 0.0-2.0 Metamyelocytes % (manual) 0 Myelocytes % (Manual) 0 Promyelocytes % (Manual) 0 Blast Cells % (Manual) 0 Reactive Lymphocytes 0 Platelet Estimate Adequate Hypochromasia (manual) Moderate Anisocytosis (manual) Slight Lactic Acid Level 6.8 *H 0.4-2.0 mmol/L Blood Gas Critical Value Read Back Yes Blood Gas Notified Whom Sofy pedraza Blood Gas Notified Time [id number] Blood Gas Notified By Oswald varela , health promotion specialist Test 01/10/25 09:04 01/09/25 06:06 01/08/25 20:48 01/08/25 20:03 Range/Units Triglycerides Level 66 < 150 mg/dL Cholesterol Level 100 < 200 mg/dL LDL Cholesterol 71 < 100 mg/dL HDL Cholesterol 21 L 40-59 mg/dL Prostate Specific Antigen 0.31 0.0-4.0 ng/mL Thyroid Stimulating Hormone (TSH) 2.46 0.55-4.78 uIU/mL Hemoglobin A1c 6.4 H <5.7 % A1C Urine Hyaline Casts Few 0 - 2 /lpf Troponin I High Sensitivity 13 </=54 ng/L Test 01/08/25 17:16 01/08/25 16:40 Range/Units B-Type Natriuretic Peptide 245.75 0-100 pg/mL Influenza Type A Antigen Negative Negative Influenza Type B Antigen Negative Negative SARS-CoV-2 Antigen (Rapid) Negative NEGATIVE Microbiology Date/Time Source Procedure Growth Status 01/11/25 07:40 Urine - [place] Urine Culture - Preliminary Resulted 01/11/25 06:23 Sputum Gram Stain - Final Resulted 01/11/25 06:23 Sputum Respiratory Culture - Preliminary Resulted 01/09/25 11:20 Leg Left Gram Stain - Final Resulted 01/09/25 11:20 Wound Culture - Preliminary Pseudomonas aeruginosa Resulted 01/08/25 17:16 Blood Blood Culture - Preliminary NO GROWTH AFTER 72 HOURS OF INCUBATION. Resulted Assessment Coma Hypoxic encephalopathy Metabolic encephalopathy Cardiopulmonary arrest Urinary tract infection ? Sepsis, Shock Cardiologic general? Septic shock Kidney failure Shocked liver Morbid obesity Leg edema Coagulopathy, etiology unclear, Chronic wound in the skin Plan/Recommendation Monitoring Supportive treatment ICU care EEG Follow-up lab On targeted temperature management Respiratory support/vent management Stabilize vitals/pressor drip Oxygen IV antibiotics Wound Care Pulmonology on case Nephrology on case More recommendation per clinical course Progress: Guarded Critical care time spent is 45 minutes This medical document was created using an electronic medical record system with [employer] computerized dictation system. Although this document has been carefully reviewed, there may still be some phonetic and typographical errors. These areas are purely typographical due to imperfections of the software programs, and do not reflect any compromise in the patient's medical care. Plan discussed with: Other SANTANA NAVARRO MD Jan 13, 2025 10:27
--- NOTE | 2025-01-13 12:22 | DVHPN2 ---
Progress Note Date Seen: Jan 13, 2025 Medical Necessity Reason Pt with a Central, PICC or Fol: Yes The following are medically ne: Central Line, Valenzuela Catheter Reason for valenzuela catheter: Strict I&O Subjective Other Systems: poor uop seen with RN Objective vital signs Vital Sign Date Time Temp Pulse Resp B/P (MAP) Pulse Ox O2 Delivery O2 Flow Rate FiO2 01/13/25 11:40 123/70 01/13/25 11:05 129 24 99 30 01/13/25 06:45 96.4 205.5 01/13/25 06:00 Mechanical Ventilator+ Total Intake and Output 01/12/25 01/12/25 01/13/25 14:59 22:59 06:59 Intake Total 1352.50 ml 1214.301 ml 1733.300 ml Output Total 72 ml 200 ml Balance 1352.50 ml 1142.301 ml 1533.300 ml medications Current Medications Medications Dose Ordered Sig/Fatoumata Route Start Time Stop Time Status Last Admin Dose Admin Insulin Human Regular AC SC 01/09/25 07:00 01/12/25 11:41 6 UNITS Dextrose 50 ml UD PRN IV 01/08/25 21:15 Sodium Chloride 10 ml Q8HR IV 01/08/25 22:00 01/13/25 05:56 10 ML Acetaminophen 650 mg Q6HP PRN PO 01/08/25 21:15 Hold Nitroglycerin 0.4 mg Q5MINP PRN SL 01/08/25 21:45 Morphine Sulfate 2 mg Q30M PRN IV 01/08/25 21:45 Cancel Propofol 100 ml @ 4.59 mls/hr [id number] IV 01/11/25 06:30 01/11/25 07:37 0 MLS/HR Midazolam HCl 50 ml @ 1 mls/hr Q24H IV 01/11/25 06:30 01/13/25 12:15 15 MLS/HR Fentanyl Citrate 250 ml @ 2.5 mls/hr Q24H IV 01/11/25 06:30 01/13/25 05:59 20 MLS/HR Dopamine HCl/ Dextrose 250 ml @ 28.688 mls/ hr Q8H43M IV 01/11/25 06:30 01/13/25 02:57 11.475 MLS/HR Phenylephrine HCl 250 ml @ 30 mls/hr Q8H20M IV 01/11/25 07:45 Norepinephrine Bitartrate 250 ml @ 3.75 mls/hr Q24H IV 01/11/25 07:45 01/13/25 11:40 41.25 MLS/HR Morphine Sulfate 2 mg Q30M PRN IV 01/11/25 09:15 Vasopressin 20 units/Sodium Chloride 100 ml @ 9 mls/hr Q11H7M IV 01/11/25 09:30 01/13/25 11:36 9 MLS/HR Vancomycin HCl 0 ml @ 0 mls/hr UD IV 01/11/25 10:45 Sodium Bicarbonate 150 ml/Dextrose 1,150 ml @ 60 mls/hr [id number] IV 01/12/25 14:30 01/13/25 04:17 60 MLS/HR Piperacillin Sod/ Tazobactam Sod 100 ml @ 25 mls/hr Q12HR IV 01/12/25 22:00 01/13/25 09:30 25 MLS/HR Pantoprazole Sodium 40 mg DAILY IV 01/13/25 10:00 01/13/25 09:30 40 MG Bumetanide 25 mg/ Miscellaneous 100 ml @ 4 mls/hr Q24H IV 01/13/25 11:15 UNV Albumin Human 100 ml @ 100 mls/hr Q12H IV 01/13/25 11:15 01/14/25 12:14 UNV Examination: GENERAL:Abnormal, HEENT:Abnormal, LUNGS:Abnormal, CVS:Abnormal, ABDOMEN:Abnormal laboratory and microbiology Laboratory Tests 01/13/25 03:15 Test 01/13/25 03:15 Range/Units Serum Glucose 144 H 74-106 mg/dL Microbiology Date/Time Source Procedure Growth Status 01/11/25 07:40 Urine - [place] Urine Culture - Final Complete 01/11/25 06:23 Sputum Gram Stain - Final Resulted 01/11/25 06:23 Sputum Respiratory Culture - Preliminary Resulted 01/09/25 11:20 Leg Left Gram Stain - Final Resulted 01/09/25 11:20 Wound Culture - Preliminary Pseudomonas aeruginosa Resulted 01/08/25 17:16 Blood Blood Culture - Preliminary NO GROWTH AFTER 72 HOURS OF INCUBATION. Resulted Problem List/Assessment/Plan Problem List/Assessment/Plan severe class IV systolic and diasttolic acute on chronic HF ckd atrial flutter cardiac arrest resp failure bradycardia acidemia on levophed gtt lasix gtt bicarb gtt cont tele anuric rate control pt vent management per pulmonary consider head ct when feasible but defer to primary service off lasix gtt, poor response will try bumex per renal consider TRUST CLERK if indicated in future head ct pending hypothermia protocol complete wean off dopamine down to 1 on levo/vaso for now prognosis is guarded and poor Plan discussed with: Patient, Other (rn) Dietary Evaluation Review Comments: 1) Initiate Pro-Stat @ 30 mL qd 2) Initiate Migel @ 1 pk bid 3) Initiate MVI @ 1 tb qd 4) Continue to encourage optial PO intake 5) Refer to outpatient RD/CDCES for weight management 6) Continue to monitor I&O, labs, and skin integrity Expected Outcomes/Goals: 1) appetite and labs to improve 2) wounds to improve 3) f/u in 3-5 days Date of Service: Jan 13, 2025 Billing Provider: PERI MARI MD Common Visit Codes: NOT BILLABLE PERI MARI MD Jan 13, 2025 12:22
--- NOTE | 2025-01-13 14:14 | DVHPN2 ---
Progress Note Date Seen: Jan 13, 2025 Resident Creating Document: LILY FOSS RESIDENT Medical Necessity Reason Pt with a Central, PICC or Fol: Yes The following are medically ne: Central Line, Valenzuela Catheter Reason for valenzuela catheter: Strict I&O Subjective Review of Systems Patient was seen and examined on the bedside. He is on mechanical ventilation with FiO2 30%, tidal volume 500 mL, peep 10 and respiratory rate 24. Review of Systems: RESPIRATORY:Abnormal Other Systems: Patient seen and examined by myself today in rounds with the medicine resident, I agree with her assessment and plan, patient remained intubated on ventilator Objective vital signs Vital Sign Date Time Temp Pulse Resp B/P (MAP) Pulse Ox O2 Delivery O2 Flow Rate FiO2 01/13/25 13:57 129 24 109/65 (80) 100 30 01/13/25 13:16 98.4 209.1 01/13/25 12:00 Mechanical Ventilator+ Total Intake and Output 01/12/25 01/12/25 01/13/25 15:00 23:00 07:00 Intake Total 1166.25 ml 1573.776 ml 1435.550 ml Output Total 72 ml 200 ml Balance 1166.25 ml 1501.776 ml 1235.550 ml medications Current Medications Medications Dose Ordered Sig/Fatoumata Route Start Time Stop Time Status Last Admin Dose Admin Insulin Human Regular AC SC 01/09/25 07:00 01/12/25 11:41 6 UNITS Dextrose 50 ml UD PRN IV 01/08/25 21:15 Sodium Chloride 10 ml Q8HR IV 01/08/25 22:00 01/13/25 05:56 10 ML Acetaminophen 650 mg Q6HP PRN PO 01/08/25 21:15 Hold Nitroglycerin 0.4 mg Q5MINP PRN SL 01/08/25 21:45 Morphine Sulfate 2 mg Q30M PRN IV 01/08/25 21:45 Cancel Propofol 100 ml @ 4.59 mls/hr [id number] IV 01/11/25 06:30 01/11/25 07:37 0 MLS/HR Midazolam HCl 50 ml @ 1 mls/hr Q24H IV 01/11/25 06:30 01/13/25 12:15 15 MLS/HR Fentanyl Citrate 250 ml @ 2.5 mls/hr Q24H IV 01/11/25 06:30 01/13/25 05:59 20 MLS/HR Dopamine HCl/ Dextrose 250 ml @ 28.688 mls/ hr Q8H43M IV 01/11/25 06:30 01/13/25 02:57 11.475 MLS/HR Phenylephrine HCl 250 ml @ 30 mls/hr Q8H20M IV 01/11/25 07:45 Norepinephrine Bitartrate 250 ml @ 3.75 mls/hr Q24H IV 01/11/25 07:45 01/13/25 11:40 41.25 MLS/HR Morphine Sulfate 2 mg Q30M PRN IV 01/11/25 09:15 Vasopressin 20 units/Sodium Chloride 100 ml @ 9 mls/hr Q11H7M IV 01/11/25 09:30 01/13/25 11:36 9 MLS/HR Vancomycin HCl 0 ml @ 0 mls/hr UD IV 01/11/25 10:45 Sodium Bicarbonate 150 ml/Dextrose 1,150 ml @ 60 mls/hr [id number] IV 01/12/25 14:30 01/13/25 04:17 60 MLS/HR Piperacillin Sod/ Tazobactam Sod 100 ml @ 25 mls/hr Q12HR IV 01/12/25 22:00 01/13/25 09:30 25 MLS/HR Pantoprazole Sodium 40 mg DAILY IV 01/13/25 10:00 01/13/25 09:30 40 MG Bumetanide 25 mg/ Miscellaneous 100 ml @ 4 mls/hr Q24H IV 01/13/25 11:15 Albumin Human 100 ml @ 100 mls/hr Q12H IV 01/13/25 11:15 01/14/25 12:14 Examination General: RASS -3, afebrile, mucosae are moist Cardiovascular: Normal S1 and S2. No murmurs, gallops or rubs Respiratory: Mechanically assisted ventilation, equal bilateral airway entree. Clear lung sounds on auscultation Abdomen: Soft, nontender, no organomegaly, normal bowel sounds MSK/skin: Mobilization of limbs cannot be evaluated. Skin is dry and warm. Neurological: Orientation cannot be assessed. No apparent motor no sensitive deficits. Pupils are isocoric and reactive Examination: LUNGS:Normal, CVS:Normal, MSK:Abnormal laboratory and microbiology Laboratory Tests 01/13/25 03:15 Test 01/13/25 03:15 Range/Units Serum Glucose 144 H 74-106 mg/dL Microbiology Date/Time Source Procedure Growth Status 01/11/25 07:40 Urine - [place] Urine Culture - Final Complete 01/11/25 06:23 Sputum Gram Stain - Final Resulted 01/11/25 06:23 Sputum Respiratory Culture - Preliminary Resulted 01/09/25 11:20 Leg Left Gram Stain - Final Resulted 01/09/25 11:20 Wound Culture - Preliminary Pseudomonas aeruginosa Resulted 01/08/25 17:16 Blood Blood Culture - Preliminary NO GROWTH AFTER 72 HOURS OF INCUBATION. Resulted Labs and/or images reviewed: Labs reviewed by me, Image(s) reviewed by me Problem List/Assessment/Plan Problem List/Assessment/Plan Assessment/Plan Acute kidney injury hemodynamically mediated in the setting of cardiac arrest Acute respiratory failure , patient intubated on ventilator Morbid obesity Severe systolic heart failure, with acute decompensation Cardiac arrest COPD Diabetes mellitus type 2 Hyperglycemia Metabolic acidosis Septic shock Hyperkalemia resolved Recommendations: Kidney function slightly worsened Decreased urine output Valenzuela catheter Strict I&Os Continue Vasopressor to maintain blood pressure IV Bumex drip at 1 milligram/hours IV albumin 25% 100 cc at q.12 hours for 3 doses IV antibiotics IV pressors for blood pressure support Insulin sliding scale Check urine lytes and protein excretion We will continue to follow up Plan discussed with Dr. Harrison Plan discussed with: Other (RN) Dietary Evaluation Review Comments: 1) Initiate Pro-Stat @ 30 mL qd 2) Initiate Migel @ 1 pk bid 3) Initiate MVI @ 1 tb qd 4) Continue to encourage optial PO intake 5) Refer to outpatient RD/CDCES for weight management 6) Continue to monitor I&O, labs, and skin integrity Expected Outcomes/Goals: 1) appetite and labs to improve 2) wounds to improve 3) f/u in 3-5 days LILY FOSS Jan 13, 2025 14:14 MARNIE HARRISON MD Jan 13, 2025 14:45
--- NOTE | 2025-01-13 14:33 | DVHPN2 ---
Progress Note Date Seen: Jan 13, 2025 Medical Necessity Reason Pt with a Central, PICC or Fol: Yes The following are medically ne: Central Line, Valenzuela Catheter Reason for valenzuela catheter: Strict I&O Subjective Patient reports: No new complaints Review of Systems: HEENT:Normal, CVS:Normal, RESPIRATORY:Normal, GI:Normal, :Normal, MSK:Normal, NEURO:Normal Objective vital signs Vital Sign Date Time Temp Pulse Resp B/P (MAP) Pulse Ox O2 Delivery O2 Flow Rate FiO2 01/13/25 13:57 129 24 109/65 (80) 100 30 01/13/25 13:16 98.4 209.1 01/13/25 12:00 Mechanical Ventilator+ Total Intake and Output 01/12/25 01/12/25 01/13/25 15:00 23:00 07:00 Intake Total 1166.25 ml 1573.776 ml 1435.550 ml Output Total 72 ml 200 ml Balance 1166.25 ml 1501.776 ml 1235.550 ml medications Current Medications Medications Dose Ordered Sig/Fatoumata Route Start Time Stop Time Status Last Admin Dose Admin Insulin Human Regular AC SC 01/09/25 07:00 01/12/25 11:41 6 UNITS Dextrose 50 ml UD PRN IV 01/08/25 21:15 Sodium Chloride 10 ml Q8HR IV 01/08/25 22:00 01/13/25 05:56 10 ML Acetaminophen 650 mg Q6HP PRN PO 01/08/25 21:15 Hold Nitroglycerin 0.4 mg Q5MINP PRN SL 01/08/25 21:45 Morphine Sulfate 2 mg Q30M PRN IV 01/08/25 21:45 Cancel Propofol 100 ml @ 4.59 mls/hr [id number] IV 01/11/25 06:30 01/11/25 07:37 0 MLS/HR Midazolam HCl 50 ml @ 1 mls/hr Q24H IV 01/11/25 06:30 01/13/25 12:15 15 MLS/HR Fentanyl Citrate 250 ml @ 2.5 mls/hr Q24H IV 01/11/25 06:30 01/13/25 05:59 20 MLS/HR Dopamine HCl/ Dextrose 250 ml @ 28.688 mls/ hr Q8H43M IV 01/11/25 06:30 01/13/25 02:57 11.475 MLS/HR Phenylephrine HCl 250 ml @ 30 mls/hr Q8H20M IV 01/11/25 07:45 Norepinephrine Bitartrate 250 ml @ 3.75 mls/hr Q24H IV 01/11/25 07:45 01/13/25 11:40 41.25 MLS/HR Morphine Sulfate 2 mg Q30M PRN IV 01/11/25 09:15 Vasopressin 20 units/Sodium Chloride 100 ml @ 9 mls/hr Q11H7M IV 01/11/25 09:30 01/13/25 11:36 9 MLS/HR Vancomycin HCl 0 ml @ 0 mls/hr UD IV 01/11/25 10:45 Sodium Bicarbonate 150 ml/Dextrose 1,150 ml @ 60 mls/hr [id number] IV 01/12/25 14:30 01/13/25 04:17 60 MLS/HR Piperacillin Sod/ Tazobactam Sod 100 ml @ 25 mls/hr Q12HR IV 01/12/25 22:00 01/13/25 09:30 25 MLS/HR Pantoprazole Sodium 40 mg DAILY IV 01/13/25 10:00 01/13/25 09:30 40 MG Bumetanide 25 mg/ Miscellaneous 100 ml @ 4 mls/hr Q24H IV 01/13/25 11:15 Albumin Human 100 ml @ 100 mls/hr Q12H IV 01/13/25 11:15 01/14/25 12:14 Examination: GENERAL:Normal, HEENT:Normal, NECK:Normal, LUNGS:Normal, LUNGS:Abnormal (intubated), CVS:Normal, ABDOMEN:Normal, MSK:Normal, SKIN:Normal, NEURO:Normal, NEURO:Abnormal (pupils mid dilated), :Normal laboratory and microbiology Laboratory Tests 01/13/25 03:15 Test 01/13/25 03:15 Range/Units Serum Glucose 144 H 74-106 mg/dL Microbiology Date/Time Source Procedure Growth Status 01/11/25 07:40 Urine - [place] Urine Culture - Final Complete 01/11/25 06:23 Sputum Gram Stain - Final Resulted 01/11/25 06:23 Sputum Respiratory Culture - Preliminary Resulted 01/09/25 11:20 Leg Left Gram Stain - Final Resulted 01/09/25 11:20 Wound Culture - Preliminary Pseudomonas aeruginosa Resulted 01/08/25 17:16 Blood Blood Culture - Preliminary NO GROWTH AFTER 72 HOURS OF INCUBATION. Resulted Problem List/Assessment/Plan Problem List/Assessment/Plan #1 acute resp failure: cont acv, peep 10 #2 s/p cpr: on targeted temp management #3 acute systolic heart failure: cont meds #4 morbid obesity #5 shock ? cardiac ?septic: iv antibiotics, iv pressors #6 dm: ssi #7 coagulopathy #8 acute renal failure/atn: iv lasix drip #9 left leg wound/pseud: on zosyn #10 shock liver #11 gout #12 ?hypoxic encephalopathy: neuro eval, ct head Plan discussed with: Other (rn) Dietary Evaluation Review Comments: 1) Initiate Pro-Stat @ 30 mL qd 2) Initiate Migel @ 1 pk bid 3) Initiate MVI @ 1 tb qd 4) Continue to encourage optial PO intake 5) Refer to outpatient RD/CD[facility] for weight management 6) Continue to monitor I&O, labs, and skin integrity Expected Outcomes/Goals: 1) appetite and labs to improve 2) wounds to improve 3) f/u in 3-5 days Critical Care Time (mins): 56 (critical care time excluding procedures was 56 mins) Date of Service: Jan 13, 2025 Billing Provider: MAAME MARTÍNEZ MD Common Visit Codes: [id number] CARE 30-74 MIN MAAME MARTÍNEZ MD Jan 13, 2025 14:33
[2025-01-13] MEDS: ALBUMIN 25% 100 ML IV SCH (14:36)
[2025-01-13] MEDS: BUMETANIDE INJECTION 25 MG in GIVE UN-DILUTED 0 ML IV SCH (14:43)
--- NOTE | 2025-01-13 17:00 | DVH ---
Procedure: CT HEAD WITHOUT CONTRAST Study Date and Requested Time: 01/13/2025 03:39 PM History: ALOC Comparison: None Dose: CTDI: 68.86 mGy DLP: 1632.06 mGycm Technique: Multiplanar images obtained through the brain without intravenous contrast. Findings: [id number] diffuse brain atrophy. Mild chronic small vessel ischemic changes. Calcifications of the falx noted. No hemorrhages, masses, mass effect, midline shift, herniation or cytotoxic edema following a large v ascular territory. No intra-axial or extra-axial fluid collections. No evidence of hydrocephalus. The basal cisterns are patent. The pituitary gland, sella and parasellar regions are unremarkable. The cerebellar tonsils are in nor mal position. The cerebellum is unremarkable. The orbits and globes are unremarkable. Mild mucoperiosteal thickening of the ethmoid and sphenoid si nuses. Otherwise, the paranasal sinuses and mastoids are clear. There are no worrisome calvarial les ions. Tracheostomy tube is partially visualized. There is 1.8 x 1.7 cm left mandibular region calcification which may represent sialolithiasis Impression: No evidence of acute intracranial abnormality.
[2025-01-14] VITALS (105 sets, daily range): BP systolic 81–133; BP diastolic 42–86; PULSE 95–130; RESP 8–26; TEMP 98.4–99.1; O2SAT 97–100
--- NOTE | 2025-01-14 03:36 | DVH ---
CHEST RADIOGRAPH Indication: resp failure Technique: Single frontal view of the chest was obtained COMPARISON: XY CHEST PORTABLE on DOS: 01/13/25, XY CHEST XRAY 1 VIEW on DOS: 01/12/25, XY CHEST PORTABLE on DOS: 01/11/25, XY CHEST PORTABLE on DOS: 01/08/25 FINDINGS: Lines and Tubes: Endotracheal tube unchanged. Lungs: Accounting for differences in positioning and technique, grossly stable appearing bilateral mi ddle and lower lung zone opacification may be secondary to pleural effusions and/or pulmonary vascula r congestion. No evidence of focal consolidation. No pneumothorax. Cardiomediastinal contours: Cardiomegaly. Bones: Unremarkable IMPRESSION: 1. Grossly stable appearing bilateral middle and lower lung zone opacification, riazv-bseyyhi-yttp-[id number] ft, likely secondary to pleural effusions and/or pulmonary vascular congestion. 2. Cardiomegaly. 3. Endotracheal tube.
[2025-01-14 03:42] LABS: Basophils # (auto) 0.1 10 ^3/uL (0-0.2); Basophils % (auto) 0.6 % (0.0-2.0); Eosinophils # (auto) 0.1 10 ^3/uL (0-0.8); Eosinophils % (auto) 0.8 % (0.0-7.0); Hematocrit 28.1 % (41.0-53.0); Monocytes # (auto) 0.6 10 ^3/uL (0-1.3); Monocytes % (auto) 6.8 % (0.0-12.0); Neutrophils # (auto) 7.2 10 ^3/uL (1.6-8.6); Nucleated Red Blood Cells % 0.1 %
[2025-01-14 03:47] LABS: Hemoglobin 9.2 g/dL (13.5-17.5); INR 2.35 (0.9-1.15); Lymphocytes # (auto) 1.2 10 ^3/uL (0.4-5.4); Lymphocytes % (auto) 13.1 % (10.0-50.0); Mean Corpuscular Hemoglobin 26.2 pg (28.0-32.0); Mean Corpuscular Hgb Conc. 32.6 g/dL (32.0-36.0); Mean Corpuscular Volume 80.3 fL (80.0-100.0); Neutrophils % (auto) 78.7 % (37.0-80.0); Partial Thromboplastin Time 42.5 SEC (24.5-34.5); Platelet Count (auto) 144 10^3/uL (140-450); Prothrombin Time 22.9 sec (9.3-11.8); Red Cell Distribution Width 17.3 % (11.8-14.3); White Blood Cell 9.2 10^3/uL (4.4-10.8)
[2025-01-14 03:48] LABS: Anion Gap 11 (5-15); BUN/Creatinine Ratio 11.3 (10.0-20.0); Carbon Dioxide 30 mmol/L (20-31); Potassium 3.9 mmol/L (3.5-5.1)
[2025-01-14 04:13] LABS: Alanine Aminotransferase 1889 U/L (7-40); Albumin 2.4 g/dL (3.2-4.8); Alkaline Phosphatase 126 U/L (46-116); Aspartate Aminotransferase 1656 U/L (13-40); Bilirubin, Total 3.4 mg/dL (0.2-1.0); Blood Urea Nitrogen 45 mg/dL (9-23); Calcium 7.2 mg/dL (8.7-10.4); Chloride 95 mmol/L (98-107); Glucose 157 mg/dL (74-106); Sodium 136 mmol/L (136-145); Total Protein 4.3 g/dL (5.7-8.2)
[2025-01-14 06:53] LABS: Base Excess 6.7 mmol/L (-2.0-3.0)
[2025-01-14] MEDS: VASOPRESSIN 20 UNITS in SODIUM CHL 0.9% 99 ML IV SCH (11:15)
--- NOTE | 2025-01-14 13:03 | DVHPNRES ---
Progress Note Date Seen: Jan 14, 2025 Resident Creating Document: LILY FOSS RESIDENT Medical Necessity Reason Pt with a Central, PICC or Fol: Yes The following are medically ne: Central Line, Valenzuela Catheter Reason for valenzuela catheter: Strict I&O Subjective Review of Systems Patient was seen and examined on the bedside. He is on mechanical ventilation with FiO2 30%, tidal volume 500, peep 10 and respiratory rate 24. Objective vital signs Vital Sign Date Time Temp Pulse Resp B/P (MAP) Pulse Ox O2 Delivery O2 Flow Rate FiO2 01/14/25 11:30 126 24 96/58 (71) 99 30 01/14/25 08:00 Mechanical Ventilator+ 01/14/25 05:30 98.6 98.6 Total Intake and Output 01/13/25 01/13/25 01/14/25 15:00 23:00 07:00 Intake Total 1257.800 ml 1185.075 ml 1063.575 ml Output Total 150 ml 300 ml Balance 1257.800 ml 1035.075 ml 763.575 ml medications Current Medications Medications Dose Ordered Sig/Fatoumata Route Start Time Stop Time Status Last Admin Dose Admin Insulin Human Regular AC SC 01/09/25 07:00 01/12/25 11:41 6 UNITS Dextrose 50 ml UD PRN IV 01/08/25 21:15 Sodium Chloride 10 ml Q8HR IV 01/08/25 22:00 01/14/25 05:42 10 ML Nitroglycerin 0.4 mg Q5MINP PRN SL 01/08/25 21:45 Morphine Sulfate 2 mg Q30M PRN IV 01/08/25 21:45 Cancel Propofol 100 ml @ 4.59 mls/hr [id number] IV 01/11/25 06:30 01/11/25 07:37 0 MLS/HR Midazolam HCl 50 ml @ 1 mls/hr Q24H IV 01/11/25 06:30 01/13/25 22:06 6 MLS/HR Fentanyl Citrate 250 ml @ 2.5 mls/hr Q24H IV 01/11/25 06:30 01/13/25 21:00 10 MLS/HR Dopamine HCl/ Dextrose 250 ml @ 28.688 mls/ hr Q8H43M IV 01/11/25 06:30 01/14/25 06:37 11.475 MLS/HR Phenylephrine HCl 250 ml @ 30 mls/hr Q8H20M IV 01/11/25 07:45 Norepinephrine Bitartrate 250 ml @ 3.75 mls/hr Q24H IV 01/11/25 07:45 01/14/25 10:27 37.5 MLS/HR Morphine Sulfate 2 mg Q30M PRN IV 01/11/25 09:15 Vancomycin HCl 0 ml @ 0 mls/hr UD IV 01/11/25 10:45 Sodium Bicarbonate 150 ml/Dextrose 1,150 ml @ 60 mls/hr [id number] IV 01/12/25 14:30 01/14/25 01:52 60 MLS/HR Piperacillin Sod/ Tazobactam Sod 100 ml @ 25 mls/hr Q12HR IV 01/12/25 22:00 01/14/25 09:27 25 MLS/HR Pantoprazole Sodium 40 mg DAILY IV 01/13/25 10:00 01/14/25 09:27 40 MG Bumetanide 25 mg/ Miscellaneous 100 ml @ 4 mls/hr Q24H IV 01/13/25 11:15 01/14/25 08:36 4 MLS/HR Vasopressin 20 units/Sodium Chloride 100 ml @ 12 mls/hr Q8H20M IV 01/14/25 11:15 Examination General: RASS -3, afebrile, mucosae are moist Cardiovascular: Normal S1 and S2. No murmurs, gallops or rubs Respiratory: Mechanically assisted ventilation, equal bilateral airway entree. bilateral decreased breath sound and crackles. Abdomen: Soft, nontender, no organomegaly, normal bowel sounds MSK/skin: Mobilization of limbs cannot be evaluated. Skin is dry and warm. Neurological: Orientation cannot be assessed. No apparent motor no sensitive deficits. Pupils are isocoric and reactive laboratory and microbiology Laboratory Tests 01/14/25 03:05 Test 01/14/25 03:05 Range/Units Serum Glucose 157 H 74-106 mg/dL Microbiology Date/Time Source Procedure Growth Status 01/11/25 07:40 Nose MRSA Screen - Final Complete 01/11/25 07:40 Urine - Valenzuela Port Urine Culture - Final Complete 01/11/25 06:23 Sputum Gram Stain - Final Complete 01/11/25 06:23 Respiratory Culture - Final Presumptive Tg albicans Complete 01/08/25 17:16 Blood Blood Culture - Final NO GROWTH AFTER 5 DAYS OF INCUBATION. Complete Labs and/or images reviewed: Labs reviewed by me, Image(s) reviewed by me Problem List/Assessment/Plan Problem List/Assessment/Plan Assessment/Plan Acute kidney injury hemodynamically mediated in the setting of cardiac arrest Acute respiratory failure , patient intubated on ventilator Morbid obesity Severe systolic heart failure, with acute decompensation Cardiac arrest COPD Diabetes mellitus type 2 Hyperglycemia Metabolic acidosis Septic shock Hyperkalemia resolved Recommendations: Kidney function worsened Decreased urine output Valenzuela catheter Strict I&O Continue Vasopressor to maintain blood pressure IV Bumex drip at 1 milligram/hours IV albumin 25% 100 cc at q.12 hours for 3 doses IV antibiotics IV pressors for blood pressure support Insulin sliding scale Check urine lytes and protein excretion We will continue to follow up Plan discussed with Dr. Harrison Plan discussed with: Other (RN) Dietary Evaluation Review Comments: 1) Initiate Pro-Stat @ 30 mL qd 2) Initiate Migel @ 1 pk bid 3) Initiate MVI @ 1 tb qd 4) Continue to encourage optial PO intake 5) Refer to outpatient RD/CD[facility] for weight management 6) Continue to monitor I&O, labs, and skin integrity Expected Outcomes/Goals: 1) appetite and labs to improve 2) wounds to improve 3) f/u in 3-5 days LILY FOSS RESIDENT Jan 14, 2025 13:03
--- NOTE | 2025-01-14 13:06 | DVHPN2 ---
Progress Note - Dictate Date Seen: Jan 14, 2025 Medical Necessity Reason Pt with a Central, PICC or Fol: Yes The following are medically ne: Central Line, Valenzuela Catheter Reason for valenzuela catheter: Strict I&O Subjective This is not a follow up note Mr. Noyola is a 64 years old gentleman with a history of hypertension, diabetes, obesity, asthma, gout, the patient was came to the [facility] on 01/08/2025 with a chief company of general weakness, and he coded the same day, 01/08/2025 [id number]. He was resuscitated and has been intubated, sedated, on pressor drip, nonresponsive to painful stimuli since According to his niece, the patient was found to have COVID-19 in 06/2024, and since then he was fluctuating general weakness, coughing, shortness breath, his problems are worse in the two weeks prior to this admission. The patient was did not see a doctor and he was not on medication before this admission Urinalysis, : UTI WBC/HB/PLT/MCV, 01/13/2025: 11.3/12.6/162/81.6 PT/INR/PTT, 01/12/2025: 44.8/3.74/37.9, 01/13/2025: 29.8/3.15/38.1 BUN/CR, 01/08/2025: 16/1.08, 01/11/2025: 31/2.42, 01/13/2025: 39/3.12 TBI/AST/ALT/AP, 01/08/2025: 1/17/19/133, : 1.9/> 6000/4946/195 HGB A1c, 01/09/25: 6.4 TG/HDL/LDL/HDL, 01/10/25: 66/100/71/21 Extremity venous study, 01/09/2025: No right or left femoropopliteal venous thrombosis. Chest x-ray, 01/13/2025: Cardiomegaly with mild congestion. CT head, 01/13/2025: No evidence of acute intracranial abnormality. The patient is well-nourished and well-developed with no distress. The patient is intubated HEENT: Normocephalic, neck supple, no carotid bruits Lungs: Clear to auscultation Cardiovascular: Regular rate and region, S1, S2, no murmurs Abdomen: Soft, nontender, normal bowel sounds Edema in the lower extremities MENTAL STATUS: Not responsive to stroke painful stimuli, CRANIAL NERVES: Pupils are equal, round and reactive.There are corneal reflexes and doll's eyes phenomenon. No signs of facial weakness. There are very weak/questionable gagging or coughing reflexes SENSATION: No responses to pain stimuli. MOTOR: Normal tone in the upper and lower extremity. Normal muscle bulk. No fasciculations. No spontaneous movement. REFLEXES: Deep tendon reflexes are symmetrical. No pathological reflexes. CEREBELLAR/COORDINATION: Deferred Hypoxic encephalopathy Metabolic encephalopathy Cardiopulmonary arrest Urinary tract infection ? Sepsis, Shock Cardiologic general? Septic shock Kidney failure Shocked liver Morbid obesity Leg edema Coagulopathy, etiology unclear, Chronic wound in the skin Plan/Recommendation Monitoring Supportive treatment ICU care EEG Follow-up lab On targeted temperature management Respiratory support/vent management Stabilize vitals/pressor drip Oxygen IV antibiotics Wound Care Pulmonology on case Nephrology on case More recommendation per clinical course Progress: Guarded Critical care time spent is 45 minutes This medical document was created using an electronic medical record system with [employer] computerized dictation system. Although this document has been carefully reviewed, there may still be some phonetic and typographical errors. These areas are purely typographical due to imperfections of the software programs, and do not reflect any compromise in the patient's medical care. vital signs Vital Sign Date Time Temp Pulse Resp B/P (MAP) Pulse Ox O2 Delivery O2 Flow Rate FiO2 01/14/25 12:00 30 01/14/25 12:00 24 100 Mechanical Ventilator+ 01/14/25 11:30 126 96/58 (71) 01/14/25 05:30 98.6 98.6 Total Intake and Output 01/13/25 01/13/25 01/14/25 15:00 23:00 07:00 Intake Total 1257.800 ml 1185.075 ml 1063.575 ml Output Total 150 ml 300 ml Balance 1257.800 ml 1035.075 ml 763.575 ml medications Current Medications Medications Dose Ordered Sig/Fatoumata Route Start Time Stop Time Status Last Admin Dose Admin Insulin Human Regular AC SC 01/09/25 07:00 01/12/25 11:41 6 UNITS Dextrose 50 ml UD PRN IV 01/08/25 21:15 Sodium Chloride 10 ml Q8HR IV 01/08/25 22:00 01/14/25 05:42 10 ML Nitroglycerin 0.4 mg Q5MINP PRN SL 01/08/25 21:45 Morphine Sulfate 2 mg Q30M PRN IV 01/08/25 21:45 Cancel Propofol 100 ml @ 4.59 mls/hr [id number] IV 01/11/25 06:30 01/11/25 07:37 0 MLS/HR Midazolam HCl 50 ml @ 1 mls/hr Q24H IV 01/11/25 06:30 01/13/25 22:06 6 MLS/HR Fentanyl Citrate 250 ml @ 2.5 mls/hr Q24H IV 01/11/25 06:30 01/13/25 21:00 10 MLS/HR Dopamine HCl/ Dextrose 250 ml @ 28.688 mls/ hr Q8H43M IV 01/11/25 06:30 01/14/25 06:37 11.475 MLS/HR Phenylephrine HCl 250 ml @ 30 mls/hr Q8H20M IV 01/11/25 07:45 Norepinephrine Bitartrate 250 ml @ 3.75 mls/hr Q24H IV 01/11/25 07:45 01/14/25 10:27 37.5 MLS/HR Morphine Sulfate 2 mg Q30M PRN IV 01/11/25 09:15 Vancomycin HCl 0 ml @ 0 mls/hr UD IV 01/11/25 10:45 Sodium Bicarbonate 150 ml/Dextrose 1,150 ml @ 60 mls/hr [id number] IV 01/12/25 14:30 01/14/25 01:52 60 MLS/HR Piperacillin Sod/ Tazobactam Sod 100 ml @ 25 mls/hr Q12HR IV 01/12/25 22:00 01/14/25 09:27 25 MLS/HR Pantoprazole Sodium 40 mg DAILY IV 01/13/25 10:00 01/14/25 09:27 40 MG Bumetanide 25 mg/ Miscellaneous 100 ml @ 4 mls/hr Q24H IV 01/13/25 11:15 01/14/25 08:36 4 MLS/HR Vasopressin 20 units/Sodium Chloride 100 ml @ 12 mls/hr Q8H20M IV 01/14/25 11:15 laboratory and microbiology Laboratory Tests 01/14/25 03:05 Test 01/14/25 03:05 Range/Units Serum Glucose 157 H 74-106 mg/dL Assessment/Plan Coma Hypoxic encephalopathy Metabolic encephalopathy Cardiopulmonary arrest Urinary tract infection ? Sepsis, Shock Cardiologic general? Septic shock Kidney failure Shocked liver Morbid obesity Leg edema Coagulopathy, etiology unclear, Chronic wound in the skin Dietary Evaluation Review Comments: 1) Initiate Pro-Stat @ 30 mL qd 2) Initiate Migel @ 1 pk bid 3) Initiate MVI @ 1 tb qd 4) Continue to encourage optial PO intake 5) Refer to outpatient RD/CD[facility] for weight management 6) Continue to monitor I&O, labs, and skin integrity Expected Outcomes/Goals: 1) appetite and labs to improve 2) wounds to improve 3) f/u in 3-5 days Plan discussed with: SANTANA Mcgee MD Jan 14, 2025 13:06
--- NOTE | 2025-01-14 13:12 | DVHPN2 ---
Progress Note Date Seen: Jan 14, 2025 Medical Necessity Reason Pt with a Central, PICC or Fol: Yes The following are medically ne: Central Line, Valenzuela Catheter Reason for valenzuela catheter: Strict I&O Subjective Other Systems: head ct was - for acute path Objective vital signs Vital Sign Date Time Temp Pulse Resp B/P (MAP) Pulse Ox O2 Delivery O2 Flow Rate FiO2 01/14/25 13:00 98.6 125 24 101/61 (74) 100 209.5 01/14/25 12:00 30 01/14/25 12:00 Mechanical Ventilator+ Total Intake and Output 01/13/25 01/13/25 01/14/25 15:00 23:00 07:00 Intake Total 1257.800 ml 1185.075 ml 1063.575 ml Output Total 150 ml 300 ml Balance 1257.800 ml 1035.075 ml 763.575 ml medications Current Medications Medications Dose Ordered Sig/Fatoumata Route Start Time Stop Time Status Last Admin Dose Admin Insulin Human Regular AC SC 01/09/25 07:00 01/12/25 11:41 6 UNITS Dextrose 50 ml UD PRN IV 01/08/25 21:15 Sodium Chloride 10 ml Q8HR IV 01/08/25 22:00 01/14/25 05:42 10 ML Nitroglycerin 0.4 mg Q5MINP PRN SL 01/08/25 21:45 Morphine Sulfate 2 mg Q30M PRN IV 01/08/25 21:45 Cancel Propofol 100 ml @ 4.59 mls/hr [id number] IV 01/11/25 06:30 01/11/25 07:37 0 MLS/HR Midazolam HCl 50 ml @ 1 mls/hr Q24H IV 01/11/25 06:30 01/13/25 22:06 6 MLS/HR Fentanyl Citrate 250 ml @ 2.5 mls/hr Q24H IV 01/11/25 06:30 01/13/25 21:00 10 MLS/HR Dopamine HCl/ Dextrose 250 ml @ 28.688 mls/ hr Q8H43M IV 01/11/25 06:30 01/14/25 06:37 11.475 MLS/HR Phenylephrine HCl 250 ml @ 30 mls/hr Q8H20M IV 01/11/25 07:45 Norepinephrine Bitartrate 250 ml @ 3.75 mls/hr Q24H IV 01/11/25 07:45 01/14/25 10:27 37.5 MLS/HR Morphine Sulfate 2 mg Q30M PRN IV 01/11/25 09:15 Vancomycin HCl 0 ml @ 0 mls/hr UD IV 01/11/25 10:45 Sodium Bicarbonate 150 ml/Dextrose 1,150 ml @ 60 mls/hr [id number] IV 01/12/25 14:30 01/14/25 01:52 60 MLS/HR Piperacillin Sod/ Tazobactam Sod 100 ml @ 25 mls/hr Q12HR IV 01/12/25 22:00 01/14/25 09:27 25 MLS/HR Pantoprazole Sodium 40 mg DAILY IV 01/13/25 10:00 01/14/25 09:27 40 MG Bumetanide 25 mg/ Miscellaneous 100 ml @ 4 mls/hr Q24H IV 01/13/25 11:15 01/14/25 08:36 4 MLS/HR Vasopressin 20 units/Sodium Chloride 100 ml @ 12 mls/hr Q8H20M IV 01/14/25 11:15 Examination: GENERAL:Abnormal, HEENT:Abnormal, LUNGS:Abnormal, CVS:Abnormal, ABDOMEN:Abnormal laboratory and microbiology Laboratory Tests 01/14/25 03:05 Test 01/14/25 03:05 Range/Units Serum Glucose 157 H 74-106 mg/dL Microbiology Date/Time Source Procedure Growth Status 01/11/25 07:40 Nose MRSA Screen - Final Complete 01/11/25 07:40 Urine - Valenzuela Port Urine Culture - Final Complete 01/11/25 06:23 Sputum Gram Stain - Final Complete 01/11/25 06:23 Respiratory Culture - Final Presumptive Tg albicans Complete 01/08/25 17:16 Blood Blood Culture - Final NO GROWTH AFTER 5 DAYS OF INCUBATION. Complete Problem List/Assessment/Plan Problem List/Assessment/Plan severe class IV systolic and diasttolic acute on chronic HF ckd atrial flutter cardiac arrest resp failure bradycardia acidemia on levophed gtt lasix gtt bicarb gtt cont tele anuric rate control pt vent management per pulmonary consider head ct when feasible but defer to primary service off lasix gtt, poor response will try bumex per renal consider MACHINE FELLER if indicated in future head ct pending hypothermia protocol complete wean off dopamine on levo/vaso for now prognosis is guarded and poor Plan discussed with: Other (rn) Dietary Evaluation Review Comments: 1) Initiate Pro-Stat @ 30 mL qd 2) Initiate Migel @ 1 pk bid 3) Initiate MVI @ 1 tb qd 4) Continue to encourage optial PO intake 5) Refer to outpatient RD/CD[facility] for weight management 6) Continue to monitor I&O, labs, and skin integrity Expected Outcomes/Goals: 1) appetite and labs to improve 2) wounds to improve 3) f/u in 3-5 days Date of Service: Jan 14, 2025 Billing Provider: PERI MARI MD Common Visit Codes: NOT BILLABLE PERI MARI MD Jan 14, 2025 13:12
--- NOTE | 2025-01-14 13:31 | DVHPN2 ---
Progress Note Date Seen: Jan 14, 2025 Resident Creating Document: LILY FOSS RESIDENT Medical Necessity Reason Pt with a Central, PICC or Fol: Yes The following are medically ne: Central Line, Valenzuela Catheter Reason for valenzuela catheter: Strict I&O Subjective Review of Systems Patient was seen and examined on the bedside. He is on mechanical ventilation with FiO2 30%, tidal volume 500, peep 10 and respiratory rate 24. Review of Systems: RESPIRATORY:Abnormal Other Systems: Patient seen and examined by myself today on rounds with the medicine resident, I agree with her assessment and plan Patient remained intubated on ventilator Objective vital signs Vital Sign Date Time Temp Pulse Resp B/P (MAP) Pulse Ox O2 Delivery O2 Flow Rate FiO2 01/14/25 12:00 30 01/14/25 12:00 24 100 Mechanical Ventilator+ 01/14/25 11:30 126 96/58 (71) 01/14/25 05:30 98.6 98.6 Total Intake and Output 01/13/25 01/13/25 01/14/25 15:00 23:00 07:00 Intake Total 1257.800 ml 1185.075 ml 1063.575 ml Output Total 150 ml 300 ml Balance 1257.800 ml 1035.075 ml 763.575 ml medications Current Medications Medications Dose Ordered Sig/Fatoumata Route Start Time Stop Time Status Last Admin Dose Admin Insulin Human Regular AC SC 01/09/25 07:00 01/12/25 11:41 6 UNITS Dextrose 50 ml UD PRN IV 01/08/25 21:15 Sodium Chloride 10 ml Q8HR IV 01/08/25 22:00 01/14/25 05:42 10 ML Nitroglycerin 0.4 mg Q5MINP PRN SL 01/08/25 21:45 Morphine Sulfate 2 mg Q30M PRN IV 01/08/25 21:45 Cancel Propofol 100 ml @ 4.59 mls/hr [id number] IV 01/11/25 06:30 01/11/25 07:37 0 MLS/HR Midazolam HCl 50 ml @ 1 mls/hr Q24H IV 01/11/25 06:30 01/13/25 22:06 6 MLS/HR Fentanyl Citrate 250 ml @ 2.5 mls/hr Q24H IV 01/11/25 06:30 01/13/25 21:00 10 MLS/HR Dopamine HCl/ Dextrose 250 ml @ 28.688 mls/ hr Q8H43M IV 01/11/25 06:30 01/14/25 06:37 11.475 MLS/HR Phenylephrine HCl 250 ml @ 30 mls/hr Q8H20M IV 01/11/25 07:45 Norepinephrine Bitartrate 250 ml @ 3.75 mls/hr Q24H IV 01/11/25 07:45 01/14/25 10:27 37.5 MLS/HR Morphine Sulfate 2 mg Q30M PRN IV 01/11/25 09:15 Vancomycin HCl 0 ml @ 0 mls/hr UD IV 01/11/25 10:45 Sodium Bicarbonate 150 ml/Dextrose 1,150 ml @ 60 mls/hr [id number] IV 01/12/25 14:30 01/14/25 01:52 60 MLS/HR Piperacillin Sod/ Tazobactam Sod 100 ml @ 25 mls/hr Q12HR IV 01/12/25 22:00 01/14/25 09:27 25 MLS/HR Pantoprazole Sodium 40 mg DAILY IV 01/13/25 10:00 01/14/25 09:27 40 MG Bumetanide 25 mg/ Miscellaneous 100 ml @ 4 mls/hr Q24H IV 01/13/25 11:15 01/14/25 08:36 4 MLS/HR Vasopressin 20 units/Sodium Chloride 100 ml @ 12 mls/hr Q8H20M IV 01/14/25 11:15 Examination General: RASS -3, afebrile, mucosae are moist Cardiovascular: Normal S1 and S2. No murmurs, gallops or rubs Respiratory: Mechanically assisted ventilation, equal bilateral airway entree. Bilateral decreased breath sounds and crackles Abdomen: Soft, nontender, no organomegaly, normal bowel sounds MSK/skin: Mobilization of limbs cannot be evaluated. Skin is dry and warm., wound on the lt leg Neurological: Orientation cannot be assessed. No apparent motor no sensitive deficits. Pupils are isocoric and reactive laboratory and microbiology Laboratory Tests 01/14/25 03:05 Test 01/14/25 03:05 Range/Units Serum Glucose 157 H 74-106 mg/dL Microbiology Date/Time Source Procedure Growth Status 01/11/25 07:40 Nose MRSA Screen - Final Complete 01/11/25 07:40 Urine - Valenzuela Port Urine Culture - Final Complete 01/11/25 06:23 Sputum Gram Stain - Final Complete 01/11/25 06:23 Respiratory Culture - Final Presumptive Tg albicans Complete 01/08/25 17:16 Blood Blood Culture - Final NO GROWTH AFTER 5 DAYS OF INCUBATION. Complete Labs and/or images reviewed: Labs reviewed by me, Image(s) reviewed by me Problem List/Assessment/Plan Problem List/Assessment/Plan Assessment/Plan Acute kidney injury hemodynamically mediated ATN, FeNa > 2% Acute respiratory failure , patient intubated on ventilator Morbid obesity Severe systolic heart failure, with acute decompensation Cardiac arrest COPD Diabetes mellitus type 2 Hyperglycemia Metabolic acidosis Septic shock Hyperkalemia resolved Recommendations: Kidney function worsened Decreased urine output Valenzuela catheter Strict I&O Continue Vasopressor to maintain blood pressure IV Bumex drip at 1 milligram/hours IV albumin 25% 100 cc at q.12 hours for 3 doses IV antibiotics IV pressors for blood pressure support Insulin sliding scale Check urine lytes and protein excretion We will continue to follow up Critical care spent time 41 minutes. Plan discussed with Dr. Harrison Plan discussed with: Other (RN) Dietary Evaluation Review Comments: 1) Initiate Pro-Stat @ 30 mL qd 2) Initiate Migel @ 1 pk bid 3) Initiate MVI @ 1 tb qd 4) Continue to encourage optial PO intake 5) Refer to outpatient RD/CD[facility] for weight management 6) Continue to monitor I&O, labs, and skin integrity Expected Outcomes/Goals: 1) appetite and labs to improve 2) wounds to improve 3) f/u in 3-5 days LILY FOSS RESIDENT Jan 14, 2025 13:31 MARNIE HARRISON MD Jan 15, 2025 12:31
--- NOTE | 2025-01-14 14:19 | MEDREC ---
[facility] ASP Intervention Section I [facility] ASP Intervention: Review courses of therapy (SPUTUM CULTURE POSITIVE FOR YEAST - PLEASE CONSIDER ADDING ANTIFUNGAL IF CLINICALLY RELEVANT ) [place] PHARMACIST Jan 14, 2025 14:19
--- NOTE | 2025-01-14 15:54 | DVHPN2 ---
Progress Note Date Seen: Jan 14, 2025 Medical Necessity Reason Pt with a Central, PICC or Fol: Yes The following are medically ne: Central Line, Valenzuela Catheter Reason for valenzuela catheter: Strict I&O Subjective Patient reports: No new complaints Review of Systems: HEENT:Normal, CVS:Normal, RESPIRATORY:Normal, GI:Normal, :Normal, MSK:Normal, NEURO:Normal Objective vital signs Vital Sign Date Time Temp Pulse Resp B/P (MAP) Pulse Ox O2 Delivery O2 Flow Rate FiO2 01/14/25 15:40 125 24 98/60 (73) 99 30 01/14/25 15:01 98.6 209.5 01/14/25 14:00 Mechanical Ventilator+ Total Intake and Output 01/13/25 01/13/25 01/14/25 15:00 23:00 07:00 Intake Total 1257.800 ml 1185.075 ml 1185.550 ml Output Total 150 ml 300 ml Balance 1257.800 ml 1035.075 ml 885.550 ml medications Current Medications Medications Dose Ordered Sig/Fatoumata Route Start Time Stop Time Status Last Admin Dose Admin Insulin Human Regular AC SC 01/09/25 07:00 01/12/25 11:41 6 UNITS Dextrose 50 ml UD PRN IV 01/08/25 21:15 Sodium Chloride 10 ml Q8HR IV 01/08/25 22:00 01/14/25 15:07 10 ML Nitroglycerin 0.4 mg Q5MINP PRN SL 01/08/25 21:45 Morphine Sulfate 2 mg Q30M PRN IV 01/08/25 21:45 Cancel Propofol 100 ml @ 4.59 mls/hr [id number] IV 01/11/25 06:30 01/11/25 07:37 0 MLS/HR Midazolam HCl 50 ml @ 1 mls/hr Q24H IV 01/11/25 06:30 01/13/25 22:06 6 MLS/HR Fentanyl Citrate 250 ml @ 2.5 mls/hr Q24H IV 01/11/25 06:30 01/13/25 21:00 10 MLS/HR Dopamine HCl/ Dextrose 250 ml @ 28.688 mls/ hr Q8H43M IV 01/11/25 06:30 01/14/25 06:37 11.475 MLS/HR Phenylephrine HCl 250 ml @ 30 mls/hr Q8H20M IV 01/11/25 07:45 Norepinephrine Bitartrate 250 ml @ 3.75 mls/hr Q24H IV 01/11/25 07:45 01/14/25 10:27 37.5 MLS/HR Morphine Sulfate 2 mg Q30M PRN IV 01/11/25 09:15 Vancomycin HCl 0 ml @ 0 mls/hr UD IV 01/11/25 10:45 Sodium Bicarbonate 150 ml/Dextrose 1,150 ml @ 60 mls/hr [id number] IV 01/12/25 14:30 01/14/25 01:52 60 MLS/HR Piperacillin Sod/ Tazobactam Sod 100 ml @ 25 mls/hr Q12HR IV 01/12/25 22:00 01/14/25 09:27 25 MLS/HR Pantoprazole Sodium 40 mg DAILY IV 01/13/25 10:00 01/14/25 09:27 40 MG Bumetanide 25 mg/ Miscellaneous 100 ml @ 4 mls/hr Q24H IV 01/13/25 11:15 01/14/25 08:36 4 MLS/HR Vasopressin 20 units/Sodium Chloride 100 ml @ 12 mls/hr Q8H20M IV 01/14/25 11:15 01/14/25 11:15 12 MLS/HR Examination: GENERAL:Normal, HEENT:Normal, NECK:Normal, LUNGS:Normal, LUNGS:Abnormal (intubated), CVS:Normal, ABDOMEN:Normal, MSK:Normal, SKIN:Normal, NEURO:Normal, :Normal laboratory and microbiology Laboratory Tests 01/14/25 03:05 Test 01/14/25 03:05 Range/Units Serum Glucose 157 H 74-106 mg/dL Microbiology Date/Time Source Procedure Growth Status 01/11/25 07:40 Nose MRSA Screen - Final Complete 01/11/25 07:40 Urine - Valenzuela Port Urine Culture - Final Complete 01/11/25 06:23 Sputum Gram Stain - Final Complete 01/11/25 06:23 Respiratory Culture - Final Presumptive Tg albicans Complete 01/08/25 17:16 Blood Blood Culture - Final NO GROWTH AFTER 5 DAYS OF INCUBATION. Complete Problem List/Assessment/Plan Problem List/Assessment/Plan #1 acute resp failure: cont acv, peep 10 #2 s/p cpr: on targeted temp management #3 acute systolic heart failure: cont meds #4 morbid obesity #5 shock ? cardiac ?septic: iv antibiotics, iv pressors #6 dm: ssi #7 coagulopathy #8 acute renal failure/atn: iv lasix drip #9 left leg wound/pseud: on zosyn, vand #10 shock liver #11 gout #12 ?hypoxic encephalopathy: neuro eval, ct head arrange meeting with niece Plan discussed with: Other (rn) My Orders My Orders Orders - MAAME MARTÍNEZ MD Procedure Category Date Status Time Communication Order ORDERS 01/13/25 Transmitted 15:35 Glucose Blood PHA 01/14/25 Verified (Accu-Chek Comfort 18:00 Mild Sliding Scale PHA 01/14/25 Verified Npo - Q6hr 18:00 Dextrose 50% Syringe PHA 01/14/25 Verified 16:00 Nutritional PHA 01/14/25 Verified Supplements (Glucerna 16:00 Complete Blood Count LAB 01/15/25 Verified 06:00 Comprehensive LAB 01/15/25 Verified Metabolic Panel 06:00 PTPTT LAB 01/15/25 Verified 04:00 Chest Portable XY 01/15/25 Verified 06:00 Abg W/ Co-Ox RT 01/15/25 Verified 06:00 Dietary Evaluation Review Comments: 1) Initiate Pro-Stat @ 30 mL qd 2) Initiate Migel @ 1 pk bid 3) Initiate MVI @ 1 tb qd 4) Continue to encourage optial PO intake 5) Refer to outpatient RD/CDCES for weight management 6) Continue to monitor I&O, labs, and skin integrity Expected Outcomes/Goals: 1) appetite and labs to improve 2) wounds to improve 3) f/u in 3-5 days Critical Care Time (mins): 51 (critical care time excluding procedures was 51mins) Date of Service: Jan 14, 2025 Billing Provider: MAAME MARTÍNEZ MD Common Visit Codes: [id number] CARE 30-74 MIN MAAME MARTÍNEZ MD Jan 14, 2025 15:54
[2025-01-14] MEDS ORDERED: Glucerna 1.2 Cal 1Liter BOTTLE GT SCH (16:00)
[2025-01-14] MEDS ORDERED: DEXTROSE (50%) 50ML SYRG IV PRN (16:00)
[2025-01-14] MEDS: ACCU-CHEK COMFORT CURVE STRIP VI SCH (17:41)
[2025-01-14] MEDS: InsuLIN REG 1unit/0.01ml Soln (100units/ml) SC SCH (17:45)
--- NOTE | 2025-01-14 20:33 | DVHPN2 ---
Progress Note - Dictate Date Seen: Jan 14, 2025 Medical Necessity Reason Pt with a Central, PICC or Fol: Yes The following are medically ne: Central Line, Valenzuela Catheter Reason for valenzuela catheter: Strict I&O Subjective Mr. Noyola is a 64 years old gentleman with a history of hypertension, diabetes, obesity, asthma, gout, the patient was came to the [facility] on 01/08/2025 with a chief company of general weakness, and he coded the same day, 01/08/2025 [id number]. He was resuscitated and has been intubated, I have seen and examined the patient, discussed with his nurse, he is on pressor drip, but has been off sedation since 01/14/2025 7:30 a.m. Nonresponsive to painful stimuli, He has bleeding, and H&H is not stable Levo 20 mcgm/minute, vasopressin 0.4 units/min Urinalysis, : UTI WBC/HB/PLT/MCV, 01/13/2025: 11.3/12.6/162/81.6 PT/INR/PTT, 01/12/2025: 44.8/3.74/37.9, 01/13/2025: 29.8/3.15/38.1 BUN/CR, 01/08/2025: 16/1.08, 01/11/2025: 31/2.42, 01/13/2025: 39/3.12 TBI/AST/ALT/AP, 01/08/2025: 1/17/19/133, : 1.9/> 6000/4946/195 HGB A1c, 01/09/25: 6.4 TG/HDL/LDL/HDL, 01/10/25: 66/100/71/21 Extremity venous study, 01/09/2025: No right or left femoropopliteal venous thrombosis. Chest x-ray, 01/13/2025: Cardiomegaly with mild congestion. CT head, 01/13/2025: No evidence of acute intracranial abnormality. vital signs Vital Sign Date Time Temp Pulse Resp B/P (MAP) Pulse Ox O2 Delivery O2 Flow Rate FiO2 01/14/25 19:12 125 24 112/69 (83) 100 30 01/14/25 19:00 99.0 210.2 01/14/25 18:00 Mechanical Ventilator+ Total Intake and Output 01/13/25 01/13/25 01/14/25 15:00 23:00 07:00 Intake Total 1257.800 ml 1185.075 ml 1185.550 ml Output Total 150 ml 300 ml Balance 1257.800 ml 1035.075 ml 885.550 ml medications Current Medications Medications Dose Ordered Sig/Fatoumata Route Start Time Stop Time Status Last Admin Dose Admin Sodium Chloride 10 ml Q8HR IV 01/08/25 22:00 01/14/25 15:07 10 ML Nitroglycerin 0.4 mg Q5MINP PRN SL 01/08/25 21:45 Morphine Sulfate 2 mg Q30M PRN IV 01/08/25 21:45 Cancel Propofol 100 ml @ 4.59 mls/hr [id number] IV 01/11/25 06:30 01/11/25 07:37 0 MLS/HR Midazolam HCl 50 ml @ 1 mls/hr Q24H IV 01/11/25 06:30 01/13/25 22:06 6 MLS/HR Fentanyl Citrate 250 ml @ 2.5 mls/hr Q24H IV 01/11/25 06:30 01/13/25 21:00 10 MLS/HR Dopamine HCl/ Dextrose 250 ml @ 28.688 mls/ hr Q8H43M IV 01/11/25 06:30 01/14/25 06:37 11.475 MLS/HR Phenylephrine HCl 250 ml @ 30 mls/hr Q8H20M IV 01/11/25 07:45 Norepinephrine Bitartrate 250 ml @ 3.75 mls/hr Q24H IV 01/11/25 07:45 01/14/25 14:14 37.5 MLS/HR Morphine Sulfate 2 mg Q30M PRN IV 01/11/25 09:15 Vancomycin HCl 0 ml @ 0 mls/hr UD IV 01/11/25 10:45 Sodium Bicarbonate 150 ml/Dextrose 1,150 ml @ 60 mls/hr [id number] IV 01/12/25 14:30 01/14/25 17:41 60 MLS/HR Piperacillin Sod/ Tazobactam Sod 100 ml @ 25 mls/hr Q12HR IV 01/12/25 22:00 01/14/25 09:27 25 MLS/HR Pantoprazole Sodium 40 mg DAILY IV 01/13/25 10:00 01/14/25 09:27 40 MG Bumetanide 25 mg/ Miscellaneous 100 ml @ 4 mls/hr Q24H IV 01/13/25 11:15 01/14/25 08:36 4 MLS/HR Vasopressin 20 units/Sodium Chloride 100 ml @ 12 mls/hr Q8H20M IV 01/14/25 11:15 01/14/25 14:14 12 MLS/HR Diagnostic Test (Pha) 1 strip Q6HR 01/14/25 18:00 01/14/25 17:41 1 STRIP Insulin Human Regular Q6HR SC 01/14/25 18:00 Dextrose 50 ml UD PRN IV 01/14/25 16:00 Enteral Nutritional Formula 1,000 ml 30ML/HR GT 01/14/25 16:00 objective The patient is well-nourished and well-developed with no distress. The patient is intubated Edema in the lower extremities and torso MENTAL STATUS: Subjective CRANIAL NERVES: Pupils are equal, round and reactive.There are corneal reflexes and doll's eyes phenomenon. No signs of facial weakness. There are very weak/questionable gagging or coughing reflexes SENSATION: No responses to pain stimuli. MOTOR: Normal tone in the upper and lower extremity. Normal muscle bulk. No fasciculations. No spontaneous movement. REFLEXES: Deep tendon reflexes are symmetrical. No pathological reflexes. CEREBELLAR/COORDINATION: Deferred laboratory and microbiology Laboratory Tests 01/14/25 03:05 Test 01/14/25 03:05 Range/Units Serum Glucose 157 H 74-106 mg/dL Problem List Altered mental status/coma Hypoxic encephalopathy Metabolic encephalopathy Cardiopulmonary arrest Urinary tract infection ? Sepsis, Shock Cardiologic general? Septic shock Kidney failure Shocked liver Morbid obesity Leg edema Coagulopathy, etiology unclear, Chronic wound in the skin Hemorrhage Assessment/Plan Monitoring Supportive treatment ICU care EEG Follow-up lab On targeted temperature management Respiratory support/vent management Stabilize vitals/pressor drip Oxygen IV antibiotics Wound Care Pulmonology on case Nephrology on case More recommendation per clinical course This medical document was created using an electronic medical record system with [employer] dictation system. Although this document has been carefully reviewed, there may still be some phonetic and typographical errors. These areas are purely typographical due to imperfections of the software programs, and do not reflect any compromise in the patient's medical care. Prognosis Guarded Dietary Evaluation Review Comments: 1) Initiate Pro-Stat @ 30 mL qd 2) Initiate Migel @ 1 pk bid 3) Initiate MVI @ 1 tb qd 4) Continue to encourage optial PO intake 5) Refer to outpatient RD/CDCES for weight management 6) Continue to monitor I&O, labs, and skin integrity Expected Outcomes/Goals: 1) appetite and labs to improve 2) wounds to improve 3) f/u in 3-5 days Plan discussed with: Other Critical Care Time(min): 35 SANTANA NAVARRO MD Jan 14, 2025 20:33
--- NOTE | 2025-01-14 20:39 | DVH ---
CHEST RADIOGRAPH Indication: NGT PLACEMENT Technique: Single frontal view of the chest was obtained COMPARISON: XY CHEST PORTABLE on DOS: 01/14/25, XY CHEST PORTABLE on DOS: 01/13/25, XY CHEST XRAY 1 VIEW on DOS: 01/12/25, XY CHEST PORTABLE on DOS: 01/11/25, XY CHEST PORTABLE on DOS: 01/08/25 FINDINGS: Lines and Tubes: Endotracheal tube terminates 3.3 cm above the michele. Enteric tube courses below the diaphragm with tip collimated from view. Lungs: Moderate interstitial pulmonary edema Pleura: No effusion. No pneumothorax. Cardiomediastinal contours: Cardiomegaly. Bones: Unremarkable IMPRESSION: 1. Moderate interstitial pulmonary edema. 2. Enteric tube courses below the diaphragm with tip collimated from view.
--- NOTE | 2025-01-14 23:21 | DVHEEG2 ---
Neurology EEG Procedural Note Procedural Note EXAM DATE: 01/14/2025 REFERRING DOCTOR: Dr. Navarro TECHNIQUE: Eighteen channels of EEG, 2 channels of EOG, and 1 channel of EKG were recorded using the International 10/20 system. CLINICAL DATA: The patient was referred for an EEG evaluation for the evidence of seizure disorder. MEDICATIONS: See the chart BACKGROUND ACTIVITY: There was electrode artifacts in the recording, this EEG showed spells of low amplitude theta activity with interval of suppressed or relatively suppressed background activities ACTIVATION: Hyperventilation: Not done Photic Stimulation: Not done Sleep: Nonresponsiveness IMPRESSION: This is a remarkably abnormal EEG, this EEG is seen in severe cerebral dysfunction due to metabolic/hypoxic encephalopathy or medication effects, please correlate clinically The EKG channel showed a regular heart rate of 126 per minute [place] [address] SANTANA NAVARRO MD Jan 14, 2025 23:21
[2025-01-15] VITALS (105 sets, daily range): BP systolic 89–134; BP diastolic 52–85; PULSE 90–124; RESP 15–27; TEMP 97.2–99; O2SAT 92–100
--- NOTE | 2025-01-15 01:47 | DVH ---
CHEST RADIOGRAPH Indication: NGT PLACEMENT CONFIRMATION Technique: Single frontal view of the chest was obtained Comparison: XY CHEST XRAY 1 VIEW on DOS: 01/14/25, XY CHEST PORTABLE on DOS: 01/14/25, XY CHEST PORTABLE on DOS: 01/13/25 Findings/ IMPRESSION: Endotracheal tube and enteric tube appear in proper position. Moderate bilateral pleural effusions. S uperimposed infection not completely excluded.
[2025-01-15 03:59] LABS: Basophils # (auto) 0.1 10 ^3/uL (0-0.2); Eosinophils # (auto) 0.1 10 ^3/uL (0-0.8); Hemoglobin 7.9 g/dL (13.5-17.5)
[2025-01-15 04:03] LABS: Basophils % (auto) 0.6 % (0.0-2.0); Eosinophils % (auto) 0.7 % (0.0-7.0); Hematocrit 23.4 % (41.0-53.0); Lymphocytes # (auto) 1.1 10 ^3/uL (0.4-5.4); Lymphocytes % (auto) 10.7 % (10.0-50.0); Mean Corpuscular Hemoglobin 26.5 pg (28.0-32.0); Mean Corpuscular Hgb Conc. 33.7 g/dL (32.0-36.0); Mean Corpuscular Volume 78.8 fL (80.0-100.0); Monocytes # (auto) 0.9 10 ^3/uL (0-1.3); Monocytes % (auto) 8.2 % (0.0-12.0); Neutrophils # (auto) 8.3 10 ^3/uL (1.6-8.6); Neutrophils % (auto) 79.8 % (37.0-80.0); Nucleated Red Blood Cells % 0.1 %; Platelet Count (auto) 134 10^3/uL (140-450); Red Blood Cells 2.97 10^6/uL (4.5-5.90); Red Cell Distribution Width 17.3 % (11.8-14.3); White Blood Cell 10.4 10^3/uL (4.4-10.8)
[2025-01-15 04:07] LABS: INR 1.58 (0.9-1.15); Partial Thromboplastin Time 37.8 SEC (24.5-34.5)
[2025-01-15 04:28] LABS: Alkaline Phosphatase 113 U/L (46-116); Anion Gap 12 (5-15); BUN/Creatinine Ratio 10.9 (10.0-20.0); Carbon Dioxide 31 mmol/L (20-31)
[2025-01-15 04:43] LABS: Alanine Aminotransferase 1182 U/L (7-40); Albumin 2.4 g/dL (3.2-4.8); Aspartate Aminotransferase 683 U/L (13-40); Bilirubin, Total 4.5 mg/dL (0.2-1.0); Blood Urea Nitrogen 55 mg/dL (9-23); Calcium 7.7 mg/dL (8.7-10.4); Chloride 93 mmol/L (98-107); Glucose 153 mg/dL (74-106); Sodium 136 mmol/L (136-145); Total Protein 4.2 g/dL (5.7-8.2)
--- NOTE | 2025-01-15 05:36 | DVH ---
CHEST RADIOGRAPH Indication: resp failure Technique: Single frontal view of the chest was obtained Comparison: XY CHEST PORTABLE on DOS: 01/15/25 FINDINGS: Lines and Tubes: The endotracheal tube terminates above the michele. The enteric tube courses below th e left hemidiaphragm and the tip extends outside the field of view. Lungs: Bibasilar airspace disease. Pleura: Bilateral pleural effusions. No pneumothorax. Cardiomediastinal contours: Unremarkable Bones: No acute osseous abnormality. IMPRESSION: 1. Bilateral pleural effusions. Bibasilar airspace disease.
--- NOTE | 2025-01-15 06:57 | ECG ---
[facility] Test Date: 2025-01-08 Test Time: 16:07:54 Pat Name: BERLIN FREGOSO Department: ED Room: [address] [place] [address] A Gender: M Gis Coordinator: oscar : 1960 Requested By: FAVIAN PACE Order Number: [id number] Reading MD: Jeremie Scott Measurements Intervals [place] Rate: 136 P: 0 WY: 0 QRS: -6 QRSD: 111 T: -41 QT: 313 QTc: 471 Interpretive Statements Atrial flutter with predominant 2:1 AV block Borderline T abnormalities, inferior leads Electronically Signed On 01-15-2025 9:31:42 PDT by Jeremie Scott Please click the below link to view image of tracing.
[2025-01-15 06:59] LABS: Base Excess 7.1 mmol/L (-2.0-3.0)
--- NOTE | 2025-01-15 09:02 | DVHPN2 ---
Progress Note Date Seen: Jan 15, 2025 Medical Necessity Reason Pt with a Central, PICC or Fol: Yes The following are medically ne: Central Line, Valenzuela Catheter Reason for valenzuela catheter: Strict I&O Subjective Other Systems: better uop on bumex gtt Objective vital signs Vital Sign Date Time Temp Pulse Resp B/P (MAP) Pulse Ox O2 Delivery O2 Flow Rate FiO2 01/15/25 07:23 118 24 117/76 (90) 99 30 01/15/25 06:45 98.1 208.6 01/15/25 06:00 Mechanical Ventilator+ Total Intake and Output 01/14/25 01/14/25 01/15/25 15:00 23:00 07:00 Intake Total 1153.150 ml 908.0 ml 857.00 ml Output Total 475 ml 600 ml Balance 1153.150 ml 433.0 ml 257.00 ml medications Current Medications Medications Dose Ordered Sig/Fatoumata Route Start Time Stop Time Status Last Admin Dose Admin Sodium Chloride 10 ml Q8HR IV 01/08/25 22:00 01/15/25 05:35 10 ML Nitroglycerin 0.4 mg Q5MINP PRN SL 01/08/25 21:45 Morphine Sulfate 2 mg Q30M PRN IV 01/08/25 21:45 Cancel Propofol 100 ml @ 4.59 mls/hr [id number] IV 01/11/25 06:30 01/11/25 07:37 0 MLS/HR Midazolam HCl 50 ml @ 1 mls/hr Q24H IV 01/11/25 06:30 01/13/25 22:06 6 MLS/HR Fentanyl Citrate 250 ml @ 2.5 mls/hr Q24H IV 01/11/25 06:30 01/13/25 21:00 10 MLS/HR Dopamine HCl/ Dextrose 250 ml @ 28.688 mls/ hr Q8H43M IV 01/11/25 06:30 01/14/25 06:37 11.475 MLS/HR Phenylephrine HCl 250 ml @ 30 mls/hr Q8H20M IV 01/11/25 07:45 Norepinephrine Bitartrate 250 ml @ 3.75 mls/hr Q24H IV 01/11/25 07:45 01/15/25 05:34 22.5 MLS/HR Morphine Sulfate 2 mg Q30M PRN IV 01/11/25 09:15 Vancomycin HCl 0 ml @ 0 mls/hr UD IV 01/11/25 10:45 Sodium Bicarbonate 150 ml/Dextrose 1,150 ml @ 60 mls/hr [id number] IV 01/12/25 14:30 01/14/25 17:41 60 MLS/HR Piperacillin Sod/ Tazobactam Sod 100 ml @ 25 mls/hr Q12HR IV 01/12/25 22:00 01/14/25 21:09 25 MLS/HR Pantoprazole Sodium 40 mg DAILY IV 01/13/25 10:00 01/14/25 09:27 40 MG Bumetanide 25 mg/ Miscellaneous 100 ml @ 4 mls/hr Q24H IV 01/13/25 11:15 01/14/25 08:36 4 MLS/HR Vasopressin 20 units/Sodium Chloride 100 ml @ 12 mls/hr Q8H20M IV 01/14/25 11:15 01/15/25 00:07 12 MLS/HR Diagnostic Test (Pha) 1 strip Q6HR 01/14/25 18:00 01/15/25 05:35 1 STRIP Insulin Human Regular Q6HR SC 01/14/25 18:00 01/15/25 05:38 2 UNITS Dextrose 50 ml UD PRN IV 01/14/25 16:00 Enteral Nutritional Formula 1,000 ml 30ML/HR GT 01/14/25 16:00 Examination: GENERAL:Abnormal, HEENT:Abnormal, LUNGS:Abnormal, CVS:Abnormal, ABDOMEN:Abnormal laboratory and microbiology Laboratory Tests 01/15/25 03:39 Test 01/15/25 03:39 Range/Units Serum Glucose 153 H 74-106 mg/dL Microbiology Date/Time Source Procedure Growth Status 01/11/25 07:40 Nose MRSA Screen - Final Complete 01/11/25 07:40 Urine - Valenzuela Port Urine Culture - Final Complete 01/11/25 06:23 Sputum Gram Stain - Final Complete 01/11/25 06:23 Respiratory Culture - Final Presumptive Tg albicans Complete 01/08/25 17:16 Blood Blood Culture - Final NO GROWTH AFTER 5 DAYS OF INCUBATION. Complete Problem List/Assessment/Plan Problem List/Assessment/Plan severe class IV systolic and diasttolic acute on chronic HF ckd atrial flutter cardiac arrest resp failure bradycardia acidemia on levophed gtt lasix gtt bicarb gtt cont tele anuric rate control pt vent management per pulmonary consider head ct when feasible but defer to primary service will try bumex per renal consider P[employer]IST if indicated in future head ct was - decent uop overnight ,fu renal recs on levo/vaso for now prognosis is guarded and poor Plan discussed with: Other (rn) Dietary Evaluation Review Comments: 1) Initiate Pro-Stat @ 30 mL qd 2) Initiate Migel @ 1 pk bid 3) Initiate MVI @ 1 tb qd 4) Continue to encourage optial PO intake 5) Refer to outpatient RD/CDCES for weight management 6) Continue to monitor I&O, labs, and skin integrity Expected Outcomes/Goals: 1) appetite and labs to improve 2) wounds to improve 3) f/u in 3-5 days Date of Service: Jan 15, 2025 Billing Provider: PERI MARI MD Common Visit Codes: NOT BILLABLE PERI MARI MD Jan 15, 2025 09:02
--- NOTE | 2025-01-15 10:04 | DVHPN2 ---
Progress Note - Dictate Date Seen: Jan 15, 2025 Medical Necessity Reason Pt with a Central, PICC or Fol: Yes The following are medically ne: Central Line, Valenzuela Catheter Reason for valenzuela catheter: Strict I&O Subjective Mr. Noyola is a 64 years old gentleman with a history of hypertension, diabetes, obesity, asthma, gout, the patient was came to the [facility] on 01/08[facility]2025 with a chief company of general weakness, and he coded the same day, 01/08/2025 [id number]. He was resuscitated and has been intubated, I have seen and examined the patient, discussed with his nurse, he is on pressor drip. Bleeding from the tubes and mouth is less Nonresponsive to painful stimuli, no gag reflexes He has been off sedation since 01/14/2025 7:30 a.m. Levo 12 mcgm/minute, vasopressin 0.04 units/min Urinalysis, : UTI WBC/HB/PLT/MCV, 01/13/2025: 11.3/12.6/162/81.6 PT/INR/PTT, 01/12/2025: 44.8/3.74/37.9, 01/13/2025: 29.8/3.15/38.1 BUN/CR, 01/08/2025: 16/1.08, 01/11/2025: 31/2.42, 01/13/2025: 39/3.12 TBI/AST/ALT/AP, 01/08/2025: 1/17/19/133, : 1.9/> 6000/4946/195 HGB A1c, 01/09/25: 6.4 TG/HDL/LDL/HDL, 01/10/25: 66/100/71/21 EEG, 01/14/2025: Remarkably abnormal EEG Extremity venous study, 01/09/2025: No right or left femoropopliteal venous thrombosis. Chest x-ray, 01/13/2025: Cardiomegaly with mild congestion. CT head, 01/13/2025: No evidence of acute intracranial abnormality. vital signs Vital Sign Date Time Temp Pulse Resp B/P (MAP) Pulse Ox O2 Delivery O2 Flow Rate FiO2 01/15/25 09:35 118 25 113/76 (88) 99 30 01/15/25 08:00 Mechanical Ventilator+ 01/15/25 06:45 98.1 208.6 Total Intake and Output 01/14/25 01/14/25 01/15/25 15:00 23:00 07:00 Intake Total 1153.150 ml 908.0 ml 857.00 ml Output Total 475 ml 600 ml Balance 1153.150 ml 433.0 ml 257.00 ml medications Current Medications Medications Dose Ordered Sig/Fatoumata Route Start Time Stop Time Status Last Admin Dose Admin Sodium Chloride 10 ml Q8HR IV 01/08/25 22:00 01/15/25 05:35 10 ML Nitroglycerin 0.4 mg Q5MINP PRN SL 01/08/25 21:45 Morphine Sulfate 2 mg Q30M PRN IV 01/08/25 21:45 Cancel Propofol 100 ml @ 4.59 mls/hr [id number] IV 01/11/25 06:30 01/11/25 07:37 0 MLS/HR Midazolam HCl 50 ml @ 1 mls/hr Q24H IV 01/11/25 06:30 01/13/25 22:06 6 MLS/HR Fentanyl Citrate 250 ml @ 2.5 mls/hr Q24H IV 01/11/25 06:30 01/13/25 21:00 10 MLS/HR Dopamine HCl/ Dextrose 250 ml @ 28.688 mls/ hr Q8H43M IV 01/11/25 06:30 01/14/25 06:37 11.475 MLS/HR Phenylephrine HCl 250 ml @ 30 mls/hr Q8H20M IV 01/11/25 07:45 Norepinephrine Bitartrate 250 ml @ 3.75 mls/hr Q24H IV 01/11/25 07:45 01/15/25 05:34 22.5 MLS/HR Morphine Sulfate 2 mg Q30M PRN IV 01/11/25 09:15 Vancomycin HCl 0 ml @ 0 mls/hr UD IV 01/11/25 10:45 Sodium Bicarbonate 150 ml/Dextrose 1,150 ml @ 60 mls/hr [id number] IV 01/12/25 14:30 01/14/25 17:41 60 MLS/HR Piperacillin Sod/ Tazobactam Sod 100 ml @ 25 mls/hr Q12HR IV 01/12/25 22:00 01/14/25 21:09 25 MLS/HR Pantoprazole Sodium 40 mg DAILY IV 01/13/25 10:00 01/14/25 09:27 40 MG Bumetanide 25 mg/ Miscellaneous 100 ml @ 4 mls/hr Q24H IV 01/13/25 11:15 01/15/25 09:09 4 MLS/HR Vasopressin 20 units/Sodium Chloride 100 ml @ 12 mls/hr Q8H20M IV 01/14/25 11:15 01/15/25 09:07 12 MLS/HR Diagnostic Test (Pha) 1 strip Q6HR 01/14/25 18:00 01/15/25 05:35 1 STRIP Insulin Human Regular Q6HR SC 01/14/25 18:00 01/15/25 05:38 2 UNITS Dextrose 50 ml UD PRN IV 01/14/25 16:00 Enteral Nutritional Formula 1,000 ml 30ML/HR GT 01/14/25 16:00 objective The patient is well-nourished and well-developed with no distress. The patient is intubated Edema in the lower extremities and torso MENTAL STATUS: Subjective CRANIAL NERVES: Pupils are equal, round and reactive.There are corneal reflexes and doll's eyes phenomenon. No signs of facial weakness. There are no gagging or coughing reflexes SENSATION: No responses to pain stimuli. MOTOR: Normal tone in the upper and lower extremity. Normal muscle bulk. No fasciculations. No spontaneous movement. REFLEXES: Deep tendon reflexes are symmetrical. No pathological reflexes. CEREBELLAR/COORDINATION: Deferred laboratory and microbiology Laboratory Tests 01/15/25 03:39 Test 01/15/25 03:39 Range/Units Serum Glucose 153 H 74-106 mg/dL Problem List Altered mental status/coma Hypoxic encephalopathy Metabolic encephalopathy Cardiopulmonary arrest Urinary tract infection ? Sepsis, Shock Cardiologic general? Septic shock Kidney failure Shocked liver Morbid obesity Leg edema Coagulopathy, etiology unclear, Chronic wound in the skin Hemorrhage Assessment/Plan Monitoring Supportive treatment ICU care Follow-up lab On targeted temperature management Respiratory support/vent management Stabilize vitals/pressor drip Oxygen IV antibiotics Wound Care Pulmonology on case Nephrology on case More recommendation per clinical course This medical document was created using an electronic medical record system with Dragon computerized dictation system. Although this document has been carefully reviewed, there may still be some phonetic and typographical errors. These areas are purely typographical due to imperfections of the software programs, and do not reflect any compromise in the patient's medical care. Prognosis guarded Dietary Evaluation Review Comments: 1) Initiate Pro-Stat @ 30 mL qd 2) Initiate Migle @ 1 pk bid 3) Initiate MVI @ 1 tb qd 4) Continue to encourage optial PO intake 5) Refer to outpatient RD/CDCES for weight management 6) Continue to monitor I&O, labs, and skin integrity Expected Outcomes/Goals: 1) appetite and labs to improve 2) wounds to improve 3) f/u in 3-5 days Plan discussed with: Other Critical Care Time(min): 30 SANTANA NAVARRO MD Jan 15, 2025 10:04
--- NOTE | 2025-01-15 11:20 | DVHPN2 ---
Progress Note Date Seen: Jan 15, 2025 Resident Creating Document: LILY FOSS RESIDENT Medical Necessity Reason Pt with a Central, PICC or Fol: Yes The following are medically ne: Central Line, Valenzuela Catheter Reason for valenzuela catheter: Strict I&O Subjective Review of Systems Patient was seen and examined on the bedside. He is on mechanical ventilation with FiO2 30%, tidal volume 500, peep 10 and respiratory rate 24. Off sedation since yesterday, non-responsive to painful stimuli, no gag reflexes. Bleeding from ET tube and bloody oral secretions, hemoglobin dropped to 7.9 and platelet count 134. Scheduled for family meeting with Dr. Reynolds today at 11:00 a.m. to discuss regarding code status and decision about initiation of the dialysis. Review of Systems: RESPIRATORY:Abnormal Other Systems: Patient seen and examined by myself today on rounds with the medicine resident, I agree with the assessment and plan Patient remained intubated on the ventilator Objective vital signs Vital Sign Date Time Temp Pulse Resp B/P (MAP) Pulse Ox O2 Delivery O2 Flow Rate FiO2 01/15/25 09:59 104/77 01/15/25 09:35 118 25 99 30 01/15/25 08:00 Mechanical Ventilator+ 01/15/25 06:45 98.1 208.6 Total Intake and Output 01/14/25 01/14/25 01/15/25 15:00 23:00 07:00 Intake Total 1153.150 ml 908.0 ml 857.00 ml Output Total 475 ml 600 ml Balance 1153.150 ml 433.0 ml 257.00 ml medications Current Medications Medications Dose Ordered Sig/Fatoumata Route Start Time Stop Time Status Last Admin Dose Admin Sodium Chloride 10 ml Q8HR IV 01/08/25 22:00 01/15/25 05:35 10 ML Nitroglycerin 0.4 mg Q5MINP PRN SL 01/08/25 21:45 Morphine Sulfate 2 mg Q30M PRN IV 01/08/25 21:45 Cancel Propofol 100 ml @ 4.59 mls/hr [id number] IV 01/11/25 06:30 01/11/25 07:37 0 MLS/HR Midazolam HCl 50 ml @ 1 mls/hr Q24H IV 01/11/25 06:30 01/13/25 22:06 6 MLS/HR Fentanyl Citrate 250 ml @ 2.5 mls/hr Q24H IV 01/11/25 06:30 01/13/25 21:00 10 MLS/HR Dopamine HCl/ Dextrose 250 ml @ 28.688 mls/ hr Q8H43M IV 01/11/25 06:30 01/14/25 06:37 11.475 MLS/HR Phenylephrine HCl 250 ml @ 30 mls/hr Q8H20M IV 01/11/25 07:45 Norepinephrine Bitartrate 250 ml @ 3.75 mls/hr Q24H IV 01/11/25 07:45 01/15/25 05:34 22.5 MLS/HR Morphine Sulfate 2 mg Q30M PRN IV 01/11/25 09:15 Vancomycin HCl 0 ml @ 0 mls/hr UD IV 01/11/25 10:45 Sodium Bicarbonate 150 ml/Dextrose 1,150 ml @ 60 mls/hr [id number] IV 01/12/25 14:30 01/14/25 17:41 60 MLS/HR Piperacillin Sod/ Tazobactam Sod 100 ml @ 25 mls/hr Q12HR IV 01/12/25 22:00 01/15/25 10:05 25 MLS/HR Pantoprazole Sodium 40 mg DAILY IV 01/13/25 10:00 01/15/25 10:05 40 MG Bumetanide 25 mg/ Miscellaneous 100 ml @ 4 mls/hr Q24H IV 01/13/25 11:15 01/15/25 09:09 4 MLS/HR Vasopressin 20 units/Sodium Chloride 100 ml @ 12 mls/hr Q8H20M IV 01/14/25 11:15 01/15/25 09:07 12 MLS/HR Diagnostic Test (Pha) 1 strip Q6HR 01/14/25 18:00 01/15/25 05:35 1 STRIP Insulin Human Regular Q6HR SC 01/14/25 18:00 01/15/25 05:38 2 UNITS Dextrose 50 ml UD PRN IV 01/14/25 16:00 Enteral Nutritional Formula 1,000 ml 30ML/HR GT 01/14/25 16:00 Examination General: RASS -3, afebrile, mucosae are moist Cardiovascular: Normal S1 and S2. No murmurs, gallops or rubs Respiratory: Mechanically assisted ventilation, equal bilateral airway entree. Clear lung sounds on auscultation Abdomen: Soft, nontender, no organomegaly, normal bowel sounds MSK/skin: Mobilization of limbs cannot be evaluated. Skin is dry and warm. Neurological: Orientation cannot be assessed. No apparent motor no sensitive deficits. Pupils are isocoric and reactive Examination: LUNGS:Normal, CVS:Normal, MSK:Abnormal laboratory and microbiology Laboratory Tests 01/15/25 03:39 Test 01/15/25 03:39 Range/Units Serum Glucose 153 H 74-106 mg/dL Microbiology Date/Time Source Procedure Growth Status 01/11/25 07:40 Nose MRSA Screen - Final Complete 01/11/25 07:40 Urine - Valenzuela Port Urine Culture - Final Complete 01/11/25 06:23 Sputum Gram Stain - Final Complete 01/11/25 06:23 Respiratory Culture - Final Presumptive Tg albicans Complete 01/08/25 17:16 Blood Blood Culture - Final NO GROWTH AFTER 5 DAYS OF INCUBATION. Complete Labs and/or images reviewed: Labs reviewed by me, Image(s) reviewed by me Problem List/Assessment/Plan Problem List/Assessment/Plan Assessment/Plan Acute kidney injury hemodynamically mediated in the setting of cardiac arrest Acute respiratory failure , patient intubated on ventilator Morbid obesity Severe systolic heart failure, with acute decompensation Cardiac arrest COPD Diabetes mellitus type 2 Hyperglycemia Metabolic acidosis Septic shock Septic shock Hyperbilirubinemia with transaminitis Cogulopathy due to shocked liver Hyperkalemia resolved Thrombocytopenia Acute blood loss anaemia Recommendations: Kidney function worsened Increased urine output Check daily for need of hemodialysis, awaiting for family decision regarding dialysis. Valenzuela catheter Strict I&O Continue Vasopressor to maintain blood pressure IV Bumex drip at 1 milligram/hours IV albumin 25% 100 cc at q.12 hours for 3 doses IV antibiotics IV pressors for blood pressure support Insulin sliding scale Poor prognosis Critical care spent time 41 minutes. Plan discussed with Dr. Harrison Plan discussed with: Other (RN) Dietary Evaluation Review Comments: 1) Initiate Pro-Stat @ 30 mL qd 2) Initiate Migel @ 1 pk bid 3) Initiate MVI @ 1 tb qd 4) Continue to encourage optial PO intake 5) Refer to outpatient RD/CD[facility] for weight management 6) Continue to monitor I&O, labs, and skin integrity Expected Outcomes/Goals: 1) appetite and labs to improve 2) wounds to improve 3) f/u in 3-5 days LILY FOSS Jan 15, 2025 11:20 MARNIE HARRISON MD Jan 15, 2025 12:32
--- NOTE | 2025-01-15 11:48 | DVHPN2 ---
Progress Note Date Seen: Jan 15, 2025 Medical Necessity Reason Pt with a Central, PICC or Fol: Yes The following are medically ne: Central Line, Valenzuela Catheter Reason for valenzuela catheter: Strict I&O Subjective Patient reports: No new complaints Review of Systems: HEENT:Normal, CVS:Normal, RESPIRATORY:Normal, GI:Normal, :Normal, MSK:Normal, NEURO:Normal Objective vital signs Vital Sign Date Time Temp Pulse Resp B/P (MAP) Pulse Ox O2 Delivery O2 Flow Rate FiO2 01/15/25 11:35 115 24 109/66 (80) 98 30 01/15/25 08:00 Mechanical Ventilator+ 01/15/25 06:45 98.1 208.6 Total Intake and Output 01/14/25 01/14/25 01/15/25 15:00 23:00 07:00 Intake Total 1153.150 ml 908.0 ml 857.00 ml Output Total 475 ml 600 ml Balance 1153.150 ml 433.0 ml 257.00 ml medications Current Medications Medications Dose Ordered Sig/Fatoumata Route Start Time Stop Time Status Last Admin Dose Admin Sodium Chloride 10 ml Q8HR IV 01/08/25 22:00 01/15/25 05:35 10 ML Nitroglycerin 0.4 mg Q5MINP PRN SL 01/08/25 21:45 Morphine Sulfate 2 mg Q30M PRN IV 01/08/25 21:45 Cancel Propofol 100 ml @ 4.59 mls/hr [id number] IV 01/11/25 06:30 01/11/25 07:37 0 MLS/HR Midazolam HCl 50 ml @ 1 mls/hr Q24H IV 01/11/25 06:30 01/13/25 22:06 6 MLS/HR Fentanyl Citrate 250 ml @ 2.5 mls/hr Q24H IV 01/11/25 06:30 01/13/25 21:00 10 MLS/HR Dopamine HCl/ Dextrose 250 ml @ 28.688 mls/ hr Q8H43M IV 01/11/25 06:30 01/14/25 06:37 11.475 MLS/HR Phenylephrine HCl 250 ml @ 30 mls/hr Q8H20M IV 01/11/25 07:45 Norepinephrine Bitartrate 250 ml @ 3.75 mls/hr Q24H IV 01/11/25 07:45 01/15/25 05:34 22.5 MLS/HR Morphine Sulfate 2 mg Q30M PRN IV 01/11/25 09:15 Vancomycin HCl 0 ml @ 0 mls/hr UD IV 01/11/25 10:45 Sodium Bicarbonate 150 ml/Dextrose 1,150 ml @ 60 mls/hr [id number] IV 01/12/25 14:30 01/14/25 17:41 60 MLS/HR Piperacillin Sod/ Tazobactam Sod 100 ml @ 25 mls/hr Q12HR IV 01/12/25 22:00 01/15/25 10:05 25 MLS/HR Pantoprazole Sodium 40 mg DAILY IV 01/13/25 10:00 01/15/25 10:05 40 MG Bumetanide 25 mg/ Miscellaneous 100 ml @ 4 mls/hr Q24H IV 01/13/25 11:15 01/15/25 09:09 4 MLS/HR Vasopressin 20 units/Sodium Chloride 100 ml @ 12 mls/hr Q8H20M IV 01/14/25 11:15 01/15/25 09:07 12 MLS/HR Diagnostic Test (Pha) 1 strip Q6HR 01/14/25 18:00 01/15/25 05:35 1 STRIP Insulin Human Regular Q6HR SC 01/14/25 18:00 01/15/25 05:38 2 UNITS Dextrose 50 ml UD PRN IV 01/14/25 16:00 Enteral Nutritional Formula 1,000 ml 30ML/HR GT 01/14/25 16:00 Examination: GENERAL:Normal, HEENT:Normal, NECK:Normal, LUNGS:Normal, LUNGS:Abnormal (intubated), CVS:Normal, ABDOMEN:Normal, MSK:Normal, MSK:Abnormal (leg wounds, edema++), SKIN:Normal, NEURO:Normal, :Normal laboratory and microbiology Laboratory Tests 01/15/25 03:39 Test 01/15/25 03:39 Range/Units Serum Glucose 153 H 74-106 mg/dL Microbiology Date/Time Source Procedure Growth Status 01/11/25 07:40 Nose MRSA Screen - Final Complete 01/11/25 07:40 Urine - Valenzuela Port Urine Culture - Final Complete 01/11/25 06:23 Sputum Gram Stain - Final Complete 01/11/25 06:23 Respiratory Culture - Final Presumptive Tg albicans Complete 01/08/25 17:16 Blood Blood Culture - Final NO GROWTH AFTER 5 DAYS OF INCUBATION. Complete Problem List/Assessment/Plan Problem List/Assessment/Plan #1 acute resp failure: cont acv, peep 8 #2 s/p cpr: on targeted temp management #3 acute systolic heart failure: cont meds #4 morbid obesity #5 shock ? cardiac ?septic: iv antibiotics, iv pressors #6 dm: ssi #7 coagulopathy #8 acute renal failure/atn: iv bumex drip #9 left leg wound/pseud: on zosyn, vanc #10 shock liver #11 gout #12 ?hypoxic encephalopathy: neuro eval, ct head #14 shock liver/liver failure: monitor long meeting with niece/nephew - reviewed labs and treatment plan. also discussed code status. they will dw rest of family Plan discussed with: Other (niece/nephew, rn) My Orders My Orders Orders - MAAME MARTÍNEZ MD Procedure Category Date Status Time Glucose Blood PHA 01/14/25 In Process (Accu-Chek Comfort 18:00 Insulin R (Human) PHA 01/14/25 In Process (Insulin R) 18:00 Dextrose 50% Syringe PHA 01/14/25 In Process 16:00 Nutritional PHA 01/14/25 In Process Supplements (Glucerna 16:00 Chest Portable XY 01/15/25 Resulted 06:00 Abg W/ Co-Ox RT 01/15/25 Logged 06:00 Ventilator Orders RT 01/14/25 Transmitted 15:55 Chest Xray 1 View XY 01/14/25 Resulted 17:52 Chest Portable XY 01/14/25 Resulted 22:59 Nutritional PHA 01/15/25 Verified Supplements (Nepro 11:45 * Picc Line Consult CONS 01/15/25 Verified 11:39 D/C Tlc MARCELO 01/15/25 Verified 11:39 Complete Blood Count LAB 01/16/25 Verified 06:00 Comprehensive LAB 01/16/25 Verified Metabolic Panel 06:00 PTPTT LAB 01/16/25 Verified 04:00 Chest Portable XY 01/16/25 Verified 06:00 Abg W/ Co-Ox RT 01/16/25 Verified 06:00 Dietary Evaluation Review Comments: 1) Initiate Pro-Stat @ 30 mL qd 2) Initiate Migel @ 1 pk bid 3) Initiate MVI @ 1 tb qd 4) Continue to encourage optial PO intake 5) Refer to outpatient RD/CD[facility] for weight management 6) Continue to monitor I&O, labs, and skin integrity Expected Outcomes/Goals: 1) appetite and labs to improve 2) wounds to improve 3) f/u in 3-5 days Critical Care Time (mins): 81 (critical care time excluding procedures and including family meeting was 81 mins) Date of Service: Jan 15, 2025 Billing Provider: MAAME MARTÍNEZ MD Common Visit Codes: 85863-SSJOGAYZ CARE 30-74 MIN, 37312-[id number] CARE-EACH +30MIN MAAME MARTÍNEZ MD Jan 15, 2025 11:48
[2025-01-15] MEDS: LIDOCAINE 1% (LOCAL ANESTH.) PF 5ml SDV ID ONE (15:27)
[2025-01-15] MEDS: Nepro With Carb Steady 1 Liter Bottle GT SCH (18:12)
[2025-01-15] MEDS: SODIUM CHLOR 0.9% PF (SALINE LOCK) 10ML VIAL/SYR IV SCH (21:51)
[2025-01-16] VITALS (120 sets, daily range): BP systolic 85–132; BP diastolic 51–81; PULSE 97–118; RESP 15–27; TEMP 98.1–99; O2SAT 94–100
[2025-01-16 04:34] LABS: Basophils # (auto) 0.1 10 ^3/uL (0-0.2); Eosinophils # (auto) 0.2 10 ^3/uL (0-0.8); Hemoglobin 7.5 g/dL (13.5-17.5); Lymphocytes # (auto) 1.3 10 ^3/uL (0.4-5.4); Monocytes # (auto) 1.1 10 ^3/uL (0-1.3); Nucleated Red Blood Cells % 0.1 %; Red Blood Cells 2.85 10^6/uL (4.5-5.90)
[2025-01-16 04:37] LABS: Basophils % (auto) 0.7 % (0.0-2.0); Eosinophils % (auto) 2.1 % (0.0-7.0); Hematocrit 22.7 % (41.0-53.0); Lymphocytes % (auto) 13.3 % (10.0-50.0); Mean Corpuscular Hemoglobin 26.5 pg (28.0-32.0); Mean Corpuscular Hgb Conc. 33.2 g/dL (32.0-36.0); Mean Corpuscular Volume 79.6 fL (80.0-100.0); Monocytes % (auto) 11.3 % (0.0-12.0); Neutrophils # (auto) 7.4 10 ^3/uL (1.6-8.6); Neutrophils % (auto) 72.6 % (37.0-80.0); Platelet Count (auto) 130 10^3/uL (140-450); Red Cell Distribution Width 17.5 % (11.8-14.3); White Blood Cell 10.1 10^3/uL (4.4-10.8)
[2025-01-16 04:46] LABS: Alkaline Phosphatase 116 U/L (46-116); Anion Gap 10 (5-15); BUN/Creatinine Ratio 8.7 (10.0-20.0); Carbon Dioxide 30 mmol/L (20-31); Potassium 4.2 mmol/L (3.5-5.1)
[2025-01-16 04:51] LABS: Alanine Aminotransferase 817 U/L (7-40); Albumin 2.4 g/dL (3.2-4.8); Aspartate Aminotransferase 362 U/L (13-40); Bilirubin, Total 4.4 mg/dL (0.2-1.0); Blood Urea Nitrogen 52 mg/dL (9-23); Calcium 7.8 mg/dL (8.7-10.4); Chloride 94 mmol/L (98-107); Glucose 117 mg/dL (74-106); Sodium 134 mmol/L (136-145); Total Protein 4.5 g/dL (5.7-8.2)
[2025-01-16 05:05] LABS: INR 1.41 (0.9-1.15); Partial Thromboplastin Time 35.3 SEC (24.5-34.5); Prothrombin Time 14.4 sec (9.3-11.8)
--- NOTE | 2025-01-16 05:53 | DVH ---
EXAM: XR Chest, 1 View CLINICAL INDICATION: RESP FAILURE TECHNIQUE: Frontal view of the chest. COMPARISON: XY CHEST PORTABLE on DOS: 01/15/25, XY CHEST PORTABLE on DOS: 01/15/25, XY CHEST XRAY 1 VIE W on DOS: 01/14/25, XY CHEST PORTABLE on DOS: 01/14/25, XY CHEST PORTABLE on DOS: 01/13/25 FINDINGS: LUNGS AND PLEURAL SPACES: Bilateral pleural effusions. HEART: Cardiomegaly with mild congestion. MEDIASTINUM: Unremarkable. Normal mediastinal contour. BONES/JOINTS: Unremarkable. No acute fracture. TUBES, LINES AND DEVICES: The endotracheal tube (ETT) is in satisfactory position. OTHER FINDINGS: . . IMPRESSION: 1. Cardiomegaly with mild congestion. 2. Bilateral pleural effusions.
[2025-01-16 06:36] LABS: Base Excess 7.7 mmol/L (-2.0-3.0)
--- NOTE | 2025-01-16 08:28 | DVHPN2 ---
Progress Note - Dictate Date Seen: Jan 16, 2025 Medical Necessity Reason Pt with a Central, PICC or Fol: Yes The following are medically ne: Central Line, Valenzuela Catheter Reason for valenzuela catheter: Strict I&O Subjective Mr. Noyola is a 64 years old gentleman with a history of hypertension, diabetes, obesity, asthma, gout, the patient was came to the [facility] on 01/08[facility]2025 with a chief company of general weakness, and he coded the same day, 01/08/2025 [id number]. He was resuscitated and has been intubated, I have seen and examined the patient, discussed with his nurse, he is on pressor drip. No obvious bleeding noticed He is respond to painful stimuli stimuli, he has questionable gag reflexes He has been off sedation since 01/14/2025 7:30 a.m. Levo 4 mcg/minute, vasopressin 0.04 units/min Urinalysis, 01/12/25: UTI WBC/HB/PLT/MCV, 01/13/2025: 11.3/12.6/162/81.6 PT/INR/PTT, 01/12/2025: 44.8/3.74/37.9, 01/13/2025: 29.8/3.15/38.1 BUN/CR, 01/08/2025: 16/1.08, 01/11/2025: 31/2.42, 01/13/2025: 39/3.12 TBI/AST/ALT/AP, 01/08/2025: 1/17/19/133, : 1.9/> 6000/4946/195 HGB A1c, 01/09/25: 6.4 TG/HDL/LDL/HDL, 01/10/25: 66/100/71/21 EEG, 01/14/2025: Remarkably abnormal EEG Extremity venous study, 01/09/2025: No right or left femoropopliteal venous thrombosis. Chest x-ray, 01/13/2025: Cardiomegaly with mild congestion. CT head, 01/13/2025: No evidence of acute intracranial abnormality. vital signs Vital Sign Date Time Temp Pulse Resp B/P (MAP) Pulse Ox O2 Delivery O2 Flow Rate FiO2 01/16/25 07:08 116 24 103/57 (72) 100 30 01/16/25 07:00 99.0 210.2 01/16/25 06:00 Mechanical Ventilator+ Total Intake and Output 01/15/25 01/15/25 01/16/25 15:00 23:00 07:00 Intake Total 625.50 ml 286.50 ml 532.75 ml Output Total 525 ml 480 ml Balance 625.50 ml -238.50 ml 52.75 ml medications Current Medications Medications Dose Ordered Sig/Fatoumata Route Start Time Stop Time Status Last Admin Dose Admin Sodium Chloride 10 ml Q8HR IV 01/08/25 22:00 01/16/25 06:16 10 ML Nitroglycerin 0.4 mg Q5MINP PRN SL 01/08/25 21:45 Morphine Sulfate 2 mg Q30M PRN IV 01/08/25 21:45 Cancel Propofol 100 ml @ 4.59 mls/hr [id number] IV 01/11/25 06:30 01/11/25 07:37 0 MLS/HR Midazolam HCl 50 ml @ 1 mls/hr Q24H IV 01/11/25 06:30 01/13/25 22:06 6 MLS/HR Fentanyl Citrate 250 ml @ 2.5 mls/hr Q24H IV 01/11/25 06:30 01/13/25 21:00 10 MLS/HR Dopamine HCl/ Dextrose 250 ml @ 28.688 mls/ hr Q8H43M IV 01/11/25 06:30 01/14/25 06:37 11.475 MLS/HR Phenylephrine HCl 250 ml @ 30 mls/hr Q8H20M IV 01/11/25 07:45 Norepinephrine Bitartrate 250 ml @ 3.75 mls/hr Q24H IV 01/11/25 07:45 01/15/25 15:47 15 MLS/HR Morphine Sulfate 2 mg Q30M PRN IV 01/11/25 09:15 Vancomycin HCl 0 ml @ 0 mls/hr UD IV 01/11/25 10:45 Piperacillin Sod/ Tazobactam Sod 100 ml @ 25 mls/hr Q12HR IV 01/12/25 22:00 01/15/25 21:51 25 MLS/HR Pantoprazole Sodium 40 mg DAILY IV 01/13/25 10:00 01/15/25 10:05 40 MG Bumetanide 25 mg/ Miscellaneous 100 ml @ 4 mls/hr Q24H IV 01/13/25 11:15 01/16/25 06:24 4 MLS/HR Vasopressin 20 units/Sodium Chloride 100 ml @ 12 mls/hr Q8H20M IV 01/14/25 11:15 01/16/25 01:02 12 MLS/HR Diagnostic Test (Pha) 1 strip Q6HR 01/14/25 18:00 01/16/25 06:15 1 STRIP Insulin Human Regular Q6HR SC 01/14/25 18:00 01/15/25 13:05 2 UNITS Dextrose 50 ml UD PRN IV 01/14/25 16:00 Enteral Nutritional Formula 1,000 ml 30ML/HR GT 01/15/25 11:45 01/15/25 18:12 1,000 ML Sodium Chloride 10 ml QSHIFT@10,22 IV 01/15/25 22:00 01/15/25 21:51 10 ML objective The patient is well-nourished and well-developed with no distress. The patient is intubated Edema in the lower extremities and torso MENTAL STATUS: Subjective CRANIAL NERVES: Pupils are equal, round and reactive.There are corneal reflexes and doll's eyes phenomenon. No signs of facial weakness. There are questionable gagging or coughing reflexes SENSATION: Responses to pain stimuli. MOTOR: Normal tone in the upper and lower extremity. Normal muscle bulk. No fasciculations. No spontaneous movement. REFLEXES: Deep tendon reflexes are symmetrical. No pathological reflexes. CEREBELLAR/COORDINATION: Deferred laboratory and microbiology Laboratory Tests 01/16/25 03:53 Test 01/16/25 03:53 Range/Units Serum Glucose 117 H 74-106 mg/dL Problem List Altered mental status/coma Hypoxic encephalopathy Metabolic encephalopathy Cardiopulmonary arrest Urinary tract infection ? Sepsis, Shock Cardiologic general? Septic shock Kidney failure Shocked liver Morbid obesity Diffuse edema Coagulopathy, Chronic wound in the skin Hemorrhage Assessment/Plan Monitoring Supportive treatment ICU care Follow-up lab On targeted temperature management Respiratory support/vent management Stabilize vitals/pressor drip Oxygen IV antibiotics Wound Care Pulmonology on case Nephrology on case More recommendation per clinical course This medical document was created using an electronic medical record system with [employer] dictation system. Although this document has been carefully reviewed, there may still be some phonetic and typographical errors. These areas are purely typographical due to imperfections of the software programs, and do not reflect any compromise in the patient's medical care. Prognosis Guarded Dietary Evaluation Review Comments: 1) Initiate Pro-Stat @ 30 mL qd 2) Initiate Migel @ 1 pk bid 3) Initiate MVI @ 1 tb qd 4) Continue to encourage optial PO intake 5) Refer to outpatient RD/CD[facility] for weight management 6) Continue to monitor I&O, labs, and skin integrity Expected Outcomes/Goals: 1) appetite and labs to improve 2) wounds to improve 3) f/u in 3-5 days Plan discussed with: Other Critical Care Time(min): 30 SANTANA NAVARRO MD Jan 16, 2025 08:28
[2025-01-16] MEDS: SODIUM CHL 0.9% 1000 ML BAG XX ONE (11:30)
--- NOTE | 2025-01-16 11:49 | DVHPN2 ---
Progress Note Date Seen: Jan 16, 2025 Resident Creating Document: LILY FOSS RESIDENT Medical Necessity Reason Pt with a Central, PICC or Fol: Yes The following are medically ne: Central Line, Valenzuela Catheter Reason for valenzuela catheter: Strict I&O Subjective Review of Systems Patient was seen and examined on the bedside. He is on mechanical ventilation with FiO2 30%, tidal volume 500, peep 10 and respiratory rate 24. Off sedation since 48 hours, Responsive to painful stimuli, no gag reflexes. Hemoglobin dropped to 7.5 and platelet count 130 but no visible source of external or internal bleeding. Possible hemodialysis today. Objective vital signs Vital Sign Date Time Temp Pulse Resp B/P (MAP) Pulse Ox O2 Delivery O2 Flow Rate FiO2 01/16/25 11:29 115 24 115/75 (88) 100 30 01/16/25 11:00 98.8 209.8 01/16/25 10:00 Mechanical Ventilator+ Total Intake and Output 01/15/25 01/15/25 01/16/25 15:00 23:00 07:00 Intake Total 625.50 ml 286.50 ml 532.75 ml Output Total 525 ml 480 ml Balance 625.50 ml -238.50 ml 52.75 ml medications Current Medications Medications Dose Ordered Sig/Fatoumata Route Start Time Stop Time Status Last Admin Dose Admin Sodium Chloride 10 ml Q8HR IV 01/08/25 22:00 01/16/25 06:16 10 ML Nitroglycerin 0.4 mg Q5MINP PRN SL 01/08/25 21:45 Morphine Sulfate 2 mg Q30M PRN IV 01/08/25 21:45 Cancel Propofol 100 ml @ 4.59 mls/hr [id number] IV 01/11/25 06:30 01/11/25 07:37 0 MLS/HR Midazolam HCl 50 ml @ 1 mls/hr Q24H IV 01/11/25 06:30 01/13/25 22:06 6 MLS/HR Fentanyl Citrate 250 ml @ 2.5 mls/hr Q24H IV 01/11/25 06:30 01/13/25 21:00 10 MLS/HR Dopamine HCl/ Dextrose 250 ml @ 28.688 mls/ hr Q8H43M IV 01/11/25 06:30 01/14/25 06:37 11.475 MLS/HR Phenylephrine HCl 250 ml @ 30 mls/hr Q8H20M IV 01/11/25 07:45 Norepinephrine Bitartrate 250 ml @ 3.75 mls/hr Q24H IV 01/11/25 07:45 01/16/25 08:38 3.75 MLS/HR Morphine Sulfate 2 mg Q30M PRN IV 01/11/25 09:15 Vancomycin HCl 0 ml @ 0 mls/hr UD IV 01/11/25 10:45 Piperacillin Sod/ Tazobactam Sod 100 ml @ 25 mls/hr Q12HR IV 01/12/25 22:00 01/16/25 08:39 25 MLS/HR Pantoprazole Sodium 40 mg DAILY IV 01/13/25 10:00 01/16/25 08:37 40 MG Bumetanide 25 mg/ Miscellaneous 100 ml @ 4 mls/hr Q24H IV 01/13/25 11:15 01/16/25 06:24 4 MLS/HR Vasopressin 20 units/Sodium Chloride 100 ml @ 12 mls/hr Q8H20M IV 01/14/25 11:15 01/16/25 08:37 12 MLS/HR Diagnostic Test (Pha) 1 strip Q6HR 01/14/25 18:00 01/16/25 06:15 1 STRIP Insulin Human Regular Q6HR SC 01/14/25 18:00 01/15/25 13:05 2 UNITS Dextrose 50 ml UD PRN IV 01/14/25 16:00 Enteral Nutritional Formula 1,000 ml 30ML/HR GT 01/15/25 11:45 01/15/25 18:12 1,000 ML Sodium Chloride 10 ml QSHIFT@10,22 IV 01/15/25 22:00 01/16/25 08:37 10 ML Examination General: RASS -3, afebrile, mucosae are moist Cardiovascular: Normal S1 and S2. No murmurs, gallops or rubs Respiratory: Mechanically assisted ventilation, equal bilateral airway entree. Clear lung sounds on auscultation Abdomen: Soft, nontender, no organomegaly, normal bowel sounds MSK/skin: Mobilization of limbs cannot be evaluated. Skin is dry and warm, left leg ulcer and edema ++ Neurological: Orientation cannot be assessed. No apparent motor no sensitive deficits. Pupils are isocoric and reactive laboratory and microbiology Laboratory Tests 01/16/25 03:53 Test 01/16/25 03:53 Range/Units Serum Glucose 117 H 74-106 mg/dL Microbiology Date/Time Source Procedure Growth Status 01/11/25 07:40 Nose MRSA Screen - Final Complete 01/11/25 07:40 Urine - Valenzuela Port Urine Culture - Final Complete 01/11/25 06:23 Sputum Gram Stain - Final Complete 01/11/25 06:23 Respiratory Culture - Final Presumptive Tg albicans Complete 01/08/25 17:16 Blood Blood Culture - Final NO GROWTH AFTER 5 DAYS OF INCUBATION. 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 Plan discussed with Dr. Jacobs Plan discussed with: Other (RN) Dietary Evaluation Review Comments: 1) Initiate Pro-Stat @ 30 mL qd 2) Initiate Migel @ 1 pk bid 3) Initiate MVI @ 1 tb qd 4) Continue to encourage optial PO intake 5) Refer to outpatient RD/[facility] for weight management 6) Continue to monitor I&O, labs, and skin integrity Expected Outcomes/Goals: 1) appetite and labs to improve 2) wounds to improve 3) f/u in 3-5 days LILY FOSS RESIDENT Jan 16, 2025 11:49
[2025-01-16 12:12] LABS: Basophils # (auto) 0.1 10 ^3/uL (0-0.2); Lymphocytes # (auto) 1.1 10 ^3/uL (0.4-5.4); Neutrophils # (auto) 6.3 10 ^3/uL (1.6-8.6); Nucleated Red Blood Cells % 0.1 %; Platelet Count (auto) 116 10^3/uL (140-450)
[2025-01-16 12:13] LABS: Basophils % (auto) 1.1 % (0.0-2.0); Eosinophils # (auto) 0.1 10 ^3/uL (0-0.8); Eosinophils % (auto) 1.7 % (0.0-7.0); Hematocrit 20.8 % (41.0-53.0); Lymphocytes % (auto) 12.5 % (10.0-50.0); Mean Corpuscular Hemoglobin 26.3 pg (28.0-32.0); Mean Corpuscular Hgb Conc. 33.3 g/dL (32.0-36.0); Mean Corpuscular Volume 78.9 fL (80.0-100.0); Monocytes % (auto) 11.3 % (0.0-12.0); Neutrophils % (auto) 73.4 % (37.0-80.0); Red Blood Cells 2.63 10^6/uL (4.5-5.90); Red Cell Distribution Width 17.6 % (11.8-14.3); White Blood Cell 8.6 10^3/uL (4.4-10.8)
[2025-01-16 12:19] LABS: Hemoglobin 6.9 g/dL (13.5-17.5)
[2025-01-16 13:14] LABS: Hepatitis A Ab IgM Negative; Hepatitis B Core IgM Negative (Negative); Hepatitis B Surface Antigen Negative (Negative); Hepatitis C Antibody Negative (Negative)
--- NOTE | 2025-01-16 13:36 | DVHNC2 ---
Procedure - Procedure left IJ hemodialysis catheter placement Indication renal failure Procedure in detail consent was obtained and time-out performed per protocol. Patient was placed in the supine position left IJ vein was localized using ultrasound SonoSite. ChloraPrep was used x3 to clean the operative field sterile drapes used to cover the area local analgesia lidocaine 1% 3 cc. Seldinger technique employed and dual lumen catheter was placed in the left IJ vein with direct ultrasound guidance. Secured with 2 sutures. Sterile dressing applied Chest x-ray ordered ARJUN TENORIO MD Jan 16, 2025 13:36
--- NOTE | 2025-01-16 13:42 | DVH ---
CHEST RADIOGRAPH Indication: dialysis catheter placement Technique: Single frontal view of the chest was obtained COMPARISON: XY CHEST PORTABLE on DOS: 01/16/25, XY CHEST PORTABLE on DOS: 01/15/25, XY CHEST PORTABLE on DOS: 01/15/25, XY CHEST XRAY 1 VIEW on DOS: 01/14/25, XY CHEST PORTABLE on DOS: 01/14/25 FINDINGS: Lines and Tubes: Endotracheal tube and enteric catheter and right PICC in satisfactory position. Left central venous catheter overlies the course of the brachiocephalic vein/ SVC junction. Lungs: Multifocal airspace disease Pleura: Bilateral pleural effusions No pneumothorax. Cardiomediastinal contours: Cardiomegaly Bones: Unremarkable IMPRESSION: Left central venous catheter overlies the course of the brachiocephalic vein with the tip at the junc tion of the brachiocephalic vein and SVC.
--- NOTE | 2025-01-16 15:16 | DVH ---
Exam: US US GUIDED VASCULAR ACCESS Date: 01/15/2025 01:47 PM Clinical History: picc line placement Comparison: None Findings: Targeted sonographic evaluation of the basilic vein was obtained utilizing grayscale and color Dopple r imaging. IMPRESSION: Sonographic assistance for central line placement. Please refer to procedural report for detailed fin dings.
--- NOTE | 2025-01-16 18:19 | DVHPNRES ---
Progress Note Date Seen: Jan 16, 2025 Resident Creating Document: PHAN MONSON RESIDENT Medical Necessity Reason Pt with a Central, PICC or Fol: Yes The following are medically ne: PICC Line, Valenzuela Catheter Reason for valenzuela catheter: Strict I&O Subjective Review of Systems Patient is seen and examined at the bedside with my attending. Sedated. Family was not at the bedside but they give a consent for the Calin catheter to be placed. This was placed by Dr. Hills and and patient is able to have dialysis today because the patient creatinine level was 5.92 today. Objective vital signs Vital Sign Date Time Temp Pulse Resp B/P (MAP) Pulse Ox O2 Delivery O2 Flow Rate FiO2 01/16/25 17:54 115 24 118/75 (89) 100 30 01/16/25 16:00 Mechanical Ventilator+ 01/16/25 15:00 98.4 209.1 Total Intake and Output 01/15/25 01/15/25 01/16/25 15:00 23:00 07:00 Intake Total 625.50 ml 286.50 ml 556.25 ml Output Total 525 ml 480 ml Balance 625.50 ml -238.50 ml 76.25 ml medications Current Medications Medications Dose Ordered Sig/Fatoumata Route Start Time Stop Time Status Last Admin Dose Admin Sodium Chloride 10 ml Q8HR IV 01/08/25 22:00 01/16/25 14:00 10 ML Nitroglycerin 0.4 mg Q5MINP PRN SL 01/08/25 21:45 Morphine Sulfate 2 mg Q30M PRN IV 01/08/25 21:45 Cancel Propofol 100 ml @ 4.59 mls/hr [id number] IV 01/11/25 06:30 01/11/25 07:37 0 MLS/HR Midazolam HCl 50 ml @ 1 mls/hr Q24H IV 01/11/25 06:30 01/13/25 22:06 6 MLS/HR Fentanyl Citrate 250 ml @ 2.5 mls/hr Q24H IV 01/11/25 06:30 01/13/25 21:00 10 MLS/HR Dopamine HCl/ Dextrose 250 ml @ 28.688 mls/ hr Q8H43M IV 01/11/25 06:30 01/14/25 06:37 11.475 MLS/HR Phenylephrine HCl 250 ml @ 30 mls/hr Q8H20M IV 01/11/25 07:45 Norepinephrine Bitartrate 250 ml @ 3.75 mls/hr Q24H IV 01/11/25 07:45 01/16/25 08:38 3.75 MLS/HR Morphine Sulfate 2 mg Q30M PRN IV 01/11/25 09:15 Vancomycin HCl 0 ml @ 0 mls/hr UD IV 01/11/25 10:45 Piperacillin Sod/ Tazobactam Sod 100 ml @ 25 mls/hr Q12HR IV 01/12/25 22:00 01/16/25 08:39 25 MLS/HR Pantoprazole Sodium 40 mg DAILY IV 01/13/25 10:00 01/16/25 08:37 40 MG Bumetanide 25 mg/ Miscellaneous 100 ml @ 4 mls/hr Q24H IV 01/13/25 11:15 01/16/25 06:24 4 MLS/HR Vasopressin 20 units/Sodium Chloride 100 ml @ 12 mls/hr Q8H20M IV 01/14/25 11:15 01/16/25 08:37 12 MLS/HR Diagnostic Test (Pha) 1 strip Q6HR 01/14/25 18:00 01/16/25 11:54 1 STRIP Insulin Human Regular Q6HR SC 01/14/25 18:00 01/15/25 13:05 2 UNITS Dextrose 50 ml UD PRN IV 01/14/25 16:00 Enteral Nutritional Formula 1,000 ml 30ML/HR GT 01/15/25 11:45 01/15/25 18:12 1,000 ML Sodium Chloride 10 ml QSHIFT@10,22 IV 01/15/25 22:00 01/16/25 08:37 10 ML Examination General Appearance: Sedated, RASS -3, afebrile HEENT: Atraumatic, Calin catheter placed on the left side ( 01/16/2025) Respiratory: Mechanical ventilation Cardiovascular: Regular rate, Normal S1, Normal S2, No murmurs, no chest wall tenderness Abdominal: NO distention, no tenderness, bowel sounds present, Last BM Extremities: immobile, extremely edmatous +++ and erythematous Left> Right, Skin is dry and warm Skin: No rashes, No breakdown, No significant lesion Neuro: sedated, unable to asses Psych/Mental Status: unable to assess laboratory and microbiology Laboratory Tests 01/16/25 12:03 01/16/25 03:53 Test 01/16/25 03:53 Range/Units Serum Glucose 117 H 74-106 mg/dL Microbiology Date/Time Source Procedure Growth Status 01/11/25 07:40 Nose MRSA Screen - Final Complete 01/11/25 07:40 Urine - Valenzuela Port Urine Culture - Final Complete 01/11/25 06:23 Sputum Gram Stain - Final Complete 01/11/25 06:23 Respiratory Culture - Final Presumptive Silverio albicans Complete 01/08/25 17:16 Blood Blood Culture - Final NO GROWTH AFTER 5 DAYS OF INCUBATION. Complete Problem List/Assessment/Plan Problem List/Assessment/Plan Assessment and plan: NEURO: Possible hypoxic encephalopathy due to cardiac arrest - Intubated - CT head without contrast: No evidence of acute intracranial abnormality. -On targeted temperature management - Respiratory support/vent management Stabilize vitals/pressor drip CARDIOVASCULAR: Acute systolic heart failure - iv bumex drip PULMONARY: Acute hypoxic respiratory failure - Intubated mechanical ventilation - respiratory culture: silverio albucan GASTROINTESTINAL: Shock liver -Monitor HEMATOLOGY: Acute microcytic hypochronic blood loss Anemia, hgb: 6.9 Transfuse 1 PRBC No obvious bleeding noted externally GENITOURINARY: SUSAN due to ATN -IV bumex drip -calin catheter placed today 01/16/2025 - For HD METABOLIC: Hyponatremia Hyperkalemia, resolved Skin: Left leg wound wound culture grew Strep Group B , stapth aureus, pseudomonas aeruginosa - IV Zosyn 3.375 g Q 8 hours - Vancomycin per pharmacy Infectious Disease: Sepsis due to UTI - Wound culture: Strep Group B , staph aureus, pseudomonas aeruginosa - Zosyn - Vancomycin per pharmacy Vascular: Shock -? cardiac vs septic - Continue Antibiotics -Stabilize vitals/pressor drip DIET: Nepro with carbs DVT prophylax: Lovenox GI prophylaxis: Protonix Bowel regimen: Code status: Full code LINES/DRAINS/ACCESS: IV access: PICC line right arm placed on 01/15/2025, femoral line removed 01/15/2025 Drips: Dopamine, Fentanyl, propofol, midazolam, held; Levophed running Valenzuela catheter: Placed on 12/29/24 DISPOSITION: ICU Critical care time spent more than 41 minutes. Case discussed with Dr. Ziegler Plan discussed with: Other (RN) Plan discussed with: Other (nurse and family over the phone) Dietary Evaluation Review Comments: 1) Initiate Pro-Stat @ 30 mL qd 2) Initiate Migel @ 1 pk bid 3) Initiate MVI @ 1 tb qd 4) Continue to encourage optial PO intake 5) Refer to outpatient RD/CD[facility] for weight management 6) Continue to monitor I&O, labs, and skin integrity Expected Outcomes/Goals: 1) appetite and labs to improve 2) wounds to improve 3) f/u in 3-5 days Date of Service: Jan 16, 2025 Billing Provider: ARJUN ZIEGLER MD Common Visit Codes: NOT BILLABLE PHAN MONSON RESIDENT Jan 16, 2025 18:19 ARJUN ZIEGLER MD Jan 24, 2025 14:38
[2025-01-17] VITALS (109 sets, daily range): BP systolic 88–127; BP diastolic 51–83; PULSE 91–122; RESP 13–27; TEMP 97.7–98.8; O2SAT 94–100
[2025-01-17 00:31] LABS: Basophils # (auto) 0.1 10 ^3/uL (0-0.2); Eosinophils # (auto) 0.1 10 ^3/uL (0-0.8); Lymphocytes # (auto) 0.9 10 ^3/uL (0.4-5.4); Monocytes % (auto) 11.5 % (0.0-12.0); Neutrophils # (auto) 6.3 10 ^3/uL (1.6-8.6); Red Blood Cells 2.91 10^6/uL (4.5-5.90); White Blood Cell 8.4 10^3/uL (4.4-10.8)
[2025-01-17 00:32] LABS: Basophils % (auto) 1.1 % (0.0-2.0); Eosinophils % (auto) 1.7 % (0.0-7.0); Hematocrit 23.4 % (41.0-53.0); Hemoglobin 7.7 g/dL (13.5-17.5); Lymphocytes % (auto) 11.1 % (10.0-50.0); Mean Corpuscular Hemoglobin 26.4 pg (28.0-32.0); Mean Corpuscular Hgb Conc. 32.8 g/dL (32.0-36.0); Mean Corpuscular Volume 80.4 fL (80.0-100.0); Neutrophils % (auto) 74.6 % (37.0-80.0); Platelet Count (auto) 118 10^3/uL (140-450); Red Cell Distribution Width 17.6 % (11.8-14.3)
[2025-01-17 04:17] LABS: Basophils # (auto) 0 10 ^3/uL (0-0.2); Basophils % (auto) 0.4 % (0.0-2.0); Eosinophils # (auto) 0.1 10 ^3/uL (0-0.8); Eosinophils % (auto) 1.7 % (0.0-7.0); Hematocrit 22.4 % (41.0-53.0); Hemoglobin 7.4 g/dL (13.5-17.5); Lymphocytes % (auto) 12.5 % (10.0-50.0); Mean Corpuscular Hemoglobin 26.7 pg (28.0-32.0); Mean Corpuscular Hgb Conc. 33.2 g/dL (32.0-36.0); Mean Corpuscular Volume 80.3 fL (80.0-100.0); Neutrophils % (auto) 73.4 % (37.0-80.0); Nucleated Red Blood Cells % 0.1 %; Platelet Count (auto) 111 10^3/uL (140-450); Red Blood Cells 2.79 10^6/uL (4.5-5.90); Red Cell Distribution Width 17.8 % (11.8-14.3); White Blood Cell 8.1 10^3/uL (4.4-10.8)
[2025-01-17 04:32] LABS: Anion Gap 9 (5-15); BUN/Creatinine Ratio 8.2 (10.0-20.0); Calcium 8.7 mg/dL (8.7-10.4); Carbon Dioxide 30 mmol/L (20-31); Chloride 99 mmol/L (98-107); Potassium 4.4 mmol/L (3.5-5.1); Sodium 138 mmol/L (136-145)
[2025-01-17 04:36] LABS: Alanine Aminotransferase 607 U/L (7-40); Albumin 2.4 g/dL (3.2-4.8); Alkaline Phosphatase 158 U/L (46-116); Aspartate Aminotransferase 218 U/L (13-40); Bilirubin, Total 4.4 mg/dL (0.2-1.0); Blood Urea Nitrogen 41 mg/dL (9-23); Glucose 137 mg/dL (74-106); Total Protein 4.6 g/dL (5.7-8.2)
--- NOTE | 2025-01-17 05:51 | DVH ---
CHEST RADIOGRAPH Indication: intubation Technique: Single frontal view of the chest was obtained COMPARISON: XY CHEST PORTABLE on DOS: 01/16/25, XY CHEST PORTABLE on DOS: 01/16/25, XY CHEST PORTABLE on DOS: 01/15/25, XY CHEST PORTABLE on DOS: 01/15/25, XY CHEST XRAY 1 VIEW on DOS: 01/14/25 FINDINGS: Lines and Tubes: Unchanged. Lungs: Stable appearing bilateral pleural effusions and diffuse increased prominence of the pulmonary vasculature. No pneumothorax. Cardiomediastinal contours: Stable cardiomegaly. Bones: Unremarkable IMPRESSION: 1. Stable bilateral pleural effusions, cardiomegaly and increased prominence of the pulmonary vascula ture. 2. Lines and tubes unchanged.
[2025-01-17 06:21] LABS: Base Excess 4.7 mmol/L (-2.0-3.0)
[2025-01-17] MEDS: SODIUM CHL 0.9% 1000 ML BAG XX ONE (11:00)
--- NOTE | 2025-01-17 13:53 | DVHPN2 ---
Progress Note Date Seen: Jan 17, 2025 Medical Necessity Reason Pt with a Central, PICC or Fol: Yes The following are medically ne: PICC Line, Valenzuela Catheter Reason for valenzuela catheter: Strict I&O Subjective Review of Systems Pt on HD at this time. Pt tolerating well. Objective vital signs Vital Sign Date Time Temp Pulse Resp B/P (MAP) Pulse Ox O2 Delivery O2 Flow Rate FiO2 01/17/25 13:18 120 24 97/57 (70) 100 30 01/17/25 13:15 97.7 207.9 01/17/25 12:00 Mechanical Ventilator+ Total Intake and Output 01/16/25 01/16/25 01/17/25 15:00 23:00 07:00 Intake Total 288.0 ml 626.75 ml 512 ml Output Total 400 ml 450 ml Balance 288.0 ml 226.75 ml 62 ml medications Current Medications Medications Dose Ordered Sig/Fatoumata Route Start Time Stop Time Status Last Admin Dose Admin Sodium Chloride 10 ml Q8HR IV 01/08/25 22:00 01/17/25 05:53 10 ML Nitroglycerin 0.4 mg Q5MINP PRN SL 01/08/25 21:45 Morphine Sulfate 2 mg Q30M PRN IV 01/08/25 21:45 Cancel Propofol 100 ml @ 4.59 mls/hr [id number] IV 01/11/25 06:30 01/11/25 07:37 0 MLS/HR Midazolam HCl 50 ml @ 1 mls/hr Q24H IV 01/11/25 06:30 01/13/25 22:06 6 MLS/HR Fentanyl Citrate 250 ml @ 2.5 mls/hr Q24H IV 01/11/25 06:30 01/13/25 21:00 10 MLS/HR Dopamine HCl/ Dextrose 250 ml @ 28.688 mls/ hr Q8H43M IV 01/11/25 06:30 01/14/25 06:37 11.475 MLS/HR Phenylephrine HCl 250 ml @ 30 mls/hr Q8H20M IV 01/11/25 07:45 Norepinephrine Bitartrate 250 ml @ 3.75 mls/hr Q24H IV 01/11/25 07:45 01/16/25 08:38 3.75 MLS/HR Morphine Sulfate 2 mg Q30M PRN IV 01/11/25 09:15 Vancomycin HCl 0 ml @ 0 mls/hr UD IV 01/11/25 10:45 Pantoprazole Sodium 40 mg DAILY IV 01/13/25 10:00 01/17/25 09:29 40 MG Bumetanide 25 mg/ Miscellaneous 100 ml @ 4 mls/hr Q24H IV 01/13/25 11:15 01/17/25 06:03 4 MLS/HR Vasopressin 20 units/Sodium Chloride 100 ml @ 12 mls/hr Q8H20M IV 01/14/25 11:15 01/17/25 12:42 12 MLS/HR Diagnostic Test (Pha) 1 strip Q6HR 01/14/25 18:00 01/17/25 11:44 1 STRIP Insulin Human Regular Q6HR SC 01/14/25 18:00 01/17/25 11:48 2 UNITS Dextrose 50 ml UD PRN IV 01/14/25 16:00 Enteral Nutritional Formula 1,000 ml 30ML/HR GT 01/15/25 11:45 01/15/25 18:12 1,000 ML Sodium Chloride 10 ml QSHIFT@10,22 IV 01/15/25 22:00 01/17/25 09:29 10 ML Meropenem 50 ml @ 17 mls/hr DAILY IV 01/18/25 10:00 UNV Examination Gen: NAD Lungs: Bilateral air entry. Heart: RRR, normal S1 and S2 Ext: +3 edema Neuro: Intubated laboratory and microbiology Laboratory Tests 01/17/25 03:30 Test 01/17/25 03:30 Range/Units Serum Glucose 137 H 74-106 mg/dL Microbiology Date/Time Source Procedure Growth Status 01/11/25 07:40 Nose MRSA Screen - Final Complete 01/11/25 07:40 Urine - Valenzuela Port Urine Culture - Final Complete 01/11/25 06:23 Sputum Gram Stain - Final Complete 01/11/25 06:23 Respiratory Culture - Final Presumptive Tg albicans Complete 01/08/25 17:16 Blood Blood Culture - Final NO GROWTH AFTER 5 DAYS OF INCUBATION. Complete Labs and/or images reviewed: Labs reviewed by me Problem List/Assessment/Plan Problem List/Assessment/Plan IMP Acute kidney injury hemodynamically mediated in the setting of cardiac arrest on HD- last HD 01/17 Acute respiratory failure, patient is intubated Morbid obesity Severe systolic heart failure, with acute decompensation COPD Diabetes mellitus type 2 Hyperglycemia Metabolic acidosis Septic shock Hyperbilirubinemia with transaminitis Coagulopathy due to shocked liver Hyperkalemia- resolved Thrombocytopenia Acute blood loss anaemia REC Chemistry panel Daily evaluation for BOTTOM MAN Strict I&Os Continue pressors for BP support Continue diuresis Urine output improving We will continue to follow Case discussed with Dr. Jovany Jacobs Plan discussed with: Other Dietary Evaluation Review Comments: 1) Initiate Pro-Stat @ 30 mL qd 2) Initiate Migel @ 1 pk bid 3) Initiate MVI @ 1 tb qd 4) Continue to encourage optial PO intake 5) Refer to outpatient RD/[facility] for weight management 6) Continue to monitor I&O, labs, and skin integrity Expected Outcomes/Goals: 1) appetite and labs to improve 2) wounds to improve 3) f/u in 3-5 days BIJU EMANUEL Jan 17, 2025 13:53
--- NOTE | 2025-01-17 13:54 | DVHPN2 ---
Subjective Intubated Off sedation Unresponsive Reviewed: Care Plan, H&P, Labs, Medications, Previous Orders, Radiology Changes from previous H/P or p: Changes Eyes: No Pain, No Vision change, No Conjunctivae inflammation, No Eyelid inflammation, No Other, No Redness ENT: No Ear pain, No Ear discharge, No Nose pain, No Nose discharge, No Nose congestion, No Mouth pain, No Mouth swelling, No Throat pain, No Throat swelling, No Other Cardiovascular: No Chest Pain, No Palpitations, No Orthopnea, No Paroxysmal Noc. Dyspnea, No Edema, No Lt Headedness, No Other Respiratory: Cough; No Dry; Shortness of breath; No SOB with excertion, No Wheezing, No Hemoptysis, No Pleuritic Pain, No Sputum; Other (SOB at rest) Gastrointestinal: No Nausea, No Vomiting, No Abdominal Pain, No Diarrhea, No Constipation, No Melena, No Hematochezia, No Other Genitourinary: No Dysuria, No Frequency, No Incontinence, No Hematuria, No Retention, No Other Musculoskeletal: No other, No neck pain, No shoulder pain, No arm pain, No back pain, No hand pain; leg pain (Bilateral); No foot pain Skin: No Rash; Lesions; No Jaundice, No Bruising; Other (Lower extremity open wound) Objective Vitals Vital Signs Date Time Temp Pulse Resp B/P (MAP) Pulse Ox O2 Delivery O2 Flow Rate FiO2 01/17/25 13:18 120 24 97/57 (70) 100 30 01/17/25 13:15 97.7 207.9 01/17/25 12:00 Mechanical Ventilator+ Intake/Output Intake and Output 01/17/25 07:00 Intake Total 1426.75 ml Output Total 850 ml Balance 576.75 ml IV Total 690.75 ml Tube Feeding 486 ml Blood Product 250 ml Output Urine Total 850 ml General Appearance: Other (Intubated Unresponsive) Lungs: Other (Bilateral rhonchi) Extremities: No edema Medications Current Medications Medications Dose Ordered Sig/Fatoumata Route Start Time Stop Time Status Last Admin Dose Admin Sodium Chloride 10 ml Q8HR IV 01/08/25 22:00 01/17/25 05:53 10 ML Nitroglycerin 0.4 mg Q5MINP PRN SL 01/08/25 21:45 Morphine Sulfate 2 mg Q30M PRN IV 01/08/25 21:45 Cancel Propofol 100 ml @ 4.59 mls/hr [id number] IV 01/11/25 06:30 01/11/25 07:37 0 MLS/HR Midazolam HCl 50 ml @ 1 mls/hr Q24H IV 01/11/25 06:30 01/13/25 22:06 6 MLS/HR Fentanyl Citrate 250 ml @ 2.5 mls/hr Q24H IV 01/11/25 06:30 01/13/25 21:00 10 MLS/HR Dopamine HCl/ Dextrose 250 ml @ 28.688 mls/ hr Q8H43M IV 01/11/25 06:30 01/14/25 06:37 11.475 MLS/HR Phenylephrine HCl 250 ml @ 30 mls/hr Q8H20M IV 01/11/25 07:45 Norepinephrine Bitartrate 250 ml @ 3.75 mls/hr Q24H IV 01/11/25 07:45 01/16/25 08:38 3.75 MLS/HR Morphine Sulfate 2 mg Q30M PRN IV 01/11/25 09:15 Vancomycin HCl 0 ml @ 0 mls/hr UD IV 01/11/25 10:45 Piperacillin Sod/ Tazobactam Sod 100 ml @ 25 mls/hr Q12HR IV 01/12/25 22:00 01/17/25 09:29 25 MLS/HR Pantoprazole Sodium 40 mg DAILY IV 01/13/25 10:00 01/17/25 09:29 40 MG Bumetanide 25 mg/ Miscellaneous 100 ml @ 4 mls/hr Q24H IV 01/13/25 11:15 01/17/25 06:03 4 MLS/HR Vasopressin 20 units/Sodium Chloride 100 ml @ 12 mls/hr Q8H20M IV 01/14/25 11:15 01/17/25 12:42 12 MLS/HR Diagnostic Test (Pha) 1 strip Q6HR 01/14/25 18:00 01/17/25 11:44 1 STRIP Insulin Human Regular Q6HR SC 01/14/25 18:00 01/17/25 11:48 2 UNITS Dextrose 50 ml UD PRN IV 01/14/25 16:00 Enteral Nutritional Formula 1,000 ml 30ML/HR GT 01/15/25 11:45 01/15/25 18:12 1,000 ML Sodium Chloride 10 ml QSHIFT@10,22 IV 01/15/25 22:00 01/17/25 09:29 10 ML Laboratory Results Laboratory Tests 01/17/25 03:30 Chemistry Test 01/17/25 03:30 Albumin 2.4 g/dL (3.2-4.8) L Calcium Level 8.7 mg/dL (8.7-10.4) Total Protein 4.6 g/dL (5.7-8.2) L LFT Test 01/17/25 03:30 Alanine Aminotransferase (ALT) 607 U/L (7-40) H Alkaline Phosphatase 158 U/L (46-116) H Aspartate Amino Transferase (AST) 218 U/L (13-40) H Total Bilirubin 4.4 mg/dL (0.2-1.0) H Urinalysis Test 01/08/25 20:48 01/12/25 16:12 Urine Hyaline Casts Few /lpf (0 - 2) Urine Color Yellow (Yellow) Urine Clarity Turbid (Clear) H Urine pH 5.0 (5.0-9.0) Urine Specific [place] 1.011 (1.001-1.035) Urine Protein Trace (Negative) H Urine Ketones Negative (Negative) Urine Blood 3+ /uL (Negative) H Urine Nitrite Negative (Negative) Urine Bilirubin Negative (Negative) Urine Urobilinogen Normal mg/dL (Negative) Urine Leukocyte Esterase Trace /uL (Negative) Urine RBC 87 /hpf (0 - 3) Urine Microscopic WBC 11 /HPF (0-3) H Urine Squamous Epithelial Cells Few /hpf (<5) Urine Bacteria Few /hpf (None Seen) H Urine Mucus Few (None Seen) Urine Creatinine 35.55 mg/dL (30.0-125.0) Urine Protein/Creatinine Ratio 3.47 Urine Sodium 113 mmol/L (40-220) Urine Glucose Trace mg/dL (Normal) Urine Total Protein 123.4 mg/dL (1-14) H Blood Gas Results Test 01/17/25 05:48 Arterial Blood pH 7.493 (7.350-7.450) FiO2 % 30.0 Microbiology Microbiology Date/Time Source Procedure Growth Status 01/11/25 07:40 Nose MRSA Screen - Final Complete 01/11/25 07:40 Urine - [place] Port Urine Culture - Final Complete 01/11/25 06:23 Sputum Gram Stain - Final Complete 01/11/25 06:23 Respiratory Culture - Final Presumptive Tg albicans Complete 01/08/25 17:16 Blood Blood Culture - Final NO GROWTH AFTER 5 DAYS OF INCUBATION. Complete Assessment/Plan Assessment/Plan Acute hypoxic respiratory failure Possible hypoxic encephalopathy Status post cardiac arrest Acute systolic heart failure, ejection fraction 15% Hyponatremia Hyperkalemia Possible underlying pneumonia Acute kidney injury hemodynamically mediated in the setting of cardiac arrest on hemodialysis now Morbid obesity COPD Type 2 diabetes Metabolic acidosis Severe sepsis with septic shock Thrombocytopenia Atrial flutter Plan IV amiodarone drip Bumex drip Vasopressors as needed He is off sedation IV antibiotics: Vancomycin and Zosyn, discontinue Zosyn, start meropenem Yeast in his sputum could be most likely colonization Plan discussed with: Other My Orders Orders - JAZMINE CAMILO MD Procedure Category Date Status Time Cleanse Wound With MARCELO 01/17/25 In Process Wound Clean 13:33 Date of Service: Jan 17, 2025 Billing Provider: JAZMINE CAMILO MD Common Visit Codes: [id number] CARE 30-74 MIN JAZMINE CAMILO MD Jan 17, 2025 13:54
[2025-01-17] MEDS: MEROPENEM 500MG IVPB 50 ML IV ONE (14:46)
--- NOTE | 2025-01-17 18:50 | DVHPN2 ---
Progress Note - Dictate Date Seen: Jan 17, 2025 Medical Necessity Reason Pt with a Central, PICC or Fol: Yes The following are medically ne: PICC Line, Valenzuela Catheter Reason for valenzuela catheter: Strict I&O Subjective [facility] Patient seen and examined at bedside. Intubated on mechanical ventilator. Overnight events reviewed. vital signs Vital Sign Date Time Temp Pulse Resp B/P (MAP) Pulse Ox O2 Delivery O2 Flow Rate FiO2 01/17/25 18:16 120 24 112/65 (81) 100 30 01/17/25 18:00 98.6 209.5 01/17/25 18:00 Mechanical Ventilator+ Total Intake and Output 01/16/25 01/16/25 01/17/25 15:00 23:00 07:00 Intake Total 288.0 ml 626.75 ml 512 ml Output Total 400 ml 450 ml Balance 288.0 ml 226.75 ml 62 ml medications Current Medications Medications Dose Ordered Sig/Fatoumata Route Start Time Stop Time Status Last Admin Dose Admin Sodium Chloride 10 ml Q8HR IV 01/08/25 22:00 01/17/25 14:47 Nitroglycerin 0.4 mg Q5MINP PRN SL 01/08/25 21:45 Morphine Sulfate 2 mg Q30M PRN IV 01/08/25 21:45 Cancel Propofol 100 ml @ 4.59 mls/hr [id number] IV 01/11/25 06:30 01/11/25 07:37 Midazolam HCl 50 ml @ 1 mls/hr Q24H IV 01/11/25 06:30 01/13/25 22:06 Fentanyl Citrate 250 ml @ 2.5 mls/hr Q24H IV 01/11/25 06:30 01/13/25 21:00 Dopamine HCl/ Dextrose 250 ml @ 28.688 mls/ hr Q8H43M IV 01/11/25 06:30 01/14/25 06:37 Phenylephrine HCl 250 ml @ 30 mls/hr Q8H20M IV 01/11/25 07:45 Norepinephrine Bitartrate 250 ml @ 3.75 mls/hr Q24H IV 01/11/25 07:45 01/17/25 14:53 Morphine Sulfate 2 mg Q30M PRN IV 01/11/25 09:15 Vancomycin HCl 0 ml @ 0 mls/hr UD IV 01/11/25 10:45 Pantoprazole Sodium 40 mg DAILY IV 01/13/25 10:00 01/17/25 09:29 Bumetanide 25 mg/ Miscellaneous 100 ml @ 4 mls/hr Q24H IV 01/13/25 11:15 01/17/25 06:03 Vasopressin 20 units/Sodium Chloride 100 ml @ 12 mls/hr Q8H20M IV 01/14/25 11:15 01/17/25 12:42 Diagnostic Test (Pha) 1 strip Q6HR 01/14/25 18:00 01/17/25 17:38 Insulin Human Regular Q6HR SC 01/14/25 18:00 01/17/25 17:48 Dextrose 50 ml UD PRN IV 01/14/25 16:00 Enteral Nutritional Formula 1,000 ml 30ML/HR GT 01/15/25 11:45 01/17/25 17:38 Sodium Chloride 10 ml QSHIFT@10,22 IV 01/15/25 22:00 01/17/25 09:29 Meropenem 50 ml @ 17 mls/hr DAILY IV 01/18/25 10:00 objective Gen.: Patient lying in bed in medical ICU. Intubated on mechanical ventilator. Head: Normocephalic, atraumatic. Eyes: PERRLA. Ears: Normal external anatomy. Throat: Endotracheal tube and orogastric tube in place. Neck: Supple, trachea midline. Chest: Transmitted breath sounds bilaterally. Decreased air entry bilaterally. No wheezing. Bibasilar crackles. Cardiovascular: Positive S1, positive S2. Regular rate and rhythm. Abdomen: Positive bowel sounds in all 4 quadrants. Soft, nontender, nondistended. : Valenzuela in place. Normal external genitalia. Rectal: Deferred. Skin: Warm, dry. Intact. Extremities: 2+ radial pulses bilaterally. No lower extremity edema. Neuro: Off sedation laboratory and microbiology Laboratory Tests 01/17/25 03:30 Test 01/17/25 03:30 Range/Units Serum Glucose 137 H 74-106 mg/dL Assessment/Plan Impression: Acute hypoxemic respiratory failure Cardiac arrest status post CPR On mechanical ventilator Septic shock Multiorgan failure Morbid obesity Pleural effusion Atelectasis Cellulitis of left leg Acute kidney injury Cardiomyopathy EF 15% Events: Remains on vent support On AC mode; RR 24, VT 500, PEEP 5, FiO2 30% ABG notable for alkalemia Off sedation Extended down time Awaiting for mental status to improve On pressors for hemodynamic support Levophed 2 mcg/min and vasopressin 0.04 units/min Titrate to keep mean arterial pressure greater than 65 mmHg Hemodialysis today - removed 0.5 liters Diurese with Bumex drip Monitor renal function Monitor electrolytes. Supplement as necessary. Monitor ins and outs. Continue antibiotics Tube feeds for nutritional support Labs and imaging studies reviewed Plan: s/p intubation on mechanical ventilator. On AC mode; RR 24, VT 500, PEEP 5, FiO2 30% Titrate FIO2 to keep O2 saturation above 90%. VAP bundle. Daily ABG and CXR while intubated Obtain cultures and broad-spectrum antibiotics empirically On pressors for hemodynamic support Titrate to keep mean arterial pressure greater than 65 mmHg Tube feeds for nutritional support HD per Nephrology Monitor renal function Monitor electrolytes. Supplement as necessary. Monitor ins and outs. Prognosis very poor DVT prophylaxis. Full code Prognosis: Poor given patient's multiple co-morbidities. Condition: Critical Rest of plan per hospitalist and other consultants. A total of 35 minutes of critical care time was spent reviewing the patient record, examining the patient, making a diagnostic and therapeutic plan, discussing this plan with the medical personnel, following up on diagnostic studies and following the patient for clinical stability excluding any and all procedures. At least 50% of this time was spent in direct, [id number] contact. Thank you, Dr. Hagen, for allowing me to participate in this patient's care. Further recommendations will depend on the patient's clinical course. Please do not hesitate to contact me if you have any questions or concerns. This medical document was created using an electronic medical record system with [employer] dictation system. Although these documentations are being carefully reviewed, there may still be some phonetic and typographical changes. The errors are purely typographical, due to imperfection on the software program, and do not reflect any compromise in the patient's medical care. Dietary Evaluation Review Comments: 1) Initiate Pro-Stat @ 30 mL qd 2) Initiate Migel @ 1 pk bid 3) Initiate MVI @ 1 tb qd 4) Continue to encourage optial PO intake 5) Refer to outpatient RD/CDCES for weight management 6) Continue to monitor I&O, labs, and skin integrity Expected Outcomes/Goals: 1) appetite and labs to improve 2) wounds to improve 3) f/u in 3-5 days Plan discussed with: Other (JESSICA Barrett/Kaylan) Critical Care Time(min): 35 PAULINO GIMENEZ MD Jan 17, 2025 18:50
--- NOTE | 2025-01-17 20:14 | DVHPN2 ---
Progress Note - Dictate Date Seen: Jan 17, 2025 Medical Necessity Reason Pt with a Central, PICC or Fol: Yes The following are medically ne: PICC Line, Valenzuela Catheter Reason for valenzuela catheter: Strict I&O Subjective Mr. Noyola is a 64 years old gentleman with a history of hypertension, diabetes, obesity, asthma, gout, the patient was came to the [facility] on 01/08/2025 with a chief company of general weakness, and he coded the same day, 01/08/2025 [id number]. He was resuscitated and has been intubated, I have seen and examined the patient, discussed with his nurse, he is on pressor drip. He does not respond to painful stimuli stimuli, he has no gag reflexes He has been off sedation since 01/14/2025 7:30 a.m. Levo 10 mcg/minute Urinalysis, 01/12/25: UTI WBC/HB/PLT/MCV, 01/13/2025: 11.3/12.6/162/81.6 PT/INR/PTT, 01/12/2025: 44.8/3.74/37.9, 01/13/2025: 29.8/3.15/38.1 BUN/CR, 01/08/2025: 16/1.08, 01/11/2025: 31/2.42, 01/13/2025: 39/3.12 TBI/AST/ALT/AP, 01/08/2025: 1/17/19/133, : 1.9/> 6000/4946/195 HGB A1c, 01/09/25: 6.4 TG/HDL/LDL/HDL, 01/10/25: 66/100/71/21 EEG, 01/14/2025: Remarkably abnormal EEG Extremity venous study, 01/09/2025: No right or left femoropopliteal venous thrombosis. Chest x-ray, 01/13/2025: Cardiomegaly with mild congestion. CT head, 01/13/2025: No evidence of acute intracranial abnormality. vital signs Vital Sign Date Time Temp Pulse Resp B/P (MAP) Pulse Ox O2 Delivery O2 Flow Rate FiO2 01/17/25 19:00 98.6 121 24 101/56 (71) 100 209.5 01/17/25 18:16 30 01/17/25 18:00 Mechanical Ventilator+ Total Intake and Output 01/16/25 01/16/25 01/17/25 15:00 23:00 07:00 Intake Total 288.0 ml 626.75 ml 512 ml Output Total 400 ml 450 ml Balance 288.0 ml 226.75 ml 62 ml medications Current Medications Medications Dose Ordered Sig/Fatoumata Route Start Time Stop Time Status Last Admin Dose Admin Sodium Chloride 10 ml Q8HR IV 01/08/25 22:00 01/17/25 14:47 10 ML Nitroglycerin 0.4 mg Q5MINP PRN SL 01/08/25 21:45 Morphine Sulfate 2 mg Q30M PRN IV 01/08/25 21:45 Cancel Propofol 100 ml @ 4.59 mls/hr [id number] IV 01/11/25 06:30 01/11/25 07:37 0 MLS/HR Midazolam HCl 50 ml @ 1 mls/hr Q24H IV 01/11/25 06:30 01/13/25 22:06 6 MLS/HR Fentanyl Citrate 250 ml @ 2.5 mls/hr Q24H IV 01/11/25 06:30 01/13/25 21:00 10 MLS/HR Dopamine HCl/ Dextrose 250 ml @ 28.688 mls/ hr Q8H43M IV 01/11/25 06:30 01/14/25 06:37 11.475 MLS/HR Phenylephrine HCl 250 ml @ 30 mls/hr Q8H20M IV 01/11/25 07:45 Norepinephrine Bitartrate 250 ml @ 3.75 mls/hr Q24H IV 01/11/25 07:45 01/17/25 14:53 7.5 MLS/HR Morphine Sulfate 2 mg Q30M PRN IV 01/11/25 09:15 Vancomycin HCl 0 ml @ 0 mls/hr UD IV 01/11/25 10:45 Pantoprazole Sodium 40 mg DAILY IV 01/13/25 10:00 01/17/25 09:29 40 MG Bumetanide 25 mg/ Miscellaneous 100 ml @ 4 mls/hr Q24H IV 01/13/25 11:15 01/17/25 06:03 4 MLS/HR Vasopressin 20 units/Sodium Chloride 100 ml @ 12 mls/hr Q8H20M IV 01/14/25 11:15 01/17/25 12:42 12 MLS/HR Diagnostic Test (Pha) 1 strip Q6HR 01/14/25 18:00 01/17/25 17:38 1 STRIP Insulin Human Regular Q6HR SC 01/14/25 18:00 01/17/25 17:48 2 UNITS Dextrose 50 ml UD PRN IV 01/14/25 16:00 Enteral Nutritional Formula 1,000 ml 30ML/HR GT 01/15/25 11:45 01/17/25 17:38 1,000 ML Sodium Chloride 10 ml QSHIFT@10,22 IV 01/15/25 22:00 01/17/25 09:29 10 ML Meropenem 50 ml @ 17 mls/hr DAILY IV 01/18/25 10:00 objective The patient is well-nourished and well-developed with no distress. The patient is intubated Edema in the lower extremities and torso MENTAL STATUS: Subjective CRANIAL NERVES: Pupils are equal, round and reactive.There are corneal reflexes and doll's eyes phenomenon. No signs of facial weakness. There are no gagging or coughing reflexes SENSATION: Not responsive to pain for stimuli MOTOR: Normal tone in the upper and lower extremity. Normal muscle bulk. No fasciculations. No spontaneous movement. REFLEXES: Deep tendon reflexes are symmetrical. No pathological reflexes. CEREBELLAR/COORDINATION: Deferred laboratory and microbiology Laboratory Tests 01/17/25 03:30 Test 01/17/25 03:30 Range/Units Serum Glucose 137 H 74-106 mg/dL Problem List Altered mental status/coma Hypoxic encephalopathy Metabolic encephalopathy Cardiopulmonary arrest Urinary tract infection ? Sepsis, Shock Cardiologic general? Septic shock Kidney failure Shocked liver Morbid obesity Diffuse edema Coagulopathy, Chronic wound in the skin Hemorrhage Assessment/Plan Monitoring Supportive treatment MRI head ICU care Follow-up lab On targeted temperature management Respiratory support/vent management Stabilize vitals/pressor drip Oxygen IV antibiotics Wound Care Pulmonology on case Nephrology on case More recommendation per clinical course This medical document was created using an electronic medical record system with [employer] dictation system. Although this document has been carefully reviewed, there may still be some phonetic and typographical errors. These areas are purely typographical due to imperfections of the software programs, and do not reflect any compromise in the patient's medical care. Prognosis guarded Dietary Evaluation Review Comments: 1) Initiate Pro-Stat @ 30 mL qd 2) Initiate Migel @ 1 pk bid 3) Initiate MVI @ 1 tb qd 4) Continue to encourage optial PO intake 5) Refer to outpatient RD/CD[facility] for weight management 6) Continue to monitor I&O, labs, and skin integrity Expected Outcomes/Goals: 1) appetite and labs to improve 2) wounds to improve 3) f/u in 3-5 days Plan discussed with: Other SANTANA NAVARRO MD Jan 17, 2025 20:14
[2025-01-17] MEDS: EPOETIN ALFA-EPBX 10,000 UNIT/1ML VIAL SC ONE (21:28)
[2025-01-18] VITALS (104 sets, daily range): BP systolic 87–122; BP diastolic 46–72; PULSE 99–125; RESP 13–53; TEMP 98.1–99; O2SAT 89–100
[2025-01-18 04:14] LABS: Eosinophils # (auto) 0.3 10 ^3/uL (0-0.8); Hemoglobin 8.1 g/dL (13.5-17.5); Lymphocytes # (auto) 1.3 10 ^3/uL (0.4-5.4); Neutrophils # (auto) 7.5 10 ^3/uL (1.6-8.6)
[2025-01-18 04:19] LABS: Basophils # (auto) 0.1 10 ^3/uL (0-0.2); Basophils % (auto) 0.8 % (0.0-2.0); Eosinophils % (auto) 2.8 % (0.0-7.0); Hematocrit 24.4 % (41.0-53.0); Lymphocytes % (auto) 12.5 % (10.0-50.0); Mean Corpuscular Hemoglobin 27.1 pg (28.0-32.0); Mean Corpuscular Hgb Conc. 33.1 g/dL (32.0-36.0); Mean Corpuscular Volume 81.8 fL (80.0-100.0); Monocytes # (auto) 1.3 10 ^3/uL (0-1.3); Monocytes % (auto) 12.6 % (0.0-12.0); Neutrophils % (auto) 71.3 % (37.0-80.0); Nucleated Red Blood Cells % 0.1 %; Platelet Count (auto) 127 10^3/uL (140-450); Red Blood Cells 2.99 10^6/uL (4.5-5.90); Red Cell Distribution Width 17.7 % (11.8-14.3); White Blood Cell 10.5 10^3/uL (4.4-10.8)
[2025-01-18 04:27] LABS: % Iron Saturation 29.7 % (20-55)
[2025-01-18 04:29] LABS: Anion Gap 8 (5-15); Glucose 104 mg/dL (74-106); Magnesium 2.1 mg/dL (1.6-2.6); Potassium 4.1 mmol/L (3.5-5.1); Sodium 138 mmol/L (136-145)
[2025-01-18 04:31] LABS: Alanine Aminotransferase 497 U/L (7-40); Albumin 2.7 g/dL (3.2-4.8); Alkaline Phosphatase 186 U/L (46-116); Aspartate Aminotransferase 155 U/L (13-40); Bilirubin, Total 3.7 mg/dL (0.2-1.0); Blood Urea Nitrogen 41 mg/dL (9-23); Calcium 8.5 mg/dL (8.7-10.4); Carbon Dioxide 32 mmol/L (20-31); Chloride 98 mmol/L (98-107); Total Protein 5.2 g/dL (5.7-8.2)
--- NOTE | 2025-01-18 06:05 | DVH ---
CHEST RADIOGRAPH Indication: INTUBATED Technique: Single frontal view of the chest was obtained COMPARISON: XY CHEST PORTABLE on DOS: 01/17/25, XY CHEST PORTABLE on DOS: 01/16/25, XY CHEST PORTABLE on DOS: 01/16/25, XY CHEST PORTABLE on DOS: 01/15/25, XY CHEST PORTABLE on DOS: 01/15/25 FINDINGS: Lines and Tubes: Unchanged. Lungs: Persistent diffuse increased prominence of the pulmonary vasculature and interstitium and stab le appearing small to moderate bilateral pleural effusions. No pneumothorax. Cardiomediastinal contours: Stable cardiomegaly. Bones: Unremarkable IMPRESSION: 1. Stable cardiomegaly and diffuse increased prominence of the pulmonary vasculature and interstitium . 2. Stable small to moderate bilateral pleural effusions. 3. Lines and tubes unchanged.
[2025-01-18 06:38] LABS: Base Excess 8.1 mmol/L (-2.0-3.0)
[2025-01-18] MEDS: MEROPENEM 500MG IVPB 50 ML IV SCH (09:44)
--- NOTE | 2025-01-18 12:18 | DVHPN2 ---
Subjective Intubated Off sedation Unresponsive except for some minimal positive responses with movement in his extremities or grimaces due to painful stimuli Right arm swelling Off Levophed Reviewed: Care Plan, H&P, Labs, Medications, Previous Orders, Radiology Changes from previous H/P or p: Changes Eyes: No Pain, No Vision change, No Conjunctivae inflammation, No Eyelid inflammation, No Other, No Redness ENT: No Ear pain, No Ear discharge, No Nose pain, No Nose discharge, No Nose congestion, No Mouth pain, No Mouth swelling, No Throat pain, No Throat swelling, No Other Cardiovascular: No Chest Pain, No Palpitations, No Orthopnea, No Paroxysmal Noc. Dyspnea, No Edema, No Lt Headedness, No Other Respiratory: Cough; No Dry; Shortness of breath; No SOB with excertion, No Wheezing, No Hemoptysis, No Pleuritic Pain, No Sputum; Other (SOB at rest) Gastrointestinal: No Nausea, No Vomiting, No Abdominal Pain, No Diarrhea, No Constipation, No Melena, No Hematochezia, No Other Genitourinary: No Dysuria, No Frequency, No Incontinence, No Hematuria, No Retention, No Other Musculoskeletal: No other, No neck pain, No shoulder pain, No arm pain, No back pain, No hand pain; leg pain (Bilateral); No foot pain Skin: No Rash; Lesions; No Jaundice, No Bruising; Other (Lower extremity open wound) Objective Vitals Vital Signs Date Time Temp Pulse Resp B/P (MAP) Pulse Ox O2 Delivery O2 Flow Rate FiO2 01/18/25 11:45 98.4 120 24 100/53 (69) 99 209.1 01/18/25 10:00 30 01/18/25 10:00 Mechanical Ventilator+ Intake/Output Intake and Output 01/18/25 07:00 Intake Total 1216.50 ml Output Total 1550 ml Balance -333.50 ml IV Total 528.50 ml Tube Feeding 688 ml Output Urine Total 1050 ml Other 500 ml General Appearance: Other (Intubated Unresponsive) Lungs: Other (Bilateral rhonchi) Extremities: No edema Medications Current Medications Medications Dose Ordered Sig/Fatoumata Route Start Time Stop Time Status Last Admin Dose Admin Sodium Chloride 10 ml Q8HR IV 01/08/25 22:00 01/18/25 06:08 10 ML Nitroglycerin 0.4 mg Q5MINP PRN SL 01/08/25 21:45 Morphine Sulfate 2 mg Q30M PRN IV 01/08/25 21:45 Cancel Midazolam HCl 50 ml @ 1 mls/hr Q24H IV 01/11/25 06:30 01/13/25 22:06 6 MLS/HR Fentanyl Citrate 250 ml @ 2.5 mls/hr Q24H IV 01/11/25 06:30 01/13/25 21:00 10 MLS/HR Dopamine HCl/ Dextrose 250 ml @ 28.688 mls/ hr Q8H43M IV 01/11/25 06:30 01/14/25 06:37 11.475 MLS/HR Phenylephrine HCl 250 ml @ 30 mls/hr Q8H20M IV 01/11/25 07:45 Norepinephrine Bitartrate 250 ml @ 3.75 mls/hr Q24H IV 01/11/25 07:45 01/17/25 14:53 7.5 MLS/HR Morphine Sulfate 2 mg Q30M PRN IV 01/11/25 09:15 Vancomycin HCl 0 ml @ 0 mls/hr UD IV 01/11/25 10:45 Pantoprazole Sodium 40 mg DAILY IV 01/13/25 10:00 01/18/25 09:42 40 MG Bumetanide 25 mg/ Miscellaneous 100 ml @ 4 mls/hr Q24H IV 01/13/25 11:15 01/18/25 07:11 4 MLS/HR Vasopressin 20 units/Sodium Chloride 100 ml @ 12 mls/hr Q8H20M IV 01/14/25 11:15 01/17/25 12:42 12 MLS/HR Diagnostic Test (Pha) 1 strip Q6HR 01/14/25 18:00 01/18/25 11:54 1 STRIP Insulin Human Regular Q6HR SC 01/14/25 18:00 01/17/25 17:48 2 UNITS Dextrose 50 ml UD PRN IV 01/14/25 16:00 Enteral Nutritional Formula 1,000 ml 30ML/HR GT 01/15/25 11:45 01/17/25 17:38 1,000 ML Sodium Chloride 10 ml QSHIFT@10,22 IV 01/15/25 22:00 01/18/25 09:42 10 ML Meropenem 50 ml @ 17 mls/hr DAILY IV 01/18/25 10:00 01/18/25 09:44 17 MLS/HR Laboratory Results Laboratory Tests 01/18/25 03:30 Chemistry Test 01/18/25 03:30 Albumin 2.7 g/dL (3.2-4.8) L Calcium Level 8.5 mg/dL (8.7-10.4) L Magnesium Level 2.1 mg/dL (1.6-2.6) Total Protein 5.2 g/dL (5.7-8.2) L LFT Test 01/18/25 03:30 Alanine Aminotransferase (ALT) 497 U/L (7-40) H Alkaline Phosphatase 186 U/L (46-116) H Aspartate Amino Transferase (AST) 155 U/L (13-40) H Total Bilirubin 3.7 mg/dL (0.2-1.0) H Urinalysis Test 01/08/25 20:48 01/12/25 16:12 Urine Hyaline Casts Few /lpf (0 - 2) Urine Color Yellow (Yellow) Urine Clarity Turbid (Clear) H Urine pH 5.0 (5.0-9.0) Urine Specific [place] 1.011 (1.001-1.035) Urine Protein Trace (Negative) H Urine Ketones Negative (Negative) Urine Blood 3+ /uL (Negative) H Urine Nitrite Negative (Negative) Urine Bilirubin Negative (Negative) Urine Urobilinogen Normal mg/dL (Negative) Urine Leukocyte Esterase Trace /uL (Negative) Urine RBC 87 /hpf (0 - 3) Urine Microscopic WBC 11 /HPF (0-3) H Urine Squamous Epithelial Cells Few /hpf (<5) Urine Bacteria Few /hpf (None Seen) H Urine Mucus Few (None Seen) Urine Creatinine 35.55 mg/dL (30.0-125.0) Urine Protein/Creatinine Ratio 3.47 Urine Sodium 113 mmol/L (40-220) Urine Glucose Trace mg/dL (Normal) Urine Total Protein 123.4 mg/dL (1-14) H Blood Gas Results Test 01/18/25 06:32 Arterial Blood pH 7.521 (7.350-7.450) FiO2 % 30.0 Microbiology Microbiology Date/Time Source Procedure Growth Status 01/11/25 07:40 Nose MRSA Screen - Final Complete 01/11/25 07:40 Urine - [place] Urine Culture - Final Complete 01/11/25 06:23 Sputum Gram Stain - Final Complete 01/11/25 06:23 Respiratory Culture - Final Presumptive Tg albicans Complete 01/08/25 17:16 Blood Blood Culture - Final NO GROWTH AFTER 5 DAYS OF INCUBATION. Complete Assessment/Plan Assessment/Plan Acute hypoxic respiratory failure Possible hypoxic encephalopathy Status post cardiac arrest Acute systolic heart failure, ejection fraction 15% Hyponatremia Hyperkalemia Possible underlying pneumonia Acute kidney injury hemodynamically mediated in the setting of cardiac arrest on hemodialysis now Morbid obesity COPD Type 2 diabetes Metabolic acidosis Severe sepsis with septic shock Thrombocytopenia Atrial flutter Plan IV amiodarone drip Bumex drip Vasopressors as needed He is off sedation IV antibiotics: Vancomycin and Zosyn, discontinue Zosyn, start meropenem Yeast in his sputum could be most likely colonization 01/18/2025: Left arm edema: Rule out DVT Amiodarone Bumex Off Levophed drip IV antibiotics meropenem and vancomycin Monitor closely Thrombocytopenia: Stable at 127 from 111 Plan discussed with: Other My Orders Orders - JAZMINE CAMILO MD Procedure Category Date Status Time Cleanse Wound With MARCELO 01/17/25 In Process Wound Clean 13:33 Meropenem 500mg Ivpb PHA 01/18/25 In Process (Merrem 500mg/Ns) 10:00 Communication Order ORDERS 01/17/25 Transmitted 10:49 Chest Portable XY 01/18/25 Resulted 04:00 Date of Service: Jan 18, 2025 Billing Provider: JAZMINE CAMILO MD Common Visit Codes: 38551-[id number] CARE 30-74 MIN JAZMINE CAMILO MD Jan 18, 2025 12:18
--- NOTE | 2025-01-18 13:10 | DVH ---
EXAM: US BI LAT UPPER DVT Clinical History: edema Comparison: US BILAT LOWER DVT on DOS: 01/09/25 Technique: Duplex Doppler evaluation of the deep venous systems of both upper extremities from the internal jugu lar to the ulnar veins including color Doppler and spectral/pulsed waveform analysis was performed. Findings: Normal compressibility and color Doppler flow is seen in the bilateral upper extremity veins includin g the right internal jugular, subclavian, axillary, left brachial, radial and ulnar veins. Right brachial and basilic veins and left internal jugular vein not visualized due to PICC. Impression: 1. No sonographic evidence for bilateral upper extremity DVT.
--- NOTE | 2025-01-18 14:49 | DVHPN2 ---
Progress Note Date Seen: Jan 18, 2025 Medical Necessity Reason Pt with a Central, PICC or Fol: Yes The following are medically ne: PICC Line, Valenzuela Catheter Reason for valenzuela catheter: Strict I&O Subjective Review of Systems Pt intubated and on mechanical ventilation Objective vital signs Vital Sign Date Time Temp Pulse Resp B/P (MAP) Pulse Ox O2 Delivery O2 Flow Rate FiO2 01/18/25 13:40 119 24 103/61 (75) 100 30 01/18/25 12:00 Mechanical Ventilator+ 01/18/25 11:45 98.4 209.1 Total Intake and Output 01/17/25 01/17/25 01/18/25 14:59 22:59 06:59 Intake Total 254.25 ml 538.25 ml 440.00 ml Output Total 950 ml 600 ml Balance 254.25 ml -411.75 ml -160.00 ml medications Current Medications Medications Dose Ordered Sig/Fatoumata Route Start Time Stop Time Status Last Admin Dose Admin Sodium Chloride 10 ml Q8HR IV 01/08/25 22:00 01/18/25 06:08 10 ML Nitroglycerin 0.4 mg Q5MINP PRN SL 01/08/25 21:45 Morphine Sulfate 2 mg Q30M PRN IV 01/08/25 21:45 Cancel Midazolam HCl 50 ml @ 1 mls/hr Q24H IV 01/11/25 06:30 01/13/25 22:06 6 MLS/HR Fentanyl Citrate 250 ml @ 2.5 mls/hr Q24H IV 01/11/25 06:30 01/13/25 21:00 10 MLS/HR Dopamine HCl/ Dextrose 250 ml @ 28.688 mls/ hr Q8H43M IV 01/11/25 06:30 01/14/25 06:37 11.475 MLS/HR Phenylephrine HCl 250 ml @ 30 mls/hr Q8H20M IV 01/11/25 07:45 Norepinephrine Bitartrate 250 ml @ 3.75 mls/hr Q24H IV 01/11/25 07:45 01/17/25 14:53 7.5 MLS/HR Morphine Sulfate 2 mg Q30M PRN IV 01/11/25 09:15 Vancomycin HCl 0 ml @ 0 mls/hr UD IV 01/11/25 10:45 Pantoprazole Sodium 40 mg DAILY IV 01/13/25 10:00 01/18/25 09:42 40 MG Bumetanide 25 mg/ Miscellaneous 100 ml @ 4 mls/hr Q24H IV 01/13/25 11:15 01/18/25 07:11 4 MLS/HR Vasopressin 20 units/Sodium Chloride 100 ml @ 12 mls/hr Q8H20M IV 01/14/25 11:15 01/17/25 12:42 12 MLS/HR Diagnostic Test (Pha) 1 strip Q6HR 01/14/25 18:00 01/18/25 11:54 1 STRIP Insulin Human Regular Q6HR SC 01/14/25 18:00 01/17/25 17:48 2 UNITS Dextrose 50 ml UD PRN IV 01/14/25 16:00 Enteral Nutritional Formula 1,000 ml 30ML/HR GT 01/15/25 11:45 01/17/25 17:38 1,000 ML Sodium Chloride 10 ml QSHIFT@10,22 IV 01/15/25 22:00 01/18/25 09:42 10 ML Meropenem 50 ml @ 17 mls/hr DAILY IV 01/18/25 10:00 01/18/25 09:44 17 MLS/HR Examination Gen: NAD Lungs: Bilateral air entry. Heart: RRR, normal S1 and S2 Ext: +3 edema Neuro: Sedated, intubated on mechanical ventilation laboratory and microbiology Laboratory Tests 01/18/25 03:30 Test 01/18/25 03:30 Range/Units Serum Glucose 104 74-106 mg/dL Microbiology Date/Time Source Procedure Growth Status 01/11/25 07:40 Nose MRSA Screen - Final Complete 01/11/25 07:40 Urine - [place] Urine Culture - Final Complete 01/11/25 06:23 Sputum Gram Stain - Final Complete 01/11/25 06:23 Respiratory Culture - Final Presumptive Tg albicans Complete 01/08/25 17:16 Blood Blood Culture - Final NO GROWTH AFTER 5 DAYS OF INCUBATION. Complete Labs and/or images reviewed: Labs reviewed by me Problem List/Assessment/Plan Problem List/Assessment/Plan IMP Acute kidney injury hemodynamically mediated in the setting of cardiac arrest on HD- last HD 01/17 Acute respiratory failure, patient is intubated Morbid obesity Severe systolic heart failure, with acute decompensation COPD Diabetes mellitus type 2 Hyperglycemia Metabolic acidosis Septic shock Hyperbilirubinemia with transaminitis Coagulopathy due to shocked liver Hyperkalemia- resolved Thrombocytopenia Acute blood loss anaemia REC HD tentatively 01/19 Daily evaluation for [employer] Chemistry panel Strict I&Os Continue pressors for BP support Continue diuresis Improved UOP We will continue to follow Case discussed with Dr. Jovany Jacobs Plan discussed with: Other Dietary Evaluation Review Comments: 1) Initiate Pro-Stat @ 30 mL qd 2) Initiate Migel @ 1 pk bid 3) Initiate MVI @ 1 tb qd 4) Continue to encourage optial PO intake 5) Refer to outpatient RD/CDCES for weight management 6) Continue to monitor I&O, labs, and skin integrity Expected Outcomes/Goals: 1) appetite and labs to improve 2) wounds to improve 3) f/u in 3-5 days BIJU EMANUEL Jan 18, 2025 14:49
--- NOTE | 2025-01-18 16:30 | DVHPN2 ---
Progress Note - Dictate Date Seen: Jan 18, 2025 Medical Necessity Reason Pt with a Central, PICC or Fol: Yes The following are medically ne: PICC Line, Valenzuela Catheter Reason for valenzuela catheter: Strict I&O Subjective Mr. Noyola is a 64 years old gentleman with a history of hypertension, diabetes, obesity, asthma, gout, the patient was came to the [facility] on 01/08/2025 with a chief company of general weakness, and he coded the same day, 01/08/2025 [id number]. He was resuscitated and has been intubated, I have seen and examined the patient, discussed with his nurse. He does not respond to painful stimuli stimuli, he has no gag reflexes, but a spontaneous she movement noticed He has been off sedation since 01/14/2025 7:30 a.m. He had hemodialysis on 01/17/2025 Urinalysis, 01/12/25: UTI WBC/HB/PLT/MCV, 01/13/2025: 11.3/12.6/162/81.6 PT/INR/PTT, 01/12/2025: 44.8/3.74/37.9, 01/13/2025: 29.8/3.15/38.1 BUN/CR, 01/08/2025: 16/1.08, 01/11/2025: 31/2.42, 01/13/2025: 39/3.12 TBI/AST/ALT/AP, 01/08/2025: 1/17/19/133, : 1.9/> 6000/4946/195 HGB A1c, 01/09/25: 6.4 TG/HDL/LDL/HDL, 01/10/25: 66/100/71/21 EEG, 01/14/2025: Remarkably abnormal EEG Extremity venous study, 01/09/2025: No right or left femoropopliteal venous thrombosis. Chest x-ray, 01/13/2025: Cardiomegaly with mild congestion. CT head, 01/13/2025: No evidence of acute intracranial abnormality. vital signs Vital Sign Date Time Temp Pulse Resp B/P (MAP) Pulse Ox O2 Delivery O2 Flow Rate FiO2 01/18/25 16:00 24 100 Mechanical Ventilator+ 30 30 01/18/25 15:59 118 100/55 (70) 01/18/25 15:30 98.6 209.5 Total Intake and Output 01/17/25 01/17/25 01/18/25 15:00 23:00 07:00 Intake Total 261.75 ml 530.00 ml 432.50 ml Output Total 950 ml 600 ml Balance 261.75 ml -420.00 ml -167.50 ml medications Current Medications Medications Dose Ordered Sig/Fatoumata Route Start Time Stop Time Status Last Admin Dose Admin Sodium Chloride 10 ml Q8HR IV 01/08/25 22:00 01/18/25 14:05 10 ML Nitroglycerin 0.4 mg Q5MINP PRN SL 01/08/25 21:45 Morphine Sulfate 2 mg Q30M PRN IV 01/08/25 21:45 Cancel Midazolam HCl 50 ml @ 1 mls/hr Q24H IV 01/11/25 06:30 01/13/25 22:06 6 MLS/HR Fentanyl Citrate 250 ml @ 2.5 mls/hr Q24H IV 01/11/25 06:30 01/13/25 21:00 10 MLS/HR Dopamine HCl/ Dextrose 250 ml @ 28.688 mls/ hr Q8H43M IV 01/11/25 06:30 01/14/25 06:37 11.475 MLS/HR Phenylephrine HCl 250 ml @ 30 mls/hr Q8H20M IV 01/11/25 07:45 Norepinephrine Bitartrate 250 ml @ 3.75 mls/hr Q24H IV 01/11/25 07:45 01/17/25 14:53 7.5 MLS/HR Morphine Sulfate 2 mg Q30M PRN IV 01/11/25 09:15 Vancomycin HCl 0 ml @ 0 mls/hr UD IV 01/11/25 10:45 Pantoprazole Sodium 40 mg DAILY IV 01/13/25 10:00 01/18/25 09:42 40 MG Bumetanide 25 mg/ Miscellaneous 100 ml @ 4 mls/hr Q24H IV 01/13/25 11:15 01/18/25 07:11 4 MLS/HR Vasopressin 20 units/Sodium Chloride 100 ml @ 12 mls/hr Q8H20M IV 01/14/25 11:15 01/17/25 12:42 12 MLS/HR Diagnostic Test (Pha) 1 strip Q6HR 01/14/25 18:00 01/18/25 11:54 1 STRIP Insulin Human Regular Q6HR SC 01/14/25 18:00 01/17/25 17:48 2 UNITS Dextrose 50 ml UD PRN IV 01/14/25 16:00 Enteral Nutritional Formula 1,000 ml 30ML/HR GT 01/15/25 11:45 01/17/25 17:38 1,000 ML Sodium Chloride 10 ml QSHIFT@10,22 IV 01/15/25 22:00 01/18/25 09:42 10 ML Meropenem 50 ml @ 17 mls/hr DAILY IV 01/18/25 10:00 01/18/25 09:44 17 MLS/HR objective The patient is well-nourished and well-developed with no distress. The patient is intubated Edema in the lower extremities and torso MENTAL STATUS: Subjective CRANIAL NERVES: Pupils are equal, round and reactive.There are corneal reflexes and doll's eyes phenomenon. No signs of facial weakness. There are no gagging or coughing reflexes SENSATION: Not responsive to pain for stimuli MOTOR: Normal tone in the upper and lower extremity. Normal muscle bulk. No fasciculations. No spontaneous movement. REFLEXES: Deep tendon reflexes are symmetrical. No pathological reflexes. CEREBELLAR/COORDINATION: Deferred laboratory and microbiology Laboratory Tests 01/18/25 03:30 Test 01/18/25 03:30 Range/Units Serum Glucose 104 74-106 mg/dL Problem List Altered mental status/coma Hypoxic encephalopathy Metabolic encephalopathy Cardiopulmonary arrest Urinary tract infection ? Sepsis, Shock Cardiologic general? Septic shock Kidney failure Shocked liver Morbid obesity Diffuse edema Coagulopathy, Chronic wound in the skin Hemorrhage Assessment/Plan Monitoring Supportive treatment Follow up EEG Follow up CT head MRI head (he was too wide to fit into the MRI machine) ICU care Follow-up lab On targeted temperature management Respiratory support/vent management Stabilize vitals/pressor drip Oxygen IV antibiotics Wound Care Pulmonology on case Nephrology on case More recommendation per clinical course This medical document was created using an electronic medical record system with [employer] dictation system. Although this document has been carefully reviewed, there may still be some phonetic and typographical errors. These areas are purely typographical due to imperfections of the software programs, and do not reflect any compromise in the patient's medical care. Prognosis Guarded Dietary Evaluation Review Comments: 1) Initiate Pro-Stat @ 30 mL qd 2) Initiate Mgiel @ 1 pk bid 3) Initiate MVI @ 1 tb qd 4) Continue to encourage optial PO intake 5) Refer to outpatient RD/CDCES for weight management 6) Continue to monitor I&O, labs, and skin integrity Expected Outcomes/Goals: 1) appetite and labs to improve 2) wounds to improve 3) f/u in 3-5 days Plan discussed with: Other SANTANA NAVARRO MD Jan 18, 2025 16:30
--- NOTE | 2025-01-18 20:19 | DVHPN2 ---
Progress Note - Dictate Date Seen: Jan 18, 2025 Medical Necessity Reason Pt with a Central, PICC or Fol: Yes The following are medically ne: PICC Line, Valenzuela Catheter Reason for valenzuela catheter: Strict I&O Subjective [facility] Patient seen and examined at bedside. Intubated on mechanical ventilator. Overnight events reviewed. vital signs Vital Sign Date Time Temp Pulse Resp B/P (MAP) Pulse Ox O2 Delivery O2 Flow Rate FiO2 01/18/25 20:00 24 100 Mechanical Ventilator+ 30 30 01/18/25 20:00 121 01/18/25 19:45 98.4 111/63 (79) 209.1 Total Intake and Output 01/17/25 01/17/25 01/18/25 15:00 23:00 07:00 Intake Total 261.75 ml 530.00 ml 432.50 ml Output Total 950 ml 600 ml Balance 261.75 ml -420.00 ml -167.50 ml medications Current Medications Medications Dose Ordered Sig/Fatoumata Route Start Time Stop Time Status Last Admin Dose Admin Sodium Chloride 10 ml Q8HR IV 01/08/25 22:00 01/18/25 14:05 10 ML Nitroglycerin 0.4 mg Q5MINP PRN SL 01/08/25 21:45 Morphine Sulfate 2 mg Q30M PRN IV 01/08/25 21:45 Cancel Midazolam HCl 50 ml @ 1 mls/hr Q24H IV 01/11/25 06:30 01/13/25 22:06 6 MLS/HR Fentanyl Citrate 250 ml @ 2.5 mls/hr Q24H IV 01/11/25 06:30 01/13/25 21:00 10 MLS/HR Dopamine HCl/ Dextrose 250 ml @ 28.688 mls/ hr Q8H43M IV 01/11/25 06:30 01/14/25 06:37 11.475 MLS/HR Phenylephrine HCl 250 ml @ 30 mls/hr Q8H20M IV 01/11/25 07:45 Norepinephrine Bitartrate 250 ml @ 3.75 mls/hr Q24H IV 01/11/25 07:45 01/17/25 14:53 7.5 MLS/HR Morphine Sulfate 2 mg Q30M PRN IV 01/11/25 09:15 Vancomycin HCl 0 ml @ 0 mls/hr UD IV 01/11/25 10:45 Pantoprazole Sodium 40 mg DAILY IV 01/13/25 10:00 01/18/25 09:42 40 MG Bumetanide 25 mg/ Miscellaneous 100 ml @ 4 mls/hr Q24H IV 01/13/25 11:15 01/18/25 07:11 4 MLS/HR Vasopressin 20 units/Sodium Chloride 100 ml @ 12 mls/hr Q8H20M IV 01/14/25 11:15 01/17/25 12:42 12 MLS/HR Diagnostic Test (Pha) 1 strip Q6HR 01/14/25 18:00 01/18/25 17:47 1 STRIP Insulin Human Regular Q6HR SC 01/14/25 18:00 01/17/25 17:48 2 UNITS Dextrose 50 ml UD PRN IV 01/14/25 16:00 Enteral Nutritional Formula 1,000 ml 30ML/HR GT 01/15/25 11:45 01/17/25 17:38 1,000 ML Sodium Chloride 10 ml QSHIFT@10,22 IV 01/15/25 22:00 01/18/25 09:42 10 ML Meropenem 50 ml @ 17 mls/hr DAILY IV 01/18/25 10:00 01/18/25 09:44 17 MLS/HR objective Gen.: Patient lying in bed in medical ICU. Intubated on mechanical ventilator. Head: Normocephalic, atraumatic. Eyes: PERRLA. Ears: Normal external anatomy. Throat: Endotracheal tube and orogastric tube in place. Neck: Supple, trachea midline. Chest: Transmitted breath sounds bilaterally. Decreased air entry bilaterally. No wheezing. Bibasilar crackles. Cardiovascular: Positive S1, positive S2. Regular rate and rhythm. Abdomen: Positive bowel sounds in all 4 quadrants. Soft, nontender, nondistended. : Valenzuela in place. Normal external genitalia. Rectal: Deferred. Skin: Warm, dry. Intact. Extremities: 2+ radial pulses bilaterally. No lower extremity edema. Neuro: Off sedation laboratory and microbiology Laboratory Tests 01/18/25 03:30 Test 01/18/25 03:30 Range/Units Serum Glucose 104 74-106 mg/dL Assessment/Plan Impression: Acute hypoxemic respiratory failure Cardiac arrest status post CPR On mechanical ventilator Septic shock Multiorgan failure Morbid obesity Pleural effusion Atelectasis Cellulitis of left leg Acute kidney injury Cardiomyopathy EF 15% Events: Remains on vent support On AC mode; RR 24, VT 500, PEEP 5, FiO2 30% ABG notable for alkalemia CXR demonstrates stable cardiomegaly and diffuse increased prominence of the pulmonary vasculature and interstitium. Stable small to moderate bilateral pleural effusions. Off sedation Extended down time Awaiting for mental status to improve Unable to do MRI brain due to body habitus Off Levophed, hemodynamically stable. Hemodialysis per Nephrology Diurese with Bumex IV Monitor renal function Monitor electrolytes. Supplement as necessary. Monitor ins and outs. Continue antibiotics Tube feeds for nutritional support Labs and imaging studies reviewed Plan: s/p intubation on mechanical ventilator. On AC mode; RR 24, VT 500, PEEP 5, FiO2 30% Titrate FIO2 to keep O2 saturation above 90%. VAP bundle. Daily ABG and CXR while intubated Obtain cultures and broad-spectrum antibiotics empirically Pressors as necessary for hemodynamic support Titrate to keep mean arterial pressure greater than 65 mmHg Tube feeds for nutritional support HD per Nephrology Monitor renal function Monitor electrolytes. Supplement as necessary. Monitor ins and outs. Prognosis very poor DVT prophylaxis. Full code Prognosis: Poor given patient's multiple co-morbidities. Condition: Critical Rest of plan per hospitalist and other consultants. A total of 35 minutes of critical care time was spent reviewing the patient record, examining the patient, making a diagnostic and therapeutic plan, discussing this plan with the medical personnel, following up on diagnostic studies and following the patient for clinical stability excluding any and all procedures. At least 50% of this time was spent in direct, [id number] contact. Thank you, Dr. Hagen, for allowing me to participate in this patient's care. Further recommendations will depend on the patient's clinical course. Please do not hesitate to contact me if you have any questions or concerns. This medical document was created using an electronic medical record system with [employer] system. Although these documentations are being carefully reviewed, there may still be some phonetic and typographical changes. The errors are purely typographical, due to imperfection on the software program, and do not reflect any compromise in the patient's medical care. Dietary Evaluation Review Comments: 1) Initiate Pro-Stat @ 30 mL qd 2) Initiate Migel @ 1 pk bid 3) Initiate MVI @ 1 tb qd 4) Continue to encourage optial PO intake 5) Refer to outpatient RD/CD[facility] for weight management 6) Continue to monitor I&O, labs, and skin integrity Expected Outcomes/Goals: 1) appetite and labs to improve 2) wounds to improve 3) f/u in 3-5 days Plan discussed with: Other (JESSICA Kimbrough) Critical Care Time(min): 35 PAULINO GIMENEZ MD Jan 18, 2025 20:19
[2025-01-19] VITALS (105 sets, daily range): BP systolic 90–136; BP diastolic 50–94; PULSE 119–151; RESP 4–46; TEMP 97.7–99.7; O2SAT 91–100
[2025-01-19 04:30] LABS: Basophils # (auto) 0.2 10 ^3/uL (0-0.2); Basophils % (auto) 1.3 % (0.0-2.0); Eosinophils # (auto) 0.3 10 ^3/uL (0-0.8); Eosinophils % (auto) 2.1 % (0.0-7.0); Hematocrit 23.2 % (41.0-53.0); Hemoglobin 7.5 g/dL (13.5-17.5); Lymphocytes # (auto) 1.4 10 ^3/uL (0.4-5.4); Lymphocytes % (auto) 11.5 % (10.0-50.0); Mean Corpuscular Hemoglobin 26.4 pg (28.0-32.0); Mean Corpuscular Hgb Conc. 32.4 g/dL (32.0-36.0); Mean Corpuscular Volume 81.6 fL (80.0-100.0); Monocytes # (auto) 1.2 10 ^3/uL (0-1.3); Monocytes % (auto) 10.1 % (0.0-12.0); Neutrophils # (auto) 8.9 10 ^3/uL (1.6-8.6); Nucleated Red Blood Cells % 0.2 %; Platelet Count (auto) 130 10^3/uL (140-450); Red Blood Cells 2.85 10^6/uL (4.5-5.90); Red Cell Distribution Width 18.1 % (11.8-14.3); White Blood Cell 11.9 10^3/uL (4.4-10.8)
[2025-01-19 04:48] LABS: Anion Gap 10 (5-15); BUN/Creatinine Ratio 8.1 (10.0-20.0); Calcium 9.1 mg/dL (8.7-10.4); Chloride 100 mmol/L (98-107); Glucose 99 mg/dL (74-106); Magnesium 2.3 mg/dL (1.6-2.6); Potassium 4.4 mmol/L (3.5-5.1); Sodium 141 mmol/L (136-145)
[2025-01-19 04:54] LABS: Alanine Aminotransferase 360 U/L (7-40); Albumin 2.6 g/dL (3.2-4.8); Alkaline Phosphatase 175 U/L (46-116); Aspartate Aminotransferase 102 U/L (13-40); Bilirubin, Total 3.1 mg/dL (0.2-1.0); Blood Urea Nitrogen 50 mg/dL (9-23); Carbon Dioxide 31 mmol/L (20-31); Total Protein 5.2 g/dL (5.7-8.2)
[2025-01-19 07:14] LABS: Base Excess 7.6 mmol/L (-2.0-3.0)
--- NOTE | 2025-01-19 08:57 | DVHPN2 ---
Progress Note - Dictate Date Seen: Jan 19, 2025 Medical Necessity Reason Pt with a Central, PICC or Fol: Yes The following are medically ne: PICC Line, Valenzuela Catheter Reason for valenzuela catheter: Strict I&O Subjective Mr. Noyola is a 64 years old gentleman with a history of hypertension, diabetes, obesity, asthma, gout, the patient was came to the [facility] on 01/08/2025 with a chief company of general weakness, and he coded the same day, 01/08/2025 [id number]. He was resuscitated and has been intubated, I have seen and examined the patient, discussed with his nurse. RN: She was responsive to painful stimuli, and she had gag reflexes. On my physical examination, he was not respond to stroke painful stimuli, I did not get gag reflexes but he moved the right leg during gag reflexes He has been off sedation since 01/14/2025 7:30 a.m. Urinalysis, 01/12/25: UTI WBC/HB/PLT/MCV, 01/13/2025: 11.3/12.6/162/81.6 PT/INR/PTT, 01/12/2025: 44.8/3.74/37.9, 01/13/2025: 29.8/3.15/38.1 BUN/CR, 01/08/2025: 16/1.08, 01/11/2025: 31/2.42, 01/13/2025: 39/3.12 TBI/AST/ALT/AP, 01/08/2025: 1/17/19/133, : 1.9/> 6000/4946/195 HGB A1c, 01/09/25: 6.4 TG/HDL/LDL/HDL, 01/10/25: 66/100/71/21 EEG, 01/14/2025: Remarkably abnormal EEG Extremity venous study, 01/09/2025: No right or left femoropopliteal venous thrombosis. Chest x-ray, 01/13/2025: Cardiomegaly with mild congestion. CT head, 01/13/2025: No evidence of acute intracranial abnormality. vital signs Vital Sign Date Time Temp Pulse Resp B/P (MAP) Pulse Ox O2 Delivery O2 Flow Rate FiO2 01/19/25 08:08 122 24 133/91 (105) 100 30 01/19/25 08:00 Mechanical Ventilator+ 01/19/25 06:45 99.7 99.7 Total Intake and Output 01/18/25 01/18/25 01/19/25 15:00 23:00 07:00 Intake Total 93.25 ml 372 ml 368 ml Output Total 525 ml 550 ml Balance 93.25 ml -153 ml -182 ml medications Current Medications Medications Dose Ordered Sig/Fatoumata Route Start Time Stop Time Status Last Admin Dose Admin Sodium Chloride 10 ml Q8HR IV 01/08/25 22:00 01/19/25 06:13 10 ML Nitroglycerin 0.4 mg Q5MINP PRN SL 01/08/25 21:45 Morphine Sulfate 2 mg Q30M PRN IV 01/08/25 21:45 Cancel Midazolam HCl 50 ml @ 1 mls/hr Q24H IV 01/11/25 06:30 01/13/25 22:06 6 MLS/HR Fentanyl Citrate 250 ml @ 2.5 mls/hr Q24H IV 01/11/25 06:30 01/13/25 21:00 10 MLS/HR Dopamine HCl/ Dextrose 250 ml @ 28.688 mls/ hr Q8H43M IV 01/11/25 06:30 01/14/25 06:37 11.475 MLS/HR Phenylephrine HCl 250 ml @ 30 mls/hr Q8H20M IV 01/11/25 07:45 Norepinephrine Bitartrate 250 ml @ 3.75 mls/hr Q24H IV 01/11/25 07:45 01/17/25 14:53 7.5 MLS/HR Morphine Sulfate 2 mg Q30M PRN IV 01/11/25 09:15 Vancomycin HCl 0 ml @ 0 mls/hr UD IV 01/11/25 10:45 Pantoprazole Sodium 40 mg DAILY IV 01/13/25 10:00 01/18/25 09:42 40 MG Bumetanide 25 mg/ Miscellaneous 100 ml @ 4 mls/hr Q24H IV 01/13/25 11:15 01/18/25 21:56 4 MLS/HR Vasopressin 20 units/Sodium Chloride 100 ml @ 12 mls/hr Q8H20M IV 01/14/25 11:15 01/17/25 12:42 12 MLS/HR Diagnostic Test (Pha) 1 strip Q6HR 01/14/25 18:00 01/19/25 06:14 1 STRIP Insulin Human Regular Q6HR SC 01/14/25 18:00 01/17/25 17:48 2 UNITS Dextrose 50 ml UD PRN IV 01/14/25 16:00 Enteral Nutritional Formula 1,000 ml 30ML/HR GT 01/15/25 11:45 01/17/25 17:38 1,000 ML Sodium Chloride 10 ml QSHIFT@10,22 IV 01/15/25 22:00 01/18/25 22:00 10 ML Meropenem 50 ml @ 17 mls/hr DAILY IV 01/18/25 10:00 01/18/25 09:44 17 MLS/HR objective The patient is well-nourished and well-developed with no distress. The patient is intubated Edema in the lower extremities and torso MENTAL STATUS: Subjective CRANIAL NERVES: Pupils are equal, round and reactive.There are corneal reflexes and doll's eyes phenomenon. No signs of facial weakness. There are no gagging or coughing reflexes SENSATION: Not responsive to pain for stimuli MOTOR: Normal tone in the upper and lower extremity. Normal muscle bulk. No fasciculations. No spontaneous movement. REFLEXES: Deep tendon reflexes are symmetrical. No pathological reflexes. CEREBELLAR/COORDINATION: Deferred laboratory and microbiology Laboratory Tests 01/19/25 04:15 Test 01/19/25 04:15 Range/Units Serum Glucose 99 74-106 mg/dL Problem List Altered mental status/coma Hypoxic encephalopathy Metabolic encephalopathy Cardiopulmonary arrest Urinary tract infection ? Sepsis, Shock Cardiologic general? Septic shock Kidney failure Shocked liver Morbid obesity Diffuse edema Coagulopathy, Chronic wound in the skin Hemorrhage Assessment/Plan Monitoring Supportive treatment Follow up EEG Follow up CT head MRI head (he was too wide to fit into the MRI machine) ICU care Follow-up lab On targeted temperature management Respiratory support/vent management Stabilize vitals/pressor drip Oxygen IV antibiotics Wound Care Pulmonology on case Nephrology on case More recommendation per clinical course This medical document was created using an electronic medical record system with [employer] dictation system. Although this document has been carefully reviewed, there may still be some phonetic and typographical errors. These areas are purely typographical due to imperfections of the software programs, and do not reflect any compromise in the patient's medical care. Prognosis Guarded Dietary Evaluation Review Comments: 1) Initiate Pro-Stat @ 30 mL qd 2) Initiate Migel @ 1 pk bid 3) Initiate MVI @ 1 tb qd 4) Continue to encourage optial PO intake 5) Refer to outpatient RD/[facility] for weight management 6) Continue to monitor I&O, labs, and skin integrity Expected Outcomes/Goals: 1) appetite and labs to improve 2) wounds to improve 3) f/u in 3-5 days Plan discussed with: Other SANTANA NAVARRO MD Jan 19, 2025 08:57
--- NOTE | 2025-01-19 10:03 | MEDREC ---
[facility] Intervention Section I [facility] Intervention: Review courses of therapy (PLEASE REASSESS THE NEED FOR VANCOMYCIN BASED ON THE CULTURE RESULTS AND THE RENAL FUNCTION OF THE PATIENT ) [place] PHARMACIST Jan 19, 2025 10:03
--- NOTE | 2025-01-19 10:19 | DVH ---
EXAM: XY CHEST XRAY 1 VIEW Indication: intubated Technique: Single frontal view of the chest was obtained Comparison: XY CHEST PORTABLE on DOS: 01/18/25, XY CHEST PORTABLE on DOS: 01/17/25, XY CHEST PORTABLE on DOS: 01/16/25, XY CHEST PORTABLE on DOS: 01/16/25, XY CHEST PORTABLE on DOS: 01/15/25 FINDINGS: Lines and Tubes: Endotracheal tube projects 2.2 cm above the michele. Enteric tube tip projects over t he expected region of the stomach. Lungs: Multifocal consolidative opacities. Pleura: Small bilateral pleural effusions. No pneumothorax. Cardiomediastinal contours: Cardiomegaly Bones: No acute osseous abnormality. IMPRESSION: Cardiomegaly with small bilateral pleural effusions and multifocal consolidative opacity. Lines and tubes are unchanged.
--- NOTE | 2025-01-19 10:57 | DVH ---
EXAM: CT HEAD WITHOUT CONTRAST INDICATION: repeat for ALOC TECHNIQUE: CT of the head without intravenous contrast. Coronal and sagittal reformatted images are s ubmitted. Radiation Dose : 1. Head: CT Dose: CTDI volume is 63.07 mGy. Dose-length product is 1137.04 mGy*cm The dose indicators for CT are the volume Computed Tomography (CT) Dose Index (CTDIvol) and the Dose Length Product (DLP), and are measured in units of mGy and mGy-cm, respectively. These indicators are not patient dose, but values generated from the CT scanner acquisition factors. The report includes radiation exposure data for exposures received during this examination. All CT scans at this medical facility are performed using dose modulation techniques as appropriate to a performed exam including the following: Automated exposure control was utilized; adjustment of the MA and/or KV according to patient size; and use of iterative reconstruction technique. COMPARISON: CT HEAD WITHOUT CONTRAST on DOS: 01/13/25 FINDINGS: There is no evidence of acute intracranial hemorrhage, extra-axial collection, mass effect, midline s hift, herniation or hydrocephalus. The ventricles, sulci and cisterns are age appropriate. The salcido-white differentiation is intact. Mastoid air cells are clear. Mucosal thickening in the sphenoid sinus. Secretions in the oropharynx. Enteric tube partially imaged. No depressed calvarial fracture. The surrounding soft tissues are unremarkable. IMPRESSION: 1. No acute intracranial abnormality.
[2025-01-19] MEDS ORDERED: EPOETIN ALFA-EPBX 10,000 UNIT/1ML VIAL SC SCH (13:00)
[2025-01-19] MEDS: BUMETANIDE INJECTION 25 MG in GIVE UN-DILUTED 0 ML IV SCH (13:02)
--- NOTE | 2025-01-19 13:03 | DVHPN2 ---
Progress Note Date Seen: Jan 19, 2025 Medical Necessity Reason Pt with a Central, PICC or Fol: Yes The following are medically ne: PICC Line, Valenzuela Catheter Reason for valenzuela catheter: Strict I&O Subjective Review of Systems: Deferred Objective vital signs Vital Sign Date Time Temp Pulse Resp B/P (MAP) Pulse Ox O2 Delivery O2 Flow Rate FiO2 01/19/25 12:20 121 24 104/61 (75) 100 30 01/19/25 12:00 Mechanical Ventilator+ 01/19/25 06:45 99.7 99.7 Total Intake and Output 01/18/25 01/18/25 01/19/25 15:00 23:00 07:00 Intake Total 93.25 ml 372 ml 368 ml Output Total 525 ml 550 ml Balance 93.25 ml -153 ml -182 ml medications Current Medications Medications Dose Ordered Sig/Fatoumata Route Start Time Stop Time Status Last Admin Dose Admin Sodium Chloride 10 ml Q8HR IV 01/08/25 22:00 01/19/25 06:13 10 ML Nitroglycerin 0.4 mg Q5MINP PRN SL 01/08/25 21:45 Morphine Sulfate 2 mg Q30M PRN IV 01/08/25 21:45 Cancel Midazolam HCl 50 ml @ 1 mls/hr Q24H IV 01/11/25 06:30 01/13/25 22:06 6 MLS/HR Fentanyl Citrate 250 ml @ 2.5 mls/hr Q24H IV 01/11/25 06:30 01/13/25 21:00 10 MLS/HR Dopamine HCl/ Dextrose 250 ml @ 28.688 mls/ hr Q8H43M IV 01/11/25 06:30 01/14/25 06:37 11.475 MLS/HR Phenylephrine HCl 250 ml @ 30 mls/hr Q8H20M IV 01/11/25 07:45 Norepinephrine Bitartrate 250 ml @ 3.75 mls/hr Q24H IV 01/11/25 07:45 01/17/25 14:53 7.5 MLS/HR Morphine Sulfate 2 mg Q30M PRN IV 01/11/25 09:15 Vancomycin HCl 0 ml @ 0 mls/hr UD IV 01/11/25 10:45 Pantoprazole Sodium 40 mg DAILY IV 01/13/25 10:00 01/19/25 11:20 40 MG Vasopressin 20 units/Sodium Chloride 100 ml @ 12 mls/hr Q8H20M IV 01/14/25 11:15 01/17/25 12:42 12 MLS/HR Diagnostic Test (Pha) 1 strip Q6HR 01/14/25 18:00 01/19/25 11:39 1 STRIP Insulin Human Regular Q6HR SC 01/14/25 18:00 01/17/25 17:48 2 UNITS Dextrose 50 ml UD PRN IV 01/14/25 16:00 Enteral Nutritional Formula 1,000 ml 30ML/HR GT 01/15/25 11:45 01/17/25 17:38 1,000 ML Sodium Chloride 10 ml QSHIFT@10,22 IV 01/15/25 22:00 01/19/25 11:20 10 ML Meropenem 50 ml @ 17 mls/hr DAILY IV 01/18/25 10:00 01/19/25 11:20 17 MLS/HR Bumetanide 25 mg/ Miscellaneous 100 ml @ 2 mls/hr Q24H IV 01/19/25 13:00 UNV Metolazone 15 mg DAILY PO 01/19/25 13:00 UNV Epoetin Ovidio-epbx 10,000 unit MWF SC 01/19/25 13:00 UNV Examination: GENERAL:Abnormal, LUNGS:Abnormal, CVS:Abnormal, ABDOMEN:Abnormal, SKIN:Abnormal laboratory and microbiology Laboratory Tests 01/19/25 04:15 Test 01/19/25 04:15 Range/Units Serum Glucose 99 74-106 mg/dL Microbiology Date/Time Source Procedure Growth Status 01/11/25 07:40 Nose MRSA Screen - Final Complete 01/11/25 07:40 Urine - Valenzuela Port Urine Culture - Final Complete 01/11/25 06:23 Sputum Gram Stain - Final Complete 01/11/25 06:23 Respiratory Culture - Final Presumptive Tg albicans Complete 01/08/25 17:16 Blood Blood Culture - Final NO GROWTH AFTER 5 DAYS OF INCUBATION. Complete Problem List/Assessment/Plan Problem List/Assessment/Plan 64-year-old morbidly obese male presents to the hospital complaining of weakness was diagnosed with sepsis secondary to pneumonia and UTI diagnosis of congestive heart failure patient on hospital day 4 had cardiac arrest in his now in the ICU Acute kidney injury hemodynamically mediated in the setting of cardiac arrest -> ATN on HD No previous history of CKD Severe systolic heart failure, with acute decompensation Cardiac arrest Acute respiratory failure Anasarca Anemia due to chronic kidney disease Hemodialysis rectum mental today for metabolic and volume control Severe hypovolemic currently on Bumex drip reduced to 0.5 milligrams/hour, start metolazone p.o. Monitor urinary output Avoid hypotension with albumin We will continue dialysis treatments signed increase volume removal Plan discussed with: Other My Orders My Orders Orders - FLOR MOMIN MD Procedure Category Date Status Time Give Un-Diluted PHA 01/19/25 Logged (Gi... W/Bumetanide 13:00 Basic Metabolic Panel LAB 01/20/25 Verified 04:00 Complete Blood Count LAB 01/20/25 Verified 04:00 Metolazone (Zaroxolyn) PHA 01/19/25 Logged 13:00 Hemodialysis Orders ORDERS 01/19/25 Transmitted 12:48 Dialysis Nursing MARCELO 01/19/25 In Process Message 12:48 Heparin Sodium PHA 01/19/25 Logged (Porcine) 13:00 Heparin Sodium PHA 01/19/25 Logged (Porcine) 13:00 Sodium Chloride 0.9% PHA 01/19/25 Logged 13:00 Document Fluid Input MARCELO 01/19/25 In Process And Outpu 12:48 Albumin 25% (Albutein) PHA 01/19/25 Logged 13:00 Iron Panel LAB 01/20/25 Verified 05:00 Transferrin LAB 01/20/25 Verified 05:00 Ferritin LAB 01/20/25 Verified 05:00 Epoetin Ovidio-Epbx PHA 01/19/25 Logged (Retacrit) 13:00 Phosphorus LAB 01/19/25 Transmitted 12:57 Dietary Evaluation Review Comments: 1) Initiate Pro-Stat @ 30 mL qd 2) Initiate Migel @ 1 pk bid 3) Initiate MVI @ 1 tb qd 4) Continue to encourage optial PO intake 5) Refer to outpatient RD/CD[facility] for weight management 6) Continue to monitor I&O, labs, and skin integrity Expected Outcomes/Goals: 1) appetite and labs to improve 2) wounds to improve 3) f/u in 3-5 days FLOR MOMIN MD Jan 19, 2025 13:02
--- NOTE | 2025-01-19 13:07 | DVHPN2 ---
Progress Note Date Seen: Jan 19, 2025 Medical Necessity Reason Pt with a Central, PICC or Fol: Yes The following are medically ne: PICC Line, Valenzuela Catheter Reason for valenzuela catheter: Strict I&O Subjective Patient reports: No new complaints Review of Systems: HEENT:Normal, CVS:Normal, RESPIRATORY:Normal, GI:Normal, :Normal, MSK:Normal, NEURO:Normal Objective vital signs Vital Sign Date Time Temp Pulse Resp B/P (MAP) Pulse Ox O2 Delivery O2 Flow Rate FiO2 01/19/25 12:20 121 24 104/61 (75) 100 30 01/19/25 12:00 Mechanical Ventilator+ 01/19/25 06:45 99.7 99.7 Total Intake and Output 01/18/25 01/18/25 01/19/25 15:00 23:00 07:00 Intake Total 93.25 ml 372 ml 368 ml Output Total 525 ml 550 ml Balance 93.25 ml -153 ml -182 ml medications Current Medications Medications Dose Ordered Sig/Fatoumata Route Start Time Stop Time Status Last Admin Dose Admin Sodium Chloride 10 ml Q8HR IV 01/08/25 22:00 01/19/25 06:13 10 ML Nitroglycerin 0.4 mg Q5MINP PRN SL 01/08/25 21:45 Morphine Sulfate 2 mg Q30M PRN IV 01/08/25 21:45 Cancel Midazolam HCl 50 ml @ 1 mls/hr Q24H IV 01/11/25 06:30 01/13/25 22:06 6 MLS/HR Fentanyl Citrate 250 ml @ 2.5 mls/hr Q24H IV 01/11/25 06:30 01/13/25 21:00 10 MLS/HR Dopamine HCl/ Dextrose 250 ml @ 28.688 mls/ hr Q8H43M IV 01/11/25 06:30 01/14/25 06:37 11.475 MLS/HR Phenylephrine HCl 250 ml @ 30 mls/hr Q8H20M IV 01/11/25 07:45 Norepinephrine Bitartrate 250 ml @ 3.75 mls/hr Q24H IV 01/11/25 07:45 01/17/25 14:53 7.5 MLS/HR Morphine Sulfate 2 mg Q30M PRN IV 01/11/25 09:15 Vancomycin HCl 0 ml @ 0 mls/hr UD IV 01/11/25 10:45 Pantoprazole Sodium 40 mg DAILY IV 01/13/25 10:00 01/19/25 11:20 40 MG Vasopressin 20 units/Sodium Chloride 100 ml @ 12 mls/hr Q8H20M IV 01/14/25 11:15 01/17/25 12:42 12 MLS/HR Diagnostic Test (Pha) 1 strip Q6HR 01/14/25 18:00 01/19/25 11:39 1 STRIP Insulin Human Regular Q6HR SC 01/14/25 18:00 01/17/25 17:48 2 UNITS Dextrose 50 ml UD PRN IV 01/14/25 16:00 Enteral Nutritional Formula 1,000 ml 30ML/HR GT 01/15/25 11:45 01/17/25 17:38 1,000 ML Sodium Chloride 10 ml QSHIFT@10,22 IV 01/15/25 22:00 01/19/25 11:20 10 ML Meropenem 50 ml @ 17 mls/hr DAILY IV 01/18/25 10:00 01/19/25 11:20 17 MLS/HR Bumetanide 25 mg/ Miscellaneous 100 ml @ 2 mls/hr Q24H IV 01/19/25 13:00 UNV Metolazone 15 mg DAILY PO 01/19/25 13:00 Epoetin Ovidio-epbx 10,000 unit MWF SC 01/19/25 13:00 UNV Examination: GENERAL:Normal, HEENT:Normal, NECK:Normal, LUNGS:Normal, LUNGS:Abnormal (intubated), CVS:Normal, ABDOMEN:Normal, MSK:Normal, MSK:Abnormal (ansarca), SKIN:Normal, NEURO:Normal, :Normal laboratory and microbiology Laboratory Tests 01/19/25 04:15 Test 01/19/25 04:15 Range/Units Serum Glucose 99 74-106 mg/dL Microbiology Date/Time Source Procedure Growth Status 01/11/25 07:40 Nose MRSA Screen - Final Complete 01/11/25 07:40 Urine - Valenzuela Port Urine Culture - Final Complete 01/11/25 06:23 Sputum Gram Stain - Final Complete 01/11/25 06:23 Respiratory Culture - Final Presumptive Tg albicans Complete 01/08/25 17:16 Blood Blood Culture - Final NO GROWTH AFTER 5 DAYS OF INCUBATION. Complete Problem List/Assessment/Plan Problem List/Assessment/Plan #1 acute resp failure: cont acv, peep 8 #2 s/p cpr: on targeted temp management #3 acute systolic heart failure: cont meds #4 morbid obesity #5 shock ? cardiac ?septic: iv antibiotics, off iv pressors #6 dm: ssi #7 coagulopathy #8 acute renal failure/atn: iv bumex drip #9 left leg wound/pseud: on meropenem, dc vanc #10 shock liver/acute liver failure: monitor #11 gout #12 ?hypoxic encephalopathy: neuro eval, ct head long meeting with niece/nephew - reviewed labs and treatment plan. also discussed code status. they will dw rest of family Plan discussed with: Other (rn) My Orders My Orders Orders - MAAME MARTÍNEZ MD Procedure Category Date Status Time Chest Xray 1 View XY 01/19/25 Resulted 08:42 Precedex Drip Rass -1 PHA 01/19/25 Verified 13:00 Cpap Trial For Am ORDERS 01/19/25 Verified 12:52 Complete Blood Count LAB 01/20/25 Verified 06:00 Comprehensive LAB 01/20/25 Verified Metabolic Panel 06:00 Chest Portable XY 01/20/25 Verified 06:00 Abg W/ Co-Ox RT 01/20/25 Verified 06:00 Dietary Evaluation Review Comments: 1) Initiate Pro-Stat @ 30 mL qd 2) Initiate Migel @ 1 pk bid 3) Initiate MVI @ 1 tb qd 4) Continue to encourage optial PO intake 5) Refer to outpatient RD/[facility] for weight management 6) Continue to monitor I&O, labs, and skin integrity Expected Outcomes/Goals: 1) appetite and labs to improve 2) wounds to improve 3) f/u in 3-5 days Critical Care Time (mins): 51 (critical care time excluding procedures was 51 mins) Date of Service: Jan 19, 2025 Billing Provider: MAAME MARTÍNEZ MD Common Visit Codes: [id number] CARE 30-74 MIN MAAME MARTÍNEZ MD Jan 19, 2025 13:07
[2025-01-19] MEDS ORDERED: VANCOMYCIN 500mg/100mL 100 ML IV ONE (14:00)
--- NOTE | 2025-01-19 14:16 | DVHPN2 ---
Progress Note Date Seen: Jan 19, 2025 Medical Necessity Reason Pt with a Central, PICC or Fol: Yes The following are medically ne: PICC Line, Valenzuela Catheter Reason for valenzuela catheter: Strict I&O Subjective Other Systems: head ct was - eeg pending per RN HD today Objective vital signs Vital Sign Date Time Temp Pulse Resp B/P (MAP) Pulse Ox O2 Delivery O2 Flow Rate FiO2 01/19/25 13:42 120 24 119/67 (84) 99 30 01/19/25 12:00 Mechanical Ventilator+ 01/19/25 06:45 99.7 99.7 Total Intake and Output 01/18/25 01/18/25 01/19/25 15:00 23:00 07:00 Intake Total 93.25 ml 372 ml 368 ml Output Total 525 ml 550 ml Balance 93.25 ml -153 ml -182 ml medications Current Medications Medications Dose Ordered Sig/Fatoumata Route Start Time Stop Time Status Last Admin Dose Admin Nitroglycerin 0.4 mg Q5MINP PRN SL 01/08/25 21:45 Morphine Sulfate 2 mg Q30M PRN IV 01/08/25 21:45 Cancel Fentanyl Citrate 250 ml @ 2.5 mls/hr Q24H IV 01/11/25 06:30 01/13/25 21:00 10 MLS/HR Dopamine HCl/ Dextrose 250 ml @ 28.688 mls/ hr Q8H43M IV 01/11/25 06:30 01/14/25 06:37 11.475 MLS/HR Morphine Sulfate 2 mg Q30M PRN IV 01/11/25 09:15 Pantoprazole Sodium 40 mg DAILY IV 01/13/25 10:00 01/19/25 11:20 40 MG Diagnostic Test (Pha) 1 strip Q6HR 01/14/25 18:00 01/19/25 11:39 1 STRIP Insulin Human Regular Q6HR SC 01/14/25 18:00 01/17/25 17:48 2 UNITS Dextrose 50 ml UD PRN IV 01/14/25 16:00 Enteral Nutritional Formula 1,000 ml 30ML/HR GT 01/15/25 11:45 01/17/25 17:38 1,000 ML Sodium Chloride 10 ml QSHIFT@10,22 IV 01/15/25 22:00 01/19/25 11:20 10 ML Meropenem 50 ml @ 17 mls/hr DAILY IV 01/18/25 10:00 01/19/25 11:20 17 MLS/HR Bumetanide 25 mg/ Miscellaneous 100 ml @ 2 mls/hr Q24H IV 01/19/25 13:00 Metolazone 15 mg DAILY PO 01/19/25 13:00 Epoetin Ovidio-epbx 10,000 unit MWF SC 01/19/25 13:00 Examination: GENERAL:Abnormal, HEENT:Abnormal, LUNGS:Abnormal, CVS:Abnormal, ABDOMEN:Abnormal laboratory and microbiology Laboratory Tests 01/19/25 04:15 Test 01/19/25 04:15 Range/Units Serum Glucose 99 74-106 mg/dL Microbiology Date/Time Source Procedure Growth Status 01/11/25 07:40 Nose MRSA Screen - Final Complete 01/11/25 07:40 Urine - Valenzuela Port Urine Culture - Final Complete 01/11/25 06:23 Sputum Gram Stain - Final Complete 01/11/25 06:23 Respiratory Culture - Final Presumptive Tg albicans Complete 01/08/25 17:16 Blood Blood Culture - Final NO GROWTH AFTER 5 DAYS OF INCUBATION. Complete Problem List/Assessment/Plan Problem List/Assessment/Plan severe class IV systolic and diasttolic acute on chronic HF ckd atrial flutter cardiac arrest resp failure bradycardia acidemia on levophed gtt lasix gtt bicarb gtt cont tele anuric rate control pt vent management per pulmonary consider head ct when feasible but defer to primary service will try bumex per renal HD today head ct was - today pressors as needed anemia-- prognosis is guarded and poor Plan discussed with: Other (rn) Dietary Evaluation Review Comments: 1) Initiate Pro-Stat @ 30 mL qd 2) Initiate Migel @ 1 pk bid 3) Initiate MVI @ 1 tb qd 4) Continue to encourage optial PO intake 5) Refer to outpatient RD/[facility] for weight management 6) Continue to monitor I&O, labs, and skin integrity Expected Outcomes/Goals: 1) appetite and labs to improve 2) wounds to improve 3) f/u in 3-5 days Date of Service: Jan 19, 2025 Billing Provider: PERI MARI MD Common Visit Codes: NOT BILLABLE PERI MARI MD Jan 19, 2025 14:16
[2025-01-19] MEDS: metOLazone 5 MG TAB PO SCH (16:10)
[2025-01-19] MEDS: SODIUM CHL 0.9% 1000 ML BAG XX ONE (16:28)
[2025-01-19] MEDS: ALBUMIN 25% 100 ML IV ONE (20:07)
[2025-01-19] MEDS: EPOETIN ALFA-EPBX 10,000 UNIT/1ML VIAL SC SCH (21:36)
[2025-01-19] MEDS: DEXMEDETOMIDINE HCL IN D5W 100 ML IV SCH (23:12)
--- NOTE | 2025-01-19 23:22 | DVHEEG2 ---
Neurology EEG Procedural Note Procedural Note EXAM DATE: 01/19/2025 REFERRING DOCTOR: Dr. Navarro TECHNIQUE: Eighteen channels of EEG, 2 channels of EOG, and 1 channel of EKG were recorded using the International 10/20 system. CLINICAL DATA: The patient was referred for an EEG evaluation for the evidence of seizure disorder. MEDICATIONS: See the chart BACKGROUND ACTIVITY: The record showed diffuse low amplitude theta activity and small amount of delta activity over both hemispheres, that was reactive to external stimuli ACTIVATION: Hyperventilation: Not done Photic Stimulation: Not done Sleep: Nonresponsiveness IMPRESSION: This is a mildly to moderately abnormal EEG, this EEG is seen in mild to moderate cerebral dysfunction due to metabolic/hypoxic encephalopathy or medication effects, please correlate clinically The EKG channel showed a regular heart rate of 126 per [place] [address] SANTANA NAVARRO MD Jan 19, 2025 23:22
[2025-01-20] VITALS (108 sets, daily range): BP systolic 84–138; BP diastolic 45–96; PULSE 118–130; RESP 13–28; TEMP 94.3–99.5; O2SAT 97–100
[2025-01-20] MEDS: ALBUMIN 5% 250 ML IV ONE (01:12)
[2025-01-20 04:14] LABS: Basophils # (auto) 0.1 10 ^3/uL (0-0.2); Basophils % (auto) 0.8 % (0.0-2.0); Eosinophils # (auto) 0.3 10 ^3/uL (0-0.8); Eosinophils % (auto) 2.5 % (0.0-7.0); Hemoglobin 7.8 g/dL (13.5-17.5); Lymphocytes # (auto) 1.6 10 ^3/uL (0.4-5.4); Lymphocytes % (auto) 11.6 % (10.0-50.0); Mean Corpuscular Hemoglobin 26.4 pg (28.0-32.0); Mean Corpuscular Hgb Conc. 32.5 g/dL (32.0-36.0); Mean Corpuscular Volume 81.5 fL (80.0-100.0); Monocytes # (auto) 1.2 10 ^3/uL (0-1.3); Neutrophils # (auto) 10.4 10 ^3/uL (1.6-8.6); Neutrophils % (auto) 76.1 % (37.0-80.0); Nucleated Red Blood Cells % 0.1 %; Platelet Count (auto) 157 10^3/uL (140-450); Red Blood Cells 2.95 10^6/uL (4.5-5.90); Red Cell Distribution Width 18.3 % (11.8-14.3); White Blood Cell 13.7 10^3/uL (4.4-10.8)
--- NOTE | 2025-01-20 04:32 | DVH ---
INDICATION: resp failure TECHNIQUE: Single frontal view of the chest was obtained COMPARISON: XY CHEST XRAY 1 VIEW on DOS: 01/19/25, XY CHEST PORTABLE on DOS: 01/18/25, XY CHEST PORTABLE on DOS: 01/17/25, XY CHEST PORTABLE on DOS: 01/16/25, XY CHEST PORTABLE on DOS: 01/16/25, XY CHEST XRAY 1 V IEW on DOS: 01/19/25 FINDINGS: Lines and Tubes: Endotracheal tube projects 2.2 cm above the michele. Enteric tube tip projects over t he expected region of the stomach. Lungs: Multifocal consolidative opacities. Pleura: Small bilateral pleural effusions. No pneumothorax. Cardiomediastinal contours: Cardiomegaly Bones: No acute osseous abnormality. IMPRESSION: Cardiomegaly with small bilateral pleural effusions and multifocal consolidative opacity. Lines and tubes are unchanged.
[2025-01-20 04:35] LABS: % Iron Saturation 45.4 % (20-55)
[2025-01-20 04:38] LABS: Anion Gap 11 (5-15); BUN/Creatinine Ratio 7.6 (10.0-20.0); Carbon Dioxide 31 mmol/L (20-31); Chloride 98 mmol/L (98-107); Glucose 90 mg/dL (74-106); Magnesium 2.3 mg/dL (1.6-2.6); Potassium 3.8 mmol/L (3.5-5.1); Sodium 140 mmol/L (136-145)
[2025-01-20 04:39] LABS: Alanine Aminotransferase 271 U/L (7-40); Albumin 2.8 g/dL (3.2-4.8); Alkaline Phosphatase 143 U/L (46-116); Blood Urea Nitrogen 41 mg/dL (9-23); Calcium 8.5 mg/dL (8.7-10.4); Total Protein 5.5 g/dL (5.7-8.2)
[2025-01-20 04:41] LABS: Bilirubin, Total 3.2 mg/dL (0.2-1.0)
[2025-01-20 05:08] LABS: Aspartate Aminotransferase 78 U/L (13-40)
[2025-01-20] MEDS: SODIUM CHL 0.9% 1000 ML BAG XX ONE (07:30)
--- NOTE | 2025-01-20 09:16 | DVHPN2 ---
Progress Note - Dictate Date Seen: Jan 20, 2025 Medical Necessity Reason Pt with a Central, PICC or Fol: Yes The following are medically ne: PICC Line, Valenzuela Catheter Reason for valenzuela catheter: Strict I&O Subjective Mr. Noyola is a 64 years old gentleman with a history of hypertension, diabetes, obesity, asthma, gout, the patient was came to the [facility] on 01/08/2025 with a chief company of general weakness, and he coded the same day, 01/08/2025 [id number]. He was resuscitated and has been intubated, I have seen and examined the patient, discussed with his nurse. He is responsive to strong painful stimuli, and he has gag reflexes. He has been off sedation since 01/14/2025 7:30 a.m. Urinalysis, 01/12/25: UTI WBC/HB/PLT/MCV, 01/13/2025: 11.3/12.6/162/81.6 PT/INR/PTT, 01/12/2025: 44.8/3.74/37.9, 01/13/2025: 29.8/3.15/38.1 BUN/CR, 01/08/2025: 16/1.08, 01/11/2025: 31/2.42, 01/13/2025: 39/3.12, 01/20/2025: 41/5.42 TBI/AST/ALT/AP, 01/08/2025: 1/17/19/133, : 1.9/> 6000/4946/195 01/20/2025, 3.2/78/271/143 HGB A1c, 01/09/25: 6.4 TG/HDL/LDL/HDL, 01/10/25: 66/100/71/21 EEG, 01/14/2025: Remarkably abnormal EEG Extremity venous study, 01/09/2025: No right or left femoropopliteal venous thrombosis. Chest x-ray, 01/13/2025: Cardiomegaly with mild congestion. CT head, 01/13/2025: No evidence of acute intracranial abnormality. CT head, 01/19/2025: No acute intracranial abnormality vital signs Vital Sign Date Time Temp Pulse Resp B/P (MAP) Pulse Ox O2 Delivery O2 Flow Rate FiO2 01/20/25 08:15 99.0 126 23 117/72 (87) 100 210.2 01/20/25 08:00 30 01/20/25 08:00 Mechanical Ventilator+ Total Intake and Output 01/19/25 01/19/25 01/20/25 15:00 23:00 07:00 Intake Total 78 ml 118 ml 404 ml Output Total 950 ml 950 ml Balance 78 ml -832 ml -546 ml medications Current Medications Medications Dose Ordered Sig/Fatoumata Route Start Time Stop Time Status Last Admin Dose Admin Nitroglycerin 0.4 mg Q5MINP PRN SL 01/08/25 21:45 Morphine Sulfate 2 mg Q30M PRN IV 01/08/25 21:45 Cancel Fentanyl Citrate 250 ml @ 2.5 mls/hr Q24H IV 01/11/25 06:30 01/13/25 21:00 10 MLS/HR Dopamine HCl/ Dextrose 250 ml @ 28.688 mls/ hr Q8H43M IV 01/11/25 06:30 01/14/25 06:37 11.475 MLS/HR Morphine Sulfate 2 mg Q30M PRN IV 01/11/25 09:15 Pantoprazole Sodium 40 mg DAILY IV 01/13/25 10:00 01/19/25 11:20 40 MG Diagnostic Test (Pha) 1 strip Q6HR 01/14/25 18:00 01/20/25 05:52 1 STRIP Insulin Human Regular Q6HR SC 01/14/25 18:00 01/17/25 17:48 2 UNITS Dextrose 50 ml UD PRN IV 01/14/25 16:00 Enteral Nutritional Formula 1,000 ml 30ML/HR GT 01/15/25 11:45 01/17/25 17:38 1,000 ML Sodium Chloride 10 ml QSHIFT@10,22 IV 01/15/25 22:00 01/19/25 22:00 10 ML Meropenem 50 ml @ 17 mls/hr DAILY IV 01/18/25 10:00 01/19/25 11:20 17 MLS/HR Bumetanide 25 mg/ Miscellaneous 100 ml @ 2 mls/hr Q24H IV 01/19/25 13:00 01/19/25 13:02 2 MLS/HR Metolazone 15 mg DAILY PO 01/19/25 13:00 01/19/25 16:10 15 MG Epoetin Ovidio-epbx 10,000 unit MWF PR 01/19/25 13:00 Cancel Epoetin Ovidio-epbx 10,000 unit MWF@2100 PR 01/19/25 21:00 01/19/25 21:36 10,000 UNIT objective The patient is well-nourished and well-developed with no distress. The patient is intubated Edema in the lower extremities and torso MENTAL STATUS: Subjective CRANIAL NERVES: Pupils are equal, round and reactive.There are corneal reflexes and doll's eyes phenomenon. No signs of facial weakness. There are gagging or coughing reflexes SENSATION: Responsive to pain MOTOR: Normal tone in the upper and lower extremity. Normal muscle bulk. No fasciculations. No spontaneous movement. REFLEXES: Deep tendon reflexes are symmetrical. No pathological reflexes. CEREBELLAR/COORDINATION: Deferred laboratory and microbiology Laboratory Tests 01/20/25 03:15 Test 01/20/25 03:15 Range/Units Serum Glucose 90 74-106 mg/dL Problem List Altered mental status/coma Hypoxic encephalopathy Metabolic encephalopathy Cardiopulmonary arrest Urinary tract infection ? Sepsis, Shock Cardiologic general? Septic shock Kidney failure Shocked liver Morbid obesity Diffuse edema Coagulopathy, Chronic wound in the skin Hemorrhage ? Permanent vegetative status Assessment/Plan Monitoring Supportive treatment Follow up EEG Follow up CT head MRI head (he was too wide to fit into the MRI machine) ICU care Follow-up lab On targeted temperature management Respiratory support/vent management Stabilize vitals/pressor drip Oxygen IV antibiotics Wound Care Pulmonology on case Nephrology on case More recommendation per clinical course This medical document was created using an electronic medical record system with [employer] dictation system. Although this document has been carefully reviewed, there may still be some phonetic and typographical errors. These areas are purely typographical due to imperfections of the software programs, and do not reflect any compromise in the patient's medical care. Prognosis poor Dietary Evaluation Review Comments: 1) Initiate Pro-Stat @ 30 mL qd 2) Initiate Migel @ 1 pk bid 3) Initiate MVI @ 1 tb qd 4) Continue to encourage optial PO intake 5) Refer to outpatient RD/[facility] for weight management 6) Continue to monitor I&O, labs, and skin integrity Expected Outcomes/Goals: 1) appetite and labs to improve 2) wounds to improve 3) f/u in 3-5 days Plan discussed with: Other SANTANA NAVARRO MD Jan 20, 2025 09:16
--- NOTE | 2025-01-20 11:12 | DVHPN2 ---
Progress Note Date Seen: Jan 20, 2025 Medical Necessity Reason Pt with a Central, PICC or Fol: Yes The following are medically ne: PICC Line, Valenzuela Catheter Reason for valenzuela catheter: Strict I&O Subjective Patient reports: Other Review of Systems: Deferred Objective vital signs Vital Sign Date Time Temp Pulse Resp B/P (MAP) Pulse Ox O2 Delivery O2 Flow Rate FiO2 01/20/25 10:08 126 24 123/78 (93) 100 30 01/20/25 10:00 Mechanical Ventilator+ 01/20/25 08:15 99.0 210.2 Total Intake and Output 01/19/25 01/19/25 01/20/25 15:00 23:00 07:00 Intake Total 78 ml 118 ml 404 ml Output Total 950 ml 950 ml Balance 78 ml -832 ml -546 ml medications Current Medications Medications Dose Ordered Sig/Fatoumata Route Start Time Stop Time Status Last Admin Dose Admin Nitroglycerin 0.4 mg Q5MINP PRN SL 01/08/25 21:45 Morphine Sulfate 2 mg Q30M PRN IV 01/08/25 21:45 Cancel Dopamine HCl/ Dextrose 250 ml @ 28.688 mls/ hr Q8H43M IV 01/11/25 06:30 01/14/25 06:37 11.475 MLS/HR Morphine Sulfate 2 mg Q30M PRN IV 01/11/25 09:15 Pantoprazole Sodium 40 mg DAILY IV 01/13/25 10:00 01/19/25 11:20 40 MG Diagnostic Test (Pha) 1 strip Q6HR 01/14/25 18:00 01/20/25 05:52 1 STRIP Insulin Human Regular Q6HR SC 01/14/25 18:00 01/17/25 17:48 2 UNITS Dextrose 50 ml UD PRN IV 01/14/25 16:00 Enteral Nutritional Formula 1,000 ml 30ML/HR GT 01/15/25 11:45 01/17/25 17:38 1,000 ML Sodium Chloride 10 ml QSHIFT@10,22 IV 01/15/25 22:00 01/19/25 22:00 10 ML Meropenem 50 ml @ 17 mls/hr DAILY IV 01/18/25 10:00 01/19/25 11:20 17 MLS/HR Bumetanide 25 mg/ Miscellaneous 100 ml @ 2 mls/hr Q24H IV 01/19/25 13:00 01/19/25 13:02 2 MLS/HR Metolazone 15 mg DAILY PO 01/19/25 13:00 01/19/25 16:10 15 MG Epoetin Ovidio-epbx 10,000 unit MWF SC 01/19/25 13:00 Cancel Epoetin Ovidio-epbx 10,000 unit MWF@2100 SC 01/19/25 21:00 01/19/25 21:36 10,000 UNIT Albumin Human 100 ml @ 100 mls/hr ONCE PRN IV 01/20/25 11:00 UNV Examination: GENERAL:Abnormal, LUNGS:Abnormal, CVS:Abnormal, ABDOMEN:Abnormal, SKIN:Abnormal laboratory and microbiology Laboratory Tests 01/20/25 03:15 Test 01/20/25 03:15 Range/Units Serum Glucose 90 74-106 mg/dL Microbiology Date/Time Source Procedure Growth Status 01/11/25 07:40 Nose MRSA Screen - Final Complete 01/11/25 07:40 Urine - Valenzuela Port Urine Culture - Final Complete 01/11/25 06:23 Sputum Gram Stain - Final Complete 01/11/25 06:23 Respiratory Culture - Final Presumptive Tg albicans Complete 01/08/25 17:16 Blood Blood Culture - Final NO GROWTH AFTER 5 DAYS OF INCUBATION. Complete Problem List/Assessment/Plan Problem List/Assessment/Plan 64-year-old morbidly obese male presents to the hospital complaining of weakness was diagnosed with sepsis secondary to pneumonia and UTI diagnosis of congestive heart failure patient on hospital day 4 had cardiac arrest in his now in the ICU Acute kidney injury hemodynamically mediated in the setting of cardiac arrest -> ATN on HD No previous history of CKD Severe systolic heart failure, with acute decompensation Cardiac arrest Acute respiratory failure Anasarca Anemia due to chronic kidney disease Hemodialysis today for metabolic and volume control Severe hypovolemic currently on Bumex drip reduced to 0.5 milligrams/hour, metolazone p.o. Monitor urinary output record weights daily Avoid hypotension with albumin We will continue dialysis treatments signed increase volume removal Plan discussed with: Other My Orders My Orders Orders - FLOR MOMIN MD Procedure Category Date Status Time Give Un-Diluted PHA 01/19/25 In Process (Gi... W/Bumetanide 13:00 Metolazone (Zaroxolyn) PHA 01/19/25 In Process 13:00 Hemodialysis Orders ORDERS 01/19/25 Transmitted 12:48 Dialysis Nursing MARCELO 01/19/25 In Process Message 12:48 Document Fluid Input MARCELO 01/19/25 In Process And Outpu 12:48 Epoetin Ovidio-Epbx PHA 01/19/25 In Process (Retacrit) 21:00 Hemodialysis Orders ORDERS 01/20/25 Transmitted 07:27 Dialysis Nursing MARCELO 01/20/25 In Process Message 07:27 Document Fluid Input MARCELO 01/20/25 In Process And Outpu 07:27 Albumin 25% (Albutein) PHA 01/20/25 Logged 11:00 Dietary Evaluation Review Comments: 1) Initiate Pro-Stat @ 30 mL qd 2) Initiate Migel @ 1 pk bid 3) Initiate MVI @ 1 tb qd 4) Continue to encourage optial PO intake 5) Refer to outpatient RD/CD[facility] for weight management 6) Continue to monitor I&O, labs, and skin integrity Expected Outcomes/Goals: 1) appetite and labs to improve 2) wounds to improve 3) f/u in 3-5 days FLOR MOMIN MD Jan 20, 2025 11:12
[2025-01-20] MEDS: ALBUMIN 25% 100 ML IV PRN (11:17)
--- NOTE | 2025-01-20 16:04 | DVHPN2 ---
Progress Note Date Seen: Jan 20, 2025 Medical Necessity Reason Pt with a Central, PICC or Fol: Yes The following are medically ne: PICC Line, Valenzuela Catheter Reason for valenzuela catheter: Strict I&O Subjective Patient reports: No new complaints Review of Systems: HEENT:Normal, CVS:Normal, RESPIRATORY:Normal, GI:Normal, :Normal, MSK:Normal, NEURO:Normal Objective vital signs Vital Sign Date Time Temp Pulse Resp B/P (MAP) Pulse Ox O2 Delivery O2 Flow Rate FiO2 01/20/25 15:50 124 24 118/78 (91) 100 30 01/20/25 10:00 Mechanical Ventilator+ 01/20/25 08:15 99.0 210.2 Total Intake and Output 01/19/25 01/19/25 01/20/25 15:00 23:00 07:00 Intake Total 78 ml 118 ml 404 ml Output Total 950 ml 950 ml Balance 78 ml -832 ml -546 ml medications Current Medications Medications Dose Ordered Sig/Fatoumtaa Route Start Time Stop Time Status Last Admin Dose Admin Nitroglycerin 0.4 mg Q5MINP PRN SL 01/08/25 21:45 Morphine Sulfate 2 mg Q30M PRN IV 01/08/25 21:45 Cancel Dopamine HCl/ Dextrose 250 ml @ 28.688 mls/ hr Q8H43M IV 01/11/25 06:30 01/14/25 06:37 11.475 MLS/HR Pantoprazole Sodium 40 mg DAILY IV 01/13/25 10:00 01/20/25 13:20 40 MG Diagnostic Test (Pha) 1 strip Q6HR 01/14/25 18:00 01/20/25 13:22 1 STRIP Insulin Human Regular Q6HR SC 01/14/25 18:00 01/17/25 17:48 2 UNITS Dextrose 50 ml UD PRN IV 01/14/25 16:00 Enteral Nutritional Formula 1,000 ml 30ML/HR GT 01/15/25 11:45 01/17/25 17:38 1,000 ML Sodium Chloride 10 ml QSHIFT@10,22 IV 01/15/25 22:00 01/20/25 13:22 10 ML Meropenem 50 ml @ 17 mls/hr DAILY IV 01/18/25 10:00 01/20/25 13:20 17 MLS/HR Bumetanide 25 mg/ Miscellaneous 100 ml @ 2 mls/hr Q24H IV 01/19/25 13:00 01/20/25 13:22 2 MLS/HR Metolazone 15 mg DAILY PO 01/19/25 13:00 01/20/25 13:21 15 MG Epoetin Ovidio-epbx 10,000 unit MWF SC 01/19/25 13:00 Cancel Epoetin Ovidio-epbx 10,000 unit MWF@2100 AR 01/19/25 21:00 01/19/25 21:36 10,000 UNIT Albumin Human 100 ml @ 100 mls/hr ONCE PRN IV 01/20/25 11:00 01/20/25 11:17 100 MLS/HR Examination: GENERAL:Normal, HEENT:Normal, NECK:Normal, LUNGS:Normal, LUNGS:Abnormal (intubated), CVS:Normal, ABDOMEN:Normal, MSK:Normal, SKIN:Normal, NEURO:Normal, :Normal laboratory and microbiology Laboratory Tests 01/20/25 03:15 Test 01/20/25 03:15 Range/Units Serum Glucose 90 74-106 mg/dL Microbiology Date/Time Source Procedure Growth Status 01/11/25 07:40 Nose MRSA Screen - Final Complete 01/11/25 07:40 Urine - Valenzuela Port Urine Culture - Final Complete 01/11/25 06:23 Sputum Gram Stain - Final Complete 01/11/25 06:23 Respiratory Culture - Final Presumptive Tg albicans Complete 01/08/25 17:16 Blood Blood Culture - Final NO GROWTH AFTER 5 DAYS OF INCUBATION. Complete Problem List/Assessment/Plan Problem List/Assessment/Plan #1 acute resp failure: cont acv, peep 5, trach #2 s/p cpr: on targeted temp management #3 acute systolic heart failure: cont meds #4 morbid obesity #5 shock ? cardiac ?septic: iv antibiotics, off iv pressors #6 dm: ssi #7 coagulopathy #8 acute renal failure/atn: iv bumex drip, metolazone #9 left leg wound/pseud: on meropenem, dc vanc #10 shock liver/acute liver failure: monitor #11 gout #12 ?hypoxic encephalopathy: neuro eval, ct head long meeting with niece/nephew - reviewed labs and treatment plan. also discussed code status. they will dw rest of family Plan discussed with: Other (rn) My Orders My Orders Orders - MAAME MARTÍNEZ MD Procedure Category Date Status Time Cpap Trial For Am ORDERS 01/19/25 Transmitted 16:30 * Surgical Consult CONS 01/20/25 Verified * Pecan Picker CONS 01/20/25 Verified Consult Basic Metabolic Panel LAB 01/21/25 Verified 06:00 Complete Blood Count LAB 01/21/25 Verified 06:00 Chest Portable XY 01/21/25 Verified 06:00 Dietary Evaluation Review Comments: 1) Initiate Pro-Stat @ 30 mL qd 2) Initiate Migel @ 1 pk bid 3) Initiate MVI @ 1 tb qd 4) Continue to encourage optial PO intake 5) Refer to outpatient RD/CD[facility] for weight management 6) Continue to monitor I&O, labs, and skin integrity Expected Outcomes/Goals: 1) appetite and labs to improve 2) wounds to improve 3) f/u in 3-5 days Critical Care Time (mins): 48 (critical care time excluding procedures is 48 mins) Date of Service: Jan 20, 2025 Billing Provider: MAAME MARTÍNEZ MD Common Visit Codes: [id number] CARE 30-74 MIN MAAME MARTÍNEZ MD Jan 20, 2025 16:04
[2025-01-21] VITALS (110 sets, daily range): BP systolic 93–133; BP diastolic 53–91; PULSE 97–133; RESP 13–29; TEMP 55.8–99.3; O2SAT 93–100
[2025-01-21 03:51] LABS: Chloride 100 mmol/L (98-107); Potassium 3.8 mmol/L (3.5-5.1); Sodium 140 mmol/L (136-145)
[2025-01-21 03:52] LABS: Anion Gap 10 (5-15); Calcium 8.7 mg/dL (8.7-10.4); Carbon Dioxide 30 mmol/L (20-31)
[2025-01-21 03:57] LABS: BUN/Creatinine Ratio 7.4 (10.0-20.0); Blood Urea Nitrogen 36 mg/dL (9-23); Glucose 102 mg/dL (74-106)
[2025-01-21 04:08] LABS: Basophils # (auto) 0.1 10 ^3/uL (0-0.2); Eosinophils # (auto) 0.2 10 ^3/uL (0-0.8); Hemoglobin 8.6 g/dL (13.5-17.5); Lymphocytes # (auto) 1.4 10 ^3/uL (0.4-5.4); Nucleated Red Blood Cells % 0.5 %
[2025-01-21 04:10] LABS: Basophils % (auto) 0.5 % (0.0-2.0); Eosinophils % (auto) 1.5 % (0.0-7.0); Hematocrit 26.8 % (41.0-53.0); Lymphocytes % (auto) 8.6 % (10.0-50.0); Mean Corpuscular Hemoglobin 26.8 pg (28.0-32.0); Mean Corpuscular Hgb Conc. 32.2 g/dL (32.0-36.0); Mean Corpuscular Volume 83.1 fL (80.0-100.0); Monocytes # (auto) 1.4 10 ^3/uL (0-1.3); Monocytes % (auto) 8.6 % (0.0-12.0); Neutrophils # (auto) 12.9 10 ^3/uL (1.6-8.6); Neutrophils % (auto) 80.8 % (37.0-80.0); Platelet Count (auto) 192 10^3/uL (140-450); Red Blood Cells 3.23 10^6/uL (4.5-5.90); Red Cell Distribution Width 18.8 % (11.8-14.3)
--- NOTE | 2025-01-21 05:24 | DVH ---
EXAM: XR Chest, 1 View CLINICAL INDICATION: resp failure TECHNIQUE: Frontal view of the chest. COMPARISON: XY CHEST PORTABLE on DOS: 01/20/25, XY CHEST XRAY 1 VIEW on DOS: 01/19/25, XY CHEST PORTAB LE on DOS: 01/18/25, XY CHEST PORTABLE on DOS: 01/17/25, XY CHEST PORTABLE on DOS: 01/16/25 FINDINGS: LUNGS AND PLEURAL SPACES: Pleural effusions. HEART: Cardiomegaly with pulmonary congestion and edema. Superimposed pneumonia cannot be excluded. MEDIASTINUM: Unremarkable. Normal mediastinal contour. BONES/JOINTS: Unremarkable. No acute fracture. TUBES, LINES AND DEVICES: The endotracheal tube (ETT) is in satisfactory position. Tracheostomy tu be in satisfactory position. Left internal jugular central venous catheter tip in the superior vena cava. Enteric tube tip in the stomach. OTHER FINDINGS: . IMPRESSION: Cardiomegaly with pulmonary congestion and edema. Superimposed pneumonia cannot be excluded.
[2025-01-21 07:06] LABS: Base Excess 6.4 mmol/L (-2.0-3.0)
--- NOTE | 2025-01-21 10:33 | DVHPN2 ---
Progress Note - Dictate Date Seen: Jan 21, 2025 Medical Necessity Reason Pt with a Central, PICC or Fol: Yes The following are medically ne: PICC Line, Valenzuela Catheter Reason for valenzuela catheter: Strict I&O Subjective Mr. Noyola is a 64 years old gentleman with a history of hypertension, diabetes, obesity, asthma, gout, the patient was came to the [facility] on 01/08/2025 with a chief company of general weakness, and he coded the same day, 01/08/2025 [id number]. He was resuscitated and has been intubated, I have seen and examined the patient, discussed with his nurse. He is responsive to strong painful stimuli, and he has weak gag reflexes. He moves the right foot intermittently He has been off sedation since 01/14/2025 7:30 a.m. Urinalysis, 01/12/25: UTI WBC/HB/PLT/MCV, 01/13/2025: 11.3/12.6/162/81.6 PT/INR/PTT, 01/12/2025: 44.8/3.74/37.9, 01/13/2025: 29.8/3.15/38.1 BUN/CR, 01/08/2025: 16/1.08, 01/11/2025: 31/2.42, 01/13/2025: 39/3.12, 01/20/2025: 41/5.42 TBI/AST/ALT/AP, 01/08/2025: 1/17/19/133, : 1.9/> 6000/4946/195 01/20/2025, 3.2/78/271/143 HGB A1c, 01/09/25: 6.4 TG/HDL/LDL/HDL, 01/10/25: 66/100/71/21 EEG, 01/14/2025: Remarkably abnormal EEG Extremity venous study, 01/09/2025: No right or left femoropopliteal venous thrombosis. Chest x-ray, 01/13/2025: Cardiomegaly with mild congestion. CT head, 01/13/2025: No evidence of acute intracranial abnormality. CT head, 01/19/2025: No acute intracranial abnormality vital signs Vital Sign Date Time Temp Pulse Resp B/P (MAP) Pulse Ox O2 Delivery O2 Flow Rate FiO2 01/21/25 08:38 129 24 104/64 (77) 100 30 01/21/25 06:45 99.0 210.2 01/21/25 06:00 Mechanical Ventilator+ Total Intake and Output 01/20/25 01/20/25 01/21/25 15:00 23:00 07:00 Intake Total 16 ml 46 ml 196 ml Output Total 950 ml 1150 ml Balance 16 ml -904 ml -954 ml medications Current Medications Medications Dose Ordered Sig/Fatoumata Route Start Time Stop Time Status Last Admin Dose Admin Nitroglycerin 0.4 mg Q5MINP PRN SL 01/08/25 21:45 Morphine Sulfate 2 mg Q30M PRN IV 01/08/25 21:45 Cancel Pantoprazole Sodium 40 mg DAILY IV 01/13/25 10:00 01/20/25 13:20 40 MG Diagnostic Test (Pha) 1 strip Q6HR 01/14/25 18:00 01/21/25 05:57 1 STRIP Insulin Human Regular Q6HR SC 01/14/25 18:00 01/17/25 17:48 2 UNITS Dextrose 50 ml UD PRN IV 01/14/25 16:00 Enteral Nutritional Formula 1,000 ml 30ML/HR GT 01/15/25 11:45 01/17/25 17:38 1,000 ML Sodium Chloride 10 ml QSHIFT@10,22 IV 01/15/25 22:00 01/20/25 22:00 10 ML Meropenem 50 ml @ 17 mls/hr DAILY IV 01/18/25 10:00 01/20/25 13:20 17 MLS/HR Bumetanide 25 mg/ Miscellaneous 100 ml @ 2 mls/hr Q24H IV 01/19/25 13:00 01/20/25 13:22 2 MLS/HR Metolazone 15 mg DAILY PO 01/19/25 13:00 01/20/25 13:21 15 MG Epoetin Ovidio-epbx 10,000 unit MWF SC 01/19/25 13:00 Cancel Epoetin Ovidio-epbx 10,000 unit MWF@2100 SC 01/19/25 21:00 01/19/25 21:36 10,000 UNIT Albumin Human 100 ml @ 100 mls/hr ONCE PRN IV 01/20/25 11:00 01/20/25 11:17 100 MLS/HR objective The patient is well-nourished and well-developed with no distress. The patient is intubated Edema in the lower extremities and torso MENTAL STATUS: Subjective CRANIAL NERVES: Pupils are equal, round and reactive.There are corneal reflexes and doll's eyes phenomenon. No signs of facial weakness. There are gagging or coughing reflexes SENSATION: Responsive to pain MOTOR: Normal tone in the upper and lower extremity. Normal muscle bulk. No fasciculations. No spontaneous movement. REFLEXES: Deep tendon reflexes are symmetrical. No pathological reflexes. CEREBELLAR/COORDINATION: Deferred laboratory and microbiology Laboratory Tests 01/21/25 03:00 Test 01/21/25 03:00 Range/Units Serum Glucose 102 74-106 mg/dL Problem List Altered mental status/coma Hypoxic encephalopathy Metabolic encephalopathy Cardiopulmonary arrest Urinary tract infection ? Sepsis, Shock Cardiologic general? Septic shock Kidney failure Shocked liver Morbid obesity Diffuse edema Coagulopathy, Chronic wound in the skin Hemorrhage ? Permanent vegetative status Assessment/Plan Monitoring Supportive treatment Follow up EEG Follow up CT head MRI head (he was too wide to fit into the MRI machine) ICU care Follow-up lab On targeted temperature management Respiratory support/vent management Stabilize vitals/pressor drip Oxygen IV antibiotics Wound Care Pulmonology on case Nephrology on case He likely needs trach and feeding tube insertion More recommendation per clinical course This medical document was created using an electronic medical record system with [employer] dictation system. Although this document has been carefully reviewed, there may still be some phonetic and typographical errors. These areas are purely typographical due to imperfections of the software programs, and do not reflect any compromise in the patient's medical care. Prognosis guarded Dietary Evaluation Review Comments: 1) Initiate Pro-Stat @ 30 mL qd 2) Initiate Migel @ 1 pk bid 3) Initiate MVI @ 1 tb qd 4) Continue to encourage optial PO intake 5) Refer to outpatient RD/CD[facility] for weight management 6) Continue to monitor I&O, labs, and skin integrity Expected Outcomes/Goals: 1) appetite and labs to improve 2) wounds to improve 3) f/u in 3-5 days Plan discussed with: Other SANTANA NAVARRO MD Jan 21, 2025 10:33
--- NOTE | 2025-01-21 16:54 | DVHPN2 ---
Progress Note Date Seen: Jan 21, 2025 Medical Necessity Reason Pt with a Central, PICC or Fol: Yes The following are medically ne: PICC Line, Valenzuela Catheter Reason for valenzuela catheter: Strict I&O Subjective Patient reports: No new complaints Review of Systems: HEENT:Normal, CVS:Normal, RESPIRATORY:Normal, GI:Normal, :Normal, MSK:Normal, NEURO:Normal Objective vital signs Vital Sign Date Time Temp Pulse Resp B/P (MAP) Pulse Ox O2 Delivery O2 Flow Rate FiO2 01/21/25 16:14 133 24 133/91 (105) 98 30 01/21/25 14:00 Mechanical Ventilator+ 01/21/25 06:45 99.0 210.2 Total Intake and Output 01/20/25 01/20/25 01/21/25 15:00 23:00 07:00 Intake Total 16 ml 46 ml 196 ml Output Total 950 ml 1150 ml Balance 16 ml -904 ml -954 ml medications Current Medications Medications Dose Ordered Sig/Fatoumata Route Start Time Stop Time Status Last Admin Dose Admin Nitroglycerin 0.4 mg Q5MINP PRN SL 01/08/25 21:45 Morphine Sulfate 2 mg Q30M PRN IV 01/08/25 21:45 Cancel Pantoprazole Sodium 40 mg DAILY IV 01/13/25 10:00 01/21/25 11:07 40 MG Diagnostic Test (Pha) 1 strip Q6HR 01/14/25 18:00 01/21/25 11:44 1 STRIP Insulin Human Regular Q6HR SC 01/14/25 18:00 01/17/25 17:48 2 UNITS Dextrose 50 ml UD PRN IV 01/14/25 16:00 Enteral Nutritional Formula 1,000 ml 30ML/HR GT 01/15/25 11:45 01/17/25 17:38 1,000 ML Sodium Chloride 10 ml QSHIFT@10,22 IV 01/15/25 22:00 01/21/25 11:08 10 ML Meropenem 50 ml @ 17 mls/hr DAILY IV 01/18/25 10:00 01/21/25 10:00 17 MLS/HR Bumetanide 25 mg/ Miscellaneous 100 ml @ 2 mls/hr Q24H IV 01/19/25 13:00 01/20/25 13:22 2 MLS/HR Metolazone 15 mg DAILY PO 01/19/25 13:00 01/21/25 11:44 15 MG Epoetin Ovidio-epbx 10,000 unit MWF SC 01/19/25 13:00 Cancel Epoetin Ovidio-epbx 10,000 unit MWF@2100 SC 01/19/25 21:00 01/19/25 21:36 10,000 UNIT Albumin Human 100 ml @ 100 mls/hr ONCE PRN IV 01/20/25 11:00 01/20/25 11:17 100 MLS/HR Examination: GENERAL:Normal, HEENT:Normal, NECK:Normal, LUNGS:Normal, LUNGS:Abnormal (intubated), CVS:Normal, ABDOMEN:Normal, MSK:Normal, SKIN:Normal, NEURO:Normal, :Normal laboratory and microbiology Laboratory Tests 01/21/25 03:00 Test 01/21/25 03:00 Range/Units Serum Glucose 102 74-106 mg/dL Microbiology Date/Time Source Procedure Growth Status 01/11/25 07:40 Nose MRSA Screen - Final Complete 01/11/25 07:40 Urine - Valenzuela Port Urine Culture - Final Complete 01/11/25 06:23 Sputum Gram Stain - Final Complete 01/11/25 06:23 Respiratory Culture - Final Presumptive Tg albicans Complete 01/08/25 17:16 Blood Blood Culture - Final NO GROWTH AFTER 5 DAYS OF INCUBATION. Complete Problem List/Assessment/Plan Problem List/Assessment/Plan #1 acute resp failure: cont acv, peep 5, trach in am #2 s/p cpr: on targeted temp management #3 acute systolic heart failure: cont meds #4 morbid obesity #5 shock ? cardiac ?septic: iv antibiotics, off iv pressors #6 dm: ssi #7 coagulopathy #8 acute renal failure/atn: iv bumex drip, metolazone #9 left leg wound/pseud: on meropenem, add vanc #10 shock liver/acute liver failure: monitor #11 gout #12 ?hypoxic encephalopathy: neuro eval, ct head long meeting with niece/nephew - reviewed labs and treatment plan. also discussed code status. they will dw rest of family Plan discussed with: Other (rn) My Orders My Orders Orders - MAAME MARTÍNEZ MD Procedure Category Date Status Time Abg W/ Co-Ox RT 01/21/25 Logged 06:00 Vancomycin Per PHA 01/21/25 Transmitted Pharmacy 17:00 Fluconazole Ivpb PHA 01/22/25 Transmitted Diflucan 10:00 Fluconazole Ivpb PHA 01/21/25 Transmitted Diflucan 17:00 Complete Blood Count LAB 01/22/25 Verified 06:00 Comprehensive LAB 01/22/25 Verified Metabolic Panel 06:00 PTPTT LAB 01/22/25 Verified 04:00 Chest Portable XY 01/22/25 Transmitted 06:00 Abg W/ Co-Ox RT 01/22/25 Transmitted 06:00 Dietary Evaluation Review Comments: 1) Initiate Pro-Stat @ 30 mL qd 2) Initiate Migel @ 1 pk bid 3) Initiate MVI @ 1 tb qd 4) Continue to encourage optial PO intake 5) Refer to outpatient RD/[facility] for weight management 6) Continue to monitor I&O, labs, and skin integrity Expected Outcomes/Goals: 1) appetite and labs to improve 2) wounds to improve 3) f/u in 3-5 days Critical Care Time (mins): 46 (critical care time excluding procedures is 46 mins) Date of Service: Jan 21, 2025 Billing Provider: MAAME MARTÍNEZ MD Common Visit Codes: [id number] CARE 30-74 MIN MAAME MARTÍNEZ MD Jan 21, 2025 16:54
[2025-01-21] MEDS ORDERED: VANCOMYCIN PER PHARMACY 0 MG IV SCH (17:00)
--- NOTE | 2025-01-21 17:40 | DVHPN2 ---
Progress Note Date Seen: Jan 21, 2025 Medical Necessity Reason Pt with a Central, PICC or Fol: Yes The following are medically ne: PICC Line, Valenzuela Catheter Reason for valenzuela catheter: Strict I&O Objective vital signs Vital Sign Date Time Temp Pulse Resp B/P (MAP) Pulse Ox O2 Delivery O2 Flow Rate FiO2 01/21/25 16:45 132 24 122/72 (89) 98 01/21/25 16:30 99.0 210.2 01/21/25 16:14 30 01/21/25 16:00 Mechanical Ventilator+ Total Intake and Output 01/20/25 01/20/25 01/21/25 15:00 23:00 07:00 Intake Total 16 ml 46 ml 196 ml Output Total 4950 ml 1150 ml Balance 16 ml -4904 ml -954 ml medications Current Medications Medications Dose Ordered Sig/Fatoumata Route Start Time Stop Time Status Last Admin Dose Admin Nitroglycerin 0.4 mg Q5MINP PRN SL 01/08/25 21:45 Morphine Sulfate 2 mg Q30M PRN IV 01/08/25 21:45 Cancel Pantoprazole Sodium 40 mg DAILY IV 01/13/25 10:00 01/21/25 11:07 40 MG Diagnostic Test (Pha) 1 strip Q6HR 01/14/25 18:00 01/21/25 11:44 1 STRIP Insulin Human Regular Q6HR SC 01/14/25 18:00 01/17/25 17:48 2 UNITS Dextrose 50 ml UD PRN IV 01/14/25 16:00 Enteral Nutritional Formula 1,000 ml 30ML/HR GT 01/15/25 11:45 01/17/25 17:38 1,000 ML Sodium Chloride 10 ml QSHIFT@10,22 IV 01/15/25 22:00 01/21/25 11:08 10 ML Meropenem 50 ml @ 17 mls/hr DAILY IV 01/18/25 10:00 01/21/25 10:00 17 MLS/HR Bumetanide 25 mg/ Miscellaneous 100 ml @ 2 mls/hr Q24H IV 01/19/25 13:00 01/20/25 13:22 2 MLS/HR Metolazone 15 mg DAILY PO 01/19/25 13:00 01/21/25 11:44 15 MG Epoetin Ovidio-epbx 10,000 unit MWF ND 01/19/25 13:00 Cancel Epoetin Ovidio-epbx 10,000 unit MWF@2100 ND 01/19/25 21:00 01/19/25 21:36 10,000 UNIT Albumin Human 100 ml @ 100 mls/hr ONCE PRN IV 01/20/25 11:00 01/20/25 11:17 100 MLS/HR Vancomycin HCl 0 ml @ 0 mls/hr UD IV 01/21/25 17:00 Fluconazole 100 ml @ 100 mls/hr DAILY@0900 IV 01/22/25 09:00 Examination: GENERAL:Abnormal, LUNGS:Abnormal, CVS:Abnormal, SKIN:Abnormal laboratory and microbiology Laboratory Tests 01/21/25 03:00 Test 01/21/25 03:00 Range/Units Serum Glucose 102 74-106 mg/dL Microbiology Date/Time Source Procedure Growth Status 01/11/25 07:40 Nose MRSA Screen - Final Complete 01/11/25 07:40 Urine - Valenzuela Port Urine Culture - Final Complete 01/11/25 06:23 Sputum Gram Stain - Final Complete 01/11/25 06:23 Respiratory Culture - Final Presumptive Tg albicans Complete 01/08/25 17:16 Blood Blood Culture - Final NO GROWTH AFTER 5 DAYS OF INCUBATION. Complete Problem List/Assessment/Plan Problem List/Assessment/Plan 64-year-old morbidly obese male presents to the hospital complaining of weakness was diagnosed with sepsis secondary to pneumonia and UTI diagnosis of congestive heart failure patient on hospital day 4 had cardiac arrest in his now in the ICU Acute kidney injury hemodynamically mediated in the setting of cardiac arrest -> ATN on HD No previous history of CKD Severe systolic heart failure, with acute decompensation Cardiac arrest Acute respiratory failure --> pending trach Anasarca Anemia due to chronic kidney disease tachycardia Hemodialysis on hold today Severe hypervolemic currently on Bumex drip 0.5 milligrams/hour, metolazone p.o. Monitor urinary output record weights daily Avoid hypotension with albumin We will continue dialysis treatments to remove volume trach tomorrow primary team has broadened IV ABX coverage due to concern for sepsis Plan discussed with: Patient Dietary Evaluation Review Comments: 1) Initiate Pro-Stat @ 30 mL qd 2) Initiate Migel @ 1 pk bid 3) Initiate MVI @ 1 tb qd 4) Continue to encourage optial PO intake 5) Refer to outpatient RD/CDCES for weight management 6) Continue to monitor I&O, labs, and skin integrity Expected Outcomes/Goals: 1) appetite and labs to improve 2) wounds to improve 3) f/u in 3-5 days Critical Care Time (mins): 33 FLOR MOMIN MD Jan 21, 2025 17:40
[2025-01-21] MEDS: FLUCONAZOLE 200MG/100ML 100 ML IV ONE (18:52)
[2025-01-21] MEDS: VANCOMYCIN 1.5GM/300ML 300 ML IV ONE (18:57)
[2025-01-22] VITALS (103 sets, daily range): BP systolic 104–139; BP diastolic 60–97; PULSE 127–138; RESP 14–28; TEMP 98.4–99.3; O2SAT 95–100
[2025-01-22 03:52] LABS: Basophils # (auto) 0.1 10 ^3/uL (0-0.2); Eosinophils # (auto) 0.3 10 ^3/uL (0-0.8); Hematocrit 26.4 % (41.0-53.0); Lymphocytes # (auto) 1.4 10 ^3/uL (0.4-5.4); Mean Corpuscular Volume 82.8 fL (80.0-100.0); Monocytes # (auto) 1.2 10 ^3/uL (0-1.3); Red Blood Cells 3.19 10^6/uL (4.5-5.90)
[2025-01-22 03:57] LABS: Anion Gap 13 (5-15); Basophils % (auto) 0.6 % (0.0-2.0); Carbon Dioxide 29 mmol/L (20-31); Chloride 99 mmol/L (98-107); Eosinophils % (auto) 1.4 % (0.0-7.0); Glucose 94 mg/dL (74-106); Hemoglobin 8.5 g/dL (13.5-17.5); Lymphocytes % (auto) 7.6 % (10.0-50.0); Mean Corpuscular Hemoglobin 26.8 pg (28.0-32.0); Mean Corpuscular Hgb Conc. 32.3 g/dL (32.0-36.0); Monocytes % (auto) 6.6 % (0.0-12.0); Neutrophils # (auto) 15.1 10 ^3/uL (1.6-8.6); Neutrophils % (auto) 83.8 % (37.0-80.0); Platelet Count (auto) 215 10^3/uL (140-450); Potassium 3.6 mmol/L (3.5-5.1); Red Cell Distribution Width 18.7 % (11.8-14.3); Sodium 141 mmol/L (136-145); Total Protein 5.8 g/dL (5.7-8.2); White Blood Cell 18.1 10^3/uL (4.4-10.8)
[2025-01-22 04:10] LABS: INR 1.23 (0.9-1.15); Partial Thromboplastin Time 30.1 SEC (24.5-34.5); Prothrombin Time 12.8 sec (9.3-11.8)
[2025-01-22 04:43] LABS: Alanine Aminotransferase 161 U/L (7-40); Albumin 2.8 g/dL (3.2-4.8); Alkaline Phosphatase 136 U/L (46-116); Aspartate Aminotransferase 55 U/L (13-40); Blood Urea Nitrogen 48 mg/dL (9-23); Calcium 8.7 mg/dL (8.7-10.4)
--- NOTE | 2025-01-22 05:30 | DVH ---
EXAM: XR Chest, 1 View CLINICAL INDICATION: chf TECHNIQUE: Frontal view of the chest. COMPARISON: XY CHEST PORTABLE on DOS: 01/21/25, XY CHEST PORTABLE on DOS: 01/20/25, XY CHEST XRAY 1 V IEW on DOS: 01/19/25, XY CHEST PORTABLE on DOS: 01/18/25, XY CHEST PORTABLE on DOS: 01/17/25 FINDINGS: LUNGS AND PLEURAL SPACES: Bilateral pleural effusions. HEART: Cardiomegaly with mild congestion. MEDIASTINUM: Unremarkable. Normal mediastinal contour. BONES/JOINTS: Unremarkable. No acute fracture. TUBES, LINES AND DEVICES: The endotracheal tube (ETT) is in satisfactory position. Enteric tube ti p cannot be seen but is below the diaphragm. OTHER FINDINGS: . . . IMPRESSION: 1. Cardiomegaly with mild congestion. 2. Bilateral pleural effusions.
[2025-01-22] MEDS: SODIUM CHL 0.9% 1000 ML BAG XX ONE (07:00)
[2025-01-22] MEDS ORDERED: fentaNYL CITRATE 100 MCG/2 ML VL ONE (07:07)
[2025-01-22] MEDS ORDERED: PHENYLEPHRINE HCL 10 MG/ML VL ONE (07:09)
[2025-01-22 07:17] LABS: Base Excess 5.2 mmol/L (-2.0-3.0)
[2025-01-22] MEDS: LIDOCAINE W/ EPINEPHRINE 1% 20ML VIAL ONE (07:49)
--- NOTE | 2025-01-22 09:13 | DVH ---
EXAM: XY CHEST XRAY 1 VIEW Indication: s/p tracheostomy Technique: Single frontal view of the chest was obtained Comparison: XY CHEST PORTABLE on DOS: 01/22/25, XY CHEST PORTABLE on DOS: 01/21/25, XY CHEST PORTABLE o n DOS: 01/20/25, XY CHEST XRAY 1 VIEW on DOS: 01/19/25, XY CHEST PORTABLE on DOS: 01/18/25 FINDINGS: Lines and Tubes: Tracheostomy tube is visualized. Enteric tube tip projects over expected region sto mach. Left internal jugular central venous catheter tip projects over superior vena cava. Right PICC tip projects over the superior vena cava. Lungs: Bibasilar opacities. Pleura: Small bilateral pleural effusions. No pneumothorax. Cardiomediastinal contours: Cardiomegaly Bones: No acute osseous abnormality. IMPRESSION: Cardiomegaly with small bilateral pleural effusions. Pulmonary edema.
[2025-01-22] MEDS: ALBUMIN 25% 100 ML IV ONE (09:30)
--- NOTE | 2025-01-22 10:57 | DVHPN2 ---
Progress Note - Dictate Date Seen: Jan 22, 2025 Medical Necessity Reason Pt with a Central, PICC or Fol: Yes The following are medically ne: PICC Line, Valenzuela Catheter Reason for valenzuela catheter: Strict I&O Subjective Mr. Noyola is a 64 years old gentleman with a history of hypertension, diabetes, obesity, asthma, gout, the patient was came to the [facility] on 01/08/2025 with a chief company of general weakness, and he coded the same day, 01/08/2025 [id number]. He was resuscitated and has been intubated, I have seen and examined the patient, discussed with his nurse. He is responsive to painful stimuli, and he has brainstem reflexes. He is status post tracheostomy (01/22/2025) He has been off sedation since 01/14/2025 7:30 a.m. Urinalysis, 01/12/25: UTI WBC/HB/PLT/MCV, 01/13/2025: 11.3/12.6/162/81.6 PT/INR/PTT, 01/12/2025: 44.8/3.74/37.9, 01/13/2025: 29.8/3.15/38.1 BUN/CR, 01/08/2025: 16/1.08, 01/11/2025: 31/2.42, 01/13/2025: 39/3.12, 01/20/2025: 41/5.42 TBI/AST/ALT/AP, 01/08/2025: 1/17/19/133, : 1.9/> 6000/4946/195 01/20/2025, 3.2/78/271/143 HGB A1c, 01/09/25: 6.4 TG/HDL/LDL/HDL, 01/10/25: 66/100/71/21 EEG, 01/14/2025: Remarkably abnormal EEG Extremity venous study, 01/09/2025: No right or left femoropopliteal venous thrombosis. Chest x-ray, 01/13/2025: Cardiomegaly with mild congestion. CT head, 01/13/2025: No evidence of acute intracranial abnormality. CT head, 01/19/2025: No acute intracranial abnormality vital signs Vital Sign Date Time Temp Pulse Resp B/P (MAP) Pulse Ox O2 Delivery O2 Flow Rate FiO2 01/22/25 10:30 135 24 137/93 (108) 100 30 01/22/25 06:45 99.0 210.2 01/22/25 06:00 Mechanical Ventilator+ Total Intake and Output 01/21/25 01/21/25 01/22/25 15:00 23:00 07:00 Intake Total 16 ml 701 ml 14 ml Output Total 1300 ml 1275 ml Balance 16 ml -599 ml -1261 ml medications Current Medications Medications Dose Ordered Sig/Fatoumata Route Start Time Stop Time Status Last Admin Dose Admin Nitroglycerin 0.4 mg Q5MINP PRN SL 01/08/25 21:45 Morphine Sulfate 2 mg Q30M PRN IV 01/08/25 21:45 Cancel Pantoprazole Sodium 40 mg DAILY IV 01/13/25 10:00 01/21/25 11:07 40 MG Diagnostic Test (Pha) 1 strip Q6HR 01/14/25 18:00 01/22/25 05:56 1 STRIP Insulin Human Regular Q6HR SC 01/14/25 18:00 01/17/25 17:48 2 UNITS Dextrose 50 ml UD PRN IV 01/14/25 16:00 Enteral Nutritional Formula 1,000 ml 30ML/HR GT 01/15/25 11:45 01/17/25 17:38 1,000 ML Sodium Chloride 10 ml QSHIFT@10,22 IV 01/15/25 22:00 01/21/25 21:30 10 ML Meropenem 50 ml @ 17 mls/hr DAILY IV 01/18/25 10:00 01/21/25 10:00 17 MLS/HR Bumetanide 25 mg/ Miscellaneous 100 ml @ 2 mls/hr Q24H IV 01/19/25 13:00 01/22/25 05:26 2 MLS/HR Metolazone 15 mg DAILY PO 01/19/25 13:00 01/21/25 11:44 15 MG Epoetin Ovidio-epbx 10,000 unit MWF SC 01/19/25 13:00 Cancel Epoetin Ovidio-epbx 10,000 unit MWF@2100 SC 01/19/25 21:00 01/21/25 21:07 10,000 UNIT Albumin Human 100 ml @ 100 mls/hr ONCE PRN IV 01/20/25 11:00 01/20/25 11:17 100 MLS/HR Vancomycin HCl 0 ml @ 0 mls/hr UD IV 01/21/25 17:00 Fluconazole 100 ml @ 100 mls/hr DAILY@0900 IV 01/22/25 09:00 objective The patient is well-nourished and well-developed with no distress. The patient is intubated Edema in the lower extremities and torso MENTAL STATUS: Subjective CRANIAL NERVES: Pupils are equal, round and reactive.There are corneal reflexes and doll's eyes phenomenon. No signs of facial weakness. There are gagging or coughing reflexes SENSATION: Responsive to pain MOTOR: Normal tone in the upper and lower extremity. Normal muscle bulk. No fasciculations. No spontaneous movement. REFLEXES: Deep tendon reflexes are symmetrical. No pathological reflexes. CEREBELLAR/COORDINATION: Deferred laboratory and microbiology Laboratory Tests 01/22/25 03:00 Test 01/22/25 03:00 Range/Units Serum Glucose 94 74-106 mg/dL Problem List Altered mental status/coma Hypoxic encephalopathy Metabolic encephalopathy Cardiopulmonary arrest Respiratory failure, status post tracheostomy Urinary tract infection ? Sepsis, Shock Cardiologic general? Septic shock Kidney failure Shocked liver Morbid obesity Diffuse edema Coagulopathy, Chronic wound in the skin Hemorrhage Permanent vegetative status Assessment/Plan Monitoring Supportive treatment Follow up EEG Follow up CT head MRI head (he was too wide to fit into the MRI machine) ICU care Follow-up lab On targeted temperature management Respiratory support/vent management Stabilize vitals/pressor drip Oxygen IV antibiotics Wound Care Pulmonology on case Nephrology on case He needs feeding tube insertion More recommendation per clinical course This medical document was created using an electronic medical record system with [employer] dictation system. Although this document has been carefully reviewed, there may still be some phonetic and typographical errors. These areas are purely typographical due to imperfections of the software programs, and do not reflect any compromise in the patient's medical care. Prognosis poor Dietary Evaluation Review Comments: 1) Initiate Pro-Stat @ 30 mL qd 2) Initiate Migel @ 1 pk bid 3) Initiate MVI @ 1 tb qd 4) Continue to encourage optial PO intake 5) Refer to outpatient RD/[facility] for weight management 6) Continue to monitor I&O, labs, and skin integrity Expected Outcomes/Goals: 1) appetite and labs to improve 2) wounds to improve 3) f/u in 3-5 days Plan discussed with: Other SANTANA NAVARRO MD Jan 22, 2025 10:57
[2025-01-22] MEDS: FLUCONAZOLE 200MG/100ML 100 ML IV SCH (13:23)
--- NOTE | 2025-01-22 14:00 | DVHOP ---
DATE OF SURGERY: 01/23/2025 PREOPERATIVE DIAGNOSIS: Ventilator-dependent respiratory failure. POSTOPERATIVE DIAGNOSIS: Ventilator-dependent respiratory failure. SURGEON: Fam Rangel MD. DIRECTOR OF GUIDANCE IN PUBLIC SCHOOLS: Evgeny Esteves NP. ANESTHESIA: General endotracheal, Dr. Thomson. PROCEDURE: Tracheostomy. DESCRIPTION OF PROCEDURE: Under general anesthesia with the patient's skin prepped and draped, the patient's anterior skin incision was made vertically. The trachea was markedly deviated to the patient's right, which made the operation very challenging in addition to his morbid obesity. Tissues were divided laterally. The strap muscles divided in the midline and retracted laterally. The thyroid gland was retracted superiorly. Thyroid vessel was ligated doubly and divided and electrocauterized. The tracheal tissues were exposed. Third and fourth ring were incised in an H-shaped fashion and the tracheotomy was then fashioned, dilated and a 5.8 tracheostomy tube was inserted and advanced into its final position as anesthesiologist was withdrawing the tracheotomy tube. The endotracheal tube being removed and the tracheostomy reaching its final position, there was intermediate recapture of CO2 and return of normal ventilation. The tracheostomy secured in place with 2-0 Prolene sutures and a circumferential umbilical tape. The cuff was inflated with 7 mL of air. The patient remained in unchanged clinical condition at the termination of the procedure and left the operating room following an accurate needle and sponge count. His family was thoroughly informed by phone. Chest x-ray was ordered, pending at the time of this dictation. MD NIA Arvizu/HUMERA TID: [id number] RECEIPT: [id number]
--- NOTE | 2025-01-22 16:33 | DVHPN2 ---
Progress Note Date Seen: Jan 22, 2025 Medical Necessity Reason Pt with a Central, PICC or Fol: Yes The following are medically ne: PICC Line, Valenzuela Catheter Reason for valenzuela catheter: Strict I&O Subjective Review of Systems: Deferred Objective vital signs Vital Sign Date Time Temp Pulse Resp B/P (MAP) Pulse Ox O2 Delivery O2 Flow Rate FiO2 01/22/25 16:00 24 98 Mechanical Ventilator+ 30 30 01/22/25 16:00 131 01/22/25 14:27 111/79 (90) 01/22/25 12:45 98.6 209.5 Total Intake and Output 01/21/25 01/21/25 01/22/25 15:00 23:00 07:00 Intake Total 16 ml 701 ml 16 ml Output Total 1300 ml 1275 ml Balance 16 ml -599 ml -1259 ml medications Current Medications Medications Dose Ordered Sig/Fatoumata Route Start Time Stop Time Status Last Admin Dose Admin Nitroglycerin 0.4 mg Q5MINP PRN SL 01/08/25 21:45 Morphine Sulfate 2 mg Q30M PRN IV 01/08/25 21:45 Cancel Pantoprazole Sodium 40 mg DAILY IV 01/13/25 10:00 01/22/25 15:08 40 MG Diagnostic Test (Pha) 1 strip Q6HR 01/14/25 18:00 01/22/25 15:09 1 STRIP Insulin Human Regular Q6HR SC 01/14/25 18:00 01/17/25 17:48 2 UNITS Dextrose 50 ml UD PRN IV 01/14/25 16:00 Enteral Nutritional Formula 1,000 ml 30ML/HR GT 01/15/25 11:45 01/17/25 17:38 1,000 ML Sodium Chloride 10 ml QSHIFT@10,22 IV 01/15/25 22:00 01/22/25 15:08 10 ML Meropenem 50 ml @ 17 mls/hr DAILY IV 01/18/25 10:00 01/22/25 15:14 17 MLS/HR Bumetanide 25 mg/ Miscellaneous 100 ml @ 2 mls/hr Q24H IV 01/19/25 13:00 01/22/25 05:26 2 MLS/HR Metolazone 15 mg DAILY PO 01/19/25 13:00 01/21/25 11:44 15 MG Epoetin Ovidio-epbx 10,000 unit MWF GA 01/19/25 13:00 Cancel Epoetin Ovidio-epbx 10,000 unit MWF@2100 GA 01/19/25 21:00 01/21/25 21:07 10,000 UNIT Albumin Human 100 ml @ 100 mls/hr ONCE PRN IV 01/20/25 11:00 01/20/25 11:17 100 MLS/HR Vancomycin HCl 0 ml @ 0 mls/hr UD IV 01/21/25 17:00 Fluconazole 100 ml @ 100 mls/hr DAILY@0900 IV 01/22/25 09:00 01/22/25 13:23 100 MLS/HR Examination: GENERAL:Abnormal, LUNGS:Abnormal, SKIN:Abnormal, :Abnormal laboratory and microbiology Laboratory Tests 01/22/25 03:00 Test 01/22/25 03:00 Range/Units Serum Glucose 94 74-106 mg/dL Microbiology Date/Time Source Procedure Growth Status 01/11/25 07:40 Nose MRSA Screen - Final Complete 01/11/25 07:40 Urine - Valenzuela Port Urine Culture - Final Complete 01/11/25 06:23 Sputum Gram Stain - Final Complete 01/11/25 06:23 Respiratory Culture - Final Presumptive Tg albicans Complete 01/08/25 17:16 Blood Blood Culture - Final NO GROWTH AFTER 5 DAYS OF INCUBATION. Complete Problem List/Assessment/Plan Problem List/Assessment/Plan 64-year-old morbidly obese male presents to the hospital complaining of weakness was diagnosed with sepsis secondary to pneumonia and UTI diagnosis of congestive heart failure patient on hospital day 4 had cardiac arrest in his now in the ICU Acute kidney injury hemodynamically mediated in the setting of cardiac arrest -> ATN on HD No previous history of CKD Severe systolic heart failure, with acute decompensation Cardiac arrest Acute respiratory failure --> s/p trach Anasarca Anemia due to chronic kidney disease tachycardia Hemodialysis today will hold HD tomorrow and monitor on diuretics only Severe hypervolemic currently on Bumex drip 0.5 milligrams/hour, metolazone p.o. Monitor urinary output record weights daily Avoid hypotension with albumin We will continue dialysis treatments to remove volume trach tomorrow primary team has broadened IV ABX coverage due to concern for sepsis Plan discussed with: Other My Orders My Orders Orders - FLOR MOMIN MD Procedure Category Date Status Time Hemodialysis Orders ORDERS 01/22/25 Transmitted 07:00 Dialysis Nursing MARCELO 01/22/25 In Process Message 07:00 Document Fluid Input MARCELO 01/22/25 In Process And Outpu 07:00 Dietary Evaluation Review Comments: 1) Initiate Pro-Stat @ 30 mL qd 2) Initiate Migel @ 1 pk bid 3) Initiate MVI @ 1 tb qd 4) Continue to encourage optial PO intake 5) Refer to outpatient RD/[facility] for weight management 6) Continue to monitor I&O, labs, and skin integrity Expected Outcomes/Goals: 1) appetite and labs to improve 2) wounds to improve 3) f/u in 3-5 days FLOR MOMIN MD Jan 22, 2025 16:32
--- NOTE | 2025-01-22 17:25 | DVHDS2 ---
Discharge Summary Date of Admission January 08, 2025 at 21:32 Date of Discharge: Jan 22, 2025 Labs/Diagnostic Data: Laboratory Results Test 01/22/25 17:05 01/22/25 07:03 01/22/25 03:00 01/20/25 03:15 POC Glucose 79 mg/dl (70-106) Blood Gas Specimen Type Arterial Blood Gas Sample Site Right radial Blood Gas Patient Temperature 37.0 Arterial Blood Date Drawn [id number] Arterial Blood pH 7.548 (7.350-7.450) Arterial Blood Partial Pressure CO2 32.5 mmHg (35.0-48.0) Arterial Blood Partial Pressure O2 86.4 mmHg (83.0-108.0) Arterial Blood HCO3 27.7 mmol/L (21.0-28.0) Arterial Blood Oxygen Saturation 96.2 % (94.0-98.0) Arterial Blood Base Excess 5.2 mmol/L (-2.0-3.0) Arterial Blood Oxyhemoglobin 94.9 % (94.0-98.0) Arterial Blood Carboxyhemoglobin 1.2 % (0.5-1.5) Arterial Blood Methemoglobin 0.2 % (0.0-1.5) Jovi Test Modified Blood Gas Total Hemoglobin 9.00 g/dL (13.5-17.5) Blood Gas Set Respiration Rate 24.0 Blood Gas Modality Vent - ac FiO2 % 30.0 Blood Gas Tidal Volume 500.0 Blood Gas PEEP or CPAP 5.0 White Blood Count 18.1 10^3/uL (4.4-10.8) Red Blood Count 3.19 10^6/uL (4.5-5.90) Hemoglobin 8.5 g/dL (13.5-17.5) Hematocrit 26.4 % (41.0-53.0) Mean Corpuscular Volume 82.8 fL (80.0-100.0) Mean Corpuscular Hemoglobin 26.8 pg (28.0-32.0) Mean Corpuscular Hemoglobin Concent 32.3 g/dL (32.0-36.0) Red Cell Distribution Width 18.7 % (11.8-14.3) Platelet Count 215 10^3/uL (140-450) Mean Platelet Volume 8.8 fL (6.9-10.8) Neutrophils (%) (Auto) 83.8 % (37.0-80.0) Lymphocytes (%) (Auto) 7.6 % (10.0-50.0) Monocytes (%) (Auto) 6.6 % (0.0-12.0) Eosinophils (%) (Auto) 1.4 % (0.0-7.0) Basophils (%) (Auto) 0.6 % (0.0-2.0) Neutrophils # (Auto) 15.1 10 ^3/uL (1.6-8.6) Lymphocytes # (Auto) 1.4 10 ^3/uL (0.4-5.4) Monocytes # (Auto) 1.2 10 ^3/uL (0-1.3) Eosinophils # (Auto) 0.3 10 ^3/uL (0-0.8) Basophils # (Auto) 0.1 10 ^3/uL (0-0.2) Nucleated Red Blood Cells 0.0 % Prothrombin Time 12.8 sec (9.3-11.8) Prothrombin Time INR 1.23 (0.9-1.15) Activated Partial Thromboplast Time 30.1 SEC (24.5-34.5) Sodium Level 141 mmol/L (136-145) Potassium Level 3.6 mmol/L (3.5-5.1) Chloride Level 99 mmol/L (98-107) Carbon Dioxide Level 29 mmol/L (20-31) Anion Gap 13 (5-15) Blood Urea Nitrogen 48 mg/dL (9-23) Creatinine 6.00 mg/dL (0.700-1.30) Glomerular Filtration Rate Calc 10 mL/min (>90) BUN/Creatinine Ratio 8.0 (10.0-20.0) Serum Glucose 94 mg/dL (74-106) Calcium Level 8.7 mg/dL (8.7-10.4) Total Bilirubin 3.0 mg/dL (0.2-1.0) Aspartate Amino Transferase (AST) 55 U/L (13-40) Alanine Aminotransferase (ALT) 161 U/L (7-40) Alkaline Phosphatase 136 U/L (46-116) Total Protein 5.8 g/dL (5.7-8.2) Albumin 2.8 g/dL (3.2-4.8) Random Vancomycin Level 26.6 ug/mL (5-10) Magnesium Level 2.3 mg/dL (1.6-2.6) Iron Level 118 ug/dL (65-175) Total Iron Binding Capacity 260 ug/dL (250-425) Percent Iron Saturation 45.4 % (20-55) Ferritin 51.5 ng/mL (22-322) Test 01/19/25 04:15 01/16/25 12:03 01/15/25 06:48 01/14/25 06:42 Phosphorus Level 5.2 mg/dL (2.4-5.1) Hepatitis A IgM Antibody Negative Hepatitis B Surface Antigen Negative (Negative) Hepatitis B Core IgM Antibody Negative (Negative) Hepatitis C Antibody Negative (Negative) Blood Gas Critical Value Read Back Yes Blood Gas Notified Whom liu Martínez md Blood Gas Notified Time [id number] Blood Gas Notified By Air Grinder juan cowan Blood Gas Spontaneous Rate 24 Test 01/14/25 03:05 01/13/25 12:00 01/12/25 16:12 01/12/25 10:20 Ammonia < 10 umol/L (11-32) Vancomycin Level Trough 33.2 ug/mL (5-10) Urine Color Yellow (Yellow) Urine Clarity Turbid (Clear) Urine pH 5.0 (5.0-9.0) Urine Specific [place] 1.011 (1.001-1.035) Urine Protein Trace (Negative) Urine Ketones Negative (Negative) Urine Blood 3+ /uL (Negative) Urine Nitrite Negative (Negative) Urine Bilirubin Negative (Negative) Urine Urobilinogen Normal mg/dL (Negative) Urine Leukocyte Esterase Trace /uL (Negative) Urine RBC 87 /hpf (0 - 3) Urine Microscopic WBC 11 /HPF (0-3) Urine Squamous Epithelial Cells Few /hpf (<5) Urine Bacteria Few /hpf (None Seen) Urine Mucus Few (None Seen) Urine Creatinine 35.55 mg/dL (30.0-125.0) Urine Protein/Creatinine Ratio 3.47 Urine Sodium 113 mmol/L (40-220) Urine Glucose Trace mg/dL (Normal) Urine Total Protein 123.4 mg/dL (1-14) Vitamin D 25-Hydroxy 7.2 ng/mL (30.0-100) Test 01/12/25 03:50 01/11/25 09:47 01/10/25 09:04 01/09/25 06:06 Parathyroid Hormone (Intact) 266.6 pg/mL (18.4-80.1) Differential Total Cells Counted 100.0 (100) Neutrophils % (Manual) 78 (37.0-80.0) Band Neutrophils % (Manual) 12 Lymphocytes % (Manual) 3 (10.0-50.0) Monocytes % (Manual) 7 (0-12) Eosinophils % (Manual) 0 (0-7) Basophils % (Manual) 0 (0.0-2.0) Metamyelocytes % (manual) 0 Myelocytes % (Manual) 0 Promyelocytes % (Manual) 0 Blast Cells % (Manual) 0 Reactive Lymphocytes 0 Platelet Estimate Adequate Hypochromasia (manual) Moderate Anisocytosis (manual) Slight Lactic Acid Level 6.8 mmol/L (0.4-2.0) Triglycerides Level 66 mg/dL (< 150) Cholesterol Level 100 mg/dL (< 200) LDL Cholesterol 71 mg/dL (< 100) HDL Cholesterol 21 mg/dL (40-59) Prostate Specific Antigen 0.31 ng/mL (0.0-4.0) Thyroid Stimulating Hormone (TSH) 2.46 uIU/mL (0.55-4.78) Hemoglobin A1c 6.4 % A1C (<5.7) Test 01/08/25 20:48 01/08/25 20:03 01/08/25 17:16 01/08/25 16:40 Urine Hyaline Casts Few /lpf (0 - 2) Troponin I High Sensitivity 13 ng/L (</=54) B-Type Natriuretic Peptide 245.75 pg/mL (0-100) Influenza Type A Antigen Negative (Negative) Influenza Type B Antigen Negative (Negative) SARS-CoV-2 Antigen (Rapid) Negative (NEGATIVE) Other Laboratory Tests 01/22/25 03:00 Brief Hx & Hospital Course: see dictated note Condition at Discharge: Guarded Final Diagnosis/Problems List acute resp failure Discharge Disposition: Inpatient Rehab Facility Discharge Instruct/Medications Diet: See Comment Diet comment: tube feeding Activity: Bed rest Follow Up/Referral: fu with pcp Medications: per oct Discharge Statement: "Patient was advised to return to the ER or call 911 if any headaches, dizziness, shortness of breath, chest pain, abdominal pain, bleeding, fevers, or worsening of medical condition. Patient was counseled about treatment plan, medications, possible side effects, patientverbalized understanding. All questions were answered to the best of my ability. This discharge took greater then 30 minutes in planning, reviewing documentation, counseling the patient, and discussing with other team members." ASSESSMENT ASSESSMENT Assessment acute resp failure Date of Service: Jan 22, 2025 Billing Provider: MAAME MARTÍNEZ MD Common Visit Codes: 61198-FYSLBHAM CARE 30-74 MIN MAAME MARTÍNEZ MD Jan 22, 2025 17:25
--- NOTE | 2025-01-22 18:21 | DVHDS ---
DATE OF DISCHARGE: 01/22/2025 DATE OF TRANSFER TO LTAC: ____. HISTORY OF PRESENT ILLNESS: The patient is a 64-year-old gentleman who was admitted after he was found to have generalized weakness and shortness of breath with cough. The patient has history of diabetes, hypertension, gout, and asthma. HOSPITAL COURSE: The patient was intubated and mechanically ventilated for worsening respiratory failure. The patient had a code blue situation and had CPR that was performed after he was noted to be apneic. The patient was also asystolic. He had an echocardiogram done that showed an ejection fraction of 15%. The patient was also noted to be in congestive heart failure. The patient had a chest x-ray that showed evidence of pulmonary venous congestion. He had a CT of the abdomen and pelvis that showed cholelithiasis with hiatal hernia and enlarged prostate. Doppler of the lower extremity was negative for DVT. The patient had a CT of the head that showed no acute intracranial abnormality. I had a long discussion with the patient's niece who wished him to be a full code. The patient's attempts at extubation were unsuccessful. The patient had a tracheostomy done on 01/22/2025. The patient was seen in Neurology consult by Dr. Burt. EEG shows evidence of cerebral dysfunction. The patient also went to acute renal failure and has since been placed on dialysis. He has also been placed on a diuretic drip and has been diuresing. He also developed a shock liver with acute liver failure. The patient had wound cultures of the left leg that grew Pseudomonas, Staph aureus, and Strep B. Sputum grew Tg albicans. The patient was transfused 1 unit of blood. He will now be transferred to LTAC. FINAL DIAGNOSES: * Acute respiratory failure. * Status post CPR. * Acute systolic heart failure. * Morbid obesity. * Shock, questionable cardiac, questionable septic. * Diabetes mellitus. * Coagulopathy. * Acute renal failure/ATN. * Left leg wound secondary to Pseudomonas and Staph aureus. * Shock liver with acute liver failure. * Gout. * Questionable hypoxic encephalopathy. Time spent in discharge planning. Critical care time spent was 61 minutes. MD KASHIF Barajas/HUSSEIN/TANISHA TID: [id number] RECEIPT: [id number]
[2025-01-23] VITALS (106 sets, daily range): BP systolic 118–142; BP diastolic 68–91; PULSE 127–138; RESP 17–25; TEMP 98.4–99.3; O2SAT 96–100
[2025-01-23 03:53] LABS: Hemoglobin 8.6 g/dL (13.5-17.5)
[2025-01-23 03:58] LABS: Basophils # (auto) 0.1 10 ^3/uL (0-0.2); Basophils % (auto) 0.6 % (0.0-2.0); Eosinophils # (auto) 0.2 10 ^3/uL (0-0.8); Eosinophils % (auto) 1.2 % (0.0-7.0); Hematocrit 26.3 % (41.0-53.0); Lymphocytes # (auto) 1.5 10 ^3/uL (0.4-5.4); Lymphocytes % (auto) 8.9 % (10.0-50.0); Mean Corpuscular Hemoglobin 27.3 pg (28.0-32.0); Mean Corpuscular Hgb Conc. 32.8 g/dL (32.0-36.0); Mean Corpuscular Volume 83.2 fL (80.0-100.0); Monocytes # (auto) 1.4 10 ^3/uL (0-1.3); Monocytes % (auto) 8.4 % (0.0-12.0); Neutrophils # (auto) 13.2 10 ^3/uL (1.6-8.6); Neutrophils % (auto) 80.9 % (37.0-80.0); Platelet Count (auto) 243 10^3/uL (140-450); Red Blood Cells 3.16 10^6/uL (4.5-5.90); Red Cell Distribution Width 18.8 % (11.8-14.3); White Blood Cell 16.4 10^3/uL (4.4-10.8)
[2025-01-23 04:07] LABS: Anion Gap 14 (5-15); Carbon Dioxide 28 mmol/L (20-31); Chloride 99 mmol/L (98-107); Potassium 3.4 mmol/L (3.5-5.1); Sodium 141 mmol/L (136-145)
[2025-01-23 04:11] LABS: Calcium 8.4 mg/dL (8.7-10.4)
[2025-01-23 04:13] LABS: BUN/Creatinine Ratio 8.7 (10.0-20.0)
[2025-01-23 04:16] LABS: Blood Urea Nitrogen 45 mg/dL (9-23); Glucose 116 mg/dL (74-106)
[2025-01-23] MEDS: POTASSIUM CHL 20MEQ/100ML 100 ML IV ONE (05:30)
--- NOTE | 2025-01-23 06:28 | DVH ---
CHEST RADIOGRAPH Indication: Resp failure Technique: Single frontal view of the chest was obtained Comparison: XY CHEST XRAY 1 VIEW on DOS: 01/22/25 FINDINGS: Lines and Tubes: Tracheostomy tube is unchanged. The enteric tube courses below the left hemidiaphrag m and the tip extends outside the field of view. Right PICC has been removed. Left central venous cat heter terminates in the superior vena cava. Lungs: Hazy bilateral pulmonary opacities. Pleura: No effusion. No pneumothorax. Cardiomediastinal contours: Cardiomegaly. Bones: No acute osseous abnormality. IMPRESSION: 1. Bilateral pulmonary edema versus pneumonia. 2. Cardiomegaly.
[2025-01-23 06:31] LABS: Base Excess 6.9 mmol/L (-2.0-3.0)
--- NOTE | 2025-01-23 09:05 | DVHPN2 ---
Progress Note - Dictate Date Seen: Jan 23, 2025 Medical Necessity Reason Pt with a Central, PICC or Fol: Yes The following are medically ne: PICC Line, Valenzuela Catheter Reason for valenzuela catheter: Strict I&O Subjective Mr. Noyola is a 64 years old gentleman with a history of hypertension, diabetes, obesity, asthma, gout, the patient was came to the [facility] on 01/08/2025 with a chief company of general weakness, and he coded the same day, 01/08/2025 [id number]. He was resuscitated and has been intubated, I have seen and examined the patient, discussed with his nurse. He is responsive to painful stimuli, and he has brainstem reflexes. He is not responsive to verbal stimuli He has spontaneous movement in the lower extremities, more on the right side He is status post tracheostomy (01/22/2025) He has been off sedation since 01/14/2025 7:30 a.m. Urinalysis, 01/12/25: UTI WBC/HB/PLT/MCV, 01/13/2025: 11.3/12.6/162/81.6 PT/INR/PTT, 01/12/2025: 44.8/3.74/37.9, 01/13/2025: 29.8/3.15/38.1 BUN/CR, 01/08/2025: 16/1.08, 01/11/2025: 31/2.42, 01/13/2025: 39/3.12, 01/20/2025: 41/5.42 TBI/AST/ALT/AP, 01/08/2025: 1/17/19/133, : 1.9/> 6000/4946/195 01/20/2025, 3.2/78/271/143 HGB A1c, 01/09/25: 6.4 TG/HDL/LDL/HDL, 01/10/25: 66/100/71/21 EEG, 01/14/2025: Remarkably abnormal EEG Extremity venous study, 01/09/2025: No right or left femoropopliteal venous thrombosis. Chest x-ray, 01/13/2025: Cardiomegaly with mild congestion. CT head, 01/13/2025: No evidence of acute intracranial abnormality. CT head, 01/19/2025: No acute intracranial abnormality vital signs Vital Sign Date Time Temp Pulse Resp B/P (MAP) Pulse Ox O2 Delivery O2 Flow Rate FiO2 01/23/25 07:44 132 24 127/76 (93) 98 30 01/23/25 07:00 99.1 210.4 01/23/25 06:00 Mechanical Ventilator+ Total Intake and Output 01/22/25 01/22/25 01/23/25 15:00 23:00 07:00 Intake Total 104 ml 176 ml 434 ml Output Total 1175 ml 1450 ml Balance 104 ml -999 ml -1016 ml medications Current Medications Medications Dose Ordered Sig/Fatoumata Route Start Time Stop Time Status Last Admin Dose Admin Nitroglycerin 0.4 mg Q5MINP PRN SL 01/08/25 21:45 Morphine Sulfate 2 mg Q30M PRN IV 01/08/25 21:45 Cancel Pantoprazole Sodium 40 mg DAILY IV 01/13/25 10:00 01/22/25 15:08 40 MG Diagnostic Test (Pha) 1 strip Q6HR 01/14/25 18:00 01/23/25 05:30 1 STRIP Insulin Human Regular Q6HR SC 01/14/25 18:00 01/17/25 17:48 2 UNITS Dextrose 50 ml UD PRN IV 01/14/25 16:00 Enteral Nutritional Formula 1,000 ml 30ML/HR GT 01/15/25 11:45 01/23/25 08:42 1,000 ML Sodium Chloride 10 ml QSHIFT@10,22 IV 01/15/25 22:00 01/22/25 21:04 10 ML Meropenem 50 ml @ 17 mls/hr DAILY IV 01/18/25 10:00 01/22/25 15:14 17 MLS/HR Bumetanide 25 mg/ Miscellaneous 100 ml @ 2 mls/hr Q24H IV 01/19/25 13:00 01/22/25 05:26 2 MLS/HR Metolazone 15 mg DAILY PO 01/19/25 13:00 01/21/25 11:44 15 MG Epoetin Ovidio-epbx 10,000 unit MWF SC 01/19/25 13:00 Cancel Epoetin Ovidio-epbx 10,000 unit MWF@2100 SC 01/19/25 21:00 01/21/25 21:07 10,000 UNIT Albumin Human 100 ml @ 100 mls/hr ONCE PRN IV 01/20/25 11:00 01/20/25 11:17 100 MLS/HR Vancomycin HCl 0 ml @ 0 mls/hr UD IV 01/21/25 17:00 Fluconazole 100 ml @ 100 mls/hr DAILY@0900 IV 01/22/25 09:00 01/23/25 08:21 100 MLS/HR objective The patient is well-nourished and well-developed with no distress. The patient is intubated Edema in the lower extremities and torso MENTAL STATUS: Subjective CRANIAL NERVES: Pupils are equal, round and reactive.There are corneal reflexes and doll's eyes phenomenon. No signs of facial weakness. There are gagging or coughing reflexes SENSATION: Responsive to pain MOTOR: Normal tone in the upper and lower extremity. Normal muscle bulk. No fasciculations. No spontaneous movement. REFLEXES: Deep tendon reflexes are symmetrical. No pathological reflexes. CEREBELLAR/COORDINATION: Deferred laboratory and microbiology Laboratory Tests 01/23/25 03:10 Test 01/23/25 03:10 Range/Units Serum Glucose 116 H 74-106 mg/dL Problem List Altered mental status/coma Hypoxic encephalopathy Metabolic encephalopathy Cardiopulmonary arrest Respiratory failure, status post tracheostomy Urinary tract infection ? Sepsis, Shock Cardiologic general? Septic shock Kidney failure Shocked liver Morbid obesity Diffuse edema Coagulopathy, Chronic wound in the skin Hemorrhage Permanent vegetative status Assessment/Plan Monitoring Supportive treatment Follow up EEG Follow up CT head MRI head (he was too wide to fit into the MRI machine) ICU care Follow-up lab On targeted temperature management Respiratory support/vent management Stabilize vitals/pressor drip Oxygen IV antibiotics Wound Care Pulmonology on case Nephrology on case He needs feeding tube insertion More recommendation per clinical course This medical document was created using an electronic medical record system with [employer] dictation system. Although this document has been carefully reviewed, there may still be some phonetic and typographical errors. These areas are purely typographical due to imperfections of the software programs, and do not reflect any compromise in the patient's medical care. Prognosis guarded Dietary Evaluation Review Comments: 1) Initiate Pro-Stat @ 30 mL qd 2) Initiate Migel @ 1 pk bid 3) Initiate MVI @ 1 tb qd 4) Continue to encourage optial PO intake 5) Refer to outpatient RD/CDCES for weight management 6) Continue to monitor I&O, labs, and skin integrity Expected Outcomes/Goals: 1) appetite and labs to improve 2) wounds to improve 3) f/u in 3-5 days Plan discussed with: Other SANTANA NAVARRO MD Jan 23, 2025 09:04
--- NOTE | 2025-01-23 11:58 | DVHPN2 ---
Progress Note Date Seen: Jan 23, 2025 Medical Necessity Reason Pt with a Central, PICC or Fol: Yes The following are medically ne: PICC Line, Valenzuela Catheter Reason for valenzuela catheter: Strict I&O Subjective Review of Systems: Deferred Objective vital signs Vital Sign Date Time Temp Pulse Resp B/P (MAP) Pulse Ox O2 Delivery O2 Flow Rate FiO2 01/23/25 11:30 99.0 131 24 137/80 (99) 99 210.2 01/23/25 10:24 30 01/23/25 10:00 Mechanical Ventilator+ Total Intake and Output 01/22/25 01/22/25 01/23/25 15:00 23:00 07:00 Intake Total 104 ml 176 ml 486 ml Output Total 1175 ml 1450 ml Balance 104 ml -999 ml -964 ml medications Current Medications Medications Dose Ordered Sig/Fatoumata Route Start Time Stop Time Status Last Admin Dose Admin Nitroglycerin 0.4 mg Q5MINP PRN SL 01/08/25 21:45 Morphine Sulfate 2 mg Q30M PRN IV 01/08/25 21:45 Cancel Pantoprazole Sodium 40 mg DAILY IV 01/13/25 10:00 01/23/25 10:26 40 MG Diagnostic Test (Pha) 1 strip Q6HR 01/14/25 18:00 01/23/25 11:51 1 STRIP Insulin Human Regular Q6HR SC 01/14/25 18:00 01/17/25 17:48 2 UNITS Dextrose 50 ml UD PRN IV 01/14/25 16:00 Enteral Nutritional Formula 1,000 ml 30ML/HR GT 01/15/25 11:45 01/23/25 08:42 1,000 ML Sodium Chloride 10 ml QSHIFT@10,22 IV 01/15/25 22:00 01/23/25 10:26 10 ML Meropenem 50 ml @ 17 mls/hr DAILY IV 01/18/25 10:00 01/23/25 10:26 17 MLS/HR Bumetanide 25 mg/ Miscellaneous 100 ml @ 2 mls/hr Q24H IV 01/19/25 13:00 01/22/25 05:26 2 MLS/HR Metolazone 15 mg DAILY PO 01/19/25 13:00 01/23/25 10:26 15 MG Epoetin Ovidio-epbx 10,000 unit MWF [place] 01/19/25 13:00 Cancel Epoetin Ovidio-epbx 10,000 unit MWF@2100 [place] 01/19/25 21:00 01/21/25 21:07 10,000 UNIT Albumin Human 100 ml @ 100 mls/hr ONCE PRN IV 01/20/25 11:00 01/20/25 11:17 100 MLS/HR Vancomycin HCl 0 ml @ 0 mls/hr UD IV 01/21/25 17:00 Fluconazole 100 ml @ 100 mls/hr DAILY@0900 IV 01/22/25 09:00 01/23/25 08:21 100 MLS/HR Examination: GENERAL:Abnormal, LUNGS:Abnormal, ABDOMEN:Abnormal, SKIN:Abnormal laboratory and microbiology Laboratory Tests 01/23/25 03:10 Test 01/23/25 03:10 Range/Units Serum Glucose 116 H 74-106 mg/dL Microbiology Date/Time Source Procedure Growth Status 01/11/25 07:40 Nose MRSA Screen - Final Complete 01/11/25 07:40 Urine - Valenzuela Port Urine Culture - Final Complete 01/11/25 06:23 Sputum Gram Stain - Final Complete 01/11/25 06:23 Respiratory Culture - Final Presumptive Tg albicans Complete 01/08/25 17:16 Blood Blood Culture - Final NO GROWTH AFTER 5 DAYS OF INCUBATION. Complete Problem List/Assessment/Plan Problem List/Assessment/Plan 64-year-old morbidly obese male presents to the hospital complaining of weakness was diagnosed with sepsis secondary to pneumonia and UTI diagnosis of congestive heart failure patient on hospital day 4 had cardiac arrest in his now in the ICU Acute kidney injury hemodynamically mediated in the setting of cardiac arrest -> ATN on HD No previous history of CKD Severe systolic heart failure, with acute decompensation Cardiac arrest Acute respiratory failure --> s/p trach Anasarca Anemia due to chronic kidney disease tachycardia will hold HD today and monitor on diuretics only Severe hypervolemic currently on Bumex drip 0.5 milligrams/hour, metolazone p.o., replace potassium today orally Monitor urinary output record weights daily Avoid hypotension with albumin We will continue dialysis treatments to remove volume trach primary team has broadened IV ABX coverage due to concern for sepsis Plan discussed with: Other Dietary Evaluation Review Comments: 1) Initiate Pro-Stat @ 30 mL qd 2) Initiate Migel @ 1 pk bid 3) Initiate MVI @ 1 tb qd 4) Continue to encourage optial PO intake 5) Refer to outpatient RD/[facility] for weight management 6) Continue to monitor I&O, labs, and skin integrity Expected Outcomes/Goals: 1) appetite and labs to improve 2) wounds to improve 3) f/u in 3-5 days Critical Care Time (mins): 33 FLOR MOMIN MD Jan 23, 2025 11:57
[2025-01-23 13:39] LABS: Alkaline Phosphatase 175 U/L (46-116); Anion Gap 13 (5-15); Aspartate Aminotransferase 48 U/L (<34); BUN/Creatinine Ratio 9.4 (10.0-20.0); Blood Urea Nitrogen 55 mg/dL (9-23); Calcium 8.9 mg/dL (8.7-10.4); Carbon Dioxide 28 mmol/L (20-31); Chloride 102 mmol/L (98-107); Glucose 140 mg/dL (74-106); Potassium 3.5 mmol/L (3.5-5.1); Sodium 143 mmol/L (136-145)
[2025-01-23 13:40] LABS: Alanine Aminotransferase 124 U/L (7-40); Albumin 2.6 g/dL (3.2-4.8); Bilirubin, Total 2.9 mg/dL (0.2-1.0); Total Protein 5.5 g/dL (5.7-8.2)
[2025-01-23] MEDS ORDERED: POTASSIUM EFFERVESENT TAB 25 MEQ GT ONE (14:45)
[2025-01-23] MEDS: VANCOMYCIN 500mg/100mL 100 ML IV ONE (15:43)
[2025-01-23] MEDS: POTASSIUM EFFERVESENT TAB 25 MEQ GT ONE (16:38)
--- NOTE | 2025-01-23 18:16 | DVHPNRES ---
Progress Note Date Seen: Jan 23, 2025 Resident Creating Document: PHAN MONSON RESIDENT Medical Necessity Reason Pt with a Central, PICC or Fol: Yes The following are medically ne: PICC Line, Valenzuela Catheter Reason for valenzuela catheter: Strict I&O Medical Necessity Reason This is a 64 year old male who was admitted on 01/08/2025 for generalized weakness and shortness of breaths. Patient was initially admitted to telemetry coded require multiple CPR after cardiac arrest. He was intubated and mechanically ventilated on 01/11/2025. He was unable to wean off the ventilator. Thus he had t tracheostomy placed yesterday January 22, 2025. Right now patient has been accepted at [facility], [place] and just waiting for a bed. Patient is seen and examined today lying in bed connecte to his IV medications. Does not appear to be any from a respiratory distress. No new complaints. Chest x-ray showed 1. Bilateral pulmonary edema versus pneumonia. Subjective Review of Systems unable to assess Objective vital signs Vital Sign Date Time Temp Pulse Resp B/P (MAP) Pulse Ox O2 Delivery O2 Flow Rate FiO2 01/23/25 16:19 132 24 128/77 (94) 98 30 01/23/25 16:00 98.6 209.5 01/23/25 16:00 Mechanical Ventilator+ Total Intake and Output 01/22/25 01/22/25 01/23/25 15:00 23:00 07:00 Intake Total 104 ml 176 ml 486 ml Output Total 1175 ml 1450 ml Balance 104 ml -999 ml -964 ml medications Current Medications Medications Dose Ordered Sig/Fatoumata Route Start Time Stop Time Status Last Admin Dose Admin Nitroglycerin 0.4 mg Q5MINP PRN SL 01/08/25 21:45 Morphine Sulfate 2 mg Q30M PRN IV 01/08/25 21:45 Cancel Pantoprazole Sodium 40 mg DAILY IV 01/13/25 10:00 01/23/25 10:26 40 MG Diagnostic Test (Pha) 1 strip Q6HR 01/14/25 18:00 01/23/25 17:22 1 STRIP Insulin Human Regular Q6HR SC 01/14/25 18:00 01/23/25 17:29 2 UNITS Dextrose 50 ml UD PRN IV 01/14/25 16:00 Enteral Nutritional Formula 1,000 ml 30ML/HR GT 01/15/25 11:45 01/23/25 08:42 1,000 ML Sodium Chloride 10 ml QSHIFT@10,22 IV 01/15/25 22:00 01/23/25 10:26 10 ML Meropenem 50 ml @ 17 mls/hr DAILY IV 01/18/25 10:00 01/23/25 10:26 17 MLS/HR Bumetanide 25 mg/ Miscellaneous 100 ml @ 2 mls/hr Q24H IV 01/19/25 13:00 01/23/25 13:30 2 MLS/HR Metolazone 15 mg DAILY PO 01/19/25 13:00 01/23/25 10:26 15 MG Epoetin Ovidio-epbx 10,000 unit MWF SC 01/19/25 13:00 Cancel Epoetin Ovidio-epbx 10,000 unit MWF@2100 SC 01/19/25 21:00 01/21/25 21:07 10,000 UNIT Albumin Human 100 ml @ 100 mls/hr ONCE PRN IV 01/20/25 11:00 01/20/25 11:17 100 MLS/HR Vancomycin HCl 0 ml @ 0 mls/hr UD IV 01/21/25 17:00 Fluconazole 100 ml @ 100 mls/hr DAILY@0900 IV 01/22/25 09:00 01/23/25 08:21 100 MLS/HR Examination General Appearance: Sedated, RASS -3, afebrile HEENT: Atraumatic, Calin catheter placed on the left side ( 01/16/2025) Respiratory: Tracheostomy tube present 01/22/2025 Cardiovascular: Regular rate, Normal S1, Normal S2, No murmurs, no chest wall tenderness Abdominal: NO distention, no tenderness, bowel sounds present Extremities: immobile, extremely edmatous +++ and erythematous Left> Right, Skin is dry and warm Skin: No rashes, No breakdown, No significant lesion Neuro: sedated, unable to asses Psych/Mental Status: unable to assess laboratory and microbiology Laboratory Tests 01/23/25 13:08 01/23/25 03:10 Test 01/23/25 13:08 Range/Units Serum Glucose 140 H 74-106 mg/dL Microbiology Date/Time Source Procedure Growth Status 01/11/25 07:40 Nose MRSA Screen - Final Complete 01/11/25 07:40 Urine - Valenzuela Port Urine Culture - Final Complete 01/11/25 06:23 Sputum Gram Stain - Final Complete 01/11/25 06:23 Respiratory Culture - Final Presumptive Silverio albicans Complete 01/08/25 17:16 Blood Blood Culture - Final NO GROWTH AFTER 5 DAYS OF INCUBATION. Complete Problem List/Assessment/Plan Problem List/Assessment/Plan Assessment and plan: NEURO: Possible hypoxic encephalopathy due to cardiac arrest - CT head without contrast: No evidence of acute intracranial abnormality. -On targeted temperature management - Respiratory support/vent management Stabilize vitals/pressor drip CARDIOVASCULAR: Acute systolic heart failure - Continue on iv bumex drip Respiratory : - Acute hypoxic respiratory failure - s/p tracheostomy tube,01/23/2025 - respiratory culture: silverio albucan Continue IV Fluconazole GASTROINTESTINAL: Shock liver -Monitor HEMATOLOGY: Acute microcytic hypochronic blood loss Anemia, hgb: 6.9 Transfused 1 PRBC 01/16/2025 No obvious bleeding noted externally GENITOURINARY: SUSAN due to ATN -IV bumex drip - calin catheter placed today 01/16/2025 - For HD METABOLIC: Hyponatremia Hyperkalemia, resolved - Replace electrolytes as needed Skin: Left leg wound wound culture grew Strep Group B , stapth aureus, pseudomonas aeruginosa - IV meropenem - Vancomycin per pharmacy Infectious Disease: Sepsis due to UTI - Wound culture: Strep Group B , staph aureus, pseudomonas aeruginosa - Meropenem - Vancomycin per pharmacy Vascular: Shock -? cardiac vs septic - Continue Antibiotics DIET: Nepro with carbs DVT prophylax: Lovenox GI prophylaxis: Protonix Bowel regimen: Code status: Full code LINES/DRAINS/ACCESS: IV access: PICC line right arm placed on 01/15/2025, femoral line removed 01/15/2025 Drips: off all sedatives and analgesics Valenzuela catheter: Placed on 12/29/24 DISPOSITION: ICU--> LTAC Critical care time spent more than 41 minutes. Case discussed with Dr. Ziegler Plan discussed with: Other (RN) Plan discussed with: Patient, Other (nurse) My Orders My Orders Orders - PHAN MONSNO Procedure Category Date Status Time Basic Metabolic Panel LAB 01/24/25 Verified 04:00 Complete Blood Count LAB 01/24/25 Verified 04:00 Chest Xray 1 View XY 6/14/25 Verified 04:00 Dietary Evaluation Review Comments: 1) Initiate Pro-Stat @ 30 mL qd 2) Initiate Migel @ 1 pk bid 3) Initiate MVI @ 1 tb qd 4) Continue to encourage optial PO intake 5) Refer to outpatient RD/CD[facility] for weight management 6) Continue to monitor I&O, labs, and skin integrity Expected Outcomes/Goals: 1) appetite and labs to improve 2) wounds to improve 3) f/u in 3-5 days Date of Service: Jan 23, 2025 Billing Provider: ARJUN ZIEGLER MD Common Visit Codes: NOT BILLABLE PHAN MONSON RESIDENT Jan 23, 2025 18:16 ARJUN ZIEGLER MD Jan 24, 2025 13:00
[2025-01-24] VITALS (88 sets, daily range): BP systolic 65–151; BP diastolic 33–110; PULSE 99–136; RESP 15–57; TEMP 98.1–99.5; O2SAT 91–100
[2025-01-24 04:34] LABS: Basophils # (auto) 0.1 10 ^3/uL (0-0.2); Basophils % (auto) 0.5 % (0.0-2.0); Eosinophils # (auto) 0.3 10 ^3/uL (0-0.8); Eosinophils % (auto) 1.4 % (0.0-7.0); Hematocrit 27.6 % (41.0-53.0); Hemoglobin 8.9 g/dL (13.5-17.5); Lymphocytes % (auto) 10.7 % (10.0-50.0); Mean Corpuscular Hemoglobin 27.1 pg (28.0-32.0); Mean Corpuscular Hgb Conc. 32.4 g/dL (32.0-36.0); Mean Corpuscular Volume 83.7 fL (80.0-100.0); Monocytes # (auto) 1.5 10 ^3/uL (0-1.3); Monocytes % (auto) 8.1 % (0.0-12.0); Neutrophils # (auto) 14.7 10 ^3/uL (1.6-8.6); Neutrophils % (auto) 79.3 % (37.0-80.0); Nucleated Red Blood Cells % 0.1 %; Platelet Count (auto) 289 10^3/uL (140-450); Red Blood Cells 3.29 10^6/uL (4.5-5.90); Red Cell Distribution Width 19.6 % (11.8-14.3); White Blood Cell 18.5 10^3/uL (4.4-10.8)
[2025-01-24 04:41] LABS: Chloride 101 mmol/L (98-107); Sodium 143 mmol/L (136-145)
[2025-01-24 04:42] LABS: Anion Gap 12 (5-15); Calcium 9.8 mg/dL (8.7-10.4); Carbon Dioxide 30 mmol/L (20-31)
[2025-01-24 04:47] LABS: BUN/Creatinine Ratio 9.5 (10.0-20.0)
[2025-01-24 04:55] LABS: Blood Urea Nitrogen 62 mg/dL (9-23); Glucose 121 mg/dL (74-106)
--- NOTE | 2025-01-24 05:32 | DVH ---
CHEST RADIOGRAPH Indication: rule out aspiration Technique: Single frontal view of the chest was obtained Comparison: XY CHEST PORTABLE on DOS: 01/23/25, XY CHEST XRAY 1 VIEW on DOS: 01/22/25, XY CHEST PORTABL E on DOS: 01/22/25 IMPRESSION: Inferior aspect of the lungs is excluded from this examination. The heart appears prominent size. T here is moderate pulmonary vascular congestion. Likely small bilateral pleural effusions. Tracheosto my tube appears unchanged. Enteric tube tip is beyond the inferior level of this examination. Right PICC line tip in the region of the superior vena cava. No pneumothorax. No significant interval [facility].
[2025-01-24 07:55] LABS: Base Excess 4.9 mmol/L (-2.0-3.0)
[2025-01-24] MEDS: BUMETANIDE INJECTION 25 MG in GIVE UN-DILUTED 0 ML IV SCH (08:27)
--- NOTE | 2025-01-24 11:13 | DVHPN2 ---
Assessment/Plan Assessment/Plan ICU note covering for dr Reynolds worsening resp alk, adjusted vent settings, c/w hd and diuresis. pending william bed. physical exam off sedation trach in place sync with vent PERRLA not responding clear breath sounds s1 s2 tachy abdomen soft le edema vent VC/AC 24 500 30% 5 drips bumex 0.25 IO 24H net -2L total +6 labs imaging ekg reviewed assessment and plan acute hypoxic respiratory failure req mechanical ventilation ventilator dependent acute on chronic systolic heart failure acute metabolic/toxic encephalopathy septic shock multiple source SUSAN on CKD likely ATN on HD normocytic anemia likely blood loss s/p prbc leukocytosis shock liver resolving primary respiratory alkalosis pneumonia gp vs gn, fungal wound infection MSSA, pseudomonas, GBS morbid obesity aflutter HFrEF c/w mechanical vent, decrease RR to 20, repeat gas in 2H c/w HD per renal c/w bumex drip c/w vanc nellie and diflucan start metop succinate for LTACH transfer to [place] lines trach R picc L IJ HD cath valenzuela NGT gi ppx protonix dvt ppx restart heparin diet TF condition critical prognosis poor full code critical care time 60 minutes Plan discussed with: Other My Orders Orders - KAYKAY BALTAZAR MD Procedure Category Date Status Time Heparin Sodium PHA 01/24/25 Logged (Porcine) 22:00 Date of Service: Jan 24, 2025 Billing Provider: KAYKAY BALTAZAR MD Common Visit Codes: [id number] CARE 30-74 MIN KAYKAY BALTAZAR MD Jan 24, 2025 11:13
--- NOTE | 2025-01-24 14:11 | DVHPN2 ---
Progress Note - Dictate Date Seen: Jan 24, 2025 Medical Necessity Reason Pt with a Central, PICC or Fol: Yes The following are medically ne: PICC Line, Valenzuela Catheter Reason for valenzuela catheter: Strict I&O vital signs Vital Sign Date Time Temp Pulse Resp B/P (MAP) Pulse Ox O2 Delivery O2 Flow Rate FiO2 01/24/25 13:00 99.1 133 18 140/90 (107) 100 210.4 01/24/25 12:00 30 01/24/25 12:00 Mechanical Ventilator+ Total Intake and Output 01/23/25 01/23/25 01/24/25 15:00 23:00 07:00 Intake Total 216 ml 602 ml 506 ml Output Total 1750 ml 1700 ml Balance 216 ml -1148 ml -1194 ml medications Current Medications Medications Dose Ordered Sig/Fatoumata Route Start Time Stop Time Status Last Admin Dose Admin Nitroglycerin 0.4 mg Q5MINP PRN SL 01/08/25 21:45 Morphine Sulfate 2 mg Q30M PRN IV 01/08/25 21:45 Cancel Pantoprazole Sodium 40 mg DAILY IV 01/13/25 10:00 01/24/25 09:46 40 MG Diagnostic Test (Pha) 1 strip Q6HR 01/14/25 18:00 01/24/25 12:38 1 STRIP Insulin Human Regular Q6HR SC 01/14/25 18:00 01/24/25 12:38 2 UNITS Dextrose 50 ml UD PRN IV 01/14/25 16:00 Enteral Nutritional Formula 1,000 ml 30ML/HR GT 01/15/25 11:45 01/23/25 08:42 1,000 ML Sodium Chloride 10 ml QSHIFT@10,22 IV 01/15/25 22:00 01/24/25 09:46 10 ML Meropenem 50 ml @ 17 mls/hr DAILY IV 01/18/25 10:00 01/24/25 09:47 17 MLS/HR Metolazone 15 mg DAILY PO 01/19/25 13:00 01/23/25 10:26 15 MG Epoetin Ovidio-epbx 10,000 unit MWF SC 01/19/25 13:00 Cancel Epoetin Ovidio-epbx 10,000 unit MWF@2100 SC 01/19/25 21:00 01/21/25 21:07 10,000 UNIT Albumin Human 100 ml @ 100 mls/hr ONCE PRN IV 01/20/25 11:00 01/20/25 11:17 100 MLS/HR Vancomycin HCl 0 ml @ 0 mls/hr UD IV 01/21/25 17:00 Fluconazole 100 ml @ 100 mls/hr DAILY@0900 IV 01/22/25 09:00 01/24/25 08:27 100 MLS/HR Bumetanide 25 mg/ Miscellaneous 100 ml @ 1 mls/hr Q24H IV 01/24/25 07:15 01/24/25 08:27 1 MLS/HR Heparin Sodium (Porcine) 5,000 units Q12HR SC 01/24/25 22:00 laboratory and microbiology Laboratory Tests 01/24/25 04:00 Test 01/24/25 04:00 Range/Units Serum Glucose 121 H 74-106 mg/dL Assessment/Plan Impression Acute hypoxemic respiratory failure S/p cardiac arrest S/p tracheostomy Morbid obesity Anemia SUSAN Patient seen and examined in ICU Events On mechanical ventilation S/p tracheostomy PEEP 5, FiO2 30% On Bumex drip Labs and imaging reviewed ABG reviewed pH 7.58, pCO2 28, pO2 93 Management Vent support Titrate to maintain sats 90% or above Trache care per RT protocols Continue antibiotics and antifungals F/u cultures and ID Bronchodilators Monitor renal function HD as per nephrology Management deferred Monitor electrolytes Supplement as needed Awaiting LTACH transfer DVT prophylaxis Critical care time 35 minutes Dietary Evaluation Review Comments: 1) Initiate Pro-Stat @ 30 mL qd 2) Initiate Migel @ 1 pk bid 3) Initiate MVI @ 1 tb qd 4) Continue to encourage optial PO intake 5) Refer to outpatient RD/CD[facility] for weight management 6) Continue to monitor I&O, labs, and skin integrity Expected Outcomes/Goals: 1) appetite and labs to improve 2) wounds to improve 3) f/u in 3-5 days Plan discussed with: Other (Rn) ARJUN TENORIO MD Jan 24, 2025 14:11
--- NOTE | 2025-01-24 16:17 | DVHPN2 ---
Progress Note Date Seen: Jan 24, 2025 Medical Necessity Reason Pt with a Central, PICC or Fol: Yes The following are medically ne: PICC Line, Valenzuela Catheter Reason for valenzuela catheter: Strict I&O Subjective Review of Systems: Deferred Objective vital signs Vital Sign Date Time Temp Pulse Resp B/P (MAP) Pulse Ox O2 Delivery O2 Flow Rate FiO2 01/24/25 15:30 98.6 118 21 82/51 (61) 100 209.5 01/24/25 14:19 30 01/24/25 14:00 Mechanical Ventilator+ Total Intake and Output 01/23/25 01/23/25 01/24/25 15:00 23:00 07:00 Intake Total 216 ml 602 ml 506 ml Output Total 1750 ml 1700 ml Balance 216 ml -1148 ml -1194 ml medications Current Medications Medications Dose Ordered Sig/Fatoumata Route Start Time Stop Time Status Last Admin Dose Admin Nitroglycerin 0.4 mg Q5MINP PRN SL 01/08/25 21:45 Morphine Sulfate 2 mg Q30M PRN IV 01/08/25 21:45 Cancel Pantoprazole Sodium 40 mg DAILY IV 01/13/25 10:00 01/24/25 09:46 40 MG Diagnostic Test (Pha) 1 strip Q6HR 01/14/25 18:00 01/24/25 12:38 1 STRIP Insulin Human Regular Q6HR SC 01/14/25 18:00 01/24/25 12:38 2 UNITS Dextrose 50 ml UD PRN IV 01/14/25 16:00 Enteral Nutritional Formula 1,000 ml 30ML/HR GT 01/15/25 11:45 01/23/25 08:42 1,000 ML Sodium Chloride 10 ml QSHIFT@10,22 IV 01/15/25 22:00 01/24/25 09:46 10 ML Meropenem 50 ml @ 17 mls/hr DAILY IV 01/18/25 10:00 01/24/25 09:47 17 MLS/HR Metolazone 15 mg DAILY PO 01/19/25 13:00 01/23/25 10:26 15 MG Epoetin Ovidio-epbx 10,000 unit MWF SC 01/19/25 13:00 Cancel Epoetin Ovidio-epbx 10,000 unit MWF@2100 SC 01/19/25 21:00 01/21/25 21:07 10,000 UNIT Albumin Human 100 ml @ 100 mls/hr ONCE PRN IV 01/20/25 11:00 01/20/25 11:17 100 MLS/HR Vancomycin HCl 0 ml @ 0 mls/hr UD IV 01/21/25 17:00 Fluconazole 100 ml @ 100 mls/hr DAILY@0900 IV 01/22/25 09:00 01/24/25 08:27 100 MLS/HR Bumetanide 25 mg/ Miscellaneous 100 ml @ 1 mls/hr Q24H IV 01/24/25 07:15 01/24/25 08:27 1 MLS/HR Heparin Sodium (Porcine) 5,000 units Q12HR SC 01/24/25 22:00 Examination: GENERAL:Abnormal, LUNGS:Abnormal, SKIN:Abnormal laboratory and microbiology Laboratory Tests 01/24/25 04:00 Test 01/24/25 04:00 Range/Units Serum Glucose 121 H 74-106 mg/dL Microbiology Date/Time Source Procedure Growth Status 01/11/25 07:40 Nose MRSA Screen - Final Complete 01/11/25 07:40 Urine - Valenzuela Port Urine Culture - Final Complete 01/11/25 06:23 Sputum Gram Stain - Final Complete 01/11/25 06:23 Respiratory Culture - Final Presumptive Tg albicans Complete 01/08/25 17:16 Blood Blood Culture - Final NO GROWTH AFTER 5 DAYS OF INCUBATION. Complete Problem List/Assessment/Plan Problem List/Assessment/Plan 64-year-old morbidly obese male presents to the hospital complaining of weakness was diagnosed with sepsis secondary to pneumonia and UTI diagnosis of congestive heart failure patient on hospital day 4 had cardiac arrest in his now in the ICU Acute kidney injury hemodynamically mediated in the setting of cardiac arrest -> ATN on HD No previous history of CKD Severe systolic heart failure, with acute decompensation Cardiac arrest Acute respiratory failure --> s/p trach Anasarca Anemia due to chronic kidney disease tachycardia Patient continues to have urinary output responsive to diuretics however lacks metabolic clearance, we will continue to need longer-term dialysis. Next hemodialysis treatment will be scheduled on Sunday Severe hypervolemic currently on Bumex drip 0.25 milligrams/hour, metolazone p.o., replace potassium today orally Monitor urinary output record weights daily Avoid hypotension with albumin We will continue dialysis treatments to remove volume trach primary team has broadened IV ABX coverage due to concern for sepsis Plan discussed with: Other My Orders My Orders Orders - FLOR MOMIN MD Procedure Category Date Status Time Give Un-Diluted PHA 01/24/25 In Process (Gi... W/Bumetanide 07:15 Dietary Evaluation Review Comments: 1) Initiate Pro-Stat @ 30 mL qd 2) Initiate Migel @ 1 pk bid 3) Initiate MVI @ 1 tb qd 4) Continue to encourage optial PO intake 5) Refer to outpatient RD/CD[facility] for weight management 6) Continue to monitor I&O, labs, and skin integrity Expected Outcomes/Goals: 1) appetite and labs to improve 2) wounds to improve 3) f/u in 3-5 days Critical Care Time (mins): 33 FLOR MOMIN MD Jan 24, 2025 16:17
--- NOTE | 2025-01-24 20:42 | DVHPN2 ---
Progress Note - Dictate Date Seen: Jan 24, 2025 Medical Necessity Reason Pt with a Central, PICC or Fol: Yes The following are medically ne: PICC Line, Valenzuela Catheter Reason for valenzuela catheter: Strict I&O Subjective Mr. Noyola is a 64 years old gentleman with a history of hypertension, diabetes, obesity, asthma, gout, the patient was came to the [facility] on 01/08/2025 with a chief company of general weakness, and he coded the same day, 01/08/2025 [id number]. He was resuscitated and has been intubated, I have seen and examined the patient, discussed with his nurse. He is responsive to painful stimuli, and he has brainstem reflexes. He moves the right leg from time to time He is status post tracheostomy (01/22/2025) He has been off sedation since 01/14/2025 7:30 a.m. Urinalysis, 01/12/25: UTI WBC/HB/PLT/MCV, 01/13/2025: 11.3/12.6/162/81.6 PT/INR/PTT, 01/12/2025: 44.8/3.74/37.9, 01/13/2025: 29.8/3.15/38.1 BUN/CR, 01/08/2025: 16/1.08, 01/11/2025: 31/2.42, 01/13/2025: 39/3.12, 01/20/2025: 41/5.42 TBI/AST/ALT/AP, 01/08/2025: 1/17/19/133, : 1.9/> 6000/4946/195 01/20/2025, 3.2/78/271/143 HGB A1c, 01/09/25: 6.4 TG/HDL/LDL/HDL, 01/10/25: 66/100/71/21 EEG, 01/14/2025: Remarkably abnormal EEG Extremity venous study, 01/09/2025: No right or left femoropopliteal venous thrombosis. Chest x-ray, 01/13/2025: Cardiomegaly with mild congestion. CT head, 01/13/2025: No evidence of acute intracranial abnormality. CT head, 01/19/2025: No acute intracranial abnormality vital signs Vital Sign Date Time Temp Pulse Resp B/P (MAP) Pulse Ox O2 Delivery O2 Flow Rate FiO2 01/24/25 20:30 98.8 127 21 119/78 (92) 100 209.8 01/24/25 20:23 30 01/24/25 20:00 Mechanical Ventilator+ Total Intake and Output 01/23/25 01/23/25 01/24/25 15:00 23:00 07:00 Intake Total 216 ml 602 ml 506 ml Output Total 1750 ml 1700 ml Balance 216 ml -1148 ml -1194 ml medications Current Medications Medications Dose Ordered Sig/Fatoumata Route Start Time Stop Time Status Last Admin Dose Admin Nitroglycerin 0.4 mg Q5MINP PRN SL 01/08/25 21:45 Morphine Sulfate 2 mg Q30M PRN IV 01/08/25 21:45 Cancel Pantoprazole Sodium 40 mg DAILY IV 01/13/25 10:00 01/24/25 09:46 40 MG Diagnostic Test (Pha) 1 strip Q6HR 01/14/25 18:00 01/24/25 18:25 1 STRIP Insulin Human Regular Q6HR SC 01/14/25 18:00 01/24/25 12:38 2 UNITS Dextrose 50 ml UD PRN IV 01/14/25 16:00 Enteral Nutritional Formula 1,000 ml 30ML/HR GT 01/15/25 11:45 01/23/25 08:42 1,000 ML Sodium Chloride 10 ml QSHIFT@10,22 IV 01/15/25 22:00 01/24/25 09:46 10 ML Meropenem 50 ml @ 17 mls/hr DAILY IV 01/18/25 10:00 01/24/25 09:47 17 MLS/HR Metolazone 15 mg DAILY PO 01/19/25 13:00 01/23/25 10:26 15 MG Epoetin Ovidio-epbx 10,000 unit MWF SC 01/19/25 13:00 Cancel Epoetin Ovidio-epbx 10,000 unit MWF@2100 SC 01/19/25 21:00 01/21/25 21:07 10,000 UNIT Albumin Human 100 ml @ 100 mls/hr ONCE PRN IV 01/20/25 11:00 01/20/25 11:17 100 MLS/HR Vancomycin HCl 0 ml @ 0 mls/hr UD IV 01/21/25 17:00 Fluconazole 100 ml @ 100 mls/hr DAILY@0900 IV 01/22/25 09:00 01/24/25 08:27 100 MLS/HR Bumetanide 25 mg/ Miscellaneous 100 ml @ 1 mls/hr Q24H IV 01/24/25 07:15 01/24/25 08:27 1 MLS/HR Heparin Sodium (Porcine) 5,000 units Q12HR SC 01/24/25 22:00 objective The patient is well-nourished and well-developed with no distress. The patient is intubated Edema in the lower extremities and torso MENTAL STATUS: Subjective CRANIAL NERVES: Pupils are equal, round and reactive.There are corneal reflexes and doll's eyes phenomenon. No signs of facial weakness. There are gagging or coughing reflexes SENSATION: Responsive to pain MOTOR: Normal tone in the upper and lower extremity. Normal muscle bulk. No fasciculations. Subjective REFLEXES: Deep tendon reflexes are symmetrical. No pathological reflexes. CEREBELLAR/COORDINATION: Deferred laboratory and microbiology Laboratory Tests 01/24/25 04:00 Test 01/24/25 04:00 Range/Units Serum Glucose 121 H 74-106 mg/dL Problem List Altered mental status/coma Hypoxic encephalopathy Metabolic encephalopathy Cardiopulmonary arrest Respiratory failure, status post tracheostomy Urinary tract infection ? Sepsis, Shock Cardiologic general? Septic shock Kidney failure Shocked liver Morbid obesity Diffuse edema Coagulopathy, Chronic wound in the skin Hemorrhage Permanent vegetative status Assessment/Plan Monitoring Supportive treatment MRI head (he was too wide to fit into the MRI machine) ICU care Follow-up lab On targeted temperature management Respiratory support/vent management Stabilize vitals/pressor drip Oxygen IV antibiotics Wound Care Pulmonology on case Nephrology on case He needs feeding tube insertion More recommendation per clinical course This medical document was created using an electronic medical record system with [employer] dictation system. Although this document has been carefully reviewed, there may still be some phonetic and typographical errors. These areas are purely typographical due to imperfections of the software programs, and do not reflect any compromise in the patient's medical care. Prognosis poor, guarded Dietary Evaluation Review Comments: 1) Initiate Pro-Stat @ 30 mL qd 2) Initiate Migel @ 1 pk bid 3) Initiate MVI @ 1 tb qd 4) Continue to encourage optial PO intake 5) Refer to outpatient RD/CD[facility] for weight management 6) Continue to monitor I&O, labs, and skin integrity Expected Outcomes/Goals: 1) appetite and labs to improve 2) wounds to improve 3) f/u in 3-5 days Plan discussed with: Other SANTANA NAVARRO MD Jan 24, 2025 20:42
[2025-01-24] MEDS: HEPARIN SODIUM (PORCINE) 5000 UNITS/ML 1ML VIAL SC SCH (21:00)
[2025-01-25] VITALS (92 sets, daily range): BP systolic 121–139; BP diastolic 76–95; PULSE 120–137; RESP 14–24; TEMP 98.2–99.3; O2SAT 95–100
[2025-01-25 04:15] LABS: Basophils # (auto) 0.1 10 ^3/uL (0-0.2); Basophils % (auto) 0.8 % (0.0-2.0); Hemoglobin 8.3 g/dL (13.5-17.5); Monocytes # (auto) 1.2 10 ^3/uL (0-1.3); Neutrophils # (auto) 11.2 10 ^3/uL (1.6-8.6)
[2025-01-25 04:17] LABS: Eosinophils # (auto) 0.3 10 ^3/uL (0-0.8); Eosinophils % (auto) 2.1 % (0.0-7.0); Hematocrit 24.9 % (41.0-53.0); Lymphocytes # (auto) 1.5 10 ^3/uL (0.4-5.4); Lymphocytes % (auto) 10.3 % (10.0-50.0); Mean Corpuscular Hgb Conc. 33.3 g/dL (32.0-36.0); Monocytes % (auto) 8.2 % (0.0-12.0); Neutrophils % (auto) 78.6 % (37.0-80.0); Platelet Count (auto) 265 10^3/uL (140-450); Red Blood Cells 2.96 10^6/uL (4.5-5.90); Red Cell Distribution Width 19.9 % (11.8-14.3); White Blood Cell 14.3 10^3/uL (4.4-10.8)
[2025-01-25 04:26] LABS: Anion Gap 14 (5-15); Carbon Dioxide 30 mmol/L (20-31); Potassium 3.9 mmol/L (3.5-5.1); Sodium 142 mmol/L (136-145)
[2025-01-25 04:27] LABS: Calcium 8.7 mg/dL (8.7-10.4)
[2025-01-25 04:28] LABS: Chloride 98 mmol/L (98-107)
[2025-01-25 04:32] LABS: BUN/Creatinine Ratio 10.6 (10.0-20.0); Blood Urea Nitrogen 78 mg/dL (9-23); Glucose 114 mg/dL (74-106)
[2025-01-25 04:33] LABS: Magnesium 2.7 mg/dL (1.6-2.6)
[2025-01-25 04:34] LABS: Phosphorus 6.5 mg/dL (2.4-5.1)
--- NOTE | 2025-01-25 06:27 | DVH ---
CHEST RADIOGRAPH Indication: vented Technique: Single frontal view of the chest was obtained COMPARISON: XY CHEST XRAY 1 VIEW on DOS: 01/24/25, XY CHEST PORTABLE on DOS: 01/23/25, XY CHEST XRAY 1 VIEW on DOS: 01/22/25, XY CHEST PORTABLE on DOS: 01/22/25, XY CHEST PORTABLE on DOS: 01/21/25 FINDINGS: Lines and Tubes: Tracheostomy and enteric catheter in satisfactory position Lungs: Multifocal airspace disease Pleura: No effusion. No pneumothorax. Cardiomediastinal contours: Unremarkable Bones: Unremarkable IMPRESSION: Lines and tubes in satisfactory position. No significant interval change.
[2025-01-25 08:10] LABS: Base Excess 5.7 mmol/L (-2.0-3.0)
--- NOTE | 2025-01-25 10:22 | DVHPN2 ---
Assessment/Plan Assessment/Plan ICU note covering for dr Reynolds worsening resp alk, decrease RR. pending bed at LTACH. c/w HD per renal physical exam off sedation trach in place sync with vent PERRLA not responding clear breath sounds s1 s2 tachy abdomen soft le edema vent VC/AC 24 500 30% 5 drips bumex 0.25 IO 24H net -2L total +6 labs imaging ekg reviewed assessment and plan acute hypoxic respiratory failure req mechanical ventilation ventilator dependent acute on chronic systolic heart failure acute metabolic/toxic encephalopathy septic shock multiple source SUSAN on CKD likely ATN on HD normocytic anemia likely blood loss s/p prbc leukocytosis shock liver resolving primary respiratory alkalosis pneumonia gp vs gn, fungal wound infection MSSA, pseudomonas, GBS morbid obesity aflutter HFrEF c/w mechanical vent, decrease RR to 16, repeat gas in 2H c/w HD per renal c/w bumex drip c/w vanc nellie and diflucan start metop succinate for LTACH transfer to [facility] trach R picc L IJ HD cath valenzuela NGT gi ppx protonix dvt ppx restart heparin diet TF condition critical prognosis poor full code critical care time 35 minutes Plan discussed with: Other My Orders Orders - KAYKAY BALTAZAR MD Procedure Category Date Status Time Heparin Sodium PHA 01/24/25 In Process (Porcine) 22:00 Ventilator Orders RT 01/24/25 Transmitted 11:13 Abg W/ Co-Ox RT 01/24/25 Logged 13:00 Ventilator Orders RT 01/25/25 Transmitted 10:17 Abg W/ Co-Ox RT 01/25/25 Transmitted 10:18 Metoprolol Xl PHA 01/25/25 Transmitted Succinate (Toprol Xl) 10:30 Metoprolol Xl PHA 01/26/25 Transmitted Succinate (Toprol Xl) 10:00 Date of Service: Jan 25, 2025 Billing Provider: KAYKAY BALTAZAR MD Common Visit Codes: 87566-CTFGLONE CARE 30-74 MIN KAYKAY BALTAZAR MD Jan 25, 2025 10:22
[2025-01-25] MEDS: METOPROLOL SUCCINATE XL 50 MG TAB PO ONE (10:43)
--- NOTE | 2025-01-25 11:51 | DVHPN2 ---
Progress Note Date Seen: Jan 25, 2025 Medical Necessity Reason Pt with a Central, PICC or Fol: Yes The following are medically ne: PICC Line, Valenzuela Catheter Reason for valenzuela catheter: Strict I&O Subjective Review of Systems: Deferred Objective vital signs Vital Sign Date Time Temp Pulse Resp B/P (MAP) Pulse Ox O2 Delivery O2 Flow Rate FiO2 01/25/25 11:50 133/88 01/25/25 10:45 99.3 130 16 100 210.7 01/25/25 10:29 30 01/25/25 10:00 Mechanical Ventilator+ Total Intake and Output 01/24/25 01/24/25 01/25/25 15:00 23:00 07:00 Intake Total 160 ml 304 ml 428 ml Output Total 1500 ml 1500 ml Balance 160 ml -1196 ml -1072 ml medications Current Medications Medications Dose Ordered Sig/Fatoumata Route Start Time Stop Time Status Last Admin Dose Admin Nitroglycerin 0.4 mg Q5MINP PRN SL 01/08/25 21:45 Morphine Sulfate 2 mg Q30M PRN IV 01/08/25 21:45 Cancel Pantoprazole Sodium 40 mg DAILY IV 01/13/25 10:00 01/25/25 09:53 40 MG Diagnostic Test (Pha) 1 strip Q6HR 01/14/25 18:00 01/25/25 06:16 1 STRIP Insulin Human Regular Q6HR SC 01/14/25 18:00 01/24/25 12:38 2 UNITS Dextrose 50 ml UD PRN IV 01/14/25 16:00 Enteral Nutritional Formula 1,000 ml 30ML/HR GT 01/15/25 11:45 01/23/25 08:42 1,000 ML Sodium Chloride 10 ml QSHIFT@10,22 IV 01/15/25 22:00 01/25/25 09:53 10 ML Meropenem 50 ml @ 17 mls/hr DAILY IV 01/18/25 10:00 01/25/25 09:53 17 MLS/HR Metolazone 15 mg DAILY PO 01/19/25 13:00 01/25/25 10:44 15 MG Epoetin Ovidio-epbx 10,000 unit MWF SC 01/19/25 13:00 Cancel Epoetin Ovidio-epbx 10,000 unit MWF@2100 SC 01/19/25 21:00 01/21/25 21:07 10,000 UNIT Albumin Human 100 ml @ 100 mls/hr ONCE PRN IV 01/20/25 11:00 01/20/25 11:17 100 MLS/HR Vancomycin HCl 0 ml @ 0 mls/hr UD IV 01/21/25 17:00 Fluconazole 100 ml @ 100 mls/hr DAILY@0900 IV 01/22/25 09:00 01/25/25 08:56 100 MLS/HR Bumetanide 25 mg/ Miscellaneous 100 ml @ 1 mls/hr Q24H IV 01/24/25 07:15 01/25/25 11:50 1 MLS/HR Heparin Sodium (Porcine) 5,000 units Q12HR SC 01/24/25 22:00 01/25/25 10:02 5,000 UNITS Metoprolol Succinate 25 mg DAILY PO 01/26/25 10:00 Examination: GENERAL:Abnormal, LUNGS:Abnormal, CVS:Abnormal laboratory and microbiology Laboratory Tests 01/25/25 03:57 Test 01/25/25 03:57 Range/Units Serum Glucose 114 H 74-106 mg/dL Microbiology Date/Time Source Procedure Growth Status 01/11/25 07:40 Nose MRSA Screen - Final Complete 01/11/25 07:40 Urine - Valenzuela Port Urine Culture - Final Complete 01/11/25 06:23 Sputum Gram Stain - Final Complete 01/11/25 06:23 Respiratory Culture - Final Presumptive Tg albicans Complete 01/08/25 17:16 Blood Blood Culture - Final NO GROWTH AFTER 5 DAYS OF INCUBATION. Complete Problem List/Assessment/Plan Problem List/Assessment/Plan 64-year-old morbidly obese male presents to the hospital complaining of weakness was diagnosed with sepsis secondary to pneumonia and UTI diagnosis of congestive heart failure patient on hospital day 4 had cardiac arrest in his now in the ICU Acute kidney injury hemodynamically mediated in the setting of cardiac arrest -> ATN on HD No previous history of CKD Severe systolic heart failure, with acute decompensation Cardiac arrest Acute respiratory failure --> s/p trach Anasarca Anemia due to chronic kidney disease tachycardia Patient continues to have urinary output responsive to diuretics however lacks metabolic clearance, we will continue to need longer-term dialysis. Next hemodialysis treatment will be scheduled on Sunday Severe hypervolemic currently on Bumex drip 0.25 milligrams/hour, metolazone p.o., replace potassium today orally Monitor urinary output record weights daily Avoid hypotension with albumin We will continue dialysis treatments to remove volume trach primary team has broadened IV ABX coverage due to concern for sepsis Plan discussed with: Other Dietary Evaluation Review Comments: 1) Initiate Pro-Stat @ 30 mL qd 2) Initiate Migel @ 1 pk bid 3) Initiate MVI @ 1 tb qd 4) Continue to encourage optial PO intake 5) Refer to outpatient RD/[facility] for weight management 6) Continue to monitor I&O, labs, and skin integrity Expected Outcomes/Goals: 1) appetite and labs to improve 2) wounds to improve 3) f/u in 3-5 days FLOR MOMIN MD Jan 25, 2025 11:51
[2025-01-25 12:15] LABS: Base Excess 2.3 mmol/L (-2.0-3.0)
--- NOTE | 2025-01-25 16:45 | DVHPN2 ---
Progress Note - Dictate Date Seen: Jan 25, 2025 Medical Necessity Reason Pt with a Central, PICC or Fol: Yes The following are medically ne: PICC Line, Valenzuela Catheter Reason for valenzuela catheter: Strict I&O vital signs Vital Sign Date Time Temp Pulse Resp B/P (MAP) Pulse Ox O2 Delivery O2 Flow Rate FiO2 01/25/25 16:12 127 24 125/83 (97) 100 30 01/25/25 16:00 Mechanical Ventilator+ 01/25/25 16:00 98.8 209.8 Total Intake and Output 01/24/25 01/24/25 01/25/25 15:00 23:00 07:00 Intake Total 160 ml 304 ml 428 ml Output Total 1500 ml 1500 ml Balance 160 ml -1196 ml -1072 ml medications Current Medications Medications Dose Ordered Sig/Fatoumata Route Start Time Stop Time Status Last Admin Dose Admin Nitroglycerin 0.4 mg Q5MINP PRN SL 01/08/25 21:45 Morphine Sulfate 2 mg Q30M PRN IV 01/08/25 21:45 Cancel Pantoprazole Sodium 40 mg DAILY IV 01/13/25 10:00 01/25/25 09:53 40 MG Diagnostic Test (Pha) 1 strip Q6HR 01/14/25 18:00 01/25/25 13:13 1 STRIP Insulin Human Regular Q6HR SC 01/14/25 18:00 01/24/25 12:38 2 UNITS Dextrose 50 ml UD PRN IV 01/14/25 16:00 Enteral Nutritional Formula 1,000 ml 30ML/HR GT 01/15/25 11:45 01/23/25 08:42 1,000 ML Sodium Chloride 10 ml QSHIFT@10,22 IV 01/15/25 22:00 01/25/25 09:53 10 ML Meropenem 50 ml @ 17 mls/hr DAILY IV 01/18/25 10:00 01/25/25 09:53 17 MLS/HR Metolazone 15 mg DAILY PO 01/19/25 13:00 01/25/25 10:44 15 MG Epoetin Ovidio-epbx 10,000 unit MWF SC 01/19/25 13:00 Cancel Epoetin Ovidio-epbx 10,000 unit MWF@2100 SC 01/19/25 21:00 01/21/25 21:07 10,000 UNIT Albumin Human 100 ml @ 100 mls/hr ONCE PRN IV 01/20/25 11:00 01/20/25 11:17 100 MLS/HR Vancomycin HCl 0 ml @ 0 mls/hr UD IV 01/21/25 17:00 Fluconazole 100 ml @ 100 mls/hr DAILY@0900 IV 01/22/25 09:00 01/25/25 08:56 100 MLS/HR Bumetanide 25 mg/ Miscellaneous 100 ml @ 1 mls/hr Q24H IV 01/24/25 07:15 01/25/25 11:50 1 MLS/HR Heparin Sodium (Porcine) 5,000 units Q12HR SC 01/24/25 22:00 01/25/25 10:02 5,000 UNITS Metoprolol Succinate 25 mg DAILY PO 01/26/25 10:00 laboratory and microbiology Laboratory Tests 01/25/25 03:57 Test 01/25/25 03:57 Range/Units Serum Glucose 114 H 74-106 mg/dL Assessment/Plan Impression Acute hypoxemic respiratory failure S/p cardiac arrest S/p tracheostomy Morbid obesity Anemia SUSAN Patient seen and examined in ICU Events On mechanical ventilation S/p tracheostomy PEEP 5, FiO2 30% Secretions reported Labs and imaging reviewed ABG reviewed Management Vent support Titrate to maintain sats 90% or above Trache care per RT protocols Continue antibiotics and antifungals F/u cultures and ID Bronchodilators Monitor renal function HD as per nephrology Management deferred Monitor electrolytes Supplement as needed Awaiting LTACH placement DVT prophylaxis Critical care time 35 minutes Dietary Evaluation Review Comments: 1) Initiate Pro-Stat @ 30 mL qd 2) Initiate Migel @ 1 pk bid 3) Initiate MVI @ 1 tb qd 4) Continue to encourage optial PO intake 5) Refer to outpatient RD/[facility] for weight management 6) Continue to monitor I&O, labs, and skin integrity Expected Outcomes/Goals: 1) appetite and labs to improve 2) wounds to improve 3) f/u in 3-5 days Plan discussed with: Other (Rn) ARJUN TENORIO MD Jan 25, 2025 16:45
[2025-01-26] VITALS (67 sets, daily range): BP systolic 114–143; BP diastolic 67–95; PULSE 126–131; RESP 15–26; TEMP 98.4–99.9; O2SAT 90–100
[2025-01-26 04:18] LABS: Basophils # (auto) 0.1 10 ^3/uL (0-0.2); Basophils % (auto) 0.9 % (0.0-2.0); Eosinophils # (auto) 0.3 10 ^3/uL (0-0.8); Eosinophils % (auto) 1.8 % (0.0-7.0); Hematocrit 28.4 % (41.0-53.0); Hemoglobin 9.2 g/dL (13.5-17.5); Lymphocytes # (auto) 1.6 10 ^3/uL (0.4-5.4); Mean Corpuscular Hemoglobin 27.4 pg (28.0-32.0); Mean Corpuscular Hgb Conc. 32.4 g/dL (32.0-36.0); Mean Corpuscular Volume 84.4 fL (80.0-100.0); Monocytes # (auto) 1.5 10 ^3/uL (0-1.3); Monocytes % (auto) 8.7 % (0.0-12.0); Neutrophils # (auto) 13.9 10 ^3/uL (1.6-8.6); Neutrophils % (auto) 79.6 % (37.0-80.0); Nucleated Red Blood Cells % 0.1 %; Platelet Count (auto) 313 10^3/uL (140-450); Red Blood Cells 3.36 10^6/uL (4.5-5.90); Red Cell Distribution Width 20.6 % (11.8-14.3); White Blood Cell 17.5 10^3/uL (4.4-10.8)
[2025-01-26 04:28] LABS: Anion Gap 14 (5-15); Carbon Dioxide 30 mmol/L (20-31); Potassium 4.2 mmol/L (3.5-5.1); Sodium 141 mmol/L (136-145)
[2025-01-26 04:29] LABS: Calcium 8.9 mg/dL (8.7-10.4)
[2025-01-26 04:35] LABS: BUN/Creatinine Ratio 11.4 (10.0-20.0)
[2025-01-26 04:44] LABS: Chloride 97 mmol/L (98-107); Glucose 119 mg/dL (74-106)
[2025-01-26 04:45] LABS: Magnesium 2.9 mg/dL (1.6-2.6); Phosphorus 8.2 mg/dL (2.4-5.1)
--- NOTE | 2025-01-26 04:45 | DVH ---
CHEST RADIOGRAPH Indication: resp failure Technique: Single frontal view of the chest was obtained COMPARISON: XY CHEST PORTABLE on DOS: 01/25/25, XY CHEST XRAY 1 VIEW on DOS: 01/24/25, XY CHEST PORTABL E on DOS: 01/23/25, XY CHEST XRAY 1 VIEW on DOS: 01/22/25, XY CHEST PORTABLE on DOS: 01/22/25 FINDINGS: Lines and Tubes: Tracheostomy and enteric catheter, left and right central venous catheter is in sati sfactory position Lungs: Marrow edema Pleura: No effusion. No pneumothorax. Cardiomediastinal contours: Cardiomegaly Bones: Unremarkable IMPRESSION: Lines and tubes in satisfactory position. No significant interval change.
[2025-01-26 04:46] LABS: Blood Urea Nitrogen 93 mg/dL (9-23)
[2025-01-26] MEDS ORDERED: SODIUM CHL 0.9% 1000 ML BAG XX ONE (07:00)
--- NOTE | 2025-01-26 09:44 | DVHPN2 ---
Progress Note - Dictate Date Seen: Jan 26, 2025 Medical Necessity Reason Pt with a Central, PICC or Fol: Yes The following are medically ne: PICC Line, Valenzuela Catheter Reason for valenzuela catheter: Strict I&O Subjective Mr. Noyola is a 64 years old gentleman with a history of hypertension, diabetes, obesity, asthma, gout, the patient was came to the [facility] on 01/08/2025 with a chief company of general weakness, and he coded the same day, 01/08/2025 [id number]. He was resuscitated and has been intubated, I have seen and examined the patient, discussed with his nurse. He has been his eyes sometimes, he is nonresponsive to verbal stimuli He moves the legs sometimes, more on the right side He is status post tracheostomy (01/22/2025) He has been off sedation since 01/14/2025 7:30 a.m. Urinalysis, 01/12/25: UTI WBC/HB/PLT/MCV, 01/13/2025: 11.3/12.6/162/81.6 PT/INR/PTT, 01/12/2025: 44.8/3.74/37.9, 01/13/2025: 29.8/3.15/38.1 BUN/CR, 01/08/2025: 16/1.08, 01/11/2025: 31/2.42, 01/13/2025: 39/3.12, 01/20/2025: 41/5.42 TBI/AST/ALT/AP, 01/08/2025: 1/17/19/133, : 1.9/> 6000/4946/195 01/20/2025, 3.2/78/271/143 HGB A1c, 01/09/25: 6.4 TG/HDL/LDL/HDL, 01/10/25: 66/100/71/21 EEG, 01/14/2025: Remarkably abnormal EEG Extremity venous study, 01/09/2025: No right or left femoropopliteal venous thrombosis. Chest x-ray, 01/13/2025: Cardiomegaly with mild congestion. CT head, 01/13/2025: No evidence of acute intracranial abnormality. CT head, 01/19/2025: No acute intracranial abnormality vital signs Vital Sign Date Time Temp Pulse Resp B/P (MAP) Pulse Ox O2 Delivery O2 Flow Rate FiO2 01/26/25 08:37 130 18 120/67 (84) 100 30 01/26/25 08:00 99.0 210.2 01/26/25 06:00 Mechanical Ventilator+ Total Intake and Output 01/25/25 01/25/25 01/26/25 15:00 23:00 07:00 Intake Total 176 ml 376 ml 488 ml Output Total 1650 ml 1800 ml Balance 176 ml -1274 ml -1312 ml medications Current Medications Medications Dose Ordered Sig/Fatoumata Route Start Time Stop Time Status Last Admin Dose Admin Nitroglycerin 0.4 mg Q5MINP PRN SL 01/08/25 21:45 Morphine Sulfate 2 mg Q30M PRN IV 01/08/25 21:45 Cancel Pantoprazole Sodium 40 mg DAILY IV 01/13/25 10:00 01/25/25 09:53 40 MG Diagnostic Test (Pha) 1 strip Q6HR 01/14/25 18:00 01/26/25 06:06 1 STRIP Insulin Human Regular Q6HR SC 01/14/25 18:00 01/26/25 06:07 2 UNITS Dextrose 50 ml UD PRN IV 01/14/25 16:00 Enteral Nutritional Formula 1,000 ml 30ML/HR GT 01/15/25 11:45 01/23/25 08:42 1,000 ML Sodium Chloride 10 ml QSHIFT@10,22 IV 01/15/25 22:00 01/25/25 22:00 10 ML Meropenem 50 ml @ 17 mls/hr DAILY IV 01/18/25 10:00 01/25/25 09:53 17 MLS/HR Metolazone 15 mg DAILY PO 01/19/25 13:00 01/25/25 10:44 15 MG Epoetin Ovidio-epbx 10,000 unit MWF SC 01/19/25 13:00 Cancel Epoetin Ovidio-epbx 10,000 unit MWF@2100 SC 01/19/25 21:00 01/21/25 21:07 10,000 UNIT Albumin Human 100 ml @ 100 mls/hr ONCE PRN IV 01/20/25 11:00 01/20/25 11:17 100 MLS/HR Vancomycin HCl 0 ml @ 0 mls/hr UD IV 01/21/25 17:00 Fluconazole 100 ml @ 100 mls/hr DAILY@0900 IV 01/22/25 09:00 01/25/25 08:56 100 MLS/HR Bumetanide 25 mg/ Miscellaneous 100 ml @ 1 mls/hr Q24H IV 01/24/25 07:15 01/25/25 11:50 1 MLS/HR Heparin Sodium (Porcine) 5,000 units Q12HR SC 01/24/25 22:00 01/25/25 22:36 5,000 UNITS Metoprolol Succinate 25 mg DAILY PO 01/26/25 10:00 objective The patient is well-nourished and well-developed with no distress. The patient is intubated Edema in the lower extremities and torso MENTAL STATUS: Subjective CRANIAL NERVES: Pupils are equal, round and reactive.There are corneal reflexes and doll's eyes phenomenon. No signs of facial weakness. There are gagging or coughing reflexes SENSATION: Responsive to pain MOTOR: Normal tone in the upper and lower extremity. Normal muscle bulk. No fasciculations. Subjective REFLEXES: Deep tendon reflexes are symmetrical. No pathological reflexes. CEREBELLAR/COORDINATION: Deferred laboratory and microbiology Laboratory Tests 01/26/25 03:47 Test 01/26/25 03:47 Range/Units Serum Glucose 119 H 74-106 mg/dL Problem List Altered mental status/coma Hypoxic encephalopathy Metabolic encephalopathy Cardiopulmonary arrest Respiratory failure, status post tracheostomy Urinary tract infection ? Sepsis, Shock Cardiologic general? Septic shock Kidney failure Shocked liver Morbid obesity Diffuse edema Coagulopathy, Chronic wound in the skin Hemorrhage Permanent vegetative status Assessment/Plan Monitoring Supportive treatment MRI head (he was too wide to fit into the MRI machine) ICU care Follow-up lab On targeted temperature management Respiratory support/vent management Stabilize vitals/pressor drip Oxygen IV antibiotics Wound Care Pulmonology on case Nephrology on case He needs feeding tube insertion More recommendation per clinical course This medical document was created using an electronic medical record system with [employer] dictation system. Although this document has been carefully reviewed, there may still be some phonetic and typographical errors. These areas are purely typographical due to imperfections of the software programs, and do not reflect any compromise in the patient's medical care. Prognosis poor, guarded Dietary Evaluation Review Comments: 1) Initiate Pro-Stat @ 30 mL qd 2) Initiate Migel @ 1 pk bid 3) Initiate MVI @ 1 tb qd 4) Continue to encourage optial PO intake 5) Refer to outpatient RD/[facility] for weight management 6) Continue to monitor I&O, labs, and skin integrity Expected Outcomes/Goals: 1) appetite and labs to improve 2) wounds to improve 3) f/u in 3-5 days Plan discussed with: Other SANTANA NAVARRO MD Jan 26, 2025 09:44
[2025-01-26] MEDS: METOPROLOL SUCCINATE XL 50 MG TAB PO SCH (10:39)
--- NOTE | 2025-01-26 13:17 | DVHPN2 ---
Progress Note Date Seen: Jan 26, 2025 Medical Necessity Reason Pt with a Central, PICC or Fol: Yes The following are medically ne: PICC Line, Valenzuela Catheter Reason for valenzuela catheter: Strict I&O Subjective Patient reports: No new complaints Review of Systems: HEENT:Normal, CVS:Normal, RESPIRATORY:Normal, GI:Normal, :Normal, MSK:Normal, NEURO:Normal Objective vital signs Vital Sign Date Time Temp Pulse Resp B/P (MAP) Pulse Ox O2 Delivery O2 Flow Rate FiO2 01/26/25 12:47 128 20 125/81 (96) 97 30 01/26/25 12:00 99.9 211.8 01/26/25 10:00 Mechanical Ventilator+ Total Intake and Output 01/25/25 01/25/25 01/26/25 15:00 23:00 07:00 Intake Total 176 ml 376 ml 488 ml Output Total 1650 ml 1800 ml Balance 176 ml -1274 ml -1312 ml medications Current Medications Medications Dose Ordered Sig/Fatoumata Route Start Time Stop Time Status Last Admin Dose Admin Nitroglycerin 0.4 mg Q5MINP PRN SL 01/08/25 21:45 Morphine Sulfate 2 mg Q30M PRN IV 01/08/25 21:45 Cancel Pantoprazole Sodium 40 mg DAILY IV 01/13/25 10:00 01/26/25 10:39 40 MG Diagnostic Test (Pha) 1 strip Q6HR 01/14/25 18:00 01/26/25 11:50 1 STRIP Insulin Human Regular Q6HR SC 01/14/25 18:00 01/26/25 06:07 2 UNITS Dextrose 50 ml UD PRN IV 01/14/25 16:00 Enteral Nutritional Formula 1,000 ml 30ML/HR GT 01/15/25 11:45 01/23/25 08:42 1,000 ML Sodium Chloride 10 ml QSHIFT@10,22 IV 01/15/25 22:00 01/26/25 10:00 10 ML Meropenem 50 ml @ 17 mls/hr DAILY IV 01/18/25 10:00 01/26/25 10:00 17 MLS/HR Metolazone 15 mg DAILY PO 01/19/25 13:00 01/26/25 10:47 15 MG Epoetin Ovidio-epbx 10,000 unit MWF SC 01/19/25 13:00 Cancel Epoetin Ovidio-epbx 10,000 unit MWF@2100 [place] 01/19/25 21:00 01/21/25 21:07 10,000 UNIT Albumin Human 100 ml @ 100 mls/hr ONCE PRN IV 01/20/25 11:00 01/20/25 11:17 100 MLS/HR Vancomycin HCl 0 ml @ 0 mls/hr UD IV 01/21/25 17:00 Fluconazole 100 ml @ 100 mls/hr DAILY@0900 IV 01/22/25 09:00 01/26/25 10:38 100 MLS/HR Bumetanide 25 mg/ Miscellaneous 100 ml @ 1 mls/hr Q24H IV 01/24/25 07:15 01/25/25 11:50 1 MLS/HR Heparin Sodium (Porcine) 5,000 units Q12HR SC 01/24/25 22:00 01/26/25 10:47 5,000 UNITS Metoprolol Succinate 25 mg DAILY PO 01/26/25 10:00 01/26/25 10:39 25 MG Examination: GENERAL:Normal, HEENT:Normal, NECK:Normal, LUNGS:Normal, LUNGS:Abnormal (TRACH, VENT), CVS:Normal, ABDOMEN:Normal, MSK:Normal, SKIN:Normal, NEURO:Normal, NEURO:Abnormal (OPENS EYES), :Normal laboratory and microbiology Laboratory Tests 01/26/25 03:47 Test 01/26/25 03:47 Range/Units Serum Glucose 119 H 74-106 mg/dL Microbiology Date/Time Source Procedure Growth Status 01/11/25 07:40 Nose MRSA Screen - Final Complete 01/11/25 07:40 Urine - Valenzuela Port Urine Culture - Final Complete 01/11/25 06:23 Sputum Gram Stain - Final Complete 01/11/25 06:23 Respiratory Culture - Final Presumptive Tg albicans Complete 01/08/25 17:16 Blood Blood Culture - Final NO GROWTH AFTER 5 DAYS OF INCUBATION. Complete Problem List/Assessment/Plan Problem List/Assessment/Plan #1 acute resp failure: cont acv, peep 5, s/p trach #2 s/p cpr: on targeted temp management #3 acute systolic heart failure: cont meds #4 morbid obesity #5 shock ? cardiac ?septic: iv antibiotics, off iv pressors #6 dm: ssi #7 coagulopathy #8 acute renal failure/atn: iv bumex drip, metolazone #9 left leg wound/pseud: on meropenem, add vanc #10 shock liver/acute liver failure: monitor #11 gout #12 ?hypoxic encephalopathy: neuro eval, ct head long meeting with niece/nephew - reviewed labs and treatment plan. also discussed code status. they will dw rest of family gave report to Dr Ramires at [place] Plan discussed with: Other (rn) My Orders My Orders Orders - MAAME MARTÍNEZ MD Procedure Category Date Status Time Complete Blood Count LAB 01/27/25 Verified 06:00 Comprehensive LAB 01/27/25 Verified Metabolic Panel 06:00 Dietary Evaluation Review Comments: 1) Initiate Pro-Stat @ 30 mL qd 2) Initiate Migel @ 1 pk bid 3) Initiate MVI @ 1 tb qd 4) Continue to encourage optial PO intake 5) Refer to outpatient RD/[facility] for weight management 6) Continue to monitor I&O, labs, and skin integrity Expected Outcomes/Goals: 1) appetite and labs to improve 2) wounds to improve 3) f/u in 3-5 days Critical Care Time (mins): 81 (critical care time spent including reviwiewing data and giving report to dr Ramires was 81 mins) Date of Service: Jan 26, 2025 Billing Provider: MAAME MARTÍNEZ MD Common Visit Codes: 32073-ANJSJDAL CARE 30-74 MIN, 93482-[id number] CARE-EACH +30MIN MAAME MARTÍNEZ MD Jan 26, 2025 13:16
--- NOTE | 2025-01-26 19:01 | DVHPN2 ---
Progress Note Date Seen: Jan 26, 2025 Medical Necessity Reason Pt with a Central, PICC or Fol: Yes The following are medically ne: PICC Line, Valenzuela Catheter Reason for valenzuela catheter: Strict I&O Subjective Patient reports: Other Review of Systems: Deferred Objective vital signs Vital Sign Date Time Temp Pulse Resp B/P (MAP) Pulse Ox O2 Delivery O2 Flow Rate FiO2 01/26/25 14:30 130 16 114/71 (85) 98 01/26/25 14:29 30 01/26/25 14:02 99.0 01/26/25 14:00 Mechanical Ventilator+ Total Intake and Output 01/25/25 01/25/25 01/26/25 14:59 22:59 06:59 Intake Total 176 ml 376 ml 488 ml Output Total 1650 ml 1800 ml Balance 176 ml -1274 ml -1312 ml medications Current Medications Medications Dose Ordered Sig/Fatoumata Route Start Time Stop Time Status Last Admin Dose Admin Morphine Sulfate 2 mg Q30M PRN IV 01/08/25 21:45 Cancel Epoetin Ovidio-epbx 10,000 unit MWF RI 01/19/25 13:00 Cancel Examination: GENERAL:Abnormal, MSK:Abnormal, NEURO:Abnormal laboratory and microbiology Laboratory Tests 01/26/25 03:47 Test 01/26/25 03:47 Range/Units Serum Glucose 119 H 74-106 mg/dL Microbiology Date/Time Source Procedure Growth Status 01/11/25 07:40 Nose MRSA Screen - Final Complete 01/11/25 07:40 Urine - Valenzuela Port Urine Culture - Final Complete 01/11/25 06:23 Sputum Gram Stain - Final Complete 01/11/25 06:23 Respiratory Culture - Final Presumptive Tg albicans Complete 01/08/25 17:16 Blood Blood Culture - Final NO GROWTH AFTER 5 DAYS OF INCUBATION. Complete Problem List/Assessment/Plan Problem List/Assessment/Plan Acute kidney injury hemodynamically mediated in the setting of cardiac arrest -> ATN on HD No previous history of CKD Severe systolic heart failure, with acute decompensation Cardiac arrest Acute respiratory failure --> s/p trach Anasarca Anemia due to chronic kidney disease tachycardia Recommendations Hemodialysis ordered for today Bumex drip Plan discussed with: Other Dietary Evaluation Review Comments: 1) Initiate Pro-Stat @ 30 mL qd 2) Initiate Migel @ 1 pk bid 3) Initiate MVI @ 1 tb qd 4) Continue to encourage optial PO intake 5) Refer to outpatient RD/[facility] for weight management 6) Continue to monitor I&O, labs, and skin integrity Expected Outcomes/Goals: 1) appetite and labs to improve 2) wounds to improve 3) f/u in 3-5 days MARTHA LUJAN MD Jan 26, 2025 19:01
== END 2025-01-26 15:00 | DRG 4 ==
LOC: ER 15:58 → EDBD 15:58 → OVERFLOW 21:32 → TELE-EAST 01-09 03:24 → ICU WEST 01-11 06:14
PROVIDERS: ADMIT Internal Medicine; ATTEND Internal Medicine
PROC: 5A1955Z Respiratory Ventilation, Greater than 96 Consecutive Hours (ICD-10-PCS; principal; 2025-01-11)
PROC: 5A12012 Performance of Cardiac Output, Single, Manual (ICD-10-PCS; 2025-01-11)
PROC: 0BH18EZ Insertion of Endotracheal Airway into Trachea, Via Natural or Artificial Opening Endoscopic (ICD-10-PCS; 2025-01-11)
PROC: 06HY33Z Insertion of Infusion Device into Lower Vein, Percutaneous Approach (ICD-10-PCS; 2025-01-11)
PROC: B54MZZA Ultrasonography of Right Upper Extremity Veins, Guidance (ICD-10-PCS; 2025-01-11)
PROC: 03HY32Z Insertion of Monitoring Device into Upper Artery, Percutaneous Approach (ICD-10-PCS; 2025-01-11)
PROC: 06HY33Z Insertion of Infusion Device into Lower Vein, Percutaneous Approach (ICD-10-PCS; 2025-01-11)
PROC: 02HV33Z Insertion of Infusion Device into Superior Vena Cava, Percutaneous Approach (ICD-10-PCS; 2025-01-15)
PROC: B548ZZA Ultrasonography of Superior Vena Cava, Guidance (ICD-10-PCS; 2025-01-15)
PROC: 30233N1 Transfusion of Nonautologous Red Blood Cells into Peripheral Vein, Percutaneous Approach (ICD-10-PCS; 2025-01-16)
PROC: 02HV33Z Insertion of Infusion Device into Superior Vena Cava, Percutaneous Approach (ICD-10-PCS; 2025-01-16)
PROC: B548ZZA Ultrasonography of Superior Vena Cava, Guidance (ICD-10-PCS; 2025-01-16)
PROC: 5A1D70Z Performance of Urinary Filtration, Intermittent, Less than 6 Hours Per Day (ICD-10-PCS; 2025-01-16)
PROC: 5A1D70Z Performance of Urinary Filtration, Intermittent, Less than 6 Hours Per Day (ICD-10-PCS; 2025-01-17)
PROC: 5A1D70Z Performance of Urinary Filtration, Intermittent, Less than 6 Hours Per Day (ICD-10-PCS; 2025-01-19)
PROC: 5A1D70Z Performance of Urinary Filtration, Intermittent, Less than 6 Hours Per Day (ICD-10-PCS; 2025-01-20)
PROC: 5A1D70Z Performance of Urinary Filtration, Intermittent, Less than 6 Hours Per Day (ICD-10-PCS; 2025-01-22)
PROC: 0B110F4 Bypass Trachea to Cutaneous with Tracheostomy Device, Open Approach (ICD-10-PCS; 2025-01-23)
DX: A41.9 Sepsis, unspecified organism (principal); I46.9 Cardiac arrest, cause unspecified; I50.23 Acute on chronic systolic (congestive) heart failure; J18.9 Pneumonia, unspecified organism; J96.01 Acute respiratory failure with hypoxia; R65.21 Severe sepsis with septic shock; N17.0 Acute kidney failure with tubular necrosis; K72.00 Acute and subacute hepatic failure without coma; G92.8 Other toxic encephalopathy; R57.0 Cardiogenic shock; J44.0 Chronic obstructive pulmonary disease with (acute) lower respiratory infection; N39.0 Urinary tract infection, site not specified; I48.92 Unspecified atrial flutter; I42.9 Cardiomyopathy, unspecified; Z68.43 Body mass index [BMI] 50.0-59.9, adult; L03.116 Cellulitis of left lower limb; G93.1 Anoxic brain damage, not elsewhere classified; E87.4 Mixed disorder of acid-base balance; D68.9 Coagulation defect, unspecified; Z99.11 Dependence on respirator [ventilator] status; D62 Acute posthemorrhagic anemia; E87.1 Hypo-osmolality and hyponatremia; I13.0 Hypertensive heart and chronic kidney disease with heart failure and stage 1 through stage 4 chronic kidney disease, or unspecified chronic kidney disease; Z20.822 Contact with and (suspected) exposure to COVID-19; E11.65 Type 2 diabetes mellitus with hyperglycemia; E66.01 Morbid (severe) obesity due to excess calories; E87.5 Hyperkalemia; I08.1 Rheumatic disorders of both mitral and tricuspid valves; D69.6 Thrombocytopenia, unspecified; I48.91 Unspecified atrial fibrillation; K44.9 Diaphragmatic hernia without obstruction or gangrene; K80.20 Calculus of gallbladder without cholecystitis without obstruction; N18.9 Chronic kidney disease, unspecified; E11.22 Type 2 diabetes mellitus with diabetic chronic kidney disease; B96.5 Pseudomonas (aeruginosa) (mallei) (pseudomallei) as the cause of diseases classified elsewhere; B95.61 Methicillin susceptible Staphylococcus aureus infection as the cause of diseases classified elsewhere; N40.0 Benign prostatic hyperplasia without lower urinary tract symptoms; M10.9 Gout, unspecified; Z82.49 Family history of ischemic heart disease and other diseases of the circulatory system; Z86.16 Personal history of COVID-19
CPT/HCPCS: 31500; 36415; 36556; 36569; 36600; 36620; 70450; 71045; 74176; 76937; 80048; 80053; 80061; 80074; 80202; 81001; 82140; 82306; 82570; 82728; 82805; 82962; 83036; 83540; 83550; 83605; 83735; 83880; 83970; 84100; 84153; 84156; 84300; 84443; 84484; 85007; 85014; 85018; 85025; 85027; 85610; 85730; 86803; 86850; 86900; 86901; 86920; 87040; 87070; 87077; 87081; 87086; 87186; 87205; 87340; 87426; 87804; 90935; 92950; 93005; 93306; 93926; 93970; 94002; 94003; 95819; 96365; 96375; G0378; J1450; J1642; J1815; J2185; J2405; J2470; J2543; J2704; J3430; J3480; P9047